=== PATIENT | male | born 1945 | race Caucasian/White ===

== ENCOUNTER 2018-07-13 08:36 | Emergency (ER) | payer MEDICARE, OTHER ==
[~2018-07-13] VITALS: Ht 180.3 cm; Wt 65.9 kg
[~2018-07-13 08:36] MED LIST: ASPI-1 PO; CO Q100C10 PO; CORE6.25 PO; VITA10006 PO; VITA500046 PO; VITATAB11 PO; ZOCO40TA PO
[2018-07-13] MEDS ORDERED: ACET-683 PO (08:49)
[2018-07-13 09:17] LABS: BASO # 0.1 10^3/uL (0.0-0.2); BASO % 0.8 % (0.0-1.0); EOS # 0.2 10^3/uL (0.0-0.50); EOS % 2.7 % (0.0-3.0); HEMATOCRIT 42.7 % (42.0-52.0); HEMOGLOBIN 14.6 g/dl (13.5-17.5); LYMPH # 1.4 10^3/uL (1.5-4.5); LYMPH % 22.3 % (24.0-44.0); MEAN CORPUSCULAR HEMOGLOBIN 34.9 pg (27.0-33.0); MEAN CORPUSCULAR HGB CONC 34.2 g/dl (32.0-36.5); MEAN CORPUSCULAR VOLUME 102.2 fl (80.0-96.0); MONO # 0.6 10^3/uL (0.0-0.8); MONO % 9.9 % (0.0-5.0); NEUTROPHILS % 63.8 % (36.0-66.0); PLATELET COUNT, AUTOMATED 207 10^3/uL (150-450); RED BLOOD COUNT 4.18 10^6/uL (4.30-6.10); WHITE BLOOD COUNT 6.3 10^3/uL (4.0-10.0)
[2018-07-13 09:35] LABS: BLOOD UREA NITROGEN 19 MG/DL (7-18); CALCIUM LEVEL 8.8 MG/DL (8.8-10.2); CARBON DIOXIDE LEVEL 28 MEQ/L (21-32); CHLORIDE LEVEL 106 MEQ/L (98-107); CPK CREATINE PHOSPHOKINASE 175 U/L (39-308); CREATININE FOR GFR 1.03 MG/DL (0.70-1.30); GLOMERULAR FILTRATION RATE > 60.0 (>42); GLUCOSE, FASTING 70 MG/DL (70-100); MB/CK RELATIVE INDEX 2.28 (< OR =4); POTASSIUM SERUM 3.8 MEQ/L (3.5-5.1); SODIUM LEVEL 140 MEQ/L (136-145); TROPONIN I < 0.02 NG/ML (< 0.10)
--- NOTE | 2018-07-13 10:16 | REP ---
REASON: Chest pain. COMPARISON: None. The technique utilized in obtaining the radiograph has magnified the cardiac silhouette and accentuated the interstitial markings. There is a subtle but diffuse increase in the interstitial markings throughout the lung velazquez. There is left CP angle blunting with a subtle left lower lobe opacity. The heart is not enlarged. The osseous structures are within normal limits. IMPRESSION: Mild interstitial edema suspected but needs to be correlated clinically since I have no priors for comparison. There is a small left pleural effusion and a possible developing left lower lobe pneumonia. Electronically Signed by Joesph Joshua DO 07/13/2018 01:50 P
--- NOTE | 2018-07-13 10:51 | REP ---
REASON: Neck pain and radicular symptoms. PRIORS: None. There is advanced disc space narrowing C3-4 through C6-7 with heavy anterior and posterior osteophytic ridging. Flexion and extension is limited. There is bilateral foraminal narrowing from C3-4 to C6-7 inclusive. Hypertrophic degenerative facet and uncovertebral joints are present at every level bilaterally. The dens cannot be effectively evaluated secondary to the superimposition of osseous structures and/or dentition on all views. Although this plain radiographic evaluation of the cervical spine shows no evidence of a fracture, it should be remembered that CT is much more sensitive than plain radiography of the C-spine in detecting fractures. If this examination was ordered to rule out a fracture, then CT of the cervical spine is recommended. IMPRESSION: Advanced chronic changes as described above. Electronically Signed by Joesph Joshua DO 07/13/2018 01:52 P
[2018-07-13] MEDS ORDERED: NAPR-837 PO (13:23)
[2018-07-13 13:30] VITALS: BP 144/76
--- NOTE | 2018-07-13 20:58 | ECGEPIP ---
Stationary ECG Study [facility] - ED Test Date: 2018-07-13 Pat Name: ALMA RICE Department: Room: - Gender: M [employer] Vertical: GINO : 1945 Requested By: Mt Guerra Order Number: [id number] Reading MD: Margareth Madrid Measurements Intervals Cable Rate: 72 P: 59 MI: 152 QRS: 11 QRSD: 102 T: -20 QT: 399 QTc: 437 Interpretive Statements SINUS RHYTHM WITH OCCASIONAL VENTRICULAR PREMATURE COMPLEXES INFERIOR MYOCARDIAL INFARCTION, OF INDETERMINATE AGE INCREASED RATE 8:37 07/11/12 Electronically Signed On 07-13-2018 20:58:42 EDT by Margareth Madrid
--- NOTE | 2018-07-14 07:23 | REP ---
REASON: Back pain and radicular symptoms. COMPARISON MRI: None. The craniovertebral junction is within normal limits. No abnormal signal is seen in the imaged portion of the spinal cord. There is significant disc space narrowing seen at every level, but particularly, universally C3-4 through C6-7 inclusive. There is patchy T2 hypersignal seen in the marrow of C5 and C6. The facet joints are well aligned bilaterally. At the C2-3 level, there is significant motion artifact obscuring the detail. There is no evidence of disc herniation, foraminal narrowing or yoli central canal stenosis. At C3-4, hypertrophic facet and uncovertebral joint changes are present bilaterally causing moderate to severe bilateral foraminal narrowing and moderate central canal stenosis. The anterior surface of the spinal cord is flattened and straightened by a posterior spondylotic bar. There is no evidence of an acute disc extrusion. A covered disc cannot be ruled out. At C4-5, hypertrophic degenerative facet and uncovertebral joint changes are seen bilaterally and causing moderate to severe bilateral foraminal narrowing. Motion artifact obscures the fine detail. There is a posterior spondylotic bar, which obliterates the ventral subarachnoid space and causes a flattening and straightening of the anterior surface of the spinal cord. There is moderate to severe central canal stenosis. There is no evidence of an acute disc extrusion, however, a covered disc cannot be ruled out. At C5-6, there is a posterior spondylotic bar, which obliterates the ventral subarachnoid space and causes a flattening and straightening of the anterior surface of the spinal cord. Hypertrophic degenerative facet and uncovertebral joint changes are present bilaterally causing severe bilateral foraminal narrowing. There is no evidence of an acute disc extrusion, however, a covered disc cannot be ruled out. At C6-7, there is a posterior spondylotic bar. Hypertrophic degenerative facet and uncovertebral joint changes are present bilaterally causing moderate to severe bilateral foraminal narrowing. The ventral subarachnoid space is restricted by the posterior spondylosis but there is no yoli cord compression. There is no evidence of an acute disc extrusion, however, a covered disc cannot be ruled out. At the C7-T1 level, there is no cord compression or disc extrusion. IMPRESSION: 1. Exam limitations as described above. 2. Multilevel discogenic changes causing foraminal narrowing and central canal stenosis as described above. Electronically Signed by Joesph Joshua DO 07/14/2018 01:59 P
--- NOTE | 2018-07-15 14:14 | ED PDOC ---
Post-Departure Follow-Up alaina mckeon faxed formal report of mri c spine for fu Patria Cunningham MD Jul 15, 2018 14:14
== END 2018-07-13 13:43 | disposition home or self-care (01) ==
LOC: M ED 08:36
DX: M54.12 Radiculopathy, cervical region (principal); M48.00 Spinal stenosis, site unspecified; I25.10 Atherosclerotic heart disease of native coronary artery without angina pectoris; I25.2 Old myocardial infarction; E78.5 Hyperlipidemia, unspecified; J44.9 Chronic obstructive pulmonary disease, unspecified; Z95.5 Presence of coronary angioplasty implant and graft; Z85.038 Personal history of other malignant neoplasm of large intestine; Z72.0 Tobacco use; Z79.899 Other long term (current) drug therapy

== ENCOUNTER 2018-08-26 07:22 | Day surgery (SDC) | payer MEDICARE, OTHER ==
[~2018-08-26] VITALS: Ht 177.8 cm; Wt 64.3 kg
[~2018-08-26 07:22] MED LIST changes: +ACET-683 PO; +NAPR-837 PO; +NS 1,000 ML IV ONE; +PROPOFOL 200 MG/20 ML VIAL As Ordered ONE; +VITA-176 PO; +VITA500T PO; +VITATAB73 PO
[2018-08-26 10:00] VITALS: BP 126/75
--- NOTE | 2018-08-26 10:21 | ROOR ---
Patient Name: Herson Kilgore Procedure Date: 08/26/2018 8:50 AM Date of : 1945 Age: 73 Room: [facility] Gender: Male Note Status: Finalized Procedure: Colonoscopy Indications: High risk colon cancer surveillance: Personal history of colon cancer, Last colonoscopy: February 2016, Patient had a right hemicolectomy in 2014 Providers: Herson Dale MD Referring MD: JOE Alford Requesting Provider: Medicines: Monitored Anesthesia Care Complications: No immediate complications. Procedure: Pre-Anesthesia Assessment: - Prior to the procedure, a History and Physical was performed, and patient medications and allergies were reviewed. The patient is competent. The risks and benefits of the procedure and the sedation options and risks were discussed with the patient. All questions were answered and informed consent was obtained. Patient identification and proposed procedure were verified by the physician, the nurse and the anesthesiologist in the procedure room. Mental Status Examination: alert and oriented. Airway Examination: normal oropharyngeal airway and neck mobility. CV Examination: regular rate and rhythm. Prophylactic Antibiotics: The patient does not require prophylactic antibiotics. Prior Anticoagulants: The patient has taken no previous anticoagulant or antiplatelet agents. ASA Grade Assessment: II - A patient with mild systemic disease. After reviewing the risks and benefits, the patient was deemed in satisfactory condition to undergo the procedure. The anesthesia plan was to use monitored anesthesia care (MAC). Immediately prior to administration of medications, the patient was re-assessed for adequacy to receive sedatives. The heart rate, respiratory rate, oxygen saturations, blood pressure, adequacy of pulmonary ventilation, and response to care were monitored throughout the procedure. The physical status of the patient was re-assessed after the procedure. The Colonoscope was introduced through the anus and advanced to the ileocolonic anastomosis. The colonoscopy was performed without difficulty. The patient tolerated the procedure well. The quality of the bowel preparation was good. Findings: The perianal and digital rectal examinations were normal. There was evidence of a prior functional end-to-end ileo-colonic anastomosis in the proximal transverse colon. This was patent and was characterized by healthy appearing mucosa. The anastomosis was not traversed. A 7 mm polyp was found in the mid transverse colon. The polyp was sessile. The polyp was removed with a hot snare. Resection and retrieval were complete. A 3 mm polyp was found in the sigmoid colon. The polyp was sessile. The polyp was removed with a jumbo cold forceps. Resection and retrieval were complete. Estimated blood loss was minimal. Multiple medium-mouthed diverticula were found in the sigmoid colon and descending colon. Impression: - Patent functional end-to-end ileo-colonic anastomosis, characterized by healthy appearing mucosa. - One 7 mm polyp in the mid transverse colon, removed with a hot snare. Resected and retrieved. - One 3 mm polyp in the sigmoid colon, removed with a jumbo cold forceps. Resected and retrieved. - Diverticulosis in the sigmoid colon and in the descending colon. Recommendation: - Discharge patient to home. - Resume previous diet. - Continue present medications. - Await pathology results. Herson Dale MD Herson Dale MD 08/26/2018 10:21:16 AM Electronically signed by Herson Dale MD Number of Addenda: 0 Note Initiated On: 08/26/2018 8:50 AM Estimated Blood Loss: Estimated blood loss was minimal.
== END 2018-08-26 10:31 | disposition home or self-care (01) ==
LOC: M OPP 07:22
PROVIDERS: ATTEND Surgery
DX: D12.3 Benign neoplasm of transverse colon (principal); D12.5 Benign neoplasm of sigmoid colon; K57.30 Diverticulosis of large intestine without perforation or abscess without bleeding; Z98.0 Intestinal bypass and anastomosis status; Z85.038 Personal history of other malignant neoplasm of large intestine

== ENCOUNTER → 2018-09-15 | Outpatient (REF) | payer MEDICARE ==
[~2018-09-15] MED LIST changes: -NS 1,000 ML IV ONE; -PROPOFOL 200 MG/20 ML VIAL As Ordered ONE
[2018-09-15 13:51] LABS: BASO % 0.4 % (0.0-1.0); EOS # 0.2 10^3/uL (0.0-0.50); EOS % 2.1 % (0.0-3.0); HEMATOCRIT 45.7 % (42.0-52.0); HEMOGLOBIN 15.3 g/dl (13.5-17.5); LYMPH # 1.3 10^3/uL (1.5-4.5); LYMPH % 16.3 % (24.0-44.0); MEAN CORPUSCULAR HEMOGLOBIN 34.5 pg (27.0-33.0); MEAN CORPUSCULAR HGB CONC 33.5 g/dl (32.0-36.5); MEAN CORPUSCULAR VOLUME 103.2 fl (80.0-96.0); MONO # 0.6 10^3/uL (0.0-0.8); MONO % 8.1 % (0.0-5.0); NEUTROPHILS # 5.7 10^3/uL (1.8-7.7); NEUTROPHILS % 72.8 % (36.0-66.0); PLATELET COUNT, AUTOMATED 247 10^3/uL (150-450); RED BLOOD COUNT 4.43 10^6/uL (4.30-6.10); WHITE BLOOD COUNT 7.8 10^3/uL (4.0-10.0)
[2018-09-15 14:08] LABS: ALBUMIN 3.6 GM/DL (3.2-5.2); ALT/SGPT 27 U/L (12-78); BILIRUBIN,TOTAL 0.3 MG/DL (0.2-1.0); BLOOD UREA NITROGEN 17 MG/DL (7-18); CALCIUM LEVEL 9.4 MG/DL (8.8-10.2); CARBON DIOXIDE LEVEL 26 MEQ/L (21-32); CHLORIDE LEVEL 107 MEQ/L (98-107); CHOLESTEROL LEVEL 140 MG/DL (<200); CHOLESTEROL RISK RATIO 2.413 (<5); CREATININE FOR GFR 0.94 MG/DL (0.70-1.30); GLOMERULAR FILTRATION RATE > 60.0 (>42); GLUCOSE, FASTING 85 MG/DL (70-100); HDL CHOLESTEROL 58 MG/DL (>40); LDL CHOLESTEROL 62 MG/DL (<100); NON-HDL-C 82 MG/DL; POTASSIUM SERUM 5.2 MEQ/L (3.5-5.1); SODIUM LEVEL 138 MEQ/L (136-145); TOTAL PROTEIN 7.1 GM/DL (6.4-8.2); TRIGLYCERIDES LEVEL 102 MG/DL (<150)
== END ==
LOC: M SFHCADAM 09:21
PROVIDERS: ATTEND Physician Assistant Medical
DX: I25.10 Atherosclerotic heart disease of native coronary artery without angina pectoris (principal); E78.49 Other hyperlipidemia
CPT/HCPCS: 80053; 80061; 84443; 85025; G0463

== ENCOUNTER → 2018-09-29 | Outpatient (CLI) | payer MEDICARE ==
[2018-09-29 13:06] LABS: BASO # 0.1 10^3/uL (0.0-0.2); BASO % 0.7 % (0.0-1.0); EOS # 0.6 10^3/uL (0.0-0.50); EOS % 7.6 % (0.0-3.0); HEMATOCRIT 44.7 % (42.0-52.0); LYMPH # 1.4 10^3/uL (1.5-4.5); MEAN CORPUSCULAR HEMOGLOBIN 34.6 pg (27.0-33.0); MEAN CORPUSCULAR HGB CONC 33.6 g/dl (32.0-36.5); MEAN CORPUSCULAR VOLUME 103.2 fl (80.0-96.0); MONO # 0.9 10^3/uL (0.0-0.8); MONO % 10.5 % (0.0-5.0); NEUTROPHILS # 5.2 10^3/uL (1.8-7.7); NEUTROPHILS % 63.8 % (36.0-66.0); PLATELET COUNT, AUTOMATED 224 10^3/uL (150-450); RED BLOOD COUNT 4.33 10^6/uL (4.30-6.10); WHITE BLOOD COUNT 8.2 10^3/uL (4.0-10.0)
[2018-09-29 13:46] LABS: ALBUMIN 3.5 GM/DL (3.2-5.2); ALT/SGPT 28 U/L (12-78); BILIRUBIN,TOTAL 0.3 MG/DL (0.2-1.0); BLOOD UREA NITROGEN 17 MG/DL (7-18); CARBON DIOXIDE LEVEL 29 MEQ/L (21-32); CHLORIDE LEVEL 107 MEQ/L (98-107); GLOMERULAR FILTRATION RATE > 60.0 (>42); GLUCOSE, FASTING 81 MG/DL (70-100); SODIUM LEVEL 140 MEQ/L (136-145); TOTAL PROTEIN 6.7 GM/DL (6.4-8.2)
--- NOTE | 2018-09-29 15:23 | REP ---
CHEST X-RAY: Two views. HISTORY: Cough. COMPARISON CHEST X-RAY: July 13, 2018. FINDINGS: There is a large mass adjacent to the left superior mediastinum above the level of the transverse aorta measuring up to 7 cm in greatest diameter. Primary lung malignancy must be suspected. Chest CT study is recommended with IV contrast if possible. The lungs are hyperinflated. They are otherwise clear. The pleural angles are sharp. Heart is not enlarged. No hilar mass or adenopathy is seen. The aorta is tortuous and calcific. There are degenerative changes in the thoracic spine. IMPRESSION: Large mass in the left upper lobe superior to the transverse aorta. Chest CT with IV contrast recommended. COPD. Old rib fractures on the right. Electronically Signed by Aly Ford MD 09/29/2018 05:18 P
== END ==
LOC: M WUC 08:46
PROVIDERS: ATTEND Physician Assistant
DX: R91.8 Other nonspecific abnormal finding of lung field (principal); J44.9 Chronic obstructive pulmonary disease, unspecified

== ENCOUNTER → 2018-09-30 | Outpatient (CLI) | payer MEDICARE ==
[~2018-09-30] MED LIST changes: +ISOVUE-370 76% 100ML VIAL (Q9967) As Ordered ONE
--- NOTE | 2018-09-30 14:00 | REP ---
CT CHEST WITH IV CONTRAST: HISTORY: Cough. Abnormal lung field findings on chest x-ray September 29, 2018. CT CONTRAST DOSE: 75 mL of intravenous Isovue [address] FINDINGS: CT study confirms the presence of a large infiltrative mass in the mediastinum at and superior to the aortic arch. The mediastinal component of the mass completely surrounds the left subclavian artery. The left common carotid artery appears to be nearly surrounded by the neoplasm as well. The disease abuts the origin of the brachiocephalic artery. There is no observable fat plane between the superior aspect of the aortic arch and the lesion. There is no fat plane visible between the lesion and the left lateral wall of the esophagus. The esophagus and trachea are displaced somewhat to the right. There is a nodular component in the left upper lobe superior to the left hilus which extends into or originates from the lung. This nodular component measures 3.5 x 2.7 cm in greatest dimension. The overall dimensions of the left superior mediastinal mass are 5.5 x 5.6 x 7.3 cm. There is advanced emphysematous change in the upper lobes bilaterally and to a lesser extent in the lower lobes. There is no evidence of pleural effusion. No pericardial effusion is seen. There are several AP window region and left rolo-carinal mediastinal lymph nodes which are small but suspicious. No supraclavicular lymphadenopathy is appreciated. No bony destructive lesion is appreciated. No adrenal lesion is seen. There is a large cyst in the lower pole left kidney which is incompletely included in the field of view. This measures up to 9.6 cm in greatest diameter. There is a smaller cyst in the upper pole of the right kidney. No adrenal lesion is appreciated on either side. Visualized upper abdominal structures are otherwise unremarkable. IMPRESSION: Findings compatible with advanced bronchogenic malignancy left upper lobe with infiltration and an adenopathy in the mediastinum. There is evidence of vascular involvement and the trachea and esophagus are displaced to the right. There is advanced COPD. Bilateral renal cysts. Electronically Signed by Aly Ford MD 09/30/2018 04:57 P
== END ==
LOC: M RAD 11:56
PROVIDERS: ATTEND Physician Assistant
DX: R91.8 Other nonspecific abnormal finding of lung field (principal); J44.9 Chronic obstructive pulmonary disease, unspecified; N28.1 Cyst of kidney, acquired
CPT/HCPCS: 71260; Q9967

== ENCOUNTER → 2018-11-03 | Outpatient (CLI) | payer OTHER ==
[~2018-11-03] MED LIST changes: +CRES40TA PO; -ISOVUE-370 76% 100ML VIAL (Q9967) As Ordered ONE; +LIDOCAINE 1% MDV 20ML VIAL As Ordered ONE; +MIDAZOLAM INJ 2 MG/2 ML VIAL (J2250) As Ordered ONE; +VITA-157 PO; +ceFAZolin 1GM INJ (J0690 PER 500MG) As Ordered ONE; +diphenhydrAMINE INJ 50MG/ML VIAL (J1200) As Ordered ONE; +fentaNYL 100 MCG/2 ML INJECTION (J3010) As Ordered ONE
--- NOTE | 2018-11-03 14:07 | IRHP ---
[facility] IR Pre-Procedure H & P General Date of Service: Nov 03, 2018 Procedure: Same Day Surgery Interval History and Physical I have seen the patient and reviewed last H & P performed within 30 days. There is no significant interval change. History of Present Illness Chief Complaint The patient is a 73-year-old male admitted with a reason for visit of Non Small Cell Lung Ca. PRE-PROCEDURE DIAGNOSIS: lung ca HEART: normal rate. LUNGS: normal breathing at rest. ASA Classification ASA Classification: II-Mild systemic disease Mallampati Score: I NPO: Yes Problems with prior sedation: No Obstructive Sleep Apnea: No Plan moderate sedation Allergies Coded Allergies: hydrocodone (Verified Allergy, Unknown, n/v, 08/19/18) oxycodone (Verified Allergy, Unknown, n/v, 08/19/18) Home Medications Scheduled Ascorbic Acid (Vitamin C), 1,000 MG PO DAILY, (Reported) Aspirin (Aspirin), 325 MG PO DAILY, (Reported) Carvedilol (Coreg), 6.25 MG PO BID, (Reported) Cholecalciferol (Vitamin D3) (Vitamin D3), 1,000 UNIT PO DAILY, (Reported) Rosuvastatin Calcium (Crestor), 40 MG PO DAILY, (Reported) Ubidecarenone/Vit E Acet (Co Q-10 100 mg Softgel), 100 MG PO DAILY, (Reported) Vitamin B Complex (Vitamin B Complex), 1 TAB PO DAILY, (Reported) Scheduled PRN Acetaminophen (Acetaminophen), 2 TAB PO Q6HP PRN for PAIN, (Reported) Miscellaneous Medications Vitamin E (Dl,Tocopheryl Acet) (Vitamin E), 400 UNIT PO, (Reported) Discontinued Medications Simvastatin (Zocor), 40 MG PO QHS, (Reported) Discontinued Reason: Pt states not taking VS, I&O, 24H, Fishbone Vital Signs/I&O Vital Signs Date Time Temp Pulse Resp B/P (MAP) Pulse Ox O2 Delivery O2 Flow Rate FiO2 11/03/18 13:41 98.3 79 18 97 [place] MD Nov 03, 2018 14:07
--- NOTE | 2018-11-03 15:43 | POST-OPPD ---
Postoperative Procedure Note Date Of Procedure: Nov 03, 2018 Time Of Procedure: 15:39 PREOPERATIVE DIAGNOSIS: Lung ca POSTOPERATIVE DIAGNOSIS: Lung ca FINDINGS: patent right IJ PROCEDURE: right IJ port placed SURGEON: kirsten ANESTHESIA: moderate sedation ESTIMATED BLOOD LOSS: < 5 ml COMPLICATIONS: none POSTOPERATIVE CONDITION: stable [place] MD Nov 03, 2018 15:43
--- NOTE | 2018-11-03 16:34 | REP ---
IR Ultrasound and fluoroscopy-guided port placement. IR Ultrasound of the neck. IR Moderate sedation. Clinical information: Lung cancer. Port for chemotherapy. Physician: Dr. Walker. Procedure: The patient was advised of the benefits, risks, and alternatives of the procedure and informed consent was obtained. A time-out was performed with verification of the patient's name, MRN, site of procedure and type of procedure to be performed. The patient was positioned in the supine position on the angiographic table. The site was prepped and draped in the usual sterile fashion. Moderate sedation was performed by the physician including the presence of an independent trained observer who assisted and monitored the patient's level of consciousness and physiologic status. Following the administration of Fentanyl and Versed, the physician spent 45 minutes of continuous face to face time with the patient. Ultrasound of the neck reveals a patent and compressible right internal jugular vein. A scouts radiograph reveals no pertinent abnormality. The neck and anterior chest wall were anesthetized with lidocaine. The right internal jugular vein was accessed using a microintroducer needle by a lateral approach. An 018 wire was advanced into the superior vena cava, the needle was removed and a microsheath was placed. An Amplatz wire was then passed into the inferior vena cava. An incision at the internal jugular vein access site and anterior chest wall were made using a scalpel. An incision was made at the anterior chest wall. A small pocket was created using a combination of blunt and sharp dissection. A tunneling device was then used to pass the catheter from the pocket to the neck puncture site. An 8-[employer] smart power port was then positioned in the pocket. The catheter was then measured and cut. The introducer sheath was exchanged for a peel-away sheath. The catheter was passed through the peel-away sheath into the internal jugular vein and the peel-away sheath was removed. The port tip was positioned at the cavo atrial junction. The port was then accessed with a James needle. The port flushes and aspirates well. The puncture site in the neck was closed. The chest wall incision was then closed with 2-0 Vicryl and 4-0 Monocryl. Glue and Steri-Strips were applied. A sterile dressing was then applied. The patient tolerated the procedure well and was returned to the PRU in stable condition. Estimated blood loss: <5 ml. Complications: None. Conclusion: 1. Successful placement of an 8-[employer] smart power port via the right internal jugular vein. The port is ready for immediate use. 2. Patient to follow up in IR clinic in 2 weeks. Thank you for this referral. Electronically Signed by Carley Walker MD 11/03/2018 04:32 P
[2018-11-03 17:30] VITALS: BP 141/76
== END ==
LOC: M IRPRO 12:41
PROVIDERS: ATTEND Radiology Diagnostic Radiology
DX: C34.90 Malignant neoplasm of unspecified part of unspecified bronchus or lung (principal)
CPT/HCPCS: 36563; 76937; 77001; 99152; 99153; C1769; C1788; C1894; J0690; J1200; J2250; J3010

== ENCOUNTER → 2018-11-13 | Outpatient (CLI) | payer MEDICARE, OTHER ==
[~2018-11-13] MED LIST changes: +BAYE325T16 PO; +CARB10VI IV; +CARV6.25 PO; +DECA4TAB PO; +FLUC10TA PO; +GABA-843 PO; +LIDO2.5C15 TOP; -LIDOCAINE 1% MDV 20ML VIAL As Ordered ONE; +MAGICMW SSP; -MIDAZOLAM INJ 2 MG/2 ML VIAL (J2250) As Ordered ONE; +ONDA8TAB10 PO; +OXYC10TA12 PO; +PACL1INJ2 IV; +ROSU40TA4 PO; +SILV40CR EXT; +[UNRECOGNIZED DRUG - CODE] IV; -ceFAZolin 1GM INJ (J0690 PER 500MG) As Ordered ONE; -diphenhydrAMINE INJ 50MG/ML VIAL (J1200) As Ordered ONE; -fentaNYL 100 MCG/2 ML INJECTION (J3010) As Ordered ONE
--- NOTE | 2018-11-18 16:12 | RADONC ---
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 ECOG PERFORMANCE STATUS: 1 CONSULTATION NOTE: Mr. Kilgore is a very pleasant, 73-year-old white male with the diagnosis of what appears to be a stage III B, T4, N3, M0 non-small cell lung carcinoma who is presenting to us today for discussion of possible external beam radiation therapy in attempt to increase the likelihood of achieving local control. HISTORY OF PRESENT ILLNESS: The patient was in his usual state of health until a few months back when he began developing hoarseness. This has been worsening over the past several weeks to months. He was seen by the MA, was noted to have an upper respiratory tract infection. He has a long history of severe emphysema. A chest x-ray was done and showed some fullness in the left upper lobe. This was followed by CT scan done here on 09/30/2018, which showed a large infiltrative mass in the mediastinum superior on the left side of the aortic arch. The mediastinal part of the mass surrounded the left subclavian artery. The left common artery was also nearly completely surrounded by the mass. The disease abutted the brachiocephalic artery. There was no fat plane between the superior aspect of the aortic arch in the lesion. There was no fat plane visible between the lesion in the left lateral wall of the esophagus. The esophagus and trachea are displaced somewhat to the right. There was a nodular component of the left upper lobe, which extends into the lung. The nodular component was 3 x 5 x 2.7 cm. The overall dimension of the left supramediastinal mass was 5.5 x 5.6 x 7.3 cm. There were noted to be advanced emphysematous changes present throughout the lungs. On 10/07/2018, the patient underwent biopsy and pathology was positive for a poorly differentiated carcinoma with extensive necrosis. The patient noted to have difficulty with speech and must breathe in between speaking after just two words or so. The patient's family reports that this has been going on for some time now. The patient however says he can walk upstairs. Pulmonary function tests were done at the [facility] in [place] on 10/21/2018 and the patient is reported to have an FEV-1 of 2.17. He is now presenting for discussion of external beam radiation therapy. PAST MEDICAL HISTORY: The patient's past medical history is positive for angina pectoris. He also had a history of colon cancer and is status post colectomy. The patient has had cardiac stents placed. He has eczema. He has a history of emphysema. He has had a hernia repair and coronary artery disease. He has hyperlipidemia and sinusitis. He has a history of hypertension as well. SOCIAL HISTORY: The patient has smoked 2-1/2 to 3 packs of cigarettes per day for 55 years. This is a 138-year pack-year smoking history. He is an active drinker. He reports that he just recently quit smoking; admits smoking but in reality has substituted cigarettes with cigars. ALLERGIES: The patient has NO KNOWN DRUG ALLERGIES. FAMILY HISTORY: The patient's family history is positive for a father with lymphoma, a mother with some type of cancer, a sister with non-Hodgkin's lymphoma as well as colon cancer and breast cancer through the family. REVIEW OF SYSTEMS: The patient's review of systems is positive for his decreased energy and a 20 pound weight loss over the past several months. His review of systems is otherwise noncontributory. Denies nausea, vomiting, fevers, chills, night sweats, diplopia, headaches, anxiety or depression, anorexia, weight loss, visual disturbances, chest pain, urinary or bowel difficulties, bone pain, or neurological problems. PHYSICAL EXAMINATION: The patient is a well-developed, well-nourished male in no acute distress. HEENT exam is normocephalic, atraumatic. Extraocular movements are intact. There is no palpable cervical, supraclavicular, infraclavicular, axillary, or inguinal lymphadenopathy present. The patient's lungs reveals distant breath sounds bilaterally. There is no evidence of wheezing, rales or rhonchi. Lungs are clear. Heart has a regular rate and rhythm. Abdomen is benign with no hepatosplenomegaly, masses, or tenderness. Skeletal examination reveals no tenderness to pressure or percussion of the bony skeleton. Extremities reveal no clubbing, cyanosis, or edema. Neurologic exam is grossly intact, as is the remainder of the physical examination. ASSESSMENT: I had a lengthy discussion with this patient and his family. I must say that I truly do not believe the results of his pulmonary function study. The patient is unable to speak without breathing after every two words or so. Just the sound of his voice appears to show difficulty breathing. I find it very difficult to believe considering his lack of ability to complete a sentence without grabbing breaths and his extensive emphysema clearly visible on CAT scan that the pulmonary function tests shows such excellent results. Because of this I cannot say whether or not I would offer this patient radiation until further evaluation is undertaken. The patient reports that he was told that his breathing issues may be due to tracheal compression. I have personally reviewed and reviewed with the patient and his family the CT scans. There is no evidence of tracheal compression present. Nor do I hear any evidence of wheezing or any sign of central airway obstruction on my physical examination. In light of this, I have ordered new pulmonary function tests to be undertaken. In addition, we are attempting to obtain the actual CD with the actual CT scans and PET scans done at the [facility] [address]. We have now put in three request and still do not have those studies. I need those studies to further evaluate this patient and undertake treatment planning. We will continue to attempt and obtain those actual images. I have placed this patient on our list for discussion at our multidisciplinary tumor conference on Saturday. I have ordered a differential lung scan to be undertaken as well in order to evaluate the patient's ventilation and perfusion. Furthermore, I have ordered a CT simulation to be done in order to generate a dose volume histogram. The dose volume histogram will be utilized to compare with his new pulmonary function tests and differential lung scan in order to evaluate whether or not this patient can tolerate local regional radiation for local control. I did discuss with the patient and his family in detail the potential benefits as well as possible acute and chronic sequelae of external beam radiation. We discussed logistics of treatment planning, simulation and subsequent fractionated daily radiation treatments. The patient's family is well aware that I have reservations with regards to his overall breathing issues and that we will be further evaluating this with more studies. Further recommendations will be made when we obtain the necessary information. Thank you for allowing us to participate in the care of this very pleasant gentleman. I will keep you informed as to any new developments as they occur. As always, warm regards. cc: MD Jenelle Franks MD
== END ==
LOC: M ONCR 08:53
PROVIDERS: ATTEND Radiology Radiation Oncology
DX: C34.90 Malignant neoplasm of unspecified part of unspecified bronchus or lung (principal)

== ENCOUNTER → 2018-11-14 | Outpatient (CLI) | payer OTHER ==
--- NOTE | 2018-11-14 11:15 | REP ---
NUCLEAR DIFFERENTIAL LUNG VENTILATION AND PERFUSION SCAN: Following the intravenous administration of 1.1 mCi of technetium-99m tagged MAA and the inhalation of 2 mCi of technetium-99m DTPA aerosol images of both lungs are obtained in the anterior and posterior projections. There are non-segmental perfusion defects in both upper lobes with larger ventilation defects. Differential counts are obtained in the upper, middle, and lower thirds of each lung. Mean perfusion of left lung is 46.5% and right lung 53.5%. Mean ventilation of the left lung is 44.1% and right lung 55.9%. Electronically Signed by Alpesh Cobb MD 11/16/2018 10:44 P
--- NOTE | 2018-11-14 11:33 | REP ---
PA and lateral chest: Comparison studies are the PA and lateral chest dated 09/29/[address] dated 09/30/2018. Large mass medially in the left upper lobe is again identified, not significantly changed. Remainder of the left lung is clear. The right lung is clear except for minor discoid atelectasis inferiorly. There has been interval placement of a right IJ [id number] with the tip in the right atrium in satisfactory location. There is no pneumothorax. Cardiac size is normal. The stephy are unremarkable. Skeletal structures are unremarkable. Impression: Large mass medially in the left upper lobe, not significantly changed. There has been interval placement of a right IJ central venous catheter. Discoid atelectasis inferiorly in the right lung. Electronically Signed by Alpesh Healy MD 11/14/2018 11:25 A
== END ==
LOC: M RAD 09:22
PROVIDERS: ATTEND Radiology Radiation Oncology
DX: C34.90 Malignant neoplasm of unspecified part of unspecified bronchus or lung (principal)
CPT/HCPCS: 71046; 78598; A9540; A9567

== ENCOUNTER 2018-11-18 09:52 | Outpatient (RCR) | payer OTHER ==
[~2018-11-18 09:52] MED LIST changes: -BAYE325T16 PO; -CARB10VI IV; -CARV6.25 PO; -DECA4TAB PO; -FLUC10TA PO; -GABA-843 PO; -LIDO2.5C15 TOP; -MAGICMW SSP; -ONDA8TAB10 PO; -OXYC10TA12 PO; -PACL1INJ2 IV; -ROSU40TA4 PO; -SILV40CR EXT; -[UNRECOGNIZED DRUG - CODE] IV
--- NOTE | 2018-11-20 07:28 | RADONC ---
RADIATION ONCOLOGY SIMULATION NOTE DATE: 11/18/2018 CHART #: [id number] Mr. Kilgore was taken to the CT scan for CT simulation of his lung field. CT was accomplished without difficulty or discomfort. Radiation treatment planning is underway. We await redo of his pulmonary function test. In addition, I am presenting him at our multidisciplinary tumor conference tomorrow. will complete our studies and evaluation prior to making any overall decisions. I was present throughout simulation. [facility]
[2018-12-22] MEDS ORDERED: DECA4TAB PO (10:25)
[2018-12-22] MEDS ORDERED: GABA-843 PO (10:27)
[2018-12-22] MEDS ORDERED: OXYC10TA12 PO (10:30)
[2018-12-22] MEDS ORDERED: ONDA8TAB10 PO (10:55)
[2019-01-07] MEDS ORDERED: LIDO2.5C15 TOP (08:51)
[2019-01-07] MEDS ORDERED: MAGICMW SSP (08:52)
[2019-01-12] MEDS ORDERED: FLUC10TA PO (10:42)
[2019-01-19] MEDS ORDERED: SILV40CR EXT (10:29)
[2019-03-03] MEDS ORDERED: ONDA8TAB10 PO (10:45)
== END 2018-11-22 ==
LOC: M ONCR 09:52
PROVIDERS: ATTEND Radiology Radiation Oncology
DX: C34.90 Malignant neoplasm of unspecified part of unspecified bronchus or lung (principal)

== ENCOUNTER → 2018-11-19 | Outpatient (CLI) | payer OTHER ==
--- NOTE | 2018-11-19 15:15 | PFTRPT ---
Height: 70.00 Inches Weight: 151.00 Lbs BSA: 1.85 Diagnosis: C34.90 DATE OF PROCEDURE: 11/19/2018 ORDERED BY: Dr. Alpesh Reza Spirometry: Pre and post bronchodilator study of excellent technical quality. Forced vital capacity reduced. FEV1 out of proportion. Obstructive index is, therefore, reduced. Flow Volume Loop: Expiratory limb of the flow volume loop is consistent with flow rate limitation. No significant bronchodilator response is identified. Lung Volumes: Total lung capacity normal. Residual volume does suggest air trapping. Diffusing Capacity: Diffusing capacity is significantly reduced and does not correct for alveolar volume. Hemoglobin: No hemoglobin available for correction. Airway Mechanics: Airway resistance and conductance are normal. IMPRESSION: At least a mild obstructive ventilatory impairment with underlying air trapping. Significant diffusing capacity impairment. Please correlate clinically. MTDD
== END ==
LOC: M CARPUL 14:31
PROVIDERS: ATTEND Radiology Radiation Oncology
DX: C34.90 Malignant neoplasm of unspecified part of unspecified bronchus or lung (principal)

== ENCOUNTER → 2018-12-22 | Outpatient (RCR) | payer OTHER ==
--- NOTE | 2018-12-17 06:20 | RADONC ---
RADIATION ONCOLOGY PROGRESS NOTE DATE: 12/15/2018 CHART #: [id number] Mr. Kilgore underwent his first fraction of radiation today for a dose of 180 cGy to his left lung. It was tolerated without difficulty or discomfort. PHYSICAL EXAMINATION: The patient's skin clearly showed no evidence of radiation change present. There was no moist or dry desquamation since this was his first fraction of treatment. We had waited as long as I felt we could before starting. The patient has not yet started his systemic therapy, but we have been working closely with our medical oncology division and hopefully chemotherapy will start for concomitant treatment very shortly without much further delay.
[~2018-12-22] MED LIST changes: +DECA4TAB PO; +GABA-843 PO; +ONDA8TAB7 PO; +OXYC10TA12 PO
--- NOTE | 2018-12-22 13:38 | RADONC ---
RADIATION ONCOLOGY PROGRESS NOTE DATE: 12/22/2018 CHART #: [id number] Mr. Kilgore is presently at a dose of 1080 cGy to his left lung and is tolerating treatments quite well at this point with no significant difficulties related to his radiation therapy. He continues to have some discomfort and pain, but has been given pain medication by his medical oncologist. As of today, the patient has still not initiated chemotherapy. I discussed with him once again the need to start chemotherapy and apparently the patient has now been scheduled to initiate his chemo this week. REVIEW OF SYSTEMS: The patient's review of systems is positive for continued cough and fatigue, but is generally otherwise noncontributory except for pain over his back and shoulders. He denies nausea, vomiting, fevers, chills, night sweats, diplopia, headaches, anxiety, depression, anorexia, weight loss, or visual disturbances. PHYSICAL EXAMINATION: The patient's skin is in good condition with no evidence of moist or dry desquamation. The remainder of his physical exam remains unchanged. Mr. Kilgore is tolerating treatments quite well and radiation will continue as scheduled.
== END ==
LOC: M ONCR 12-03 11:43
PROVIDERS: ATTEND Radiology Radiation Oncology
DX: C34.12 Malignant neoplasm of upper lobe, left bronchus or lung (principal)

== ENCOUNTER 2019-01-21 09:11 | Outpatient (RCR) | payer OTHER ==
--- NOTE | 2018-12-30 10:04 | RADONC ---
RADIATION ONCOLOGY PROGRESS NOTE DATE: 12/29/2018 CHART NUMBER: [id number] PROGRESS NOTE: Mr. Kilgore is presently at a dose of 1980 cGy to his left lung and is tolerating treatments quite well at this point with no complaints related to his radiation therapy. Indeed, he reports that he appears to be breathing somewhat better. He is having no difficulty swallowing. REVIEW OF SYSTEMS: The patient's review of systems continues to be positive for back pain. He reports that his medication given by Dr. Elias has largely helped that situation. In addition, the patient reports that he has some shortness of breath but that appears to be improving. He has not vomited but he reports that he has got some nauseousness and he is afraid to eat because the food may come back up. PHYSICAL EXAMINATION: The patient's skin is in good condition with no evidence of moist or dry desquamation. The remainder of his physical exam remains unchanged. Mr. Kilgore overall is tolerating treatments quite well. I have given him some dietary instructions. We will continue to follow him closely. His weight today is actually is down again 5 pounds from last week and is 142.4 pounds. We will continue to monitor him. Radiation will continue in the meantime. Edited: 12/30/2018 Coleen whitman
--- NOTE | 2019-01-05 15:41 | RADONC ---
RADIATION ONCOLOGY PROGRESS NOTE DATE: 01/05/2019 CHART NUMBER: [id number] PROGRESS NOTE: Mr. Kilgore is presently at a dose of 2880 cGy to his left lung and is tolerating treatments quite well at this point with no complaints related to his radiation therapy. He reports no increased difficulty breathing or other problems. REVIEW OF SYSTEMS: The patient's review of systems is noncontributory. Denies nausea, vomiting, fevers, chills, night sweats, diplopia, headaches, anxiety or depression, anorexia, weight loss, visual disturbances, chest pain, urinary or bowel difficulties, bone pain, or neurological problems. PHYSICAL EXAMINATION: The patient's skin is in good condition with no evidence of radiation change present. There is no moist or dry desquamation. The remainder of his physical exam remains unchanged. Mr. Kilgore is tolerating treatments quite well and radiation will continue as scheduled.
--- NOTE | 2019-01-08 09:33 | MEDONC ---
HEMATOLOGY/ONCOLOGY PROGRESS NOTE DATE OF SERVICE: 01/07/2019 This is a very pleasant 73-year-old gentleman who is here today on followup and evaluation of stage IIIB advanced bronchogenic nonsmall-cell carcinoma poorly differentiated. The patient is ROS1, EGFR negative, and PD-L1 1% to 49% positive by IHC testing. He is on weekly chemotherapy with carboplatin and Taxol. He is due for treatment cycle number three. The patient has remained with some general hoarseness, had some general fatigue, is able to eat. Some taste changes have been occurring. ( ALK testing was requested form [facility] and is pending) Treatment/Diagnostic History 1. 09/30/2018 Patient was seen at the [facility] due to persistent cough underwent imaging studies, the patient had a CT scan of the chest done on which showed a large infiltrative mass in the mediastinum at the superior part to the aortic arch. The mediastinal component of the mass completely surrounds the left subclavian artery. The left common carotid artery appears to be nearly surrounded by the neoplasm, as well. The disease abuts the origin of the brachiocephalic artery. There was no observable fat plane between the superior aspect of the aortic arch and the lesion. There is no fat plane visible between the lesion in the left lateral wall of the esophagus. The esophagus and trachea are displaced somewhat to the right. There is a nodular component in the left upper lobe superior to the left which extends into or originates from the lung. This nodular component measures 3 x 5 x 2.7 cm in its greatest dimension. The overall dimensions of the left superior mediastinal mass 5 x 5 x 5.6 x 7.3 cm. Of note, there is also advanced emphysematous changes in the upper lobes bilaterally and to a lesser extent in the lower lobes. There is no evidence of any pleural effusion. No pericardial effusion is noted. There is several AP window region and left pericarinal mediastinal lymph nodes which appear small but is suspicious. There is no evidence of any bony destructive lesion. No adrenal lesion is noted. There is a cyst in the kidney on the left that measures 9.6 cm. Stage IIIB NSCLCa. 2. Patient started on Combined modality chemotherapy and radiation on 12/24/2018 with weekly taxol . Plan is to give weekly x7 while on XRT and then after 21 days to fgive taxol at 200 mg /m2 and carbo at an AUC 6 x2 , then reimage with CT scans His allergies are to HYDROCODONE. His past medical history has remained unchanged since his date of service of 10/27/2018. On his current medications, he is on acetaminophen, ascorbic acid, aspirin, carvedilol, dexamethasone as a premedication for chemotherapy, cholecalciferol, gabapentin one capsule - he is on 300 mg p.o. t.i.d., ondansetron, oxycodone, Crestor 40 mg p.o. daily, and coenzyme Q 10 100 mg p.o. daily, vitamin B complex, and vitamin E. REVIEW OF SYSTEMS: On the patient's review of systems is: He is otherwise tired, fatigued. Some soreness on swallowing, but he is still able to eat. No indigestion. Takes a nap and is tired at the end of the day each and every day. No nausea or vomiting is reported. 1. Constitutional: No weight loss, fever, chills, or night sweats. 2. Eyes: No blurring of vision. No visual loss, partial or complete. No tearing, redness. 3. Ear, Nose, Throat, and Mouth: No hearing loss, sinusitis, sore throat, dental problems, tooth pain. Denies dysphagia, mouth sores, bleeding. 4. Respiratory: Denies asthma, wheezing, cough, sputum production. 5. GI: No nausea, vomiting, diarrhea, or constipation, change in color or caliber of stool. No hemorrhoids. No rectal bleeding. No hematemesis, heartburn. 6. : No hematuria, dysuria, frequency, stones. 7. CV: No chest pain, palpitations, murmur, fainting, lightheadedness, or chest pressure. 8. Endocrine: No cold or heat intolerance, diabetes, polyuria, polydipsia. 9. Musculoskeletal: No new joint stiffness, joint swelling, myalgias, gout. 10. Allergy/Immunology: No new allergies to food, medications. 11. Hematological: Denies bruising, bleeding, lymph node enlargement. 12. Psychiatric: Denies depression, agitation, memory loss, panic attacks. 13. Skin: Denies rashes, moles, dryness, pigment changes. 14. Neurologic: Denies dizziness, syncope, seizures, vertigo, weakness, tremor. On his physical examination, his ECOG is about 1/4, his weight is 63.4 kg, BMI is 20, temperature is 97, pulse is 85, respiratory rate is 18, BP is 99/64, and pulse oximetry is 95. His HEENT is normocephalic, atraumatic. PERRL. EOMI. Sclerae white, anicteric. Oropharynx is otherwise clear. Neck is supple with no adenopathy. Chest is clear to auscultation and percussion. Cardiovascular: S1 and S2 are appreciated with no murmurs. Abdomen is otherwise soft, flat. Extremities: No edema. Laboratories from 01/07/2019 show a WBC count of 2.1, hemoglobin 13 over hematocrit 41, MCV of 104, platelet counts are 234, and absolute neutrophil counts are 1700. ASSESSMENT: 1. Stage IIIB nonsmall-cell lung carcinoma. 2. Chemotherapy-induced neutropenia. 3. Neuropathy. 4. 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 PLAN: 1. Continue chemotherapy. 2. Add Neupogen 300 mcg subcu daily times two after each weekly treatment of his chemotherapy. Continue to maintain radiation. Magic mouthwash was also sent and ordered for the patient for a potential need with his future dosing. Electronically Signed by Jenelle Elias MD 01/08/2019 01:10 P DD: Jenelle Elias MD 01/07/2019 09:29 A DT: aml 01/08/2019 09:18 A CC: Alpesh Reza MD
--- NOTE | 2019-01-13 08:30 | RADONC ---
RADIATION ONCOLOGY PROGRESS NOTE DATE: 01/12/2019 CHART NUMBER: [id number] The patient has a diagnosis of a malignant neoplasm of the lung (left bronchus) stage IIIC - T4N3M0. He is currently receiving external beam radiotherapy and his dose to date is 3780 cGy of an anticipated 5040 cGy to be reevaluated for potential further boosting as tolerated thereafter. Thus far the patient has no real complaints referable to his treatments with the exception of some odynophagia which has resulted in a 14 pound weight loss since he began his radiotherapy. He denies any nausea, vomiting, coughing, sputum production or hemoptysis, although he is hoarse. His energy level is diminished but he has lost 14 pounds since the beginning of the treatment. The patient does not complain of any skin irritation. The remainder of the review of systems is unchanged. EXAMINATION FINDINGS: Skin within the irradiated volume shows no significant erythema and no focal desquamation. There is no palpable peripheral lymphadenopathy. The patient has evidence of oral candidiasis perhaps explaining the odynophagia and dysphagia with subsequent weight loss. There is no palpable lymphadenopathy noted. Lungs are distant consistent with COPD. Heart unchanged. The remainder of the physical examination is unchanged. IMPRESSION: The patient now has evidence of oral candidiasis. PLAN: A prescription was given for Diflucan 100 mg twice a day. Treatments will continue. MTDD
--- NOTE | 2019-01-19 11:54 | RADONC ---
RADIATION ONCOLOGY PROGRESS NOTE DATE: 01/19/2019 CHART NUMBER: [id number] PROGRESS NOTE: Mr. Kilgore is presently at a dose of 4680 cGy to his left lung and is tolerating treatments quite well at this point with no significant complaints related to his radiation therapy other than some tenderness of the skin over his back. REVIEW OF SYSTEMS: The patient's review of systems is positive for some tenderness of the skin of his back but is otherwise noncontributory. Denies nausea, vomiting, fevers, chills, night sweats, diplopia, headaches, anxiety or depression, anorexia, weight loss, visual disturbances, chest pain, urinary or bowel difficulties, bone pain, or neurological problems. PHYSICAL EXAMINATION: The skin over the patient's treated field over his back shows some erythema and tanning present as well as small areas of some moist desquamation. The remainder of his physical exam remains unchanged. Mr. Kilgore is tolerating his treatments fairly well and radiation will continue as scheduled. In addition, I have sent in a prescription for Silvadene to be applied topically to the skin of his back.
[~2019-01-21 09:11] MED LIST changes: +FLUC10TA PO; +LIDO2.5C15 TOP; +MAGICMW SSP; +SILV40CR EXT
--- NOTE | 2019-01-21 13:04 | RADONC ---
RADIATION ONCOLOGY TREATMENT SUMMARY DATE OF SERVICE: 01/21/2019 CHART NUMBER: [id number] DIAGNOSIS: Non-small cell lung carcinoma of the left upper mediastinal region. ECOG PERFORMANCE STATUS: 1. TREATMENT SUMMARY: Mr. Kilgore is very pleasant 73-year-old white male with the diagnosis what appears to be a stage III C, T4N3M0 non-small cell lung carcinoma who presented to us for a possibility of external beam radiation therapy in an attempt to increase the likelihood of achieving local control. We treated the patient to his mediastinum for a dose of 5040 cGy delivered in 28 fractions of 180 cGy each over 36 elapsed days from 12/15/2018 through 01/21/2019. The patient's mediastinum was treated on the linear accelerator utilizing a 15 MV photon beam via 3-D conformal technique. We initially hoped to deliver additional radiation but unfortunately in order to go further with our radiation treatments too much normal lung would be in our irradiation field for this patient tolerated. We therefore stopped at a of a palliative dose in the hopes of increasing the likelihood of local control. Mr. Kilgore tolerated his treatments quite well and was able complete therapy as prescribed without interruption. I have scheduled the patient to see me again in 1 month for further followup. He will also continue to be followed by his other physicians as well. cc: MD Jenelle Franks MD
== END 2019-01-22 ==
LOC: M ONCR 09:11
PROVIDERS: ATTEND Radiology Radiation Oncology
DX: C34.12 Malignant neoplasm of upper lobe, left bronchus or lung (principal)

== ENCOUNTER → 2019-02-18 | Outpatient (CLI) | payer OTHER, MEDICARE ==
--- NOTE | 2019-02-22 08:24 | RADONC ---
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 STAGE: IIIC, T4, N3, M0. ECOG PERFORMANCE STATUS: 1. FOLLOWUP NOTE: Mr. Kilgore is very pleasant 73-year-old white male with the diagnosis what appears to be a stage IIIC, T4, N3, M0, non-small cell lung carcinoma who is presenting to us today for routine followup visit 1 month post completion of external beam radiation therapy. The patient presents today reporting that generally he is doing quite well. He reports his energy is improved and he is able to swallow better. He still has some slight issues with dry foods but otherwise overall feels better. He continues have hoarseness. He is at this time continuing with his systemic therapy and is being seen every 1-2 weeks by medical oncology. The patient's review of systems is positive for hoarseness and some slight difficulties with swallowing but is otherwise noncontributory. He denies nausea, vomiting, fevers, chills, night sweats, diplopia, headaches, anxiety or depression, anorexia, weight loss, visual disturbances, chest pain, urinary or bowel difficulties, bone pain, or neurological problems. PHYSICAL EXAMINATION: The patient is a well-developed, well-nourished male in no acute distress. HEENT exam is normocephalic, atraumatic. Extraocular movements are intact. There is no palpable cervical, supraclavicular, infraclavicular, axillary, or inguinal lymphadenopathy present. Lungs are clear to auscultation and percussion. Heart has a regular rate and rhythm. Abdomen is benign with no hepatosplenomegaly, masses, or tenderness. Rectal examination reveals a normal anal sphincter tone. His prostate is smooth with no evidence of nodularity. Skeletal examination reveals no tenderness to pressure or percussion of the bony skeleton. Extremities reveal no clubbing, cyanosis, or edema. Neurologic exam is grossly intact as is the remainder of the physical examination. ASSESSMENT: The patient is clinically doing well at this point and is being followed and managed closely by his medical oncologists. He is continuing at this time with systemic therapy. In light of his close followup and management by medical oncology I have discharged the patient from our followup except on a as needed basis. The patient and his son have my cell phone number as well as my office number. We are available to them at anytime. Routine post treatment radiographic studies will be scheduled through medical oncology. cc: MD Sam Jane MD
== END ==
LOC: M ONCR 09:59
PROVIDERS: ATTEND Radiology Radiation Oncology
DX: C34.12 Malignant neoplasm of upper lobe, left bronchus or lung (principal); R49.0 Dysphonia

== ENCOUNTER 2019-03-03 09:43 | Inpatient (IN) | payer MEDICARE, OTHER ==
[~2019-03-03] VITALS: Ht 177.8 cm; Wt 64.6 kg
[2019-03-03] MEDS: HEPARIN SOD (PORCINE) 5000 UNITS/ML VIAL SC SCH ×2 (09:00→19:48)
[2019-03-03] MEDS ORDERED: SODIUM CHLORIDE 0.9% 1000ML IV SCH (10:00)
[2019-03-03] MEDS ORDERED: CARB10VI IV (10:45)
[2019-03-03] MEDS ORDERED: OXYC10TA12 PO (10:45)
[2019-03-03] MEDS ORDERED: ACET-683 PO (10:45)
[2019-03-03] MEDS ORDERED: ONDA8TAB7 PO (10:45)
[2019-03-03] MEDS ORDERED: BAYE325T16 PO (10:45)
[2019-03-03] MEDS ORDERED: LIDO2.5C15 TOP (10:45)
[2019-03-03] MEDS ORDERED: ROSU40TA4 PO (10:45)
[2019-03-03] MEDS ORDERED: CARV6.25 PO (10:45)
[2019-03-03] MEDS ORDERED: [UNRECOGNIZED DRUG - CODE] IV (10:45)
[2019-03-03] MEDS ORDERED: PACL1INJ2 IV (10:46)
[2019-03-03 10:51] LABS: INR 1.14; PROTHROMBIN TIME 14.3 SECONDS (11.8-14.0)
[2019-03-03 11:07] LABS: MAGNESIUM LEVEL 2.3 MG/DL (1.8-2.4)
--- NOTE | 2019-03-03 11:55 | REP ---
CT ABDOMEN PELVIS WITHOUT IV OR ORAL CONTRAST: HISTORY: Vomiting. Comparison is made with images from PET/CT study dated October 20, 2018. There is a history of lung carcinoma. The patient also gives a history of colorectal carcinoma. There is a history of kidney stones. CT FINDINGS: Digital preliminary credit risk analytics manager radiograph demonstrates an unremarkable bowel gas pattern. There are moderate emphysematous changes and bullae in the bases bilaterally. Linear fibrosis is noted left greater than right. There is atelectasis with air bronchograms in the right middle lobe. The lung bases are otherwise clear. Vascular calcification is noted. There is a sliding type hiatal hernia which small. The liver is normal in size homogeneous in texture. The gallbladder is small and contracted and contains one calcified small gallstones. The spleen is unremarkable. No adrenal lesion is observed on either side. There is a cortical cyst in the upper pole of the right kidney measuring 2 cm in diameter. In the lower pole of the left kidney, there is a large cyst again noted measuring 11.4 cm in greatest diameter. This is unchanged from comparison CT study October 20, 2018. There are bilateral intrarenal calculi which are small 2-3 mm in size. There are three such calculi in the right kidney and one in the other the left . There is some vascular calcification in the left superior renal hilus unchanged. There is no evidence of hydronephrosis on either side. There are sutures in the right colon consistent with partial right colectomy. There is no evidence of obstructive gastrointestinal lesion. There is diverticulosis in the sigmoid colon. There is diffuse thickening of the urinary bladder wall. The prostate is mildly prominent. No mass or pelvic adenopathy is seen. No abdominal wall defect noted. IMPRESSION: 1. Small sliding-type hiatal hernia. 2. Cholelithiasis. 3. Bilateral intrarenal nephrolithiasis without hydronephrosis. 4. Bilateral renal cysts, small on the right and large on the left, 11.4 cm unchanged. 5. Diffuse thickening of the urinary bladder wall question cystitis. 6. COPD changes in the lung bases. 7. Post partial right colectomy. Left colon diverticulosis. Electronically Signed by Aly Ford MD 03/03/2019 05:15 P
--- NOTE | 2019-03-03 11:59 | REP ---
CHEST X-RAY: Single view. HISTORY: Difficulty breathing. COMPARISON CHEST X-RAY: November 14, 2018. FINDINGS: A right-sided Dtdbeg-N-Ulwf catheter is again noted with its tip in the expected location of the right atrium. The previously noted large left mediastinum and left upper lobe lung mass is much improved in size. There is still some mass-like opacity adjacent to the transverse aorta, approximate 4.4 cm in greatest diameter. There is no longer deviation of the trachea at the thoracic inlet. No new infiltrate is seen. There is mild linear fibrosis in the right base. There are old healed rib fractures on the right. Heart is not felt to be enlarged unchanged. Pulmonary vasculature is not increased. IMPRESSION: No new infiltrate. Improved left upper lobe and left mediastinal mass and adenopathy. Hppzzf-T-Cwzo catheter and EKG monitoring electrodes. Electronically Signed by Aly Ford MD 03/03/2019 05:15 P
[2019-03-03 12:38] VITALS: BP 102/61
[2019-03-03] MEDS ORDERED: ONDANSETRON 4 MG TAB (S0181) PO PRN (12:45)
[2019-03-03] MEDS ORDERED: EMLA CREAM 5GM (LIDOCAINE/PRILOCAINE) TOP PRN (12:45)
[2019-03-03] MEDS ORDERED: oxyCODONE 5MG TAB PO PRN (12:45)
[2019-03-03] MEDS ORDERED: ACETAMINOPHEN 500 MG TAB PO PRN (12:45)
[2019-03-03 12:53] VITALS: BP 101/61
--- NOTE | 2019-03-03 12:57 | HPEPDOC ---
[facility] Medical History & Physical Date of Admission Mar 03, 2019 Date of Service: Mar 03, 2019 Attending Physician: PANCHO ZENDEJAS MD History and Physical CHIEF COMPLAINT: Sent from oncologist office for acute kidney injury HISTORY OF PRESENT ILLNESS: 73-year-old male with past medical history of non- small cell lung cancer stage IIIB, COPD, coronary artery disease, DE status post stent 1, hyperlipidemia, sent from his oncologist office for acute kidney injury. Patient is currently receiving carboplatin and Taxol chemotherapy, last round was 2 weeks ago, did not receive his dose one week ago due to dehydration, followed up today for chemotherapy, but blood work showed creatinine of 10 and patient was sent to the emergency department. Patient reports decreased oral intake for the past 4-5 days along with decreased urine output and nausea/vomiting as well. He denies any fever, has persistent cough, unchanged, d enies dysuria. He has no other complaints at this time, CT of abdomen and pelvis in the ED showed stable bilateral renal cysts, no hydronephrosis. 10 point review of system is negative except for above PAST MEDICAL HISTORY: 1. Non-small cell lung cancer stage IIIB. 2. Coronary artery disease. 3. DE. 4. Hyperlipidemia 5. COPD PAST SURGICAL HISTORY: 1. Coronary stent placement. 2. Port placement. SOCIAL HISTORY: Ex-smoker, 2-3 packs per day for over 20 years, quit 20 years ago, followed by smoking 4-5 cigars per day, quit 6 months ago. Social alcohol use. Denies drug use FAMILY HISTORY: Both parents with history of malignancy, mother with colon cancer, unsure of specific malignancy of his father. ALLERGIES: Please see below. HOME MEDICATIONS: Please see below. PHYSICAL EXAMINATION: VITAL SIGNS: Please see below. GENERAL: No distress, frail HEENT: Normocephalic, atraumatic, dry mucous membranes NECK: Supple CARDIOVASCULAR EXAMINATION: S1, S2, no murmurs RESPIRATORY EXAMINATION: Scattered rhonchi, no wheezing ABDOMINAL EXAMINATION: Soft, nontender, nondistended, positive bowel sounds EXTREMITIES: Range of motion intact SKIN: No rash NEUROLOGICAL EXAMINATION: Alert and oriented 3, no focal deficits PSYCHIATRIC EXAMINATION: Calm and cooperative LABORATORY DATA: See below. IMAGING: CT abdomen and pelvis with stable bilateral renal cysts, no hydronephrosis MICROBIOLOGY: Please see below. ASSESSMENT: 73-year-old male with past medical history of non-small cell lung cancer stage IIIB, COPD, coronary artery disease, DE, status post coronary stent is sent from oncologist office for acute kidney injury. PLAN: 1. Acute kidney injury. Likely a combination of prerenal versus drug toxicity, reports poor oral intake along with nausea and vomiting for the past 4-5 days, also being treated with Taxol, which is nephrotoxic. Continue IV hydration, CT abdomen negative for obstruction, will monitor response to IV fluids, if no change or worsening will consider nephrology consult. 2. Non-small cell lung cancer stage IIIB. Diagnosed 6 months ago, being treated with carboplatin and Taxol, last treatment 2 weeks ago, found to be anemic today, status post 1 unit packed red blood cells in the ED. 3. COPD Stable, continue home regimen. 4. Coronary artery disease. Status post DE in 1999 and stent placement, stable, continue optimal medical management (aspirin, statin, beta lakeisha). 5. Hyperlipidemia. Continue statin DVT prophylaxis: Heparin subcutaneous GI prophylaxis: Not needed Vital Signs Vital Signs Date Time Temp Pulse Resp B/P (MAP) Pulse Ox O2 Delivery O2 Flow Rate FiO2 03/03/19 12:38 98.0 71 18 102/61 92 Room Air Laboratory Data Labs 24H Laboratory Tests 2 03/03/19 10:23: Prothrombin Time 14.3H, Prothromb Time International Ratio 1.14, Magnesium Level 2.3, Total Creatine Kinase 48 Microbiology Microbiology 03/03/19 Blood Culture, Received Pending 03/03/19 Blood Culture, Received Pending Home Medications Scheduled Aspirin (Aspirin) 325 Mg Tablet, 325 MG PO DAILY Carboplatin (Carboplatin) 10 Mg/1 Ml Vial, 160 MG IV QWEEK CHEMO CYCLE EVERY 7 DAYS, LAST TREATMENT 2 WEEKS AGO, DUE ON 03/04/19 Carvedilol (Carvedilol) 6.25 Mg Tablet, 6.25 MG PO BID Lidocaine/Prilocaine (Lidocaine-Prilocaine Cream) 2.5%/2.5% Cream..g., 1 APLCT TOP ASDIRECTED APPLY OVER THE PORTACATH ONE HOUR PRIOR TO CHEMO Paclitaxel (Paclitaxel) 6 Mg/1 Ml Vial, 86 MG IV QWEEK CHEMO CYCLE EVERY 7 DAYS, LAST TREATMENT 2 WEEKS AGO, DUE ON 03/04/19 Rosuvastatin Calcium (Rosuvastatin Calcium) 40 Mg Tablet, 40 MG PO QHS Scheduled PRN Acetaminophen (Acetaminophen) 500 Mg Tablet, 1,000 MG PO Q6H PRN for PAIN Ondansetron HCl (Ondansetron HCl) 8 Mg Tablet, 8 MG PO TID PRN for NAUSEA OR VOMITING Oxycodone HCl (Oxycodone HCl) 10 Mg Tablet, 10 MG PO QID PRN for PAIN Allergies Coded Allergies: hydrocodone (Verified Adverse Reaction, Mild, n/v, 03/03/19) A-FIB/CHADSVASC A-FIB History Current/History of A-Fib/PAF?: No PANCHO ZENDEJAS MD Mar 03, 2019 12:57
[2019-03-03 13:38] VITALS: BP 96/53
[2019-03-03 14:25] VITALS: BP 90/55
[2019-03-03 14:45] VITALS: BP 108/56
[2019-03-03] MEDS: NS 1,000 ML IV SCH (15:01)
[2019-03-03] MEDS: CEFEPIME HCL 0.25 GM in D5W 50 ML IV SCH (15:54)
--- NOTE | 2019-03-03 18:33 | ECGEPIP ---
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
[2019-03-03] MEDS: ROSUVASTATIN 10 MG TAB (CRESTOR) PO SCH (19:47)
[2019-03-03] MEDS: CARVedilol 6.25 MG TAB PO SCH (20:30)
[2019-03-03 22:00] VITALS: BP 119/65
[2019-03-03 23:01] LABS: CREATININE,RANDOM URINE 31.5 MG/DL; POTASSIUM RANDOM URINE 20.3 MEQ/L
[2019-03-04] MEDS: NS 1,000 ML IV SCH ×3 (00:35→20:23)
[2019-03-04 06:00] VITALS: BP 108/60
[2019-03-04 06:01] LABS: HEMATOCRIT 26.7 % (42.0-52.0); HEMOGLOBIN 8.7 g/dl (13.5-17.5); MEAN CORPUSCULAR HEMOGLOBIN 32.8 pg (27.0-33.0); MEAN CORPUSCULAR HGB CONC 32.6 g/dl (32.0-36.5); MEAN CORPUSCULAR VOLUME 100.8 fl (80.0-96.0); PLATELET COUNT, AUTOMATED 181 10^3/uL (150-450); RED BLOOD COUNT 2.65 10^6/uL (4.30-6.10); WHITE BLOOD COUNT 9.2 10^3/uL (4.0-10.0)
[2019-03-04 06:29] LABS: ALBUMIN 1.8 GM/DL (3.2-5.2); BILIRUBIN,TOTAL 0.7 MG/DL (0.2-1.0); CREATININE FOR GFR 10.2 MG/DL (0.70-1.30); GLOMERULAR FILTRATION RATE 5.3 (>42); MAGNESIUM LEVEL 1.9 MG/DL (1.8-2.4); POTASSIUM SERUM 4.1 MEQ/L (3.5-5.1); TOTAL PROTEIN 5.6 GM/DL (6.4-8.2)
[2019-03-04] MEDS: CARVedilol 6.25 MG TAB PO SCH ×2 (09:00→21:00)
[2019-03-04] MEDS: ASPIRIN 325 MG TAB PO SCH (09:14)
[2019-03-04] MEDS: HEPARIN SOD (PORCINE) 5000 UNITS/ML VIAL SC SCH ×2 (09:17→20:23)
[2019-03-04 09:18] VITALS: BP 94/54
[2019-03-04 14:00] VITALS: BP 115/56
[2019-03-04] MEDS: CEFEPIME HCL 0.25 GM in D5W 50 ML IV SCH (15:23)
--- NOTE | 2019-03-04 17:29 | IPNPDOC ---
Subjective Date Seen The patient was seen on 03/04/19. Subjective Chief Complaint/HPI Mr. Kilgore complains of fatigue and poor appetite. He has had significant nausea earlier, but does not have any at this point. He states that he just overall feels very poorly. Constitutional: Denies: Chills, Fever Skin: Denies: Rash Pulmonary: Reports: Cough (frequent, usually nonproductive); Denies: Dyspnea Cardiovascular: Denies: Chest Pain Gastrointestinal: Reports: Nausea; Denies: Vomiting, Abdominal Pain, Diarrhea, Constipation Genitourinary: Reports: Dysuria (several days ago); Denies: Frequency, Incontinence Neurological: Denies: Weakness Psych: Reports: Mood Normal Objective Physical Examination General Exam: Positive: Alert, Cooperative, Other (appears ill) Eye Exam: Positive: Conjunctiva & lids normal ENT Exam: Positive: Atraumatic, Mucous membr. moist/pink Chest Exam: Positive: Clear to auscultation, Other (coughs frequently, especially with deep inspiration) Heart Exam: Positive: Rate Normal Abdomen Exam: Positive: Normal bowel sounds, Soft; Negative: Tenderness Extremity Exam: Negative: Edema Skin Exam: Positive: Nl turgor and temperature; Negative: Rash Neuro Exam: Positive: Normal Gait Psych Exam: Positive: Mental status NL Assessment /Plan Problems (1) Acute renal failure Status: Acute Problem Text: Rapidly declining renal function. Nephrology consulted; appreciate their assistance. (2) NSCLC of left lung Problem Text: Has been receiving chemo with Taxol and carboplatin, though the last week he was felt to be dehydrated and wasn't treated. I suspect that his kidney injury may be related to his chemo. (3) Coronary artery disease Status: Chronic Problem Text: s/p VA Plan/VTE VTE Prophylaxis Ordered?: Yes VS, I&O, 24H, Fishbone Vital Signs/I&O Vital Signs Date Time Temp Pulse Resp B/P (MAP) Pulse Ox O2 Delivery O2 Flow Rate FiO2 03/04/19 14:00 97.1 85 18 115/56 (75) 96 Room Air I&O- Last 24 Hours up to 6 AM 03/04/19 06:00 Intake Total 2851 ml Output Total 775 ml Balance 2076 ml Laboratory Data 24H LABS Laboratory Tests 2 03/03/19 22:17: Urine Random Osmolality 286L, Urine Random Creatinine 31.5, Urine Random Sodium 82, Urine Random Potassium 20.3 03/03/19 22:18: Urine Color YELLOW, Urine Appearance CLOUDYH, Urine pH 6.0, Urine Specific [place] 1.006, Urine Protein 2+H, Urine Glucose (UA) NEGATIVE, Urine Ketones NEGATIVE, Urine Blood 3+H, Urine Nitrite POSITIVEH, Urine Bilirubin NEGATIVE, Urine Urobilinogen 0.2, Urine Leukocyte Esterase 3+H, Urine WBC (Auto) TNTCH, Urine RBC (Auto) TNTCH, Urine Hyaline Casts (Auto) 0, Urine Bacteria (Auto) 1+H, Urine Squamous Epithelial Cells 0, Urine Sperm (Auto) 03/04/19 05:23: Nucleated Red Blood Cells % (auto) 0.0, Anion Gap 13, Glomerular Filtration Rate 5.3L, Calcium Level 8.0L, Magnesium Level 1.9, Total Bilirubin 0.7#, Aspartate Amino Transf (AST/SGOT) 11, Alanine Aminotransferase (ALT/SGPT) 23, Alkaline Phosphatase 48, Total Protein 5.6L, Albumin 1.8L, Albumin/Globulin Ratio 0.47L CBC/BMP Laboratory Tests 03/04/19 05:23 Microbiology Microbiology 03/03/19 Respiratory Virus Panel (PCR) (CRISS) - Final, Complete 03/03/19 Urine Culture, Received Pending 03/03/19 Blood Culture - Preliminary, Resulted No growth after 24 hours . All specim... 03/03/19 Blood Culture - Preliminary, Resulted No growth after 24 hours . All specim... DES ZAPIEN DO Mar 04, 2019 17:29
[2019-03-04] MEDS: ROSUVASTATIN 10 MG TAB (CRESTOR) PO SCH (20:23)
[2019-03-04 21:36] LABS: GLOMERULAR FILTRATION RATE 5.6 (>42)
[2019-03-04 21:37] LABS: ALBUMIN 1.7 GM/DL (3.2-5.2); CALCIUM LEVEL 7.8 MG/DL (8.8-10.2); CREATININE FOR GFR 9.76 MG/DL (0.70-1.30)
[2019-03-04 22:00] VITALS: BP 96/53
[2019-03-05] MEDS ORDERED: IPRATROPIUM 0.5MG/ALBUTEROL 2.5MG INH SOL UD 3ML (DUONEB)(J7620) NEB PRN (00:15)
[2019-03-05] MEDS: guaiFENesin ER 600 MG TAB PO SCH ×3 (00:59→20:14)
[2019-03-05 06:00] VITALS: BP 100/59
[2019-03-05 06:17] LABS: HEMATOCRIT 24.3 % (42.0-52.0); MEAN CORPUSCULAR HEMOGLOBIN 32.9 pg (27.0-33.0); MEAN CORPUSCULAR HGB CONC 32.9 g/dl (32.0-36.5); PLATELET COUNT, AUTOMATED 175 10^3/uL (150-450); RED BLOOD COUNT 2.43 10^6/uL (4.30-6.10); WHITE BLOOD COUNT 6.5 10^3/uL (4.0-10.0)
[2019-03-05] MEDS: NS 1,000 ML IV SCH (06:35)
--- NOTE | 2019-03-05 06:36 | CR ---
DATE OF CONSULTATION: 03/04/2019 CONSULTATION FOR: Varsha Prescott DO REASON FOR CONSULTATION: Acute renal failure. HISTORY OF PRESENT ILLNESS: Mr. Kilgore is a 73-year-old gentleman with known history of non-small cell lung cancer, stage III B. He has history of coronary artery disease with prior angioplasty and stent placement, hyperlipidemia and chronic obstructive pulmonary disease (COPD). He has been receiving chemotherapy for his lung cancer and had normal kidney function up until a couple of weeks ago. He was found to have a creatinine of 3.3 just a few days ago and was felt to be dehydrated. His oral intake has been poor and he was seen by oncology again yesterday and noticed to have further worsening of kidney function due to which he was sent to the emergency room for admission. His creatinine is 10 and a nephrology consultation was requested as the patient has minimal urine output. PAST MEDICAL AND SURGICAL HISTORY (Significant for): 1. Non-small cell lung cancer, stage III B. 2. Coronary artery disease with prior myocardial infarction ([place]), status post angioplasty with stent. 3. Hyperlipidemia. 4. COPD. 5. Kxrzsp-R-Dttf placement. PERSONAL AND SOCIAL HISTORY: The patient has history of heavy smoking two to three packs for over 20 years. He quit about 20 years ago. He quit smoking cigars only about 6 months ago. He drinks alcohol only socially and denies any drug use. FAMILY HISTORY: Mother had colon cancer and father also had some kind of cancer, but the patient is not sure. MEDICATIONS (His home medications included) - aspirin 325 mg daily - carboplatin chemotherapy - paclitaxel - Carvedilol 6.25 mg twice a day - Crestor 40 mg daily ALLERGIES: The patient has allergy to HYDROCODONE. REVIEW OF SYSTEMS: The patient has persistent cough and difficulty talking. He denies any fever or chills. Ears, nose and throat are unremarkable. Denies any nosebleed or headache. Cardiovascular system is significant for hypertension. He denies any leg edema. Respiratory system is significant for cough without any hemoptysis or pleuritic type of chest pain. GI system is significant for poor oral intake and loss of appetite. Denies any vomiting or diarrhea. system is significant for decreased urine output. The patient denies any dysuria or hematuria. Endocrine system is negative for diabetes or thyroid problems. Hematological system significant for anemia and recent chemo. Neurological system negative for seizures or stroke. Psychosocial system negative for depression or anxiety. Skin is negative for rash or ulcers. PHYSICAL EXAMINATION: Temperature 98.9 degrees Fahrenheit, heart rate 94 per minute and respiratory rate 18 per minute. Blood pressure 108/60 mmHg and oxygen saturation 90%. Head is atraumatic. Neck is supple and without jugular venous distention (JVD) or thyroid enlargement. There is no oral thrush or ulcers. Heart sounds are regular and lungs with a few basilar crepitations. Abdomen: Soft and nontender and bowel sounds are normal. Extremities have no cyanosis or clubbing. Neurologically, he is awake and without a focal neurological deficit. LABORATORY DATA: Today's labs show WBC count 9.2, hemoglobin 8.7 and hematocrit 26.7. Platelets 181. Sodium 135, potassium 4.1, CO2 18, BUN 101 and creatinine 10.2. Glucose 83, calcium 8.0, total protein 5.6 and albumin 1.8. Urinalysis showed cloudy appearance with 2+ protein, 3+ blood, 3+ leukocyte esterase, too numerous to count WBCs and too numerous to count RBCs. He had a CT scan of abdomen and pelvis done in the emergency room which showed cholelithiasis, bilateral intrarenal nephrolithiasis without any hydronephrosis, small cyst in the right kidney and the large cyst in his left kidney with diffuse thickening of urinary bladder wall. He has a prior right colectomy. PROBLEMS: 1. Acute renal failure most likely related to dehydration and urinary tract infection. The patient was receiving chemo and probably also developed cystitis which worsened his GI symptoms and he could not eat or drink. He is now somewhat dehydrated and I would suggest to continue with aggressive IV fluid hydration. No hydronephrosis was noticed on the CT scan. His kidneys are chronically small in size and probably he does have some underlying chronic kidney disease, but not any significant. We anticipate improvement in his kidney function with IV fluid hydration and there is no emergent need for dialysis at this point. 2. Metabolic acidosis. He does have mild metabolic acidosis related to advanced renal failure and we will watch it for the next 24 hours. If his acidosis does not improve, then will consider giving her sodium bicarbonate infusion. 3. Anemia. His anemia is significant, related to acute renal failure and chemo. His anemia is likely to worsen as he is being hydrated. His CBC will be checked again tomorrow morning and a decision for transfusion will be considered at that time. 4. Urinary tract infection. The patient seems to have cystitis and is now on cefepime which is appropriate. Will have to confirm the dose for his kidney function. Thank you for involving me in the care of Mr. Kilgore. I will follow him along with you.
--- NOTE | 2019-03-05 06:50 | REPVR ---
PROCEDURE INFORMATION: Exam: US Retroperitoneal Limited, Kidneys Exam date and time: 03/05/19 (6:19am) Age: 73 years old Clinical history: Acute renal failure TECHNIQUE: Imaging protocol: Real-time ultrasound of the retroperitoneum with image documentation. Examination was focused on the kidneys. COMPARISON: CT ABDOMEN PELVIS of 03/03/19 FINDINGS: RIGHT KIDNEY --- The right kidney measures 12.7 cm in length. No hydronephrosis is noted. No upper tract stones are identified. Upper pole cyst (1.6 cm size). LEFT KIDNEY --- The left kidney measures 13.2 cm in length. No hydronephrosis is noted. No upper tract stones are identified. Large cyst at the mid - lower pole (11 x 10.6 x 6.5 cm size). URINARY BLADDER --- No significant pathology. No stones nor mass. IMPRESSION: No acute pathology. The kidneys are each normal in size. No hydronephrosis. Bilateral renal cysts. Electronically signed by: Smita Resendiz On 03/05/2019 06:49:42 AM
[2019-03-05 06:51] LABS: ALBUMIN 1.6 GM/DL (3.2-5.2); CALCIUM LEVEL 7.7 MG/DL (8.8-10.2); CREATININE FOR GFR 9.63 MG/DL (0.70-1.30); GLOMERULAR FILTRATION RATE 5.7 (>42); PHOSPHORUS LEVEL 7.3 MG/DL (2.5-4.9); POTASSIUM SERUM 4.1 MEQ/L (3.5-5.1)
[2019-03-05] MEDS: SODIUM BICARBONATE 75 MEQ in NS 0.45% 1,000 ML IV SCH ×3 (09:24→20:27)
[2019-03-05 09:44] VITALS: BP 98/70
[2019-03-05] MEDS: ASPIRIN 325 MG TAB PO SCH (11:17)
[2019-03-05] MEDS: HEPARIN SOD (PORCINE) 5000 UNITS/ML VIAL SC SCH ×2 (11:18→20:15)
[2019-03-05] MEDS: CARVedilol 6.25 MG TAB PO SCH ×2 (11:22→20:15)
--- NOTE | 2019-03-05 11:34 | IPNPDOC ---
Subjective Date Seen The patient was seen on 03/05/19. Subjective Chief Complaint/HPI Reports diarrhe - several loose BMs daily since admission (not occuring priro to admission) No n/v, abd pain, melena or hematochezia Constitutional: Denies: Chills, Fever Pulmonary: Denies: Dyspnea, Cough Cardiovascular: Denies: Chest Pain, Palpitations Gastrointestinal: Reports: Diarrhea; Denies: Nausea, Vomiting, Abdominal Pain, Constipation Objective Physical Examination General Exam: Positive: Alert, Cooperative, Other (appears ill) Eye Exam: Positive: Conjunctiva & lids normal ENT Exam: Positive: Atraumatic, Mucous membr. moist/pink Chest Exam: Positive: Clear to auscultation, Rhonchi, Other (coughs frequently, especially with deep inspiration) Heart Exam: Positive: Rate Normal; Negative: Regular Rhythm Abdomen Exam: Positive: Normal bowel sounds, Soft; Negative: Tenderness Extremity Exam: Negative: Edema Skin Exam: Positive: Nl turgor and temperature; Negative: Rash Neuro Exam: Positive: Normal Gait Psych Exam: Positive: Mental status NL Assessment /Plan Problems (1) Acute renal failure Status: Acute Problem Text: 03/05 - Renal function not improved yet with IVF hydration for presumed QUE secondary to dehydration Now having diarrhea, so may need to increase IVF and monitor electrolytes - so far good urine output Renal US:No acute pathology. The kidneys are each normal in size. No hydronephrosis. Bilateral renal cysts. (2) Diarrhea Status: Acute Problem Text: Developed diarrhea here in hospital since starting Cefepime - Likley side effect of abx, but check C. Diff - high risk due to immunocompromised state (3) UTI (urinary tract infection) Status: Acute Problem Text: Cont Cefepime - U/C pending (4) Anemia Problem Text: Acute on chronic - likley secondary to chemo s/p 1 unit PRBC 03/03 - monitor trend (5) NSCLC of left lung Problem Text: Has been receiving chemo with Taxol and carboplatin, though the last week he was felt to be dehydrated and wasn't treated. I suspect that his kidney injury may be related to his chemo. (6) Coronary artery disease Status: Chronic Response to Treatment: Stable Problem Text: s/p [place] Plan/VTE VTE Prophylaxis Ordered?: Yes Plan Therapy: PT, OT VS, I&O, 24H, Fishbone Vital Signs/I&O Vital Signs Date Time Temp Pulse Resp B/P (MAP) Pulse Ox O2 Delivery O2 Flow Rate FiO2 03/05/19 09:44 98.1 76 16 98/70 (79) 86 Room Air I&O- Last 24 Hours up to 6 AM 03/05/19 06:00 Intake Total 1510 ml Output Total 225 ml Balance 1285 ml Laboratory Data 24H LABS Laboratory Tests 2 03/04/19 20:59: Anion Gap 13, Glomerular Filtration Rate 5.6L, Calcium Level 7.8L, Phosphorus Level 7.0H, Albumin 1.7L 03/05/19 05:26: Anion Gap 13, Glomerular Filtration Rate 5.7L, Calcium Level 7.7L, Phosphorus Level 7.3H, Albumin 1.6L, Nucleated Red Blood Cells % (auto) 0.0 CBC/BMP Laboratory Tests 03/04/19 20:59 03/05/19 05:26 Microbiology Microbiology 03/03/19 Respiratory Virus Panel (PCR) ([facility]) - Final, Complete 03/03/19 Urine Culture, Received Pending 03/03/19 Blood Culture - Preliminary, Resulted No Growth after 48 hours. All Specime... 03/03/19 Blood Culture - Preliminary, Resulted No Growth after 48 hours. All Specime... CHON JACOB PA-C Mar 05, 2019 11:34
--- NOTE | 2019-03-05 14:06 | IPN ---
DATE OF VISIT: 03/05/2019 Mr. Kilgore is seen this morning on his bedside. He is feeling better today, however reports multiple loose stools through the night. He also has persistent cough but no fever or chills. He has been receiving intravenous (IV) fluids and feels that his oral intake is now better than yesterday. On physical exam, temperature 98.1 degrees Fahrenheit, heart rate 76 per minute and respiratory rate 16 per minute. Blood pressure 98/72 mmHg and oxygen saturation between 86-91% on room air. Head is atraumatic. Neck is supple and without jugular venous distention (JVD) or thyroid enlargement. Heart sounds are regular and lungs with bilateral rhonchi. Abdomen soft and nontender, and bowel sounds are normal. Extremities without any cyanosis or clubbing. He does not have any peripheral edema. Neurologically, he is awake, alert and oriented times three. Today's labs show WBC count 6.5, hemoglobin 8.0 and hematocrit 24.3. Platelets are 175. Sodium 137, potassium 4.1, CO2 16, BUN 99 and creatinine 9.63. Calcium 7.7 and phosphorus 7.3. His albumin is only 1.6. PROBLEMS: 1. Acute renal failure most likely related to dehydration, cystitis and chemotherapy. He is receiving IV fluid and will continue with the same and continue hydration. 2. Metabolic acidosis related to diarrhea and acute renal failure. I am going to change his IV fluid to D5-1/2 normal saline with 75 mEq of sodium bicarbonate in each liter and continue at 100 mL/h. 3. Cystitis. Patient has been on cefepime and we are going to increase the dose to 500 mg every 24 hours as 250 mg is too a low dose. Once his kidney function improves further, then we can consider increasing the dose to 1 gram every 24 hours. Urine culture is still pending along with blood cultures. 4. Anemia. This is related to chemotherapy and he is likely to require transfusion. We will continue to watch and I will defer to his primary team to decide about a transfusion. At this point, there is no emergent need for it. 5. Protein calorie malnutrition. Patient has poor oral intake due to chemotherapy and loss of appetite. Once his kidney function improves, hopefully his appetite will also improve. We will then push for high-protein diet. 56. Diarrhea most likely result of chemo and could have superimposed uremic colitis. At present, we will continue hydration and treat him symptomatically. His stools should be checked for Clostridium (C) difficile.
[2019-03-05 14:10] VITALS: BP 98/56
[2019-03-05] MEDS: CEFEPIME HCL 0.5 GM in D5W 50 ML IV SCH (16:27)
[2019-03-05] MEDS: ROSUVASTATIN 10 MG TAB (CRESTOR) PO SCH (20:14)
[2019-03-05 22:00] VITALS: BP 117/71
[2019-03-06 06:00] VITALS: BP 102/58
[2019-03-06] MEDS: SODIUM BICARBONATE 75 MEQ in NS 0.45% 1,000 ML IV SCH ×2 (06:38→17:47)
[2019-03-06 06:53] LABS: HEMATOCRIT 24.2 % (42.0-52.0); HEMOGLOBIN 8.1 g/dl (13.5-17.5); MEAN CORPUSCULAR HEMOGLOBIN 33.1 pg (27.0-33.0); MEAN CORPUSCULAR HGB CONC 33.5 g/dl (32.0-36.5); MEAN CORPUSCULAR VOLUME 98.8 fl (80.0-96.0); PLATELET COUNT, AUTOMATED 193 10^3/uL (150-450); RED BLOOD COUNT 2.45 10^6/uL (4.30-6.10); WHITE BLOOD COUNT 5.8 10^3/uL (4.0-10.0)
[2019-03-06 08:10] LABS: ALBUMIN 1.7 GM/DL (3.2-5.2); CREATININE FOR GFR 9.21 MG/DL (0.70-1.30); POTASSIUM SERUM 3.6 MEQ/L (3.5-5.1)
[2019-03-06] MEDS: ASPIRIN 325 MG TAB PO SCH (09:48)
[2019-03-06] MEDS: HEPARIN SOD (PORCINE) 5000 UNITS/ML VIAL SC SCH ×2 (09:48→20:05)
[2019-03-06] MEDS: guaiFENesin ER 600 MG TAB PO SCH ×2 (09:48→20:04)
[2019-03-06] MEDS: CARVedilol 3.125 MG TAB PO SCH ×2 (09:49→20:04)
[2019-03-06] MEDS: POTASSIUM CHLORIDE 10 MEQ SR TABLET PO SCH ×3 (11:47→20:04)
--- NOTE | 2019-03-06 11:57 | IPNPDOC ---
Subjective Date Seen The patient was seen on 03/06/19. Subjective Chief Complaint/HPI No complaints Constitutional: Denies: Chills, Fever Pulmonary: Reports: Cough; Denies: Dyspnea Cardiovascular: Denies: Chest Pain, Palpitations Gastrointestinal: Denies: Nausea, Vomiting, Abdominal Pain, Diarrhea, Constipation Objective Physical Examination General Exam: Positive: Alert, Cooperative, No Acute Distress, Other (appears ill) Eye Exam: Positive: Conjunctiva & lids normal ENT Exam: Positive: Atraumatic, Mucous membr. moist/pink Chest Exam: Positive: Rales, Rhonchi, Other (coughs frequently, especially with deep inspiration) Heart Exam: Positive: Rate Normal; Negative: Regular Rhythm Abdomen Exam: Positive: Normal bowel sounds, Soft; Negative: Tenderness Extremity Exam: Negative: Edema Skin Exam: Positive: Nl turgor and temperature; Negative: Rash Neuro Exam: Positive: Normal Gait Psych Exam: Positive: Mental status NL Assessment /Plan Problems (1) Hypoxemia Status: Acute Problem Text: Developed hypoxemia overnight - improved with NC Concern for CHF/Fluid Overload Get CXR If CHF, will defer to Nephrology how to manage diuretics (2) Acute renal failure Status: Acute Problem Text: 03/06 - Renal function has not changed yet with IVF per Nephrology 03/05 - Renal function not improved yet with IVF hydration for presumed QUE secondary to dehydration Now having diarrhea, so may need to increase IVF and monitor electrolytes - so far good urine output Renal US:No acute pathology. The kidneys are each normal in size. No hydronephrosis. Bilateral renal cysts. (3) UTI (urinary tract infection) Status: Acute Problem Text: 03/06 - U/C grew pansensitive E. Coli. d/C Cefepime - switch to Cefazolin pending results of CXR (4) Diarrhea Status: Acute Problem Text: Developed diarrhea here in hospital since starting Cefepime - Joseley side effect of abx, but check C. Diff - high risk due to immunocompromised state (5) Anemia Problem Text: 03/06 0- stable Acute on chronic - likley secondary to chemo s/p 1 unit PRBC 03/03 - monitor trend (6) NSCLC of left lung Problem Text: Has been receiving chemo with Taxol and carboplatin, though the last week he was felt to be dehydrated and wasn't treated. I suspect that his kidney injury may be related to his chemo. (7) Coronary artery disease Status: Chronic Response to Treatment: Stable Problem Text: s/p [place] Plan/VTE VTE Prophylaxis Ordered?: Yes Plan Therapy: PT, OT VS, I&O, 24H, Fishbone Vital Signs/I&O Vital Signs Date Time Temp Pulse Resp B/P (MAP) Pulse Ox O2 Delivery O2 Flow Rate FiO2 03/06/19 09:49 71 119/63 03/06/19 06:00 98.4 18 95 Nasal Cannula 1.0 I&O- Last 24 Hours up to 6 AM 03/06/19 06:00 Intake Total 1150 ml Output Total 1125 ml Balance 25 ml Laboratory Data 24H LABS Laboratory Tests 2 03/06/19 06:32: Nucleated Red Blood Cells % (auto) 0.0, Anion Gap 13, Glomerular Filtration Rate 6.0L, Calcium Level 8.0L, Phosphorus Level 7.0H, Albumin 1.7L CBC/BMP Laboratory Tests 03/06/19 06:32 Microbiology Microbiology 03/03/19 Respiratory Virus Panel (PCR) ([facility]) - Final, Complete 03/03/19 Urine Culture - Final, Complete Escherichia Coli 03/03/19 Blood Culture - Preliminary, Resulted No Growth after 72 hours. All specime... 03/03/19 Blood Culture - Preliminary, Resulted No Growth after 72 hours. All specime... CHON JACOB PA-C Mar 06, 2019 11:57
--- NOTE | 2019-03-06 13:13 | IPN ---
DATE OF VISIT: 03/06/2019 Mr. Kilgore is seen this morning on his bedside. He is sitting in the chair at the time of my visit and reports feeling much better today. His diarrhea has improved and he denies any nausea or vomiting. He has no dyspnea, chest pain, fever or chills. On physical examination, temperature 98.4 degrees Fahrenheit, heart rate 70 per minute and respiratory rate 18 per minute. Blood pressure 119/63 mmHg and oxygen saturation 95% on 1 liter oxygen. His head is atraumatic. He is pale looking, but not in any acute distress. Heart sounds are regular and lungs clear to auscultation. Abdomen: Soft and nontender. Bowel sounds are normal. Extremities have no cyanosis or clubbing. Neurologically, he is awake, alert and oriented times three. Today's labs show WBC count 5.8, hemoglobin 8.1 and hematocrit 24.2. Platelets are 193. Sodium 137, potassium 3.6, CO2 19, BUN 93 and creatinine 9.21. Calcium 8.0 and phosphorus 7.0. PROBLEMS: 1. Acute renal failure. Slight improvement in kidney function over last 24 hours. We will continue with IV fluid at this point. The patient had diarrhea and dehydration. We anticipate further improvement in his kidney function over the next 24 hours. 2. Metabolic acidosis. Slight improvement noted along with acute renal failure. He is currently on sodium bicarbonate infusion which will be continued. 3. Hypokalemia. Potassium level is now borderline low related to IV fluids and poor oral intake. The patient will be given oral potassium supplement 10 mEq three times a day for three doses. Electrolytes will be checked again tomorrow morning. 4. Anemia. Anemia is slightly worse and likely to get worse further with ongoing IV fluid hydration. No emergent need for a transfusion. However, the patient is likely to require transfusion if his anemia gets worse. We will reevaluate him tomorrow with a CBC. 5. Diarrhea. Most likely related to chemotherapy and has already improved. No intervention is needed at present. 6. Non-small cell lung cancer. The patient has been on chemo which is currently on hold due to his acute renal failure and dehydration. The patient will follow up with oncology after discharge.
--- NOTE | 2019-03-06 13:53 | REP ---
Two-view chest: 03/23/2019. Indication: Hypoxia. Comparison: 3 days earlier. Findings: Compared to 3 days earlier, no significant changes are present. Right-sided Port-A-Cath is unchanged in position. Cardiomediastinal silhouette remain stable. Focal opacity within the left upper lobe adjacent to the aortic arch is unchanged. There is no pleural effusion or pneumothorax. Bibasilar atelectasis is present. Impression: Essentially stable examination compared to 3 days earlier. No acute changes. Electronically Signed by Michael Taylor DO 03/06/2019 01:44 P
[2019-03-06 14:00] VITALS: BP 118/71
[2019-03-06] MEDS: CEFEPIME HCL 0.5 GM in D5W 50 ML IV SCH (16:04)
[2019-03-06] MEDS: ROSUVASTATIN 10 MG TAB (CRESTOR) PO SCH (20:04)
[2019-03-06 22:00] VITALS: BP 115/67
[2019-03-07] MEDS: SODIUM BICARBONATE 75 MEQ in NS 0.45% 1,000 ML IV SCH ×2 (04:22→14:29)
[2019-03-07 06:00] VITALS: BP 118/62
[2019-03-07 06:32] LABS: HEMATOCRIT 25.5 % (42.0-52.0); HEMOGLOBIN 8.3 g/dl (13.5-17.5); MEAN CORPUSCULAR HEMOGLOBIN 32.5 pg (27.0-33.0); MEAN CORPUSCULAR HGB CONC 32.5 g/dl (32.0-36.5); PLATELET COUNT, AUTOMATED 200 10^3/uL (150-450); RED BLOOD COUNT 2.55 10^6/uL (4.30-6.10); WHITE BLOOD COUNT 6.3 10^3/uL (4.0-10.0)
[2019-03-07 07:13] LABS: ALBUMIN 1.8 GM/DL (3.2-5.2); BILIRUBIN,TOTAL 1.5 MG/DL (0.2-1.0); CALCIUM LEVEL 7.9 MG/DL (8.8-10.2); CREATININE FOR GFR 8.52 MG/DL (0.70-1.30); GLOMERULAR FILTRATION RATE 6.6 (>42); MAGNESIUM LEVEL 1.9 MG/DL (1.8-2.4); POTASSIUM SERUM 3.5 MEQ/L (3.5-5.1); TOTAL PROTEIN 5.9 GM/DL (6.4-8.2)
[2019-03-07 08:45] VITALS: BP 118/59
[2019-03-07] MEDS: CARVedilol 3.125 MG TAB PO SCH ×2 (09:00→20:36)
[2019-03-07] MEDS: ASPIRIN 325 MG TAB PO SCH (09:33)
[2019-03-07] MEDS: POTASSIUM CHLORIDE 10 MEQ SR TABLET PO SCH ×3 (09:34→20:36)
[2019-03-07] MEDS: guaiFENesin ER 600 MG TAB PO SCH ×2 (09:34→20:36)
[2019-03-07] MEDS: HEPARIN SOD (PORCINE) 5000 UNITS/ML VIAL SC SCH ×2 (09:35→20:35)
--- NOTE | 2019-03-07 13:52 | IPN ---
DATE OF VISIT: 03/07/2019 Mr. Kilgore is seen this morning on his bedside. He is lying in bed and feels better. He reports that his appetite is improving and denies any nausea, vomiting or diarrhea. He has no dyspnea or chest pain and has been tolerating intravenous fluid very well. On physical exam, temperature 97.5 degrees Fahrenheit, heart rate 62 per minute and respiratory rate 12 per minute. Blood pressure 118/59 mmHg and oxygen saturation 91% on 1 liter oxygen. His head is atraumatic. Neck is supple and without jugular venous distention (JVD) or thyroid enlargement. Heart sounds are regular and lungs sound clear to auscultation. Abdomen soft and nontender and bowel sounds are normal. Extremities without any cyanosis or clubbing. Neurologically, he is awake, alert and oriented times three. Intake and output records from yesterday showed total intake 2800 and output 2000. Today's labs show WBC count 6.3, hemoglobin 8.3 and hematocrit 25.5. Sodium 138, potassium 3.5, CO2 24, BUN 85 and creatinine 8.52. PROBLEMS: 1. Acute renal failure. Kidney function is gradually improving and patient has no uremic symptoms. We will continue with current intravenous (IV) fluid for next 24 hours and then consider switching him to a non bicarbonate fluid. 2. Hypokalemia. Potassium level is 3.5, and we will continue with potassium chloride supplement 10 mEq three times a day. 3. Anemia. His anemia is stable and we will continue to monitor closely. 4. Metabolic acidosis. His acidosis has improved and he is receiving IV sodium bicarbonate infusion. I will continue with the same for 24 hours and consider switching him to half normal saline tomorrow.
[2019-03-07 14:00] VITALS: BP 94/60
[2019-03-07] MEDS: CEFEPIME HCL 0.5 GM in D5W 50 ML IV SCH (16:33)
--- NOTE | 2019-03-07 19:35 | IPNPDOC ---
Subjective Date Seen The patient was seen on 03/07/19. Subjective Chief Complaint/HPI Mr. Kilgore reports that "[he's] here". He is unable or unwilling to give me more specifics about his current state of being. Nursing denies any specific concerns or complaints for him today. General: Reports: ROS Unobtainable (patient is not rude, but does not engage with my interview) Objective Physical Examination General Exam: Positive: Alert, Cooperative (resting in bed when I entered the room), No Acute Distress, Other (cachectic appearing) Eye Exam: Positive: Conjunctiva & lids normal; Negative: Sclera icteric ENT Exam: Positive: Atraumatic, Mucous membr. moist/pink Neck Exam: Positive: Supple; Negative: Lymphadenopathy Chest Exam: Positive: Rales, Rhonchi, Diminished, Other (coughs frequently, especially with deep inspiration) Heart Exam: Positive: Rate Normal; Negative: Regular Rhythm Abdomen Exam: Positive: Normal bowel sounds, Soft; Negative: Tenderness Extremity Exam: Negative: Edema Psych Exam: Negative: Mental status NL (appears withdrawn today, maybe be related to poor arousal from sleep) Assessment /Plan Problems (1) Acute renal failure Status: Acute Problem Text: 03/07 - renal function is slowly improving. No signs of overt uremia. Appreciate nephrology's assistance in managing fluid status and monitoring his kidney function. 03/06 - Renal function has not changed yet with IVF per Nephrology 03/05 - Renal function not improved yet with IVF hydration for presumed QUE secondary to dehydration Now having diarrhea, so may need to increase IVF and monitor electrolytes - so far good urine output Renal US:No acute pathology. The kidneys are each normal in size. No hydronephrosis. Bilateral renal cysts. (2) UTI (urinary tract infection) Status: Acute Problem Text: Continue cefazolin. 03/06 - U/C grew pansensitive E. Coli. d/C Cefepime - switch to Cefazolin pending results of CXR (3) Anemia Problem Text: Hemoglobin is stable, slightly improved today. Acute on chronic - likely secondary to chemo. s/p 1 unit PRBC 03/03. Will continue to monitor trend. (4) NSCLC of left lung Problem Text: Has been receiving chemo with Taxol and carboplatin, though the last week he was felt to be dehydrated and wasn't treated. I suspect that his kidney injury may be related to his chemo. (5) Coronary artery disease Status: Chronic Response to Treatment: Stable Problem Text: s/p [place] (6) Hypoxemia Status: Resolved Problem Text: 03/07 - chest x-ray is unremarkable for any change. He is been maintaining his saturations well for the last 24 hours. 03/06 - Developed hypoxemia overnight - improved with ME Concern for CHF/Fluid Overload Get CXR If CHF, will defer to Nephrology how to manage diuretics (7) Diarrhea Status: Resolved Problem Text: He reports his diarrhea has resolved today. Of note he has been taken off the cefepime in the same timeframe. Plan/VTE VTE Prophylaxis Ordered?: Yes (subcutaneous heparin, teds and sequentials) Plan Therapy: PT, OT VS, I&O, 24H, Fishbone Vital Signs/I&O Vital Signs Date Time Temp Pulse Resp B/P (MAP) Pulse Ox O2 Delivery O2 Flow Rate FiO2 03/07/19 14:00 98.6 67 16 94/60 (71) 93 Room Air 03/07/19 09:45 1.0 I&O- Last 24 Hours up to 6 AM 03/07/19 06:00 Intake Total 3650 ml Output Total 1800 ml Balance 1850 ml Laboratory Data 24H LABS Laboratory Tests 2 03/07/19 06:01: Nucleated Red Blood Cells % (auto) 0.0, Anion Gap 13, Glomerular Filtration Rate 6.6L, Calcium Level 7.9L, Magnesium Level 1.9, Total Bilirubin 1.5H, Aspartate Amino Transf (AST/SGOT) 20, Alanine Aminotransferase (ALT/SGPT) 24, Alkaline Phosphatase 45, Total Protein 5.9L, Albumin 1.8L, Albumin/Globulin Ratio 0.44L CBC/BMP Laboratory Tests 03/07/19 06:01 Microbiology Microbiology 03/03/19 Respiratory Virus Panel (PCR) ([facility]) - Final, Complete 03/03/19 Urine Culture - Final, Complete Escherichia Coli 03/03/19 Blood Culture - Preliminary, Resulted No Growth after 72 hours. All specime... 03/03/19 Blood Culture - Preliminary, Resulted No Growth after 72 hours. All specime... Kelvin Workman MD Mar 07, 2019 7:35 pm
[2019-03-07] MEDS: ROSUVASTATIN 10 MG TAB (CRESTOR) PO SCH (20:36)
[2019-03-07 20:48] VITALS: BP 108/68
[2019-03-07 22:00] VITALS: BP 110/70
[2019-03-08] VITALS (12 sets, daily range): BP systolic 96–146; BP diastolic 57–76
[2019-03-08] MEDS: SODIUM BICARBONATE 75 MEQ in NS 0.45% 1,000 ML IV SCH (01:19)
[2019-03-08 06:41] LABS: HEMATOCRIT 23.2 % (42.0-52.0); HEMOGLOBIN 7.5 g/dl (13.5-17.5); MEAN CORPUSCULAR HEMOGLOBIN 32.8 pg (27.0-33.0); MEAN CORPUSCULAR HGB CONC 32.3 g/dl (32.0-36.5); MEAN CORPUSCULAR VOLUME 101.3 fl (80.0-96.0); PLATELET COUNT, AUTOMATED 162 10^3/uL (150-450); RED BLOOD COUNT 2.29 10^6/uL (4.30-6.10); WHITE BLOOD COUNT 5.1 10^3/uL (4.0-10.0)
[2019-03-08 06:58] LABS: ALBUMIN 1.7 GM/DL (3.2-5.2); CALCIUM LEVEL 7.6 MG/DL (8.8-10.2); CREATININE FOR GFR 7.59 MG/DL (0.70-1.30); GLOMERULAR FILTRATION RATE 7.5 (>42); PHOSPHORUS LEVEL 6.2 MG/DL (2.5-4.9); POTASSIUM SERUM 3.6 MEQ/L (3.5-5.1)
[2019-03-08] MEDS: POTASSIUM CHLORIDE 10 MEQ SR TABLET PO SCH ×3 (08:24→19:59)
[2019-03-08] MEDS: CARVedilol 3.125 MG TAB PO SCH ×2 (08:24→19:59)
[2019-03-08] MEDS: ASPIRIN 325 MG TAB PO SCH (08:24)
[2019-03-08] MEDS: guaiFENesin ER 600 MG TAB PO SCH ×2 (08:24→20:00)
[2019-03-08] MEDS: HEPARIN SOD (PORCINE) 5000 UNITS/ML VIAL SC SCH ×2 (08:24→19:59)
[2019-03-08] MEDS: NS 0.45% 1,000 ML IV SCH ×2 (11:37→20:04)
--- NOTE | 2019-03-08 13:43 | IPNPDOC ---
Subjective Date Seen The patient was seen on 03/08/19. Subjective Chief Complaint/HPI Mr. Kilgore engages me more today. I spoke with Dr. Beaver today and he feels that we are on the right track. It is just going to take a bit of time to allow his kidney to heal. Nursing doesn't have any specific concerns for him today. Pulmonary: Reports: Cough; Denies: Dyspnea Objective Physical Examination General Exam: Positive: Alert, Cooperative (resting in bed when I entered the room), No Acute Distress, Other (cachectic appearing) Eye Exam: Positive: Conjunctiva & lids normal; Negative: Sclera icteric ENT Exam: Positive: Atraumatic, Mucous membr. moist/pink Neck Exam: Positive: Supple; Negative: Lymphadenopathy Chest Exam: Positive: Rales, Rhonchi, Diminished, Other (coughs frequently, especially with deep inspiration) Heart Exam: Positive: Rate Normal; Negative: Regular Rhythm Abdomen Exam: Positive: Normal bowel sounds, Soft; Negative: Tenderness Extremity Exam: Negative: Edema Psych Exam: Positive: Mental status NL Assessment /Plan Problems (1) Acute renal failure Status: Acute Problem Text: 03/08 - Slow improvements. This is is to be expected per nephrology. Will continue current regimen, monitor. 03/07 - renal function is slowly improving. No signs of overt uremia. Appreciate nephrology's assistance in managing fluid status and monitoring his kidney function. 03/06 - Renal function has not changed yet with IVF per Nephrology 03/05 - Renal function not improved yet with IVF hydration for presumed QUE secondary to dehydration Now having diarrhea, so may need to increase IVF and monitor electrolytes - so far good urine output Renal US:No acute pathology. The kidneys are each normal in size. No hydronephrosis. Bilateral renal cysts. (2) UTI (urinary tract infection) Status: Resolved Problem Text: Continue cefazolin. 03/06 - U/C grew pansensitive E. Coli. d/C Cefepime - switch to Cefazolin pending results of CXR (3) Anemia Problem Text: Hemoglobin is stable, slightly improved today. Acute on chronic - likely secondary to chemo. s/p 1 unit PRBC 03/03. Will continue to monitor trend. (4) NSCLC of left lung Problem Text: Has been receiving chemo with Taxol and carboplatin, though the last week he was felt to be dehydrated and wasn't treated. I suspect that his kidney injury may be related to his chemo. (5) Coronary artery disease Status: Chronic Response to Treatment: Stable Problem Text: s/p DC (6) Hypoxemia Status: Acute Problem Text: 03/07 - chest x-ray is unremarkable for any change. He is been maintaining his saturations well for the last 24 hours. 03/06 - Developed hypoxemia overnight - improved with MA Concern for CHF/Fluid Overload Get CXR If CHF, will defer to Nephrology how to manage diuretics (7) Diarrhea Status: Resolved Problem Text: He reports his diarrhea has resolved today. Of note he has been taken off the cefepime in the same timeframe. Plan/VTE VTE Prophylaxis Ordered?: Yes (subcutaneous heparin, teds and sequentials) Plan Therapy: PT, OT VS, I&O, 24H, Fishbone Vital Signs/I&O Vital Signs Date Time Temp Pulse Resp B/P (MAP) Pulse Ox O2 Delivery O2 Flow Rate FiO2 03/08/19 09:00 1.0 03/08/19 08:24 78 109/60 03/08/19 06:00 96.5 18 94 Nasal Cannula I&O- Last 24 Hours up to 6 AM 03/08/19 06:00 Intake Total 2190 ml Output Total 2850 ml Balance -660 ml Laboratory Data 24H LABS Laboratory Tests 2 03/08/19 05:25: Nucleated Red Blood Cells % (auto) 0.0, Anion Gap 12, Glomerular Filtration Rate 7.5L, Calcium Level 7.6L, Phosphorus Level 6.2H, Albumin 1.7L CBC/BMP Laboratory Tests 03/08/19 05:25 Microbiology Microbiology 03/03/19 Respiratory Virus Panel (PCR) ([facility]) - Final, Complete 03/03/19 Urine Culture - Final, Complete Escherichia Coli 03/03/19 Blood Culture - Final, Complete NO GROWTH AFTER 5 DAYS 03/03/19 Blood Culture - Final, Complete NO GROWTH AFTER 5 DAYS Kelvin Workman MD Mar 08, 2019 13:43
[2019-03-08] MEDS: CEFEPIME HCL 0.5 GM in D5W 50 ML IV SCH (16:00)
[2019-03-08] MEDS: ROSUVASTATIN 10 MG TAB (CRESTOR) PO SCH (20:00)
[2019-03-08 20:02] LABS: HEMATOCRIT 29.3 % (42.0-52.0); HEMOGLOBIN 9.5 g/dl (13.5-17.5)
[2019-03-09 06:00] VITALS: BP 119/72
[2019-03-09 06:24] LABS: HEMATOCRIT 29.4 % (42.0-52.0); HEMOGLOBIN 9.8 g/dl (13.5-17.5); MEAN CORPUSCULAR HEMOGLOBIN 31.9 pg (27.0-33.0); MEAN CORPUSCULAR HGB CONC 33.3 g/dl (32.0-36.5); MEAN CORPUSCULAR VOLUME 95.8 fl (80.0-96.0); PLATELET COUNT, AUTOMATED 158 10^3/uL (150-450); RED BLOOD COUNT 3.07 10^6/uL (4.30-6.10); WHITE BLOOD COUNT 6.5 10^3/uL (4.0-10.0)
[2019-03-09 06:50] LABS: ALBUMIN 1.8 GM/DL (3.2-5.2); CREATININE FOR GFR 6.66 MG/DL (0.70-1.30); GLOMERULAR FILTRATION RATE 8.7 (>42); MAGNESIUM LEVEL 1.7 MG/DL (1.8-2.4); POTASSIUM SERUM 3.3 MEQ/L (3.5-5.1)
[2019-03-09] MEDS: HEPARIN SOD (PORCINE) 5000 UNITS/ML VIAL SC SCH ×2 (09:06→20:52)
[2019-03-09] MEDS: CARVedilol 3.125 MG TAB PO SCH ×2 (09:06→20:50)
[2019-03-09] MEDS: guaiFENesin ER 600 MG TAB PO SCH ×2 (09:06→20:51)
[2019-03-09] MEDS: POTASSIUM CHLORIDE 10 MEQ SR TABLET PO SCH ×3 (09:06→20:51)
[2019-03-09] MEDS: ASPIRIN 325 MG TAB PO SCH (09:06)
--- NOTE | 2019-03-09 11:21 | IPNPDOC ---
Subjective Date Seen The patient was seen on 03/09/19. Subjective Chief Complaint/HPI ARF Events since last encounter Continues to slowly improve. Continues to require oxygen. Nephro following and managing fluids. Constitutional: Denies: Chills, Fever, Night Sweats Pulmonary: Reports: Dyspnea, Cough Cardiovascular: Denies: Chest Pain, Palpitations, Orthopnea, Paroxysmal Noc. Dyspnea, Lt Headedness Gastrointestinal: Denies: Nausea, Vomiting, Abdominal Pain, Diarrhea, Constipation Psych: Reports: Mood Normal; Denies: Depression, Memory Issues Objective Physical Examination General Exam: Positive: Alert, Cooperative (resting in bed when I entered the room), No Acute Distress, Other (cachectic appearing) Eye Exam: Positive: Conjunctiva & lids normal; Negative: Sclera icteric ENT Exam: Positive: Atraumatic, Mucous membr. moist/pink Neck Exam: Positive: Supple; Negative: Lymphadenopathy Chest Exam: Positive: Diminished Heart Exam: Positive: Rate Normal; Negative: Regular Rhythm Abdomen Exam: Positive: Normal bowel sounds, Soft; Negative: Tenderness Extremity Exam: Negative: Edema Psych Exam: Positive: Mental status NL Assessment /Plan Problems (1) Acute renal failure Status: Acute Problem Text: 03/09: continues to show slow improvement. Nephrology input and management appreciated. 03/07 - renal function is slowly improving. No signs of overt uremia. Appreciate nephrology's assistance in managing fluid status and monitoring his kidney function. 03/06 - Renal function has not changed yet with IVF per Nephrology 03/05 - Renal function not improved yet with IVF hydration for presumed QUE secondary to dehydration Now having diarrhea, so may need to increase IVF and monitor electrolytes - so far good urine output Renal US:No acute pathology. The kidneys are each normal in size. No hydronephrosis. Bilateral renal cysts. (2) UTI (urinary tract infection) Status: Acute Problem Text: Continue cefazolin. 03/06 - U/C grew pansensitive E. Coli. d/C Cefepime - switch to Cefazolin pending results of CXR (3) Hypoxemia Status: Acute Problem Text: 03/09/19: will require oxygen at home. This is new for patient. 03/07 - chest x-ray is unremarkable for any change. He is been maintaining his saturations well for the last 24 hours. 03/06 - Developed hypoxemia overnight - improved with [place] Concern for CHF/Fluid Overload Get CXR If CHF, will defer to Nephrology how to manage diuretics (4) Anemia Problem Text: Hemoglobin is stable, slightly improved today. Acute on chronic - likely secondary to chemo. s/p 1 unit PRBC 03/03. Will continue to monitor trend. (5) NSCLC of left lung Problem Text: Has been receiving chemo with Taxol and carboplatin, though the last week he was felt to be dehydrated and wasn't treated. I suspect that his kidney injury may be related to his chemo. (6) Coronary artery disease Status: Chronic Response to Treatment: Stable Problem Text: s/p [place] (7) Diarrhea Status: Resolved Problem Text: He reports his diarrhea has resolved today. Of note he has been taken off the cefepime in the same timeframe. Plan/VTE VTE Prophylaxis Ordered?: Yes (subcutaneous heparin, teds and sequentials) Plan Therapy: PT, OT VS, I&O, 24H, Fishbone Vital Signs/I&O Vital Signs Date Time Temp Pulse Resp B/P (MAP) Pulse Ox O2 Delivery O2 Flow Rate FiO2 03/09/19 10:50 1.0 03/09/19 06:00 97.4 72 20 119/72 (88) 91 Nasal Cannula I&O- Last 24 Hours up to 6 AM 03/09/19 06:00 Intake Total 3455 ml Output Total 2675 ml Balance 780 ml Laboratory Data 24H LABS Laboratory Tests 2 03/09/19 05:36: Nucleated Red Blood Cells % (auto) 0.0, Anion Gap 11, Glomerular Filtration Rate 8.7L, Calcium Level 8.0L, Phosphorus Level 6.0H, Magnesium Level 1.7L, Albumin 1.8L CBC/BMP Laboratory Tests 03/08/19 19:55 03/09/19 05:36 Microbiology Microbiology 03/03/19 Respiratory Virus Panel (PCR) ([facility]) - Final, Complete 03/03/19 Urine Culture - Final, Complete Escherichia Coli 03/03/19 Blood Culture - Final, Complete NO GROWTH AFTER 5 DAYS 03/03/19 Blood Culture - Final, Complete NO GROWTH AFTER 5 DAYS Virginia Myrick [facility] Mar 09, 2019 11:21
[2019-03-09] MEDS ORDERED: MAG SULF 1GM/100ML (MAG RUN) 1 GM in IV 1 EA IV ONE (12:00)
[2019-03-09 14:00] VITALS: BP 119/92
[2019-03-09] MEDS: NS 0.45% 1,000 ML IV SCH (14:50)
[2019-03-09] MEDS: CEFEPIME HCL 0.5 GM in D5W 50 ML IV SCH (16:29)
--- NOTE | 2019-03-09 18:49 | IPN ---
DATE: 03/08/2019 Mr. Kilgore is seen this morning on his bedside. He is feeling about the same and denies any vomiting or diarrhea. He remains weak and frail. He is receiving IV fluid, which he has tolerated very well. There is no dyspnea, chest pain or leg edema. PHYSICAL EXAMINATION: Temperature 97.7 degrees Fahrenheit, heart rate 72 per minute and respiratory rate 18 per minute, blood pressure 130/76 mmHg and oxygen saturation 90% on 1 liter of oxygen. Head is atraumatic. He is pale looking but not in any acute distress. Neck is supple and without jugular venous distention (JVD) or thyroid enlargement. Heart sounds are regular and lungs clear to auscultation. Abdomen: Soft and nontender and bowel sounds are normal. Extremities: Without any cyanosis or clubbing. Neurologically, he is awake, alert and oriented times three. Today's labs show WBC count 5.1, hemoglobin 7.5 and hematocrit 23.2. Platelets 162. Sodium 141, potassium 3.6, CO2 of 27, BUN 81 and creatinine 7.59. Calcium is 7.6 and phosphorus 6.2. PROBLEMS: 1. Acute renal failure. Kidney function is gradually improving. I do not feel that acute renal failure is entirely related to dehydration. Most likely this is nephrotoxicity or interstitial nephritis caused by his chemotherapy. His kidney function is improving very slowly, which is more consistent with acute interstitial nephritis related to chemo. At this point, we will continue with IV fluid hydration and monitor renal function on a daily basis. 2. Metabolic acidosis. His acidosis has improved and sodium bicarbonate infusion is being stopped. We will switch IV fluid to half-normal saline at 75 mL per hour. 3. Hypokalemia. Potassium level is essentially unchanged for the last 3 days. He is on oral potassium supplement 10 mEq three times a day, which will be continued. 4. Anemia. His anemia has worsened, and the patient will be transfused at 2 units of packed red blood cells (RBCs). He consented for transfusion.
[2019-03-09] MEDS: ROSUVASTATIN 10 MG TAB (CRESTOR) PO SCH (20:51)
[2019-03-09 22:00] VITALS: BP 135/77
[2019-03-10 06:00] VITALS: BP 133/75
[2019-03-10 06:41] LABS: ALBUMIN 1.9 GM/DL (3.2-5.2); BILIRUBIN,TOTAL 0.9 MG/DL (0.2-1.0); CREATININE FOR GFR 5.6 MG/DL (0.70-1.30); GLOMERULAR FILTRATION RATE 10.7 (>42); POTASSIUM SERUM 3.3 MEQ/L (3.5-5.1); TOTAL PROTEIN 6.1 GM/DL (6.4-8.2)
--- NOTE | 2019-03-10 09:21 | IPN ---
DATE OF VISIT: 03/09/2019 Mr. Kilgore seen this morning on his bedside. He was given 2 units of packed red blood cells (RBCs) yesterday due to low hemoglobin of 7.5. He is feeling better today but still has some cough. He denies any nausea or vomiting. On physical exam, temperature 97.4 degrees Fahrenheit, heart rate 72 per minute and respiratory rate 20 per minute. Blood pressure 119/72 mmHg and oxygen saturation 91%. Head is atraumatic. Neck is supple and jugular venous distention (JVD) not abnormally elevated. Heart sounds are regular and without pericardial friction rub. Lungs sound clear to auscultation. Abdomen soft and nontender, and bowel sounds are normal. Extremities without any cyanosis or clubbing. Neurologically, he is awake, alert and at his baseline mentation. Today's labs show WBC count 6.5, hemoglobin 9.8 and hematocrit 29.4. Platelets 158. Sodium 140, potassium 3.3, CO2 27, BUN 68 and creatinine 6.66. Calcium is 8.0 and phosphorus 6.0. Albumin level 1.8 and magnesium 1.7. PROBLEMS: 1. Acute kidney injury. Kidney function is slowly and gradually improving. Patient has no uremic symptoms. Most likely this is interstitial nephritis and nephrotoxicity from his chemotherapy. Kidney function is gradually improving and this does not seem to be all due to dehydration. We will continue with current IV fluid at present. 2. Hypokalemia. Patient has been receiving oral potassium chloride supplement and will continue with the same. He is also being encouraged to eat high protein diet. 3. Anemia. He was transfused 2 units of packed RBCs and anemia has improved. 4. Hypertension. Blood pressure seems very well controlled and no changes are being made today. 5. Urinary tract infection (UTI). Patient has been on low-dose cefepime 500 mg daily, which should be continued for now. We will consider increasing the dose once his kidney function improves further.
[2019-03-10] MEDS: KCL 20MEQ IN 0.45NS 1000ML 1,000 ML IV SCH ×2 (09:54→23:33)
[2019-03-10] MEDS: ASPIRIN 325 MG TAB PO SCH (09:54)
[2019-03-10] MEDS: CARVedilol 3.125 MG TAB PO SCH ×2 (09:54→20:03)
[2019-03-10] MEDS: POTASSIUM CHLORIDE 10 MEQ SR TABLET PO SCH ×3 (09:54→20:04)
[2019-03-10] MEDS: guaiFENesin ER 600 MG TAB PO SCH ×2 (09:54→20:03)
[2019-03-10] MEDS: HEPARIN SOD (PORCINE) 5000 UNITS/ML VIAL SC SCH ×2 (09:55→20:04)
--- NOTE | 2019-03-10 11:03 | IPNPDOC ---
Subjective Date Seen The patient was seen on 03/10/19. Subjective Chief Complaint/HPI ARF, anemia Events since last encounter C/o constipation. Bowel meds ordered. C/o burning on urination this am with some blood tinged urine. Currently being treated for E. Coli UTI with Cefepime IV. Constitutional: Denies: Chills, Fever, Night Sweats Pulmonary: Denies: Dyspnea, Cough Cardiovascular: Denies: Chest Pain, Palpitations, Orthopnea, Paroxysmal Noc. Dyspnea, Lt Headedness Gastrointestinal: Reports: Constipation; Denies: Nausea, Vomiting, Abdominal Pain, Diarrhea Genitourinary: Reports: Dysuria, Hematuria Psych: Reports: Mood Normal; Denies: Depression, Memory Issues Objective Physical Examination General Exam: Positive: Alert, Cooperative, No Acute Distress, Other (cachectic appearing) Eye Exam: Positive: Conjunctiva & lids normal; Negative: Sclera icteric ENT Exam: Positive: Atraumatic, Mucous membr. moist/pink Neck Exam: Positive: Supple; Negative: Lymphadenopathy Chest Exam: Positive: Diminished Heart Exam: Positive: Rate Normal; Negative: Regular Rhythm Abdomen Exam: Positive: Normal bowel sounds, Soft; Negative: Tenderness Extremity Exam: Negative: Edema Psych Exam: Positive: Mental status NL, Oriented x 3 Assessment /Plan Problems (1) Acute renal failure Status: Acute Problem Text: 03/10/19: slowly improving. Nephrology input and management appreciate 03/09: continues to show slow improvement. Nephrology input and management appre ciated. 03/07 - renal function is slowly improving. No signs of overt uremia. Appreciate nephrology's assistance in managing fluid status and monitoring his kidney function. 03/06 - Renal function has not changed yet with IVF per Nephrology 03/05 - Renal function not improved yet with IVF hydration for presumed QUE secondary to dehydration Now having diarrhea, so may need to increase IVF and monitor electrolytes - so far good urine output Renal US:No acute pathology. The kidneys are each normal in size. No hydronephrosis. Bilateral renal cysts. (2) UTI (urinary tract infection) Status: Acute Problem Text: Continue cefazolin. 03/10/19: repeat UA today due to hematuria and pain. may be related to constipation and straining for BM. 03/06 - U/C grew pansensitive E. Coli. d/C Cefepime - switch to Cefazolin pending results of CXR (3) Hypoxemia Status: Acute Problem Text: 03/09/19: will require oxygen at home. This is new for patient. 03/07 - chest x-ray is unremarkable for any change. He is been maintaining his saturations well for the last 24 hours. 03/06 - Developed hypoxemia overnight - improved with OR Concern for CHF/Fluid Overload Get CXR If CHF, will defer to Nephrology how to manage diuretics (4) Anemia Problem Text: Hemoglobin is stable, slightly improved today. Acute on chronic - likely secondary to chemo. s/p 1 unit PRBC 03/03. Will continue to monitor trend. (5) NSCLC of left lung Problem Text: Has been receiving chemo with Taxol and carboplatin, though the last week he was felt to be dehydrated and wasn't treated. I suspect that his kidney injury may be related to his chemo. (6) Coronary artery disease Status: Chronic Response to Treatment: Stable Problem Text: s/p [place] (7) Diarrhea Status: Resolved Problem Text: He reports his diarrhea has resolved today. Of note he has been taken off the cefepime in the same timeframe. Plan/VTE VTE Prophylaxis Ordered?: Yes (subcutaneous heparin, teds and sequentials) Plan Therapy: PT, OT VS, I&O, 24H, Fishbone Vital Signs/I&O Vital Signs Date Time Temp Pulse Resp B/P (MAP) Pulse Ox O2 Delivery O2 Flow Rate FiO2 03/10/19 09:54 69 133/75 03/10/19 09:00 1.0 03/10/19 06:00 97.6 18 92 Nasal Cannula I&O- Last 24 Hours up to 6 AM 03/10/19 06:00 Intake Total 3190 ml Output Total 2725 ml Balance 465 ml Laboratory Data 24H LABS Laboratory Tests 2 03/10/19 05:30: Anion Gap 11, Glomerular Filtration Rate 10.7L, Calcium Level 8.0L, Magnesium Level 2.0, Total Bilirubin 0.9, Aspartate Amino Transf (AST/SGOT) 25, Alanine Aminotransferase (ALT/SGPT) 30, Alkaline Phosphatase 48, Total Protein 6.1L, Albumin 1.9L, Albumin/Globulin Ratio 0.45L CBC/BMP Laboratory Tests 03/10/19 05:30 Microbiology Microbiology 03/03/19 Respiratory Virus Panel (PCR) ([facility]) - Final, Complete 03/03/19 Urine Culture - Final, Complete Escherichia Coli 03/03/19 Blood Culture - Final, Complete NO GROWTH AFTER 5 DAYS 03/03/19 Blood Culture - Final, Complete NO GROWTH AFTER 5 DAYS Virginia Myrick [facility] Mar 10, 2019 11:03
[2019-03-10 11:58] LABS: APPEARANCE, URINE HAZY (CLEAR); BACTERIA, URINE AUTO NEGATIVE (NEGATIVE); BILIRUBIN, URINE AUTO NEGATIVE (NEGATIVE); BLOOD, URINE BLOOD 3+ (NEGATIVE); CALCIUM OXALATE CRYSTALS SMALL; COLOR, URINE YELLOW (YELLOW); GLUCOSE, URINE (UA) AUTO 1+ mg/dL (NEGATIVE); KETONE, URINE AUTO NEGATIVE (NEGATIVE); LEUKOCYTE ESTERASE, URINE AUTO NEGATIVE (NEGATIVE); NITRITE, URINE AUTO NEGATIVE (NEGATIVE); PROTEIN, URINE AUTO 1+ mg/dL (NEGATIVE); RBC, URINE AUTO TNTC /HPF (0-3); SPECIFIC GRAVITY URINE AUTO 1.008 (1.002-1.035); SQUAMOUS EPITHELIAL CELL UR AU 0 /HPF (0-6); UROBILINOGEN, URINE AUTO 0.2 mg/dL (0.0-2.0); WBC, URINE AUTO 24 /HPF (0-3)
[2019-03-10] MEDS: DOCUSATE SODIUM 100 MG CAP PO SCH ×2 (12:12→20:04)
[2019-03-10] MEDS: MIRALAX *UNIT DOSE* 17GM PACKET PO SCH (12:12)
[2019-03-10 14:00] VITALS: BP 134/74
[2019-03-10] MEDS ORDERED: CEFEPIME HCL 1 GM in D5W MINI-BAG PLUS 50 ML IV SCH (16:00)
--- NOTE | 2019-03-10 18:39 | IPN ---
DATE: 03/10/2019 Mr. Kilgore is seen this morning on his bedside. He is sitting in the chair eating breakfast. He is feeling better every day and denies any nausea, vomiting, dyspnea or chest pain. He has been getting IV fluids which he is tolerating well. PHYSICAL EXAMINATION: Temperature 97.6 degrees Fahrenheit, heart rate 70 per minute and respiratory rate 18 per minute. Blood pressure 133/75 mmHg and oxygen saturation 92%. Head is atraumatic. Neck is supple and without jugular venous distention (JVD) or thyroid enlargement. Heart sounds are regular. Lungs sound clear to auscultation. Abdomen is soft and nontender. Bowel sounds are normal. Extremities without any cyanosis or clubbing. Neurologically, he is awake, alert and oriented times three. LABORATORY DATA: Today's laboratories show WBC count 6.5, hemoglobin 9.8 and hematocrit 29.4. Sodium 139, potassium 3.3, CO2 27, BUN 59 and creatinine 5.6. Total protein is 6.1 and albumin 1.9. PROBLEMS: 1. Acute renal failure. Kidney function is gradually improving and we will continue with IV fluid for now. His oral intake has improved significantly. 2. Urinary tract infection (UTI). He still has 24 white blood cells (WBCs) and too numerous to count red blood cells (RBCs) in his urine. He has been on low-dose cefepime and I am going to increase the dose to 1 gram every 24 hours as his kidney function has now improved. 3. Metabolic acidosis. His acidosis has completely corrected and no more sodium bicarbonate infusion. He has been on half normal saline since yesterday. 4. Hypokalemia. Low potassium level persists and we are going to add potassium chloride 20 mEq in each liter of IV fluid. He is also receiving oral potassium chloride 10 mEq three times a day which will be continued. 5. Anemia. Anemia improved following transfusion and has been stable.
[2019-03-10] MEDS: SENNA 8.6 MG TAB (SENOKOT) PO SCH (20:02)
[2019-03-10] MEDS: ROSUVASTATIN 10 MG TAB (CRESTOR) PO SCH (20:03)
[2019-03-10 22:00] VITALS: BP 116/69
[2019-03-11 06:00] VITALS: BP 107/59
[2019-03-11 07:24] LABS: ALBUMIN 1.9 GM/DL (3.2-5.2); BILIRUBIN,TOTAL 0.6 MG/DL (0.2-1.0); CREATININE FOR GFR 4.67 MG/DL (0.70-1.30); GLOMERULAR FILTRATION RATE 13.2 (>42); POTASSIUM SERUM 3.5 MEQ/L (3.5-5.1); TOTAL PROTEIN 6.2 GM/DL (6.4-8.2)
[2019-03-11] MEDS: ASPIRIN 325 MG TAB PO SCH (08:58)
[2019-03-11] MEDS: POTASSIUM CHLORIDE 10 MEQ SR TABLET PO SCH ×3 (08:58→20:02)
[2019-03-11] MEDS: MIRALAX *UNIT DOSE* 17GM PACKET PO SCH (08:58)
[2019-03-11] MEDS: CARVedilol 3.125 MG TAB PO SCH ×2 (08:59→20:03)
[2019-03-11] MEDS: HEPARIN SOD (PORCINE) 5000 UNITS/ML VIAL SC SCH ×2 (08:59→20:03)
[2019-03-11] MEDS: DOCUSATE SODIUM 100 MG CAP PO SCH ×2 (08:59→20:02)
[2019-03-11] MEDS: guaiFENesin ER 600 MG TAB PO SCH ×2 (08:59→20:02)
--- NOTE | 2019-03-11 11:15 | IPNPDOC ---
Subjective Date Seen The patient was seen on 03/11/19. Subjective Chief Complaint/HPI ARF, NSCLC Events since last encounter Weaning off of oxygen, cleared by PT. Remains on IVF per Nephro. constipation relieved with tap water enema and bowel meds. Constitutional: Denies: Chills, Fever, Night Sweats Pulmonary: Reports: Dyspnea, Cough Cardiovascular: Denies: Chest Pain, Palpitations, Orthopnea, Paroxysmal Noc. Dyspnea, Lt Headedness Gastrointestinal: Denies: Nausea, Vomiting, Abdominal Pain, Diarrhea, Constipation Objective Physical Examination General Exam: Positive: Alert, Cooperative, No Acute Distress, Other (cachectic appearing) Eye Exam: Positive: Conjunctiva & lids normal; Negative: Sclera icteric ENT Exam: Positive: Atraumatic, Mucous membr. moist/pink Neck Exam: Positive: Supple; Negative: Lymphadenopathy Chest Exam: Positive: Diminished Heart Exam: Positive: Rate Normal; Negative: Regular Rhythm Abdomen Exam: Positive: Normal bowel sounds, Soft; Negative: Tenderness Extremity Exam: Negative: Edema Psych Exam: Positive: Mental status NL, Oriented x 3 Assessment /Plan Problems (1) Acute renal failure Status: Acute Problem Text: slowly improving. Nephrology input and management appreciate 03/09: continues to show slow improvement. Nephrology input and management appreciated. 03/07 - renal function is slowly improving. No signs of overt uremia. Appreciate nephrology's assistance in managing fluid status and monitoring his kidney function. 03/06 - Renal function has not changed yet with IVF per Nephrology 03/05 - Renal function not improved yet with IVF hydration for presumed QUE secondary to dehydration Now having diarrhea, so may need to increase IVF and monitor electrolytes - so far good urine output Renal US:No acute pathology. The kidneys are each normal in size. No hydronephrosis. Bilateral renal cysts. (2) UTI (urinary tract infection) Status: Acute Problem Text: 03/11/19: cefepime dosing increased by Nephrology due to improved renal function. 03/10/19: repeat UA today due to hematuria and pain. may be related to constipation and straining for BM. 03/06 - U/C grew pansensitive E. Coli. d/C Cefepime - switch to Cefazolin pending results of CXR (3) Hypoxemia Status: Acute Problem Text: 03/11/19: ON RA at rest. monitor exertion. may tolerate weaning off of oxygen prior to DC home. 03/09/19: will require oxygen at home. This is new for patient. 03/07 - chest x-ray is unremarkable for any change. He is been maintaining his saturations well for the last 24 hours. 03/06 - Developed hypoxemia overnight - improved with [place] Concern for CHF/Fluid Overload Get CXR If CHF, will defer to Nephrology how to manage diuretics (4) Anemia Problem Text: Hemoglobin is stable, slightly improved today. Acute on chronic - likely secondary to chemo. s/p 1 unit PRBC 03/03. Will continue to monitor trend. (5) NSCLC of left lung Problem Text: Has been receiving chemo with Taxol and carboplatin, though the last week he was felt to be dehydrated and wasn't treated. I suspect that his kidney injury may be related to his chemo. (6) Coronary artery disease Status: Chronic Response to Treatment: Stable Problem Text: s/p [place] Plan/VTE VTE Prophylaxis Ordered?: Yes (subcutaneous heparin, teds and sequentials) Plan Therapy: PT, OT VS, I&O, 24H, Fishbone Vital Signs/I&O Vital Signs Date Time Temp Pulse Resp B/P (MAP) Pulse Ox O2 Delivery O2 Flow Rate FiO2 03/11/19 10:30 91 Room Air 03/11/19 08:59 69 107/59 03/11/19 08:00 1.0 03/11/19 06:00 97.5 18 I&O- Last 24 Hours up to 6 AM 03/11/19 06:00 Intake Total 3410 ml Output Total 1907 ml Balance 1503 ml Laboratory Data 24H LABS Laboratory Tests 2 03/10/19 11:42: Urine Color YELLOW, Urine Appearance HAZY, Urine pH 8.0, Urine Specific [place] 1.008, Urine Protein 1+H, Urine Glucose (Auto)(UA) 1+H, Urine Ketones (Auto) NEGATIVE, Urine Blood 3+H, Urine Nitrite NEGATIVE, Urine Bilirubin NEGATIVE, Urine Urobilinogen 0.2, Urine Leukocyte Esterase (Auto) NEGATIVE, Urine WBC (Auto) 24H, Urine RBC (Auto) TNTCH, Urine Hyaline Casts (Auto) 0, Urine Bacteria (Auto) NEGATIVE, Urine Squamous Epithelial Cells 0, Urine Calcium Oxalate Cryst (Auto) SMALL, Urine Sperm (Auto) 03/11/19 05:43: Anion Gap 8, Glomerular Filtration Rate 13.2L, Calcium Level 8.0L, Total Bilirubin 0.6, Aspartate Amino Transf (AST/SGOT) 22, Alanine Aminotransferase (ALT/SGPT) 28, Alkaline Phosphatase 47, Total Protein 6.2L, Albumin 1.9L, Albumin/Globulin Ratio 0.44L CBC/BMP Laboratory Tests 03/11/19 05:43 Microbiology Microbiology 03/10/19 Stool Occult Blood ([facility]) - Final, Complete 03/03/19 Respiratory Virus Panel (PCR) ([facility]) - Final, Complete 03/03/19 Urine Culture - Final, Complete Escherichia Coli 03/03/19 Blood Culture - Final, Complete NO GROWTH AFTER 5 DAYS 03/03/19 Blood Culture - Final, Complete NO GROWTH AFTER 5 DAYS Virginia MyrickP Mar 11, 2019 11:15
[2019-03-11] MEDS: KCL 20MEQ IN 0.45NS 1000ML 1,000 ML IV SCH (11:57)
[2019-03-11 14:00] VITALS: BP 107/68
[2019-03-11] MEDS: cefTRIAXone SOD 1 GM in D5W MINI-BAG PLUS 50 ML IV SCH (15:47)
--- NOTE | 2019-03-11 19:07 | IPN ---
DATE: 03/12/2019 SUBJECTIVE: The patient was seen and examined at the bedside today morning. He is afebrile, hemodynamically stable. He has a good urine output, more than one liter per 24 hours. His renal function is improving. Creatinine is down to 4.6. He denies any active complaints. He continues to be on IV fluid hydration. OBJECTIVE: VITAL SIGNS: Temperature is 97.5 degrees Fahrenheit, blood pressure 107/59, pulse is 69, respiratory rate of 18, saturating 95% on room air. INTAKE AND OUTPUT: Urine output recorded is 1.7 liters yesterday, one liter so far today since overnight. Weight in bed scale is not available. PHYSICAL EXAMINATION: GENERAL: The patient is awake, alert, oriented times three, sitting up in the sofa, in no apparent distress. HEAD AND NECK: Extraocular muscles intact. Pupils equally round and reactive to light. Mucous membranes are moist. Neck is supple. There is no jugular venous distention (JVD). CARDIOVASCULAR: S1, S2, regular rate. No edema of the bilateral lower extremities. RESPIRATORY: Chest is clear to auscultation bilaterally. Bilateral equal air entry. No rales or rhonchi. ABDOMEN: Soft, positive bowel sounds, nontender. No organomegaly. MUSCULOSKELETAL: No clubbing or cyanosis. Pulses are 2+. CENTRAL NERVOUS SYSTEM (SKILL TRAINING PROGRAM COORDINATOR): No focal deficit. Power is 5/5 in all extremities. The patient has a hoarse voice because of vocal cord paralysis. LABORATORY REVIEW: CBC showed a WBC of 6.5 and hemoglobin 9.8 on 03/09/2019. BMP done today morning showed sodium 139, potassium 3.55, chloride 104, bicarbonate 27, BUN 53, creatinine is 4.6, it was 5.6 yesterday, calcium is 8, albumin is 1.9. CURRENT INPATIENT MEDICATIONS: The patient's medications were all reviewed by me. He continues to be on IV fluid hydration, KCl 20 mEq and half-normal saline at 75 mL/hour. No other change in the medications today as compared with yesterday. ASSESSMENT AND PLAN: 1. Acute renal failure. The patient's renal function continues to improve. Continue the current IV fluid hydration. 2. Hypokalemia. Potassium level is controlled with current potassium and IV fluids and oral potassium as well. 3. Metabolic acidosis. Acidosis has resolved. No urgent need of oral or IV bicarbonate now. 4. Nonsmall-cell lung cancer of the left lung. He was on Taxol and carboplatin as outpatient. Chemotherapy is hold because of acute renal failure.
[2019-03-11] MEDS: ROSUVASTATIN 10 MG TAB (CRESTOR) PO SCH (20:02)
[2019-03-11] MEDS: SENNA 8.6 MG TAB (SENOKOT) PO SCH (20:02)
[2019-03-11 22:00] VITALS: BP 115/69
[2019-03-12] MEDS: KCL 20MEQ IN 0.45NS 1000ML 1,000 ML IV SCH (00:37)
[2019-03-12 06:00] VITALS: BP 139/80
[2019-03-12 06:34] LABS: ALBUMIN 2.1 GM/DL (3.2-5.2); BILIRUBIN,TOTAL 0.5 MG/DL (0.2-1.0); CALCIUM LEVEL 8.7 MG/DL (8.8-10.2); CREATININE FOR GFR 3.92 MG/DL (0.70-1.30); GLOMERULAR FILTRATION RATE 16.1 (>42); POTASSIUM SERUM 3.7 MEQ/L (3.5-5.1); TOTAL PROTEIN 6.3 GM/DL (6.4-8.2)
[2019-03-12] MEDS: HEPARIN SOD (PORCINE) 5000 UNITS/ML VIAL SC SCH ×2 (08:21→20:41)
[2019-03-12] MEDS: CARVedilol 3.125 MG TAB PO SCH ×2 (08:21→20:41)
[2019-03-12] MEDS: DOCUSATE SODIUM 100 MG CAP PO SCH ×2 (08:21→20:41)
[2019-03-12] MEDS: POTASSIUM CHLORIDE 10 MEQ SR TABLET PO SCH ×3 (08:22→20:40)
[2019-03-12] MEDS: MIRALAX *UNIT DOSE* 17GM PACKET PO SCH (08:22)
[2019-03-12] MEDS: guaiFENesin ER 600 MG TAB PO SCH ×2 (08:22→20:41)
[2019-03-12] MEDS: ASPIRIN 325 MG TAB PO SCH (08:22)
--- NOTE | 2019-03-12 10:21 | IPNPDOC ---
Subjective Date Seen The patient was seen on 03/12/19. Subjective Chief Complaint/HPI ARF Events since last encounter Continues to clinically improve. Constitutional: Denies: Chills, Fever, Night Sweats Pulmonary: Denies: Dyspnea, Cough Cardiovascular: Denies: Chest Pain, Palpitations, Orthopnea, Paroxysmal Noc. Dyspnea, Lt Headedness Gastrointestinal: Denies: Nausea, Vomiting, Abdominal Pain, Diarrhea, Constipation Objective Physical Examination General Exam: Positive: Alert, Cooperative, No Acute Distress, Other (cachectic appearing) Eye Exam: Positive: Conjunctiva & lids normal; Negative: Sclera icteric ENT Exam: Positive: Atraumatic, Mucous membr. moist/pink Neck Exam: Positive: Supple; Negative: Lymphadenopathy Chest Exam: Positive: Diminished Heart Exam: Positive: Rate Normal; Negative: Regular Rhythm Abdomen Exam: Positive: Normal bowel sounds, Soft; Negative: Tenderness Extremity Exam: Negative: Edema Psych Exam: Positive: Mental status NL, Oriented x 3 Assessment /Plan Problems (1) Acute renal failure Status: Acute Problem Text: slowly improving. Nephrology input and management appreciate 03/09: continues to show slow improvement. Nephrology input and management appreciated. 03/07 - renal function is slowly improving. No signs of overt uremia. Appreciate nephrology's assistance in managing fluid status and monitoring his kidney function. 03/06 - Renal function has not changed yet with IVF per Nephrology 03/05 - Renal function not improved yet with IVF hydration for presumed QUE secondary to dehydration Now having diarrhea, so may need to increase IVF and monitor electrolytes - so far good urine output Renal US:No acute pathology. The kidneys are each normal in size. No hydronephrosis. Bilateral renal cysts. (2) UTI (urinary tract infection) Status: Acute Problem Text: 03/11/19: cefepime dosing increased by Nephrology due to improved renal function. 03/10/19: repeat UA today due to hematuria and pain. may be related to constipation and straining for BM. 03/06 - U/C grew pansensitive E. Coli. d/C Cefepime - switch to Cefazolin pending results of CXR (3) Hypoxemia Status: Acute Problem Text: 03/11/19: ON RA at rest. monitor exertion. may tolerate weaning off of oxygen prior to DC home. 03/09/19: will require oxygen at home. This is new for patient. 03/07 - chest x-ray is unremarkable for any change. He is been maintaining his saturations well for the last 24 hours. 03/06 - Developed hypoxemia overnight - improved with ME Concern for CHF/Fluid Overload Get CXR If CHF, will defer to Nephrology how to manage diuretics (4) Anemia Problem Text: Hemoglobin is stable, slightly improved today. Acute on chronic - likely secondary to chemo. s/p 1 unit PRBC 03/03. Will continue to monitor trend. (5) NSCLC of left lung Problem Text: Has been receiving chemo with Taxol and carboplatin, though the last week he was felt to be dehydrated and wasn't treated. I suspect that his kidney injury may be related to his chemo. (6) Coronary artery disease Status: Chronic Response to Treatment: Stable Problem Text: s/p PR Plan/VTE VTE Prophylaxis Ordered?: Yes (subcutaneous heparin, teds and sequentials) Plan Therapy: PT, OT VS, I&O, 24H, Fishbone Vital Signs/I&O Vital Signs Date Time Temp Pulse Resp B/P (MAP) Pulse Ox O2 Delivery O2 Flow Rate FiO2 03/12/19 08:21 69 112/68 03/12/19 06:00 98.4 16 91 Room Air 03/11/19 22:00 1.0 I&O- Last 24 Hours up to 6 AM 03/12/19 06:00 Intake Total 2630 ml Output Total 2375 ml Balance 255 ml Laboratory Data 24H LABS Laboratory Tests 2 03/12/19 05:29: Anion Gap 9, Glomerular Filtration Rate 16.1L, Calcium Level 8.7L, Total Bilirubin 0.5, Aspartate Amino Transf (AST/SGOT) 18, Alanine Aminotransferase (ALT/SGPT) 25, Alkaline Phosphatase 47, Total Protein 6.3L, Albumin 2.1L, Albumin/Globulin Ratio 0.50L CBC/BMP Laboratory Tests 03/12/19 05:29 Microbiology Microbiology 03/10/19 Stool Occult Blood ([facility]) - Final, Complete 03/03/19 Respiratory Virus Panel (PCR) ([facility]) - Final, Complete 03/03/19 Urine Culture - Final, Complete Escherichia Coli 03/03/19 Blood Culture - Final, Complete NO GROWTH AFTER 5 DAYS 03/03/19 Blood Culture - Final, Complete NO GROWTH AFTER 5 DAYS Virginia Myrick BUS OPERATOR Mar 12, 2019 10:21
[2019-03-12 14:00] VITALS: BP 119/71
[2019-03-12] MEDS: cefTRIAXone SOD 1 GM in D5W MINI-BAG PLUS 50 ML IV SCH (16:40)
[2019-03-12] MEDS: ROSUVASTATIN 10 MG TAB (CRESTOR) PO SCH (20:40)
[2019-03-12] MEDS: SENNA 8.6 MG TAB (SENOKOT) PO SCH (20:40)
[2019-03-12 22:00] VITALS: BP 113/61
[2019-03-13 06:00] VITALS: BP 132/73
[2019-03-13 06:20] LABS: ALBUMIN 2.2 GM/DL (3.2-5.2); BILIRUBIN,TOTAL 0.5 MG/DL (0.2-1.0); CALCIUM LEVEL 8.7 MG/DL (8.8-10.2); CREATININE FOR GFR 3.43 MG/DL (0.70-1.30); GLOMERULAR FILTRATION RATE 18.8 (>42); POTASSIUM SERUM 3.7 MEQ/L (3.5-5.1); TOTAL PROTEIN 6.6 GM/DL (6.4-8.2)
[2019-03-13] MEDS: guaiFENesin ER 600 MG TAB PO SCH ×2 (08:18→20:52)
[2019-03-13] MEDS: DOCUSATE SODIUM 100 MG CAP PO SCH ×2 (08:18→20:52)
[2019-03-13] MEDS: POTASSIUM CHLORIDE 10 MEQ SR TABLET PO SCH ×3 (08:18→20:52)
[2019-03-13] MEDS: HEPARIN SOD (PORCINE) 5000 UNITS/ML VIAL SC SCH ×2 (08:18→20:52)
[2019-03-13] MEDS: ASPIRIN 325 MG TAB PO SCH (08:18)
[2019-03-13] MEDS: MIRALAX *UNIT DOSE* 17GM PACKET PO SCH (08:18)
[2019-03-13] MEDS: CARVedilol 3.125 MG TAB PO SCH ×2 (08:19→20:52)
--- NOTE | 2019-03-13 09:00 | IPNPDOC ---
Subjective Date Seen The patient was seen on 03/13/19. Subjective Chief Complaint/HPI Herson this morning reports concern with going home, he is concerned he will need O2, help with homecare and selfcare and meal preparatiosn. He feels weak and not strong enough to be independent at home at this time. He does feel as though he is slowing starting to feel better. He wonders what options he has for his cancer treatment given that the regimen he was on was so toxic for his kidneys. General: Reports: Fatigue Constitutional: Denies: Chills, Fever ENT: Denies: Head Aches Skin: Denies: Rash Pulmonary: Reports: Dyspnea, Cough Cardiovascular: Denies: Chest Pain, Palpitations Gastrointestinal: Denies: Nausea, Vomiting, Diarrhea Neurological: Reports: Weakness Psych: Reports: Depression Objective Physical Examination General Exam: Positive: Alert, Cooperative, No Acute Distress, Other (cachectic appearing) Neck Exam: Positive: Supple; Negative: Lymphadenopathy Chest Exam: Positive: Diminished Heart Exam: Positive: Rate Normal; Negative: Regular Rhythm Abdomen Exam: Positive: Normal bowel sounds, Soft; Negative: Tenderness Extremity Exam: Negative: Edema Psych Exam: Positive: Mental status NL, Oriented x 3 Assessment /Plan Problems (1) Acute renal failure Status: Acute Problem Text: 03/13 Scr 3.43 this morning down from 3.9, nephro continues to follow, IVF have been dc, enc PO hydration. 03/12 slowly improving. Nephrology input and management appreciate 03/09: continues to show slow improvement. Nephrology input and management appreciated. 03/07 - renal function is slowly improving. No signs of overt uremia. Appreciate nephrology's assistance in managing fluid status and monitoring his kidney function. 03/06 - Renal function has not changed yet with IVF per Nephrology 03/05 - Renal function not improved yet with IVF hydration for presumed QUE secondary to dehydration Now having diarrhea, so may need to increase IVF and monitor electrolytes - so far good urine output Renal US:No acute pathology. The kidneys are each normal in size. No hydronephrosis. Bilateral renal cysts. (2) UTI (urinary tract infection) Status: Resolved Problem Text: 03/13 has been on cefepime since 03/03, adequate treatment for UTI. 03/11/19: cefepime dosing increased by Nephrology due to improved renal function. 03/10/19: repeat UA today due to hematuria and pain. may be related to constipation and straining for BM. 03/06 - U/C grew pansensitive E. Coli. d/C Cefepime - switch to Cefazolin pending results of CXR (3) Hypoxemia Status: Acute Problem Text: 03/13 Desat overnight results in O2 being reordered, will cont to work to wean, pt has reservations about going home with O2. 03/11/19: ON RA at rest. monitor exertion. may tolerate weaning off of oxygen prior to DC home. 03/09/19: will require oxygen at home. This is new for patient. 03/07 - chest x-ray is unremarkable for any change. He is been maintaining his saturations well for the last 24 hours. 03/06 - Developed hypoxemia overnight - improved with NC Concern for CHF/Fluid Overload Get CXR If CHF, will defer to Nephrology how to manage diuretics (4) Anemia Problem Text: 03/13 Repeat Hgb in AM. 03/12 Hemoglobin is stable, slightly improved today. Acute on chronic - likely secondary to chemo. s/p 1 unit PRBC 03/03. Will continue to monitor trend. (5) NSCLC of left lung Problem Text: 03/13 Pt currently off chemo, recognizes need for potential change of treatment plan due to renal failure. 03/12 Has been receiving chemo with Taxol and carboplatin, though the last week he was felt to be dehydrated and wasn't treated. I suspect that his kidney injury may be related to his chemo. (6) Coronary artery disease Status: Chronic Response to Treatment: Stable Problem Text: s/p IA Plan/VTE VTE Prophylaxis Ordered?: Yes (subcutaneous heparin, teds and sequentials) Plan Therapy: PT, OT VS, I&O, 24H, Fishbone Vital Signs/I&O Vital Signs Date Time Temp Pulse Resp B/P (MAP) Pulse Ox O2 Delivery O2 Flow Rate FiO2 03/13/19 08:19 68 132/73 03/13/19 06:00 98.2 16 92 Nasal Cannula 1.0 I&O- Last 24 Hours up to 6 AM 03/13/19 06:00 Intake Total 1000 ml Output Total 3020 ml Balance -2020 ml Laboratory Data 24H LABS Laboratory Tests 2 03/13/19 05:29: Anion Gap 8, Glomerular Filtration Rate 18.8L, Calcium Level 8.7L, Total Bilirubin 0.5, Aspartate Amino Transf (AST/SGOT) 15, Alanine Aminotransferase (ALT/SGPT) 22, Alkaline Phosphatase 53, Total Protein 6.6, Albumin 2.2L, Albumin /Globulin Ratio 0.50L CBC/BMP Laboratory Tests 03/13/19 05:29 Microbiology Microbiology 03/10/19 Stool Occult Blood ([facility]) - Final, Complete 03/03/19 Respiratory Virus Panel (PCR) ([facility]) - Final, Complete 03/03/19 Urine Culture - Final, Complete Escherichia Coli 03/03/19 Blood Culture - Final, Complete NO GROWTH AFTER 5 DAYS 03/03/19 Blood Culture - Final, Complete NO GROWTH AFTER 5 DAYS DEVIKA MARSHALL PA-C Mar 13, 2019 08:59
[2019-03-13 14:00] VITALS: BP 121/72
[2019-03-13] MEDS: cefTRIAXone SOD 1 GM in D5W MINI-BAG PLUS 50 ML IV SCH (16:49)
--- NOTE | 2019-03-13 17:30 | IPN ---
DATE: 03/12/2019 SUBJECTIVE: The patient was seen and examined at the bedside today morning. She is afebrile, hemodynamically stable. Renal function continues to improve gradually. Creatinine is down to 3.9. He continues to been on intravenous (IV) fluid hydration. Electrolytes are within the acceptable range. OBJECTIVE: Vital signs: Temperature is 98.4 degrees Fahrenheit, blood pressure 139/80, pulse is 75, respiratory of 16, saturating 91% on room air. Intake and output: Urine output recorded is 2.7 liters yesterday, 1.2 liters so far today since overnight. Weight in the bed scale is not available. PHYSICAL EXAMINATION: GENERAL: The patient is awake, alert, oriented times three, lying in bed in no apparent distress. HEAD AND NECK: Extraocular muscles intact. Pupils equally round and reactive to light. Mucous membranes are moist. Neck is supple. There is no jugular venous distention (JVD). CARDIOVASCULAR: S1, S2, regular rate. No edema of the bilateral lower extremities. RESPIRATORY: Chest is clear to auscultation bilaterally. Bilateral equal air entry. No rales or rhonchi. ABDOMEN: Soft. Positive bowel sounds. Nontender. No organomegaly. MUSCULOSKELETAL: No clubbing or cyanosis. Pulses are 2+. CENTRAL NERVOUS SYSTEM: No focal deficit. Power is 5/5 in all extremities. LABORATORY REVIEW: CBC showed WBC of 6.5, hemoglobin 9.8, platelets of 158. BMP showed sodium 138, potassium 3.7, chloride 104, bicarbonate 25, BUN 46, creatinine is 3.9; it was 4.6 yesterday. Calcium is 8.7. Albumin is 2.1. CURRENT INPATIENT MEDICATIONS: The patient's medications were all reviewed by myself. IV cefepime was stopped, and he was started on IV ceftriaxone 1 gram IV daily. IV fluids are being stopped at noontime today. No other change in the medications today as compared with yesterday. ASSESSMENT AND PLAN: 1. Acute kidney injury. Patient's renal failure continues to improve. Creatinine is down to 3.9. No urgent need of hemodialysis. Continue to monitor for renal improvement. IV fluids are being stopped. Continue to encourage oral hydration. 2. Hypokalemia. IV potassium is being stopped. Continue the oral potassium 10 mEq three times a day 3. [id number] lung cancer of the left lung. He is status post Taxol and carboplatin statin as outpatient. Chemotherapy on hold because of renal failure.
[2019-03-13] MEDS: SENNA 8.6 MG TAB (SENOKOT) PO SCH (20:52)
[2019-03-13] MEDS: ROSUVASTATIN 10 MG TAB (CRESTOR) PO SCH (20:52)
--- NOTE | 2019-03-13 21:56 | IPN ---
DATE: 03/13/2019 SUBJECTIVE: The patient was seen and examined at the bedside today morning. He is afebrile, hemodynamically stable. His renal function continues to improve, creatinine is down to 3.4. He has a very good urine output. IV fluids was stopped yesterday. OBJECTIVE: Vital signs: Temperature is 98.2 degrees Fahrenheit, blood pressure 132/73, pulse is 68, respiratory rate of 16, saturating 92% on nasal cannula at 1 liter. Intake and output: Urine output recorded is 2.6 liters yesterday, 1 liter so far today since overnight. Weight in the bed scale is not available. PHYSICAL EXAMINATION: General: The patient is awake, alert, oriented times three, sitting up in the bed, in no apparent distress. Head and neck exam: Extraocular muscles intact. Pupils equally round and reactive to light. Mucous membranes are moist. Neck is supple. There is no jugular venous distention (JVD). Cardiovascular: S1, S2, regular rate. No edema of the bilateral lower extremities. Respiratory: Chest is clear to auscultation bilaterally. Bilateral equal air entry. No rales or rhonchi. Abdomen: Soft, positive bowel sounds. Nontender. No organomegaly. Musculoskeletal: No clubbing or cyanosis. Pulses are 2+. Central nervous system ([employer]): No focal deficit. Power is 5/5 in all extremities. He has a hoarse voice. LAB REVIEW: There is no latest CBC available. BMP showed sodium 138, potassium 3.7, chloride 105, bicarbonate 25, BUN 46, creatinine is 3.4, it was 3.9 yesterday, calcium 8.7, albumin 2.2. CURRENT INPATIENT MEDICATIONS: The patient's medications were all reviewed by me. His IV fluids were stopped yesterday. He continues to be on IV ceftriaxone, last dose is tomorrow. No other change in the medications today as compared with yesterday. ASSESSMENT/PLAN: 1. Acute renal failure. Patient's renal function continues to improve. Creatinine is down to 3.4. Continue to encourage oral hydration. IV fluids were stopped yesterday. 2. Hypokalemia. Potassium level is controlled with oral potassium only, 10 mEq three times a day. 3. [id number] lung cancer of the left lung. He is status post Taxol and carboplatin as outpatient. Chemo on hold because of acute renal failure. He cannot resume the chemotherapy at this point since renal function has not improved back to baseline. 4. Urinary tract infection. The patient is currently on IV ceftriaxone; last dose is tomorrow. DISPOSITION: Patient's renal function continues to improve. Electrolytes are within the acceptable range. He is optimized from nephrology standpoint to be discharged home, and he needs to follow up with nephrology within 2 weeks after discharge from the hospital. Nephrology service is going to sign off the case at this moment. Please call nephrology service for any help in the management of this patient during this hospitalization.
[2019-03-13 22:00] VITALS: BP 129/75
[2019-03-14 05:58] LABS: HEMATOCRIT 34.7 % (42.0-52.0); HEMOGLOBIN 10.8 g/dl (13.5-17.5); MEAN CORPUSCULAR HEMOGLOBIN 31.6 pg (27.0-33.0); MEAN CORPUSCULAR HGB CONC 31.1 g/dl (32.0-36.5); MEAN CORPUSCULAR VOLUME 101.5 fl (80.0-96.0); PLATELET COUNT, AUTOMATED 143 10^3/uL (150-450); RED BLOOD COUNT 3.42 10^6/uL (4.30-6.10); WHITE BLOOD COUNT 5.8 10^3/uL (4.0-10.0)
[2019-03-14 06:00] VITALS: BP 122/66
[2019-03-14 06:20] LABS: ALBUMIN 2.2 GM/DL (3.2-5.2); BILIRUBIN,TOTAL 0.4 MG/DL (0.2-1.0); CALCIUM LEVEL 9.1 MG/DL (8.8-10.2); CREATININE FOR GFR 3.04 MG/DL (0.70-1.30); GLOMERULAR FILTRATION RATE 21.6 (>42); POTASSIUM SERUM 3.7 MEQ/L (3.5-5.1); TOTAL PROTEIN 6.9 GM/DL (6.4-8.2)
[2019-03-14] MEDS: POTASSIUM CHLORIDE 10 MEQ SR TABLET PO SCH (07:55)
[2019-03-14] MEDS: ASPIRIN 325 MG TAB PO SCH (07:55)
[2019-03-14] MEDS: guaiFENesin ER 600 MG TAB PO SCH (07:55)
[2019-03-14 07:56] VITALS: BP 122/66
[2019-03-14] MEDS: MIRALAX *UNIT DOSE* 17GM PACKET PO SCH (07:56)
[2019-03-14] MEDS: DOCUSATE SODIUM 100 MG CAP PO SCH (07:56)
[2019-03-14] MEDS: HEPARIN SOD (PORCINE) 5000 UNITS/ML VIAL SC SCH (07:56)
[2019-03-14] MEDS: CARVedilol 3.125 MG TAB PO SCH (07:56)
--- NOTE | 2019-03-14 09:00 | DSES ---
DATE OF ADMISSION: 03/03/2019 DATE OF DISCHARGE: PRINCIPAL DIAGNOSES: 1. Acute renal failure superimposed on stage IV chronic kidney disease. 2. Urinary tract infection (UTI). 3. Non small cell lung cancer, on active chemotherapy. 4. Hypokalemia. 5. Hypoxemia from malignancy and chemotherapy. HISTORY: Herson Kilgore is being treated for non small cell lung cancer with active chemotherapy and presented from the oncology office with acute kidney injury. Details of his history and physical as per admission. HOSPITAL COURSE: The patient was admitted to a medical bed. He was seen in consultation by nephrology. He was treated with intravenous fluids. Electrolyte disturbances were addressed. He was found to have a Escherichia (E) coli UTI and was treated with antibiotics, eventually ceftriaxone. He was hypoxemic but that improved with treatment of underlying conditions and he received a total of 3 units of packed red blood cells, which helped oxygenation and his oxygen saturation is 92% on room air today. On the day of discharge, he has been cleared to go home by physical therapy (PT). He has been cleared to go home by nephrology. It was identified yesterday that he was going to be on his last day of antibiotics today. He seemed to have placed some barriers to discharge. I do not have a patient and family services (PFS) note since 03/10/2019 so I am not sure how those were addressed. Medically, he is ready to go home today. PHYSICAL EXAMINATION: On the day of discharge, blood pressure 102/66, pulse 70, respiratory rate 18, 92% oxygen saturation on room air. GENERAL APPEARANCE: Frail, elderly, resting in bed. HEENT: Unremarkable. LUNGS: Clear. HEART: Regular rhythm. ABDOMEN: Soft, nontender. EXTREMITIES: No peripheral edema. LABORATORIES: Today, his white count is 5.8, hemoglobin 10.8, platelets 143. Sodium 140, potassium 4.7, BUN 43, creatinine 3.0, glucose 86. Stool negative for occult blood. Urine grew out E coli, which was pansensitive. Blood cultures were all negative. Renal ultrasound showed no hydronephrosis. DISPOSITION: The patient is medically stable for discharge. I will try and see if there are any patient and family services (PFS) available today to deal with some of his hesitancy about discharge. I have made arrangements for home health nursing. He has been cleared by physical therapy (PT) and nephrology and his last dose of Rocephin is today. He does not need home oxygen, his oxygen saturation is 92% on room air. DISCHARGE MEDICATIONS: - Tylenol as needed - aspirin 325 mg daily - carvedilol 6.25 mg twice a day - Zofran 8 mg three times a day as needed - oxycodone 10 mg four times a day as needed - rosuvastatin 40 mg daily I asked nursing staff to inquire about having patient and family services seeing him today, I think that there is some Saturday coverage now.
[2019-03-14 14:00] VITALS: BP 128/64
[2019-03-14] MEDS ORDERED: SODIUM CHLORIDE 0.9% INJ 10 ML SYR IV PRN (14:30)
== END 2019-03-14 15:04 | disposition home health service (06) | DRG 683 ==
LOC: M ED 09:43 → M ED INP 12:43 → M MSPAV 14:37
PROVIDERS: ADMIT Internal Medicine; ATTEND Family Medicine
PROC: 30233N1 Transfusion of Nonautologous Red Blood Cells into Peripheral Vein, Percutaneous Approach (ICD-10-PCS; principal; 2019-03-03)
DX: N17.9 Acute kidney failure, unspecified (principal); N39.0 Urinary tract infection, site not specified; C34.92 Malignant neoplasm of unspecified part of left bronchus or lung; E46 Unspecified protein-calorie malnutrition; E87.2 Acidosis; J44.9 Chronic obstructive pulmonary disease, unspecified; T45.1X5A Adverse effect of antineoplastic and immunosuppressive drugs, initial encounter; D64.81 Anemia due to antineoplastic chemotherapy; N18.4 Chronic kidney disease, stage 4 (severe); E87.6 Hypokalemia; B96.29 Other Escherichia coli [E. coli] as the cause of diseases classified elsewhere; Z79.82 Long term (current) use of aspirin; Z79.899 Other long term (current) drug therapy; I25.10 Atherosclerotic heart disease of native coronary artery without angina pectoris; I25.2 Old myocardial infarction; Z95.2 Presence of prosthetic heart valve; E78.5 Hyperlipidemia, unspecified; Z87.891 Personal history of nicotine dependence; Z88.5 Allergy status to narcotic agent; R19.7 Diarrhea, unspecified

== ENCOUNTER → 2019-04-01 | Outpatient (REF) | payer OTHER ==
[~2019-04-01] MED LIST changes: +BAYE325T16 PO; +CARB10VI IV; +CARV6.25 PO; +PACL1INJ2 IV; +ROSU40TA4 PO; +[UNRECOGNIZED DRUG - CODE] IV
== END ==
LOC: M LAB REF 12:22
PROVIDERS: ATTEND Physician Assistant
DX: N39.0 Urinary tract infection, site not specified (principal); R82.90 Unspecified abnormal findings in urine

== ENCOUNTER → 2019-04-01 | Outpatient (CLI) | payer OTHER ==
[~2019-04-01] MED LIST changes: +ONDA8TAB10 PO; -ONDA8TAB7 PO
--- NOTE | 2019-04-01 18:49 | REP ---
PET/CT: History: Restaging left upper lobe lung carcinoma. Comparisons: Comparison PET-CT study images from October 20, 2018. Comparison CT study of the chest September 30, 2018. The patient is status post radiation therapy. TECHNIQUE: 50 minutes following the intravenous injection of a 9.03 mCi dose of F-18 FDG, three-dimensional PET scintigraphy is acquired from the skull base to the proximal thighs. Triplanar noncontrast CT scanning is acquired through the same anatomic range for attenuation correction, and image registration with scan parameters optimized to minimize radiation exposure to the patient. PET scintigraphy and CT datasets were fused and displayed on a workstation with multiplanar and projection display capability. PET/CT Findings: Incidental note is made of a large left renal cyst. The previously noted large left upper lobe and adjacent mediastinal mass is markedly improved. It is only mildly hypermetabolic, maximum standard uptake value 2.57. There is mild linear pattern of hypermetabolic uptake in the esophagus in the upper thoracic segment just above the level of the transverse aorta which may be post radiation change. Maximum standard uptake value here is 4.94. Esophageal mucosa can be normally hypermetabolic. Posterior and lateral to the esophagus at the level of the top of the aortic arch, there is a hypermetabolic focus adjacent to the aorta, maximum standard uptake value 6.95. This may be residual disease. There are nonhypermetabolic AP window region mediastinal lymph nodes. No other abnormal mediastinal hypermetabolic uptake is seen. There is minimal nonhypermetabolic uptake in the left lower lobe of the lung where there is some atelectasis at the base. No other lung parenchymal hypermetabolic uptake is seen. In the abdomen and pelvis, there is no abnormal uptake. No adrenal uptake is seen. Impression: Dramatic improvement in the left upper lobe left mediastinal mass lesion. Some residual mediastinal uptake at the mediastinum at the top of the aortic arch, posteriorly adjacent to the esophagus. No other suspicious hypermetabolic uptake. Electronically Signed by Aly Ford MD 04/01/2019 09:29 P
== END ==
LOC: M PLARAD 12:04
PROVIDERS: ATTEND Internal Medicine Hematology & Oncology
DX: C34.12 Malignant neoplasm of upper lobe, left bronchus or lung (principal)
CPT/HCPCS: 78815; 87088; 87186; A9552

== ENCOUNTER → 2019-04-16 | Outpatient (REF) | payer MEDICARE | LOC: M LAB REF 12:42 | PROVIDERS: ATTEND Physician Assistant | DX: R30.0 Dysuria (principal) ==

== ENCOUNTER 2019-05-08 14:30 | Outpatient (CLI) | payer OTHER, MEDICARE ==
[~2019-05-08] VITALS: Ht 177.8 cm; Wt 61.3 kg
[~2019-05-08 14:30] MED LIST changes: +NS 1,500 ML IV SCH; +ONDANSETRON 4MG/2ML VIAL (J2405) IV ONE; -PROHANCE 279.3MG/ML 5ML VIAL (A9576) As Ordered ONE
[2019-05-08 14:35] VITALS: BP 130/61
[2019-05-08] MEDS ORDERED: SODIUM CHLORIDE 0.9% INJ 10 ML SYR IV PRN (16:45)
[2019-05-09] MEDS ORDERED: SODIUM CHLORIDE 0.9% INJ 10 ML SYR IV SCH (09:00)
--- NOTE | 2019-05-11 11:50 | MEDONC ---
DATE OF SERVICE: 05/08/2019 REASON FOR FOLLOWUP: Non-small cell lung cancer. DIAGNOSIS AND TREATMENT HISTORY: Per prior notes T4N3M0 - Stage III C Non-small cell carcinoma per pathology- subtype not classified. - 12/15/2018 commenced radiation through 01/04/2019, - 12/24/18- per chart review started weekly carboplatin/Taxol x total of 6 weeks completed 02/17/19. He required a break for issues with dehydration and required admission for acute renal failure was seen by nephrology, received IV fluids and kidney functions improved with time. - 04/01/19 PET - dramatic improvement GAGAN, left mediastinal mass lesion. Some residual mediastinal uptake in the mediastinum at the top of the aortic arch posteriorly adjacent to the esophagus. No other suspicious hypermetabolic uptake. - 04/14/19- commenced durvalumab. INTERVAL HISTORY: The patient is seen today as an acute walk-in. He states that yesterday he had four episodes of vomiting and since yesterday has been feeling increasingly fatigued. He is able to ambulate by himself in the office and drove himself to the clinic. He denies any dizziness, blurred vision, tingling or numbness in any site. He states that his last full meal was Saturday night and had a decreased oral intake as of yesterday. He had about a half of an egg and toast this morning. Previously reported intermittent yellow-brown sputum over the preceding 8 to 9 months, has improved following his Levaquin, which he has completed. He reports no other specific complaints today. REVIEW OF SYSTEMS: Constitutional: No fevers, no chills, no night sweats, no malaise. Cardiopulmonary: No chest pain, no SOB, no palpitations, no dizziness. Gastrointestinal: No pain, no constipation, no diarrhea. No hematemesis, no melena, no hematochezia. Genitourinary: No dysuria, no hematuria, no incontinence, no frequency, no urgency. Musculoskeletal: No bony, no muscle, no joint aches. CHANGE COORDINATOR: No tingling, no weakness, no numbness, no headaches, no dizziness, no seizures, no speech, no visual disturbances, All other systems, are negative unless otherwise specified in HPI. PAST MEDICAL HISTORY: Ex-smoker stopped September 2018, hyperlipidemia, eczema, angina, cervicalgia, CAD, colon cancer status post colectomy. MEDICATIONS: Reviewed and reconciled in EMR. ALLERGIES: NKDA. VITAL SIGNS: Reviewed in EMR - stable. PHYSICAL EXAM: HEENT: Oral mucosa - pink and moist, no conjunctival pallor, sclera anicteric bilaterally. LYMPHATICS: Prior exam- No cervical, supraclavicular, axillary or inguinal LAD LUNGS: Clear to auscultation bilaterally, resonant to percussion bilaterally. HEART: Regular rhythm, no murmurs, no S3/S4, no rubs. ABDOMEN: Soft, nontender, bowel sounds normoactive, no hepatosplenomegaly. EXTREMITIES: No edema bilaterally. Calves, nontender bilaterally. SKIN/NAILS: Prior exam- No nail changes. No petechiae/ecchymosis or other skin changes. MUSCULOSKELETAL: Spine nontender to palpation. INVESTIGATIONS: Reviewed in the EMR. ASSESSMENT/PLAN: 1. T4N3M0 - Stage III C Non-small cell carcinoma per pathology- subtype not classified. Diagnosis and treatment history as above. Currently on durvalumab 10 mg/kg q. 2 weeks until progression of disease or intolerable toxicity for a maximum of 1 year -- above per prior notes, not revisited today except that the patient has an MRI of the brain due at 4:30 today. 2. Mild pancytopenia with macrocytosis. Anemia is multifactorial secondary to recent chemotherapy and radiation, renal dysfunction. 01/28/2019 - ferritin 1219, rest of iron indices c/w of anemia of chronic disease. 04/08/2019 B12 753, folate 14 - no deficiencies, TSH WNL, total bilirubin WNL - hemolysis less likely. Leukopenia and thrombocytopenia have resolved today with normal WBC 6.4, normal platelets 164. Hemoglobin stable at 9.9, improved overall from 7.4 in 02/2019. Persists with macrocytosis which could be a factor to cytotoxic chemotherapy - Above per prior notes. CBC today -- stable counts. 3. Colon cancer - Right partial colectomy 2017. No chemotherapy per patient. Advised the patient that since usually the terminal ileum is sacrificed he will have malabsorption of B12. 04/08/2019 B12 753 - no deficiency. Will monitor, when her B12 falls to less than 500, plan to initiate B12 supplementation to avoid future deficiency. Follow up with GI per their instructions for next call back colonoscopy - Above per prior notes, not revisited today. 4. Acute renal failure - secondary to dehydration and UTI. His creatinine has improved from 10 range to 1.49. Continue to followup with nephrology/PCP per their instructions - Above per prior notes, not revisited today. 5. Three UTIs in the past 2 months. Of note, CT A/P from 03/03/2019 revealed bilateral intrarenal nephrolithiasis though without hydronephrosis. I wonder if this could be a nidus for his recurrent UTI. States saw urology yesterday and was given a "pill" -- the name of which he cannot recall. States cystoscopy is planned. 6. URI - completed course of Levaquin. 7. Insomnia - melatonin ineffective per patient. We discussed Ambien but he declined. States he will try Tylenol P.M. and if that does not work he may avail of Ambien. Advised maximum acetaminophen of 4 grams/day - Above per prior notes, not revisited today. 8. Grade 2 nausea and vomiting with decreased oral intake, no obvious signs of dehydration, BP is at baseline. We discussed and the patient was agreeable to IV Zofran and normal saline IV fluids. Advised to continue with MRI of the brain to evaluate for brain mets, especially as one of his episodes of vomiting he reported was projectile yesterday. Denies any other CHANGE COORDINATOR symptomatology. Check BMP and magnesium. Following the above intervention, the patient stated to RN who relayed to me that he felt significantly better with no further nausea, his fatigue has improved, and he was able to ambulate on his own without any issues or other complaints. He was then released to keep his MRI appointment. FOLLOWUP: 2 weeks, sooner prn. All of the above was relayed to the patient who was given an opportunity to ask questions that were answered to satisfaction. he patient voiced an understanding and agreed to proceed. I spent 15 minutes during this visit seeing the patient [id number] and reviewing records. More than 50% of the time was spent in direct [id number] discussion and counseling of the patient. Electronically Signed by Patrice Sandy MD 05/11/2019 04:59 P DD: Patrice Sandy MD 05/08/2019 06:27 P DT: keyanna 05/11/2019 11:19 A CC:
== END 2019-05-08 16:50 | disposition home or self-care (01) ==
LOC: M INFU 14:30
PROVIDERS: ATTEND Internal Medicine Hematology & Oncology
DX: C34.92 Malignant neoplasm of unspecified part of left bronchus or lung (principal); Z88.5 Allergy status to narcotic agent
CPT/HCPCS: J1642; J2405

== ENCOUNTER → 2019-05-08 | Outpatient (CLI) | payer OTHER, MEDICARE ==
[~2019-05-08] MED LIST changes: +LEVA1TAB2 PO; +PROHANCE 279.3MG/ML 5ML VIAL (A9576) As Ordered ONE
--- NOTE | 2019-05-08 19:28 | REPVR ---
PROCEDURE INFORMATION: Exam: MR Head Without and With Contrast Exam date and time: 05/08/2019 6:13 PM Age: 73 years old Clinical indication: Condition or disease; History of cancer (specify primary cancer site): ; Primary cancer: Lung; Additional info: Lung CA, eval mets TECHNIQUE: Imaging protocol: MR of the head without and with intravenous contrast. Contrast material: PROHANCE; Contrast volume: 6 ml; Contrast route: IV; COMPARISON: MRI BRAIN W/ & W/O CONTRAST - OUTSIDE PRIOR 10/07/2018 2:45 PM FINDINGS: Patient motion. Moderate to severe volume loss. Major vascular flow voids at the skull base are preserved. No extra-axial fluid collection. No midline shift or intracranial mass effect. Nonspecific white matter gliosis, probable chronic microvascular ischemia. There are regions of T2 shine through without true diffusion restriction. No pathologic intracranial enhancement. Visualized paranasal sinuses and mastoid air cells are clear. IMPRESSION: No evidence of intracranial metastatic disease. Electronically signed by: Odin Akins On 05/08/2019 19:28:12 PM
== END ==
LOC: M RAD 16:56
PROVIDERS: ATTEND Internal Medicine Hematology & Oncology
DX: C34.92 Malignant neoplasm of unspecified part of left bronchus or lung (principal); Z88.5 Allergy status to narcotic agent
CPT/HCPCS: 36591; 70553; 80048; 83735; 85027; A9576; J1642; J2405

== ENCOUNTER → 2019-05-14 | Outpatient (REF) | payer MEDICARE ==
[~2019-05-14] MED LIST changes: -NS 1,500 ML IV SCH; -ONDANSETRON 4MG/2ML VIAL (J2405) IV ONE
[2019-05-14 14:24] LABS: APPEARANCE, URINE CLEAR (CLEAR); BACTERIA, URINE AUTO NEGATIVE (NEGATIVE); BILIRUBIN, URINE AUTO NEGATIVE (NEGATIVE); BLOOD, URINE BLOOD 2+ (NEGATIVE); COLOR, URINE STRAW (YELLOW); GLUCOSE, URINE (UA) AUTO NEGATIVE (NEGATIVE); KETONE, URINE AUTO NEGATIVE (NEGATIVE); LEUKOCYTE ESTERASE, URINE AUTO NEGATIVE (NEGATIVE); MUCUS, URINE SMALL (NEGATIVE); NITRITE, URINE AUTO NEGATIVE (NEGATIVE); PROTEIN, URINE AUTO NEGATIVE (NEGATIVE); RBC, URINE AUTO 18 /HPF (0-3); SPECIFIC GRAVITY URINE AUTO 1.008 (1.002-1.035); SQUAMOUS EPITHELIAL CELL UR AU 0 /HPF (0-6); UROBILINOGEN, URINE AUTO 0.2 mg/dL (0.0-2.0); WBC, URINE AUTO 4 /HPF (0-3)
== END ==
LOC: M SMT 13:07
PROVIDERS: ATTEND Nurse Practitioner Family
DX: N39.0 Urinary tract infection, site not specified (principal)

== ENCOUNTER → 2019-07-07 | Outpatient (CLI) | payer OTHER ==
[~2019-07-07] MED LIST changes: +VITA-243 PO; -VITA500T PO
--- NOTE | 2019-07-09 14:08 | REP ---
PET/CT: HISTORY: Restaging non-small cell lung carcinoma left upper lobe. Status post radiation therapy and chemotherapy. There is also history of colon carcinoma. COMPARISONS: Comparison PET-CT studies are reviewed from April 13, 2019 and October 20, 2018. TECHNIQUE: 47 minutes following the intravenous injection of a 7.68 mCi dose of F-18 FDG, three-dimensional PET scintigraphy is acquired from the skull base to the proximal thighs. Triplanar noncontrast CT scanning is acquired through the same anatomic range for attenuation correction, and image registration with scan parameters optimized to minimize radiation exposure to the patient. PET scintigraphy and CT datasets were fused and displayed on a workstation with multiplanar and projection display capability. PET/CT FINDINGS: Head and neck soft tissues are unremarkable. In the mediastinum, at the level of the posterior aortic arch, there is a small persistent focus of mildly hypermetabolic uptake similar to the most recent prior PET/CT study. Maximum standard uptake value here is 5.23. Previously 4.94. No other hypermetabolic uptake is seen. The previously noted left upper lobe mass effect is improved from the original PET/CT study. Essentially unchanged from most recent prior PET/CT study of April 01, 2019. No abnormal pulmonary parenchymal hypermetabolic uptake is appreciated. In the abdomen and pelvis, there is normal hepatic, splenic, gastrointestinal and genitourinary FDG distribution. A large left renal cyst is seen. No abnormal adrenal uptake is observed. No abnormal skeletal uptake is seen. IMPRESSION: A stable focus of mildly hypermetabolic uptake persists between the upper esophagus at the top of the aortic arch unchanged from most recent prior PET/CT study April 01, 2019. No new focus of hypermetabolic uptake is seen. Electronically Signed by Aly Ford MD 07/09/2019 02:37 P
== END ==
LOC: M PLARAD 15:17
PROVIDERS: ATTEND Internal Medicine Hematology & Oncology
DX: C34.12 Malignant neoplasm of upper lobe, left bronchus or lung (principal)
CPT/HCPCS: 78815; A9552

== ENCOUNTER → 2019-07-28 | Outpatient (CLI) | payer MEDICARE, OTHER ==
[~2019-07-28] MED LIST changes: +E-Z-GAS II EFFERVESCENT PACKET (SODIUM BICARB./CITRIC ACID/SIMETHICONE) As Ordered ONE; +E-Z-HD 98% w/w 340GM SUSP BTL As Ordered ONE; +E-Z-PAQUE 96% w/w SUSP 176GM BTL As Ordered ONE; +OMEP-221 PO
--- NOTE | 2019-07-28 16:38 | REP ---
Esophagram The procedure was performed under the direct supervision of Dr. Cobb. The images were reviewed with Dr. Cobb. A single view PA chest x-ray is submitted as a music supervisor film. There is no change compared to a previous chest x-ray performed on 03/06/2019. Liquid barium and gas producing granules were given in the erect position as well as liquid barium in the prone oblique positions in order to perform a double contrast esophagram examination. The oral and pharyngeal stages of deglutition are unremarkable. On the right side of the esophagus at the the T2 level there is smooth mild focal ectasia. There are esophageal transport there are tertiary waves demonstrated. There is no esophagitis stricture or mucosal ring. There is a sliding type hiatal hernia. There is gastroesophageal reflux demonstrated to the level of the yari. Impression: 1. In the right side of the esophagus at the level of T2 there is smooth mild focal ectasia. 2. Tertiary waves. 3. There is a sliding type hiatal hernia. There is gastroesophageal reflux demonstrated to the level of the yari. 1.2 minutes of fluoro time was utilized for this procedure. Electronically Signed by REESE Mullins 07/28/2019 04:27 P Electronically Signed by Alpesh Cobb MD 07/28/2019 04:29 P
== END ==
LOC: M RAD 09:04
PROVIDERS: ATTEND Internal Medicine Gastroenterology
DX: K22.8 Other specified diseases of esophagus (principal); K44.9 Diaphragmatic hernia without obstruction or gangrene; K21.9 Gastro-esophageal reflux disease without esophagitis

== ENCOUNTER → 2019-09-07 | Outpatient (CLI) | payer OTHER ==
[~2019-09-07] MED LIST changes: -E-Z-GAS II EFFERVESCENT PACKET (SODIUM BICARB./CITRIC ACID/SIMETHICONE) As Ordered ONE; -E-Z-HD 98% w/w 340GM SUSP BTL As Ordered ONE; -E-Z-PAQUE 96% w/w SUSP 176GM BTL As Ordered ONE; +K-TA10TA2 PO; +SYNT50TA PO; +TAMS1CAP17 PO
== END ==
LOC: M LABSMTC 10:29
PROVIDERS: ATTEND Anesthesiology
DX: Z03.818 Encounter for observation for suspected exposure to other biological agents ruled out (principal); Z11.59 Encounter for screening for other viral diseases
CPT/HCPCS: 87486; 87581; 87633; 87798; C9803

== ENCOUNTER 2019-09-08 12:39 | Day surgery (SDC) | payer OTHER ==
[~2019-09-08] VITALS: Ht 182.9 cm; Wt 61.2 kg
[~2019-09-08 12:39] MED LIST changes: +NS 1,000 ML IV SCH
[2019-09-08] MEDS ORDERED: propofoL 200 MG/20 ML VIAL As Ordered ONE (13:12)
[2019-09-08] MEDS ORDERED: LIDOCAINE 2% 100MG/5ML SDV (FOR ANES.) As Ordered ONE (13:13)
[2019-09-08] MEDS ORDERED: fentaNYL 100 MCG/2 ML INJECTION (J3010) As Ordered ONE (15:45)
--- NOTE | 2019-09-08 16:17 | ROOR ---
Patient Name: Herson Kilgore Procedure Date: 09/08/2019 3:45 PM Date of : 1945 Age: 74 Room: [facility] Gender: Male Note Status: Finalized Procedure: Upper GI endoscopy Indications: Oral phase dysphagia, Oropharyngeal phase dysphagia Providers: Chago WALTON MD Referring MD: JOE Alford, [facility], Admin. Requesting Provider: Medicines: Monitored Anesthesia Care Complications: No immediate complications. Procedure: Pre-Anesthesia Assessment: - The heart rate, respiratory rate, oxygen saturations, blood pressure, adequacy of pulmonary ventilation, and response to care were monitored throughout the procedure. The Endoscope was introduced through the mouth, and advanced to the second part of duodenum. The upper GI endoscopy was accomplished without difficulty. The patient tolerated the procedure well. Findings: Mild scattered mucosal sclerosis was found in the entire esophagus. This was biopsied with a cold forceps for histology. [place]-colored mucosa patch (inlet patch) was present in the proximal esophagus. A small hiatal hernia was present. The entire examined stomach was normal. The examined duodenum was normal. Impression: - Entire esophagus is noted for mucosal edema, some mild scattered mucosal sclerosis. (radiation vs acid reflux related). Biopsied. - Prominent inlet patch in proximal esophagus. Biopsied. - The entire esophagus is judged generally small in caliber but is free of restriction or stenosis. - Normal stomach with a small hiatal hernia. - Normal examined duodenum. Recommendation: - Use Prilosec (omeprazole) 40 mg twice a day indefinitely. - Chew food well, eat a soft diet. - Telephone endoscopist for pathology results in 2 weeks. Chago Walton MD Chago WALTON MD 09/08/2019 4:17:07 PM Electronically signed by Chago WALTON MD Number of Addenda: 0 Note Initiated On: 09/08/2019 3:45 PM Estimated Blood Loss: Estimated blood loss: none.
[2019-09-08 16:32] VITALS: BP 128/59
[2019-09-16] MEDS ORDERED: FLUD0.1T PO (11:57)
== END 2019-09-08 16:33 | disposition home or self-care (01) ==
LOC: M OPP 12:39
PROVIDERS: ATTEND Internal Medicine Gastroenterology
DX: K22.8 Other specified diseases of esophagus (principal); K44.9 Diaphragmatic hernia without obstruction or gangrene; R13.11 Dysphagia, oral phase; R13.12 Dysphagia, oropharyngeal phase; Z79.82 Long term (current) use of aspirin; Z79.891 Long term (current) use of opiate analgesic; Z79.899 Other long term (current) drug therapy; Z88.5 Allergy status to narcotic agent; Z87.891 Personal history of nicotine dependence; Z85.038 Personal history of other malignant neoplasm of large intestine
CPT/HCPCS: 43239; 88305; J3010

== ENCOUNTER → 2019-10-14 | Outpatient (CLI) | payer OTHER ==
[~2019-10-14] MED LIST changes: +FLUD0.1T PO; +ISOVUE-370 76% 100ML VIAL As Ordered ONE; +LEVO75TA4 PO; -NS 1,000 ML IV SCH
--- NOTE | 2019-10-14 14:04 | REP ---
Clinical: History of lung cancer. Restaging. Technique: Axial contrast enhanced images from the thoracic inlet to the upper abdomen with coronal and sagittal re-formations using 75 ml Isovue 370 intravenous contrast material. Comparison: 09/30/2018. Findings: There appears to be soft tissue thickening surrounding the esophagus beginning at the level of the thoracic inlet with extension of soft tissue along the superior left side of the mediastinum extending over and lateral to the aortic arch with a subtle nodular appearance measuring up to approximately 16 mm maximal diameter (images 13 - 34). There also appears to be irregular polypoid soft tissue involving the distal esophagus at the gastroesophageal junction similar to prior examination. These findings are similar in distribution but significantly decreased when compared to prior examination. Associated mediastinal and prevascular lymph nodes are identified measuring up to 18 mm. These findings are concerning for continued active malignancy and warrant further investigation. Lung velazquez demonstrate advanced COPD/emphysematous disease without acute consolidation, nodule or mass lesion. No effusion. No pneumothorax. Atherosclerotic changes to the thoracic aorta and coronary arteries again noted without aortic aneurysm, dissection, or cardiomegaly. No pericardial effusion. Impression: 1. Irregular areas of soft tissue involving the esophagus and adjacent mediastinum as well as along the lateral aspect of the thoracic aortic arch and distal esophagus/gastroesophageal junction. Associated prevascular lymph nodes measuring up to 18 mm are also noted. Findings are decreased when compared to prior examination, but similar in distribution. Active/recurrent malignancy cannot be excluded. 2. The lung velazquez demonstrate stable chronic advanced COPD/emphysematous disease without acute pleuroparenchymal process. Electronically Signed by Patrick Sorto MD 10/14/2019 01:55 P
== END ==
LOC: M RAD 13:17
PROVIDERS: ATTEND Internal Medicine Hematology & Oncology
DX: C34.90 Malignant neoplasm of unspecified part of unspecified bronchus or lung (principal); J44.9 Chronic obstructive pulmonary disease, unspecified
CPT/HCPCS: 71260; Q9967

== ENCOUNTER → 2019-12-29 | Outpatient (CLI) | payer OTHER ==
[~2019-12-29] MED LIST changes: +GASTROGRAFIN SOLUTION 30ML (Q9963) As Ordered ONE; -ISOVUE-370 76% 100ML VIAL As Ordered ONE
--- NOTE | 2020-01-04 08:56 | REP ---
CT ABDOMEN AND PELVIS WITHOUT INTRAVENOUS (IV) BUT WITH ORAL CONTRAST HISTORY: Lung carcinoma. COMPARISON: Abdomen and pelvis CT study 03/03/2019. CT FINDINGS: Digital preliminary maintenance representative radiograph is unremarkable. There is a small sliding- type hiatal hernia again noted. The liver and the spleen are normal in size and homogeneous in texture. There is a 2 cm cyst in the upper pole of the right kidney. There is no evidence of right-sided hydronephrosis. There are two tiny calcifications again seen in the right kidney consistent with nephrolithiasis. The previously noted stone in the left kidney is not apparent. A large cyst is seen in the lower pole of the left kidney unchanged. Its greatest oblique dimension on coronal multiplanar reformation images 12.8 cm. No left-sided hydronephrosis is seen. Some vascular calcification is seen. No abnormality is noted in the pancreas. There is modeled attenuation in the dependent portion of the gallbladder consistent with cholelithiasis. Normal adrenal glands are seen. The aorta is mildly ectatic. No yoli aneurysm. There is anastomotic suture line at the level of the hepatic flexure status post prior right hemicolectomy. Mild diverticular changes are seen in the sigmoid colon. Urinary bladder, prostate, and seminal vesicles are unremarkable. There is a right inguinal hernia containing an unobstructed loop of ileum again seen. No other abdominal wall defect is seen. No bony destructive lesion is appreciated. IMPRESSION: No evidence of mass or adenopathy. Large left renal cyst. Vascular calcification. Intrarenal nephrolithiasis on the right and cholelithiasis again noted. Normal adrenals. MTDD
--- NOTE | 2020-01-04 08:57 | REP ---
CT CHEST WITHOUT CONTRAST HISTORY: Lung carcinoma. COMPARISON: Chest CT study 09/30/2018 and 10/14/2019. CT FINDINGS: The 09/30/2018 study showed bulky infiltrative mediastinal neoplasm surrounding the great vessels and the top of the aortic arch and involving the adjacent left upper lobe. This process has continued to improve. There is some noticeable improvement even from the 10/14/2019 study. There is still some infiltrative density surrounding the great vessels, but the mass effect has resolved. There is a spiculated density persisting in the adjacent left upper lobe confluent with this measuring 14 mm. Another adjacent nodule measures 10 mm. On 10/14/2019, these densities were 14 and 11 mm. They are essentially unchanged. Todays CT study demonstrates a few persistent pretracheal lymph nodes, which are normal in size. There is an enlarged lymph node in the AP window region of the mediastinum, which today measures 12 mm short axis x 18 mm. On 10/14/2019, this lymph node measured 10 x 17 mm. It may be slightly larger. There is an adjacent normal size AP window region lymph node, which has decreased in size since the 10/14/2019 study. No new adenopathy is seen. There is a right-sided Infusaport catheter in the superior vena cava. A hiatal hernia is noted. Extensive vascular calcification is seen along the course of the coronaries. Normal adrenal glands are seen. There is a cyst in the upper pole of the right kidney and the top of the known large left renal cyst is visible at the bottom edge of the field of view. There are a few calcifications in the pancreas. No liver mass lesion is seen. There are severe emphysematous changes again noted in the lung velazquez. No new pulmonary mass or nodule is seen. Fibrotic changes are noted at the bases. Thoracic vertebral body heights are preserved. No bony destructive lesion is seen. IMPRESSION: There is one AP window region lymph node in the left mediastinum, which may be very slightly larger today. Otherwise, findings are stable or improved. MTDD
== END ==
LOC: M RAD 15:05
PROVIDERS: ATTEND Internal Medicine Medical Oncology
DX: C34.90 Malignant neoplasm of unspecified part of unspecified bronchus or lung (principal); R59.0 Localized enlarged lymph nodes; N28.1 Cyst of kidney, acquired; K80.20 Calculus of gallbladder without cholecystitis without obstruction
CPT/HCPCS: 71250; 74176; Q9963

== ENCOUNTER → 2020-01-12 | Outpatient (CLI) | payer OTHER ==
[~2020-01-12] MED LIST changes: +E-Z-GAS II EFFERVESCENT PACKET (SODIUM BICARB./CITRIC ACID/SIMETHICONE) As Ordered ONE; +E-Z-HD 98% w/w 340GM SUSP BTL As Ordered ONE; +E-Z-PAQUE 96% w/w SUSP 176GM BTL As Ordered ONE; -GASTROGRAFIN SOLUTION 30ML (Q9963) As Ordered ONE
--- NOTE | 2020-01-12 17:24 | REP ---
INDICATION: GERD COMPARISON: Esophagram dated 07/28/2019. TECHNIQUE: This procedure was performed by Zo Curiel [facility], under the direct supervision of Dr. Cobb. Images were reviewed with Dr. Cobb prior to dictation. Liquid barium and gas producing crystals were given in the erect position, as well as liquid barium in the prone oblique position in order to perform a double contrast upper GI examination. FINDINGS: The pleat patternmaker film shows no organomegaly or pathological masses. The intestinal gas pattern is unremarkable. The oral and pharyngeal stages of deglutition were unremarkable. There is no change to the mild ectasia on the right aspect of the esophagus at approximately the T2 level. Just inferior to that on the left is a new finding of mild narrowing, just above the aortic arch. This could be due to an adjacent neoplasm or more likely fibrosis. There declan hiatal hernia. Gastroesophageal reflux is visualized to the level just inferior to the thoracic inlet.. IMPRESSION: 1. Mild ectasia on the right aspect of the esophagus is again visualized. 2. There is a mild narrowing on the left aspect of the esophagus just above the aortic arch, either due to neoplasm, or more likely fibrosis. 3. Hiatal hernia. 4. Gastroesophageal reflux to the level just inferior to the thoracic inlet. 0.5 minutes of fluoroscopy time was utilized for this procedure. Some fluoroscopic images are performed with last image hold technology. These images require no additional radiation. <Electronically signed by Alpesh Cobb > 01/12/20 [id number]
== END ==
LOC: M RAD 08:46
PROVIDERS: ATTEND Otolaryngology
DX: K21.9 Gastro-esophageal reflux disease without esophagitis (principal); K44.9 Diaphragmatic hernia without obstruction or gangrene; D64.9 Anemia, unspecified

== ENCOUNTER → 2020-01-12 | Outpatient (REF) | payer OTHER ==
[~2020-01-12] MED LIST changes: -E-Z-GAS II EFFERVESCENT PACKET (SODIUM BICARB./CITRIC ACID/SIMETHICONE) As Ordered ONE; -E-Z-HD 98% w/w 340GM SUSP BTL As Ordered ONE; -E-Z-PAQUE 96% w/w SUSP 176GM BTL As Ordered ONE
[2020-01-12 18:50] LABS: PERCENT SATURATION 24.6 % (19.7-50.0)
== END ==
LOC: M LAB REF 16:55
PROVIDERS: ATTEND Internal Medicine Nephrology
DX: D64.9 Anemia, unspecified (principal)

== ENCOUNTER → 2020-02-23 | Outpatient (CLI) | payer OTHER ==
[~2020-02-23] MED LIST changes: +CORE3.12 PO
--- NOTE | 2020-02-23 19:03 | REP ---
INDICATION: R13.2 DYSPHAGIA K21.9 GERD. COMPARISON: None. TECHNIQUE: The procedure was performed under the direct supervision of Dr. Ford. The procedure was performed with Stephanie Marino from speech pathology present. 5 cc aliquots of pudding, thin, mixed fruit, soft and solid consistencies of barium was administered as well as a barium pill. FINDINGS: With thin consistency barium there is laryngeal penetration. With mixed fruit consistency there is aspiration. IMPRESSION: With thin consistency barium there is laryngeal penetration. With mixed fruit consistency there is aspiration. A detailed report of this examination will be provided by speech pathology. 2.2 minutes of fluoroscopy time was utilized for this procedure. <Electronically signed by Shaun Mckeon > 02/23/20 [id number] <Electronically signed by Andrea Ford > 02/23/20 [id number]
== END ==
LOC: M ST 10:35
PROVIDERS: ATTEND Otolaryngology
DX: K21.9 Gastro-esophageal reflux disease without esophagitis (principal)

== ENCOUNTER → 2020-03-29 | Outpatient (CLI) | payer OTHER ==
[~2020-03-29] MED LIST changes: +GASTROGRAFIN SOLUTION 30ML (Q9963) As Ordered ONE
--- NOTE | 2020-03-29 11:36 | REP ---
INDICATION: VENOUS INSUFFICIENCY (CHRONIC) (PERIPHERAL) COMPARISON: None TECHNIQUE: Axial noncontrast images from the thoracic inlet to the upper abdomen with coronal and sagittal reformations. This CT examination was performed using the following dose reduction techniques: Automated exposure control, adjustment of mA and/or kv according to the patient's size, and use of iterative reconstruction technique. FINDINGS: The somewhat bilobed spiculated lesion along the medial aspect of the left upper lung zone inseparable from the adjacent aortic arch (images 26-34) is again noted and relatively stable. Very subtle new areas of ill-defined opacity in the periphery of the left upper lobe (images 48-56) as well as small areas of linear consolidation/atelectasis in the bilateral lower lobes are now identified. While these may represent transient areas of airspace disease, short-term follow-up given the patient's history is warranted. Advanced chronic COPD/emphysematous changes along with scarring in the right middle lobe and stable mediastinal lymph nodes are again noted and unchanged. No effusion. No pneumothorax. Atherosclerotic changes to the thoracic aorta and coronary arteries without aortic aneurysm or cardiomegaly remains stable. No pericardial effusion. Hiatal hernia at the gastroesophageal junction again identified. Surrounding musculoskeletal structures demonstrate osteopenia and degenerative changes without acute osseous abnormality. [id number] extends into the SVC/right atrium. IMPRESSION: 1. Chronic COPD/emphysematous changes with scattered scarring as well as the somewhat bilobed lesion along the medial aspect of the left lung and mediastinal lymph nodes remain relatively stable. 2. New areas of irregular airspace disease noted in the periphery of the left upper lobe and at the bilateral lung bases for which short-term follow-up examination at 3 months may be warranted. <Electronically signed by Patrick Sorto > 03/29/20 [id number]
--- NOTE | 2020-03-29 11:41 | REP ---
INDICATION: VENOUS INSUFFICIENCY (CHRONIC) (PERIPHERAL) COMPARISON: 12/29/2019 TECHNIQUE: Axial noncontrast images from the lung bases to the pubic symphysis with coronal and sagittal reformations. This CT examination was performed using the following dose reduction techniques: Automated exposure control, adjustment of mA and/or kv according to the patient's size, and use of iterative reconstruction technique. FINDINGS: Liver, spleen, pancreas, gallbladder, and bilateral adrenal glands are relatively normal and stable. Right kidney includes stable 2 cm upper pole low-density lesion likely representing cyst while the left kidney again includes large exophytic lower pole cyst measuring 9.7 cm maximal diameter. Few nonobstructing right renal calculi up to 2 mm are also identified. Moderate hiatal hernia at the gastroesophageal junction again noted. No evidence for bowel obstruction or acute inflammatory process. Moderate fecal stasis and scattered sigmoid diverticula again noted. Pelvis demonstrates moderately distended gallbladder which may be secondary to outlet obstruction by heterogeneous enlarged prostate gland measuring 4.5 cm maximal diameter. No ascites. No free air. No obvious adenopathy. Atherosclerotic changes to the aorta and vasculature again noted without aneurysm. Musculoskeletal structures demonstrate age-related degenerative changes without acute osseous abnormality. IMPRESSION: 1. No obvious acute abdominopelvic pathology appreciated. 2. Chronic nonacute findings as described above. 3. No ascites, focal inflammatory stranding, adenopathy or free air. <Electronically signed by Patrick Sorto > 03/29/20 [id number]
== END ==
LOC: M RAD 08:56
PROVIDERS: ATTEND Internal Medicine Medical Oncology
DX: J44.9 Chronic obstructive pulmonary disease, unspecified (principal); R91.8 Other nonspecific abnormal finding of lung field; C34.90 Malignant neoplasm of unspecified part of unspecified bronchus or lung
CPT/HCPCS: 71250; 74176; Q9963

== ENCOUNTER → 2020-04-06 | Outpatient (REF) | payer MEDICARE, OTHER ==
[~2020-04-06] MED LIST changes: +GABA-282 PO; -GABA-843 PO; -GASTROGRAFIN SOLUTION 30ML (Q9963) As Ordered ONE
== END ==
LOC: M LAB REF 16:23
PROVIDERS: ATTEND Physician Assistant
DX: M54.89 Other dorsalgia (principal)

== ENCOUNTER → 2020-04-24 | Outpatient (CLI) | payer OTHER ==
[~2020-04-24] MED LIST changes: +PRED20TA PO
== END ==
LOC: M LABSMTC 10:51
PROVIDERS: ATTEND Anesthesiology
DX: Z01.812 Encounter for preprocedural laboratory examination (principal); Z20.822 Contact with and (suspected) exposure to COVID-19

== ENCOUNTER 2020-04-29 13:18 | Day surgery (SDC) | payer OTHER ==
[~2020-04-29] VITALS: Ht 177.8 cm; Wt 59.9 kg
[~2020-04-29 13:18] MED LIST changes: +LIDOCAINE 2% 100MG/5ML SDV (FOR ANES.) As Ordered ONE; +LR 1,000 ML IV ONE; +propofoL 200 MG/20 ML VIAL As Ordered ONE
--- OUTSIDE RECORDS SUMMARY | 2020-04-29 13:23 | CCD | Continuity of Care Document ---
Author Author Herson QUIROS PMattA. Organization Unknown Address [address] [place] [address] [place] [address] Phone [phone] Care Team Providers Care Construction Recruiter Name Role Phone [facility] AUTM [phone] Problems Description No Information Available Social History Type Date Description Comments Sex Unknown ETOH Use Occasionally consumes alcohol Tobacco Use Start: Unknown End: Unknown Patient is a former smoker Smoking Status Reviewed: 04/06/20 Patient is a former smoker Allergies, Adverse Reactions, Alerts Description No Known Drug Allergies Medications Active Medications SIG Qnty Indications Ordering Provide r Date Cephalexin 250mg Tablets 1 tablet by mouth twice daily x 7 days 14tabs M54.5 Selam Echols JR. 04/06/2020 Azelastine HCL (Nasal) 137mcg/[place] Solution use 2 sprays in both nostrils once daily 30ml J04.0 Logan Marroquin JR., M.D. 09/29/2018 Mvi Unknown Atorvastatin Calcium Unknown Lidocaine-Prilocaine 2.5-2.5% Cream Unknown Oxycodone HCL 10mg Tablets take one tablet by mouth every 6 hours as needed for severe pain Unknown Zocor 40mg Tablets Unknown Carvedilol 6.25mg Tablets Unknown Aspirin 325mg Tablets DR Unknown Ondansetron 8mg Tablets Dispers 1 tab by mouth every 8 hours as needed for nausea and vomiting Unknown Immunizations Description No Information Available Vital Signs Date Vital Result Comment 04/06/2020 3:17pm BP Systolic 136 mmHg BP Diastolic 80 mmHg Heart Rate 96 /min Respiratory Rate 16 /min O2 % BldC Oximetry 97 % Body Temperature 97.1 F Weight 140.00 lb Height 70 inches 5'10" BMI (Body Mass Index) 20.1 kg/m2 Pain Level 8 04/16/2019 10:14am BP Systolic 94 mmHg BP Diastolic 60 mmHg Heart Rate 85 /min Respiratory Rate 18 /min O2 % BldC Oximetry 98 % Body Temperature 98.1 F Weight 145.00 lb Height 70 inches 5'10" BMI (Body Mass Index) 20.8 kg/m2 Pain Level 0 Results Test Acquired Date Facility Test Result H/L Range Note Laboratory test finding 04/06/2020 [facility] [address] [place] [address] [phone] Urine Culture <pending> Procedures Description No Information Available Medical Devices Description No Information Available Encounters Type Date Location Provider Dx Diagnosis Office Visit 04/06/2020 3:00p [facility] Tuan Quiros P MattAMatt M54.5 Low back pain Assessments Date Code Description Provider 04/06/2020 M54.5 Low back pain Tuan garcia PMattAMatt Plan of Treatment No Information Available Functional Status Description No Information Available Mental Status Description No Information Available Referrals Description No Information Available
--- OUTSIDE RECORDS SUMMARY | 2020-04-29 13:23 | CCD | Continuity of Care Document ---
Author Author Herson WALTON MD Organization Unknown Address [address] [place] [address] Phone [phone] Care Team Providers Care Airport Sales Agent Name Role Phone Janet Villa R.P.A. AUTM [phone] Asiya Siu AUTM [phone] Sam Baltazar M.D. AUTM [phone] Augusta Roque AUTM [phone] AUTM Unavailable Alexandria Arias M.D. AUTM [phone] Problems Active Problems Provider Date Essential hypertension Herson Dale M.D. Onset: 3 Inguinal hernia without obstruction AND without gangrene Siva Dale M.D. Onset: 04/28/2012 Femoral hernia without obstruction AND without gangrene Sal Dale M.D. Onset: 07/30/2012 Carcinoma in situ of colon Herson Dale M.D. Onset: 08/25 Social History Type Date Description Comments Sex Unknown ETOH Use 1 A Week Recreational Drug Use Denies Drug Use Tobacco Use Start: Unknown End: Unknown Patient is a former smoker Quit at least 1years ago 2019 Allergies, Adverse Reactions, Alerts Description No Known Drug Allergies Medications Active Medications SIG Qnty Indications Ordering Provide r Date Omeprazole 40mg Capsules DR 1 by mouth twice a day (difficult swallowing/GERD) 60caps R13.10 Chago zepeda MD 07/16/2019 Zocor 40mg Tablets 1 PO Daily Unknown Coq-10 100mg Capsules PO Aicha y Unknown Vitamin C 1000mg Tablets PO D aily Unknown Coreg 3.125mg Tablets 1 PO bi d Unknown Aspirin Ec 325mg Tablets DR 1 po qd 30tabs Unknown Vitamin D3 1000Unit Tablets 1 qd Unknown Vitamin B Complex Capsules P O Daily Unknown Potassium Chloride Faby ER 10Meq Tablets ER 2 every day Unknown Immunizations Description No Information Available Vital Signs Date Vital Result Comment 03/02/2020 10:00am BP Systolic 90 mmHg BP Diastolic 60 mmHg Height 70 inches 5'10" Weight 143.00 lb BMI (Body Mass Index) 20.5 kg/m2 [place] Body Weight 166 lb Weight 64.865 kg BSA (Body Surface Area) 1.81 m2 02/03/2020 12:06pm Height 70 inches 5'10" Weight 147.00 lb BMI (Body Mass Index) 21.1 kg/m2 [place] Body Weight 166 lb Weight 66.679 kg BSA (Body Surface Area) 1.83 m2 Results Test Acquired Date Facility Test Result H/L Range Note Laboratory test finding 09/08/2019 [facility] [address] [place] [address] [phone] Pathology Request For Service (SEE NOTE) 1 1 FINAL DIAGNOSIS A - Esophagus, biopsy: Squamous mucosa with reactive and reparative changes. B - Distal esophagus, biopsy: Columnar mucosa with chronic inflammation and reactive changes. No intestinal metaplasia is seen. No squamous mucosa seen. 09/10/2019 - 1506 CLINICAL DIAGNOSIS Difficulty swallowing 09/09/2019 - 1345 GROSS DIAGNOSIS A - Received in formalin labeled "biopsy esophagus" consists of fragments of tissue 0.2 x 0.1 x 0.1 cm in aggregate. All in one. B - Received in formalin labeled "biopsy distal esophagus" consists of fragments of tissue, 0.2 x 0.2 x 0.1 cm in aggregate. All in one. -OA 09/09/2019 - 1345 Signed WINIFRED TURPIN MD 09/10/2019 1507 Procedures Date Code Description Status 01/06/2020 80014 Laryngoscopy Flexible Fiberoptic Diagnostic Completed 09/08/2019 78311 Endoscopy Upper GI Biopsy Comple demond Medical Devices Description No Information Available Encounters Type Date Location Provider Dx Diagnosis Office Visit 03/02/2020 10:00a [facility] Chago Walton MD K22.4 Dyskinesia of esophagus R13.12 Dysphagia, oropharyngeal pha se K21.9 Gastro-esophageal reflux dis ease without esophagitis Office Visit 02/03/2020 1:00p [facility] Arvin Bellamy MD R13.10 Dysphagia, unspecified Office Visit 01/06/2020 9:00a [facility] Arvin Bellamy MD R13.12 Dysphagia, oropharyngeal phase K21.9 Gastro-esophageal reflux dis ease without esophagitis Assessments Date Code Description Provider 03/02/2020 K22.4 Dyskinesia of esophagus Chago zepeda MD 03/02/2020 R13.12 Dysphagia, oropharyngeal phase D katie Walton MD 03/02/2020 K21.9 Gastro-esophageal reflux disease without esophagitis Chago Walton MD 02/03/2020 R13.10 Dysphagia, unspecified Arvin joshi MD 01/06/2020 R13.12 Dysphagia, oropharyngeal phase N nancy Bellamy MD 01/06/2020 K21.9 Gastro-esophageal reflux disease without esophagitis Arvin Bellamy MD 09/08/2019 K20.9 Esophagitis, unspecified Chago lopez MD 09/08/2019 R13.11 Dysphagia, oral phase Chago camarillo MD 09/08/2019 R13.12 Dysphagia, oropharyngeal phase D katie Walton MD Plan of Treatment 03/02/2020 - Chago Walton MD* K22.4 Dyskinesia of esophagus * R13.12 Dysphagia, oropharyngeal phase * K21.9 Gastro-esophageal reflux disease without esophagitis * * Comments:* suspect his dysphagia is related to latent radiation effects, likely contributing is GERD. His EGD from 09/11 is negative for intralumenal lesion (abnormal PET)--. Repeat BA swallow suggestive of some ectasia and narrowing at the level of the aortic arch. Pt referred back by Dr Bellamy for re evaluation/Consideration to interval EGD to recheck for new lesions. Pt is agreeable * Recommendations:* Will repeat EGD Functional Status Functional Condition Comment Date Status Hearing Aid in Both ears Active Mental Status Description No Information Available Referrals Refer to Reason for Referral Status Appt Date Arvin Bellamy M.D. DYSPHAGIA AT THE LARYNGEAL AREA Scheduled 01/06/[address] [place] [address] [phone]
--- OUTSIDE RECORDS SUMMARY | 2020-04-29 13:23 | CCD | Continuity of Care Document ---
Author Author Herson QUIROS PMattA. Organization Unknown Address [address] [place] [address] [place] [address] Phone [phone] Care Team Providers Care Key Account Manager Name Role Phone [facility] AUTM [phone] Problems Description No Information Available Social History [...] Selam Echols JR. 04/06/2020 Azelastine HCL (Nasal) 137mcg/[place] Solution use 2 sprays in both nostrils [...] H/L Range Note Laboratory test finding 04/06/2020 [facility] [address] [place] [address] [phone] Urine Culture <pending> Procedures Description No Information Available Medical Devices Description No Information Available Encounters Type Date Location Provider Dx Diagnosis Office Visit 04/06/2020 3:00p [facility] Tuan Quiros P MattAMatt M54.5 Low back pain Assessments Date Code Description Provider 04/06/2020 M54.5 Low back pain Tuan garcia PMattAMatt Plan of Treatment No Information Available Functional Status Description No Information Available Mental Status Description No Information Available Referrals Description No Information Available
--- OUTSIDE RECORDS SUMMARY | 2020-04-29 13:23 | CCD ---
Author Author [facility] Organization [facility] Address Unknown Phone Unavailable Care Team Providers Care Instrument Repairer Helper Name Role Phone Janet Villa Unavailable PROBLEMS Type Condition ICD9-CM Code BHU00-DM Code Onset Dates Condition S tatus SNOMED Code Notes Problem Cyst of kidney, acquired N28.1 Active 2842672 06 Problem Atherosclerotic heart diseas e of [place] coronary artery without angina pectoris I25.10 Active 017650288607034 Problem Essential (primary) hypertension I10 Active 80984560 Problem BPH (benign prostatic hypertrophy) with urinary obstructio n N40.1 Active 023335142 Problem 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 Active 343737490576930 Problem Nicotine dependence, cigarettes, uncomplicated F17 .210 Active 331799854 Problem Malignant neoplasm of colon, unspecified C18.9 Active 471997868 Problem Non-small cell lung cancer (NSCLC) C34.90 Activ e 063339720 Problem CKD (chronic kidney disease) stage 4, GFR 15-29 ml/min N18.4 Active 206832453 ALLERGIES No Known Allergies ENCOUNTERS from 1945 to 2020-03-08 Encounter Location Date Provider Diagnosis [address] [address] Feb, Janet Villa IMMUNIZATIONS Vaccine Route Administration Date Status Influenza (High Dose 65 & up) IM Intramuscular Mar 12, 2016 A dministered Influenza (High Dose 65 & up) IM Intramuscular Jan 31, 2015 A dministered Influenza (High Dose 65 & up) IM Intramuscular Feb 16, 2014 A dministered Pneumococcal Adult 0.5mL (Pneumovax 23) IM Intramuscular Apr 07, 2012 Administered TDAP IM Intramuscular August 13, 2012 Administered Pneumococcal 0.5mL (Prevnar 13) IM Intramuscular Feb 06, 2012 Administered Influenza (6mo & up) Fluzone IM Intramuscular Dec 24, 2012 Ad ministered Influenza (6mo & up) Fluzone IM Intramuscular Feb 06, 2012 Ad ministered SOCIAL HISTORY Tobacco Use: Social History Observation Description Date Details (start date - stop date) Former Smoker Sex Assigned At : Social History Observation Description Sex Assigned At Unknown Audit Question Answer Notes Total Score: 1 Interpretation: Alcohol Education Drug and Alcohol Question Answer Notes Total Score: 0 Interpretation: No problems reported Tobacco Use: Question Answer Notes Are you a: former smoker How long has it been since you last smoked? 1-5 years REASON FOR REFERRAL No Information VITAL SIGNS No information MEDICATIONS Medication SIG (Take, Route, Frequency, Duration) Notes Start Da te End Date Status Lidocaine-Prilocaine 2.5-2.5 % as directed Externally apply over the portacath one hour prior to chemo Feb, Active Carvedilol 6.25mg 1 tab(s) orally twice a day for 90 days Jan, Active Flomax 0.4 MG 1 capsule Orally Once a day for 90 day(s) Apr, Active Levothyroxine Sodium 50 MCG 1 tablet in the morning on an empty stomach Orally Once a day for 30 day(s) Active Aspirin EC 325 MG 1 tablet Orally Once a day for 90 days Active Omeprazole 40 MG 1 cap Orally bid Ac tive Ondansetron HCl 8 mg 1 tablet as needed Orally th ree times daily for nasuea or vomiting Feb, Active Acetaminophen 500 MG 2tablets as needed Orally every 6 hours Feb, Active Zocor 40 mg 1 tablet in the evening Orally Once a day for 90 days Active Potassium Chloride Faby ER 10 MEQ 1 tablet with food Orally bid Active PROCEDURES No Information RESULTS No Results REASON FOR VISIT ER Visit [facility] 03/06; Foreign Body in Throat MEDICAL (GENERAL) HISTORY Type Description Date Medical History CAD, AR 1999, s/p PCI x 1 Medical History B kidneys with simple cysts per renal US 03/06 Medical History Hyperlipidemia Medical History Palpitations s/p catheterzation/exercise stress test wnl 2010 Medical History 03/07 consented to colonscopy referral Medical History 07/07 CT A & P, B renal cysts , unchanged, 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, also unchanged Medical History 07/06 colonoscopy with Reindl with infiltrative/ulcerated mass of the cecum, 2 cm 4 sessile polyps-ascending colon (not retrieved), four sessile polyps descending/transverse colon, removed with cold snare Medical History 08/06 - moderately differenti ateed adenocarcinomaof the colon staged at [facility], (T3, NO, MX), 12 Neg lymph nodes Medical History 07/11 MRI C spine - DDD Medical History CKD4 Medical History Non small cell lung CA 2018 Surgical History cardiac stent, right 1999 Surgical History carpal tunnel release - R 2001 Surgical History R inguinal hernia with ultrapro mesh - [facility] 07/05 Surgical History R femoral hernia repair with ultrapro me ch - [place] 03/06 Surgical History R hemicolectomy d/t adenocarcinoma 2014 Surgical History Colonoscopy with Dr Dale 2018 Surgical History cystoscopy 06/01/2019 Hospitalization History Sepsis, Secondary to Kidney Stones 0 05/2010 Hospitalization History Sepsis, Secondary to Kidney Stones 0 07/2010 Hospitalization History [place] 07/1999 Hospitalization History Renal Failure at [facility] 02/2019 Goals Section No Information Health Concerns No Information MEDICAL EQUIPMENT No Information MENTAL STATUS No Information FUNCTIONAL STATUS No Information ASSESSMENTS No Information PLAN OF TREATMENT Next Appt Details Provider Name:Mo Ferrari, 2020-07-04 10:15:00 AM, [address], [place], [address], Insurance Providers Payer Name Payer Address Payer Phone Insured Name Patient Relati onship to Insured Coverage Start Date Coverage End Date MEDICARE Part A and B [facility] [address] [facility] [id number] ALMA RICE
--- OUTSIDE RECORDS SUMMARY | 2020-04-29 13:23 | CCD | Continuity of Care Document ---
Author Author Herson QUIROS PMattAMatt Organization Unknown Address [address] [place] [address] [place] [address] Phone [phone] Care Team Providers Care Bartender Name Role Phone [facility] AUTM [phone] Problems Description No Information Available Social History [...] Selam Echols JR. 04/06/2020 Azelastine HCL (Nasal) 137mcg/[place] Solution use 2 sprays in both nostrils [...] H/L Range Note Laboratory test finding 04/06/2020 [facility] [address] [place] [id number] [phone] Urine Culture FULL REPORT IN L <SEE NOTE> Normal 1 1 FULL REPORT IN LAB NOTES (eC W and Medent). NO GROWTH Procedures Description No Information Available Medical Devices Description No Information Available Encounters Type Date Location Provider Dx Diagnosis Office Visit 04/06/2020 3:00p [facility] Tuan Quiros, P .AMatt M54.5 Low back pain Assessments Date Code Description Provider 04/06/2020 M54.5 Low back pain Tuan garcia PMattAMatt Plan of Treatment No Information Available Functional Status Description No Information Available Mental Status Description No Information Available Referrals Description No Information Available
--- OUTSIDE RECORDS SUMMARY | 2020-04-29 13:24 | CCD | Continuity of Care Document ---
Author Author Herson BELLAMY MD Organization Unknown Address [address] [facility] [address] [place] [address] Phone [phone] Care Team Providers Care Medical Office Manager Name Role Phone Janet Villa R.P.A. AUTM [phone] Asiya Siu AUTM [phone] Sam Baltazar M.D. AUTM [phone] Augusta Jude AUTM [phone] AUTM Unavailable Problems Active Problems Provider Date Essential hypertension [...] 1000mg Tablets PO D aily Unknown Coreg 6.25mg Tablets 1 PO bid Unknown Aspirin Ec 325mg Tablets DR 1 po qd 30tabs Unknown Vitamin D3 1000Unit Tablets 1 qd Unknown Vitamin B Complex Capsules P O Daily Unknown Potassium Chloride Faby ER 10Meq Tablets ER 2 every day Unknown Immunizations Description No Information Available Vital Signs Date Vital Result Comment 02/03/2020 12:06pm Height 70 inches 5'10" Weight 147.00 lb BMI (Body Mass Index) 21.1 kg/m2 [place] Body Weight 166 lb Weight 66.679 kg 01/06/2020 8:54am Height 70 inches 5'10" Weight 147.00 lb BMI (Body Mass Index) 21.1 kg/m2 [place] Body Weight 166 lb Weight 66.679 kg Results Test Acquired Date Facility Test Result H/L Range Note Laboratory test finding 09/08/2019 [facility] [address] [place] [address] [phone] Pathology Request For Service (SEE NOTE) 1 [...] 1507 Procedures Date Code Description Status 01/06/2020 50477 Laryngoscopy Flexible Fiberoptic Diagnostic Completed 09/08/2019 06152 Endoscopy Upper GI Biopsy Comple demond Medical Devices Description No Information Available Encounters Type Date Location Provider Dx Diagnosis Office Visit 01/06/2020 9:00a [facility] Arvin Bellamy MD R13.12 Dysphagia, oropharyngeal phase K21.9 Gastro-esophageal reflux dis ease without esophagitis Assessments Date Code Description Provider 01/06/2020 R13.12 Dysphagia, oropharyngeal phase N nancy Bellamy MD 01/06/2020 K21.9 Gastro-esophageal reflux disease without esophagitis Arvin Bellamy MD 09/08/2019 K20.9 Esophagitis, unspecified Chago lopez MD 09/08/2019 R13.11 Dysphagia, oral phase Chago camarillo MD 09/08/2019 R13.12 Dysphagia, oropharyngeal phase D katie Novak MD Plan of Treatment No Information Available Functional Status Functional Condition Comment Date Status Hearing Aid in Both ears Active Mental Status Description No Information Available Referrals Refer to Reason for Referral Status Appt Arvin Bellamy M.D. DYSPHAGIA AT THE LARYNGEAL AREA Scheduled 01/06/2020 [address] [place] [address] [phone]
--- OUTSIDE RECORDS SUMMARY | 2020-04-29 13:24 | CCD ---
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 Name Role Phone Lizbet Jose MD Unavailable Unavailable Lizbet Jose MD Unavailable Unavailable Lizbet Jose MD Unavailable Unavailable Lizbet Jose MD Unavailable Unavailable Lizbet Jose MD Unavailable Unavailable Lizbet Jose MD Unavailable Unavailable Lizbet Jose MD Unavailable Unavailable Lizbet Jose MD Unavailable Unavailable Lizbet Jose MD Unavailable Unavailable Lizbet Jose MD Unavailable Unavailable Lizbet Jose MD Unavailable Unavailable Lizbet Jose MD Unavailable Unavailable Lizbet Jose MD Unavailable Unavailable Lizbet Jose MD Unavailable Unavailable Lizbet Jose MD Unavailable Unavailable Lizbet Jose MD Unavailable Unavailable Lizbet Jose MD Unavailable Unavailable Lizbet Jose MD Unavailable Unavailable Lizbet Jose MD Unavailable Unavailable Lizbet Jose MD Unavailable Unavailable Lizbet Jose MD Unavailable Unavailable Lizbet Jose MD Unavailable Unavailable Lizbet Jose MD Unavailable Unavailable Lizbet Jose MD Unavailable Unavailable Lizbet Jose MD Unavailable Unavailable Lizbet Jose MD Unavailable Unavailable Slezka, Vojtech MD Unavailable Unavailable Slezka Vojtech MD Unavailable Unavailable Slezka Vojtech MD Unavailable Unavailable Slezka Vojtech MD Unavailable Unavailable Slezka Vojtech MD Unavailable Unavailable Slezka Vojtech MD Unavailable Unavailable Slezka Vojtech MD Unavailable Unavailable Slezka Vojtech MD Unavailable Unavailable Slezka Vojtech MD Unavailable Unavailable Slezka, Vojtech MD Unavailable Unavailable Slezka Vojtech MD Unavailable Unavailable Slezka Vojtech MD Unavailable Unavailable Slezka Vojtech MD Unavailable Unavailable Slezka, Vojtech MD Unavailable Unavailable Slezka Vojtech MD Unavailable Unavailable Slezka Vojtech MD Unavailable Unavailable Slezka Vojtech MD Unavailable Unavailable Slezka Vojtech MD Unavailable Unavailable Slezka Vojtech MD Unavailable Unavailable Slezka Vojtech MD Unavailable Unavailable Slezka Vojtech MD Unavailable Unavailable Slezka Vojtech MD Unavailable Unavailable Slezka Vojtech MD Unavailable Unavailable Slezka Vojtech MD Unavailable Unavailable Slezka Vojtech MD Unavailable Unavailable Slezka, Vojtech MD Unavailable Unavailable Slezka Vojtech MD Unavailable Unavailable Slezka Vojtech MD Unavailable Unavailable Slezka Vojtech MD Unavailable Unavailable Slezka Vojtech MD Unavailable Unavailable Slezka Vojtech MD Unavailable Unavailable Slezka Vojtech MD Unavailable Unavailable RING, K ZINA PA Unavailable Unavailable RING, K ZINA PA Unavailable Unavailable RING, K ZINA PA Unavailable Unavailable RING, K ZINA PA Unavailable Unavailable RING, K ZINA PA Unavailable Unavailable RING, K ZINA PA Unavailable Unavailable RING, K ZINA PA Unavailable Unavailable RING, K ZINA PA Unavailable Unavailable RING, K ZINA PA Unavailable Unavailable RING, K ZINA PA Unavailable Unavailable RING, K ZINA PA Unavailable Unavailable RING, K ZINA PA Unavailable Unavailable RING, K ZINA PA Unavailable Unavailable RING, K ZINA PA Unavailable Unavailable RING, K ZINA PA Unavailable Unavailable RING, K ZINA PA Unavailable Unavailable RING, K ZINA PA Unavailable Unavailable RING, K ZINA PA Unavailable Unavailable RING, K ZINA PA Unavailable Unavailable RING, K ZINA PA Unavailable Unavailable RING, K ZINA PA Unavailable Unavailable CUHLA, ALEXANDRA PA Unavailable Unavailable CHULA, ALEXANDRA PA Unavailable Unavailable CHULA, ALEXANDRA PA Unavailable Unavailable CHULA, ALEXANDRA PA Unavailable Unavailable CHULA, ALEXANDRA PA Unavailable Unavailable CHULA, ALEXANDRA PA Unavailable Unavailable CHULA, ALEXANDRA PA Unavailable Unavailable CHULA, ALEXANDRA PA Unavailable Unavailable CHULA, ALEXANDRA PA Unavailable Unavailable CHULA, ALEXANDRA PA Unavailable Unavailable CHULA, ALEXANDRA PA Unavailable Unavailable CHULA, ALEXANDRA PA Unavailable Unavailable CHULA, ALEXANDRA PA Unavailable Unavailable CHULA, ALEXANDRA PA Unavailable Unavailable CHULA, ALEXANDRA PA Unavailable Unavailable CHULA, ALEXANDRA PA Unavailable Unavailable CHULA, ALEXANDRA PA Unavailable Unavailable CHULA, ALEXANDRA PA Unavailable Unavailable CHULA, ALEXANDRA PA Unavailable Unavailable CHULA, ALEXANDRA PA Unavailable Unavailable CHULA, ALEXANDRA PA Unavailable Unavailable CHULA, ALEXANDRA PA Unavailable Unavailable CHULA, ALEXANDRA PA Unavailable Unavailable CHULA, ALEXANDRA PA Unavailable Unavailable CHULA, ALEXANDRA PA Unavailable Unavailable CHULA, ALEXANDRA PA Unavailable Unavailable CHULA, ALEXANDRA PA Unavailable Unavailable CHULA, ALEXANDRA PA Unavailable Unavailable CHULA, ALEXANDRA PA Unavailable Unavailable CHULA, ALEXANDRA PA Unavailable Unavailable CHULA, ALEXANDRA PA Unavailable Unavailable CHULA, ALEXANDRA PA Unavailable Unavailable CHULA, ALEXANDRA PA Unavailable Unavailable CHULA, ALEXANDRA PA Unavailable Unavailable CHULA, ALEXANDRA PA Unavailable Unavailable CHULA, ALEXANDRA PA Unavailable Unavailable CHULA, ALEXANDRA PA Unavailable Unavailable CHULA, ALEXANDRA PA Unavailable Unavailable Arvin Bellamy MD Unavailable Unavailable Arvin Bellamy MD Unavailable Unavailable Arvin Bellamy MD Unavailable Unavailable Arvin Bellamy MD Unavailable Unavailable Arvin Bellamy MD Unavailable Unavailable Arvin Bellamy MD Unavailable Unavailable Arvin Bellamy MD Unavailable Unavailable Arvin Bellamy MD Unavailable Unavailable Arvin Bellamy MD Unavailable Unavailable Arvin Bellamy MD Unavailable Unavailable Arvin Bellamy MD Unavailable Unavailable Arvin Bellamy MD Unavailable Unavailable Arvin Bellamy MD Unavailable Unavailable Arvin Bellamy MD Unavailable Unavailable Arvin Bellamy MD Unavailable Unavailable Arvin Bellamy MD Unavailable Unavailable Arvin Bellamy MD Unavailable Unavailable Arvin Bellamy MD Unavailable Unavailable Arvin Bellamy MD Unavailable Unavailable [place], Arvin VALDEZ Unavailable Unavailable [place], Arvin VALDEZ Unavailable Unavailable [place], Arvin VALDEZ Unavailable Unavailable [place], Arvin VALDEZ Unavailable Unavailable [place], Arvin VALDEZ Unavailable Unavailable [place], Arvin VALDEZ Unavailable Unavailable [place], Arvin VALDEZ Unavailable Unavailable [place], Arvin VALDEZ Unavailable Unavailable [place], Arvin VALDEZ Unavailable Unavailable REINDL, ROXY VALDEZ Unavailable Unavailable REINDL, ROXY VALDEZ Unavailable Unavailable REINDL, ROXY VALDEZ Unavailable Unavailable REINDL, ROXY VALDEZ Unavailable Unavailable REINDL, ROXY VALDEZ Unavailable Unavailable REINDL, ROXY VALDEZ Unavailable Unavailable REINDL, ROXY VALDEZ Unavailable Unavailable REINDL, ROXY VALDEZ Unavailable Unavailable REINDL, ROXY VALDEZ Unavailable Unavailable REINDL, ROXY VALDEZ Unavailable Unavailable REINDL, ROXY VALDEZ Unavailable Unavailable REINDL, ROXY VALDEZ Unavailable Unavailable REINDL, ROXY VALDEZ Unavailable Unavailable REINDL, ROXY VALDEZ Unavailable Unavailable REINDL, ROXY VALDEZ Unavailable Unavailable REINDL, ROXY VALDEZ Unavailable Unavailable REINDL, ROXY VALDEZ Unavailable Unavailable REINDL, ROXY VALDEZ Unavailable Unavailable REINDL, ROXY VALDEZ Unavailable Unavailable REINDL, ROXY VALDEZ Unavailable Unavailable REINDL, ROXY VALDEZ Unavailable Unavailable REINDL, ROXY VALDEZ Unavailable Unavailable REINDL, ROXY VALDEZ Unavailable Unavailable REINDL, ROXY VALDEZ Unavailable Unavailable REINDL, ROXY VALDEZ Unavailable Unavailable REINDL, ROXY VALDEZ Unavailable Unavailable REINDL, ROXY VALDEZ Unavailable Unavailable REINDL, ROXY VALDEZ Unavailable Unavailable REINDL, ROXY VALDEZ Unavailable Unavailable REINDL, ROXY VALDEZ Unavailable Unavailable REINDL, ROXY VALDEZ Unavailable Unavailable REINDL, ROXY VALDEZ Unavailable Unavailable REINDL, ROXY VALDEZ Unavailable Unavailable REINDL, ROXY VALDEZ Unavailable Unavailable REINDL, ROXY VALDEZ Unavailable Unavailable REINDL, ROXY VALDEZ Unavailable Unavailable REINDL, ROXY VALDEZ Unavailable Unavailable REINDL, ROXY VALDEZ Unavailable Unavailable REINDL, ROXY VALDEZ Unavailable Unavailable REINDL, ROXY VALDEZ Unavailable Unavailable REINDL, ROXY VALDEZ Unavailable Unavailable REINDL, ROXY VALDEZ Unavailable Unavailable REINDL, ROXY VALDEZ Unavailable Unavailable REINDL, ROXY VALDEZ Unavailable Unavailable Doniphan, V EMMY PA-C Unavailable Unavailable Nakita, V EMMY PA-C Unavailable Unavailable Doniphan, V EMMY PA-C Unavailable Unavailable Nakita, V EMMY PA-C Unavailable Unavailable Doniphan, V EMMY PA-C Unavailable Unavailable Doniphan, V EMMY PA-C Unavailable Unavailable Nakita, V EMMY PA-C Unavailable Unavailable Re-disclosure Warning The records that you are about to access may contain information from federally-assisted alcohol or drug abuse programs. If such information is present, then the following federally mandated warning applies: This information has been disclosed to you from records protected by federal confidentiality rules (42 CFR part 2). The federal rules prohibit you from making any further disclosure of this information unless further disclosure is expressly permitted by the written consent of the person to whom it pertains or as otherwise permitted by 42 CFR part 2. A general authorization for the release of medical or other information is NOT sufficient for this purpose. The Federal rules restrict any use of the information to criminally investigate or prosecute any alcohol or drug abuse patient.The records that you are about to access may contain highly sensitive health information, the redisclosure of which is protected by Article 27-F of the [facility] Public Health law. If you continue you may have access to information: Regarding HIV / AIDS; Provided by facilities licensed or operated by the [facility] Office of Mental Health; or Provided by the [facility] Office for People With Developmental Disabilities. If such information is present, then the following [facility] mandated warning applies: This information has been disclosed to you from confidential records which are protected by state law. State law prohibits you from making any further disclosure of this information without the specific written consent of the person to whom it pertains, or as otherwise permitted by law. Any unauthorized further disclosure in violation of state law may result in a fine or longterm sentence or both. A general authorization for the release of medical or other information is NOT sufficient authorization for further disc losure. Family History Family Member Name Family Member Gender Family Member Status Date o f Status Description Data Source(s) Unknown Unknown Problem [facility] ([facility]) Unknown Female Problem MED[facility] ([facility] ) Unknown Female Problem MEDENT ([facility] ) Unknown Female Problem MEDENT ([facility], ) Encounters Encounter Providers Location Date Indications Data Source(s ) Outpatient Attender: ALEXANDRA saunders 04/06/2020 02:00:00 PM EST [facility] ([facility]) [place] [address] [facility] [address] 03/07/2020 12:00:00 AM EST eCW1 ([facility]) Outpatient Attender: ROXY Lang/Mia/Jerman/Mariana camar[place] 03/02/2020 09:00:00 AM EST [facility] ([facility]) Outpatient Attender: EMMY MUÑIZNETTIE-SJP.NETTIE 12:00:00 AM EST - 02/08/2020 11:24:08 AM EST [facility] Outpatient Attender: Arvin Lang/[place]/Jerman/Reind l 02/03/2020 12:00:00 PM EST [facility] ([facility]) Outpatient Attender: Arvin Lang/[place]/Jerman/Reind l 01/06/2020 09:00:00 AM EDT [facility] ([facility]) [facility] [address] [place] [phone] 10/01/2019 12:00:00 AM EDT eCW1 ([facility]) Outpatient [address] [place], [place] [phone] 08/25/2019 12:00:00 AM EDT eCW1 ([facility]) Outpatient BUZZSJP.NETTIE 08/10/2019 08:47:34 AM EDT [facility] Outpatient Attender: Lizbet DEWITT-SJP.NETTIE 07/23 12:00:00 AM EDT [facility] Outpatient Attender: ROXY Lang/Mia/Jerman/Rein dl 07/16/2019 01:15:00 PM EDT [facility] ([facility]) Outpatient 06/14/2019 01:13:00 PM EDT [facility] Outpatient 05/27/2019 06:24:00 PM EST [facility] [address] [place] [phone] 05/27/2019 12:00:00 AM EST eCW1 ([facility]) [facility] [address] [place] [phone] 05/27/2019 12:00:00 AM EST eCW1 ([facility]) [address] [address] 05/26/2019 12:00:00 AM EST eCW1 ([facility]) [facility] [address] [place] [phone] 04/30/2019 12:00:00 AM EST eCW1 ([facility]) Outpatient 04/19/2019 05:25:00 PM EST [facility] Outpatient Attender: ZINA Murdock Primary 04/16/2019 07:30:00 AM EST [facility] ([facility]) Outpatient Attender: ZINA Murdock Primary 04/01/2019 10:00:00 AM EST [facility] ([facility]) [address] [phone] 03/30/2019 12:00:00 AM EST eCW1 ([facility]) [address] [address] 03/27/2019 12:00:00 AM EST eCW1 ([facility]) [address] [place] [address] 03/16/2019 12:00:00 AM EST eCW1 ([facility]) [address] [place] [address] 03/16/2019 12:00:00 AM EST eCW1 ([facility]) Outpatient 03/12/2019 08:33:00 AM EST [facility] Outpatient 03/12/2019 08:32:00 AM EST [facility] Medications Medication Brand Name Start Date Product Form Dose Route Admi nistrative Instructions Pharmacy Instructions Status Indications Reaction Description Data Source(s) Cephalexin 250 MG Oral Tablet Cephalexin 04/06/2020 12:00:00 AM EST ORAL active MEDENT ([facility]) Omeprazole 40 MG Delayed Release Oral Capsule Omeprazole 07/16/2019 12:00:00 AM EDT ORAL active MED[facility] ([facility], ) Tamsulosin hydrochloride 0.4 MG Oral Capsule [Flomax] Flomax 0.4 MG Flomax 0.4 MG 04/30/2019 12:00:00 AM EST 1.0 {capsule} active Flomax 0.4 MG eCW1 ([facility]) Cephalexin 500 MG Oral Capsule [Keflex] Keflex 500 MG Keflex 500 MG 04/30/2019 12:00:00 AM EST active 1 capsul e 1 hour prior to your cystoscopy eCW1 ([facility]) Cephalexin 500 MG Oral Capsule [Keflex] Keflex 500 MG Keflex 500 MG 04/30/2019 12:00:00 AM EST suspended 1 capsule 1 hour prior to your cystoscopy eCW1 ([facility]) Tamsulosin hydrochloride 0.4 MG Oral Capsule [Flomax] Flomax 0.4 MG Flomax 0.4 MG 04/30/2019 12:00:00 AM EST active 1 capsule eCW1 ([facility]) Tamsulosin hydrochloride 0.4 MG Oral Capsule [Flomax] Flomax 0.4 MG Flomax 0.4 MG 04/30/2019 12:00:00 AM EST active 1 capsule eCW1 ([facility]) Cephalexin 500 MG Oral Capsule [Keflex] Keflex 500 MG Keflex 500 MG 04/30/2019 12:00:00 AM EST suspended 1 capsule 1 hour prior to your cystoscopy eCW1 ([facility]) Tamsulosin hydrochloride 0.4 MG Oral Capsule [Flomax] Flomax 0.4 MG Flomax 0.4 MG 04/30/2019 12:00:00 AM EST 1.0 {capsule} active Flomax 0.4 MG eCW1 ([facility]) Tamsulosin hydrochloride 0.4 MG Oral Capsule [Flomax] Flomax 0.4 MG Flomax 0.4 MG 04/30/2019 12:00:00 AM EST active 1 capsule eCW1 ([facility]) Cephalexin 250 MG Oral Tablet Cephalexin 04/16/2019 12:00:00 AM EST ORAL active [facility] ([facility]) Cephalexin 250 MG Oral Tablet Cephalexin 04/01/2019 12:00:00 AM EST ORAL completed [facility] ([facility]) Paclitaxel 6 MG/ML Injectable Solution Paclitaxel 30 M G/5ML Paclitaxel 30 MG/5ML 03/14/2019 12:00:00 AM EST suspended as directed eCW1 ([facility]) Ondansetron 8 MG Oral Tablet Ondansetron HCl 8 mg Ondansetro n HCl 8 mg 03/14/2019 12:00:00 AM EST 1.0 {tablet_as_needed} active Ondansetron HCl 8 mg eCW1 ([facility]) Oxycodone Hydrochloride 10 MG Oral Tablet Oxycodone HC l 10 MG Oxycodone HCl 10 MG 03/14/2019 12:00:00 AM EST active 1 tablet as needed eCW1 ([facility]) Ondansetron 8 MG Oral Tablet Ondansetron HCl 8 mg Ondansetro n HCl 8 mg 03/14/2019 12:00:00 AM EST active 1 tablet as needed eCW1 ([facility]) Ondansetron 8 MG Oral Tablet Ondansetron HCl 8 mg Ondansetro n HCl 8 mg 03/14/2019 12:00:00 AM EST active 1 tablet as needed eCW1 ([facility]) Lidocaine 25 MG/ML / Prilocaine 25 MG/ML Topical Cream Lidocaine-Prilocaine 2.5- 2.5 % Lidocaine-Prilocaine 2.5-2.5 % 03/14/2019 12:00:00 AM EST active as directed eCW1 ([facility]) Lidocaine 25 MG/ML / Prilocaine 25 MG/ML Topical Cream Lidocaine-Prilocaine 2.5- 2.5 % Lidocaine-Prilocaine 2.5-2.5 % 03/14/2019 12:00:00 AM EST active as directed eCW1 ([facility]) Ondansetron 8 MG Oral Tablet Ondansetron HCl 8 mg Ondansetro n HCl 8 mg 03/14/2019 12:00:00 AM EST active 1 tablet as needed eCW1 ([facility]) Oxycodone Hydrochloride 10 MG Oral Tablet Oxycodone HC l 10 MG Oxycodone HCl 10 MG 03/14/2019 12:00:00 AM EST active 1 tablet as needed eCW1 ([facility]) Paclitaxel 6 MG/ML Injectable Solution Paclitaxel 30 M G/5ML Paclitaxel 30 MG/5ML 03/14/2019 12:00:00 AM EST suspended as directed eCW1 ([facility]) Lidocaine 25 MG/ML / Prilocaine 25 MG/ML Topical Cream Lidocaine-Prilocaine 2.5- 2.5 % Lidocaine-Prilocaine 2.5-2.5 % 03/14/2019 12:00:00 AM EST active as directed eCW1 ([facility]) Acetaminophen 500 MG Oral Tablet Acetaminophen 500 MG 2018 12:00:00 AM EST active 2tablets as neede d eCW1 ([facility]) Paclitaxel 6 MG/ML Injectable Solution Paclitaxel 30 M G/5ML Paclitaxel 30 MG/5ML 03/14/2019 12:00:00 AM EST suspended as directed eCW1 ([facility]) Oxycodone Hydrochloride 10 MG Oral Tablet Oxycodone HC l 10 MG Oxycodone HCl 10 MG 03/14/2019 12:00:00 AM EST active 1 tablet as needed eCW1 ([facility]) Lidocaine 25 MG/ML / Prilocaine 25 MG/ML Topical Cream Lidocaine-Prilocaine 2.5- 2.5 % Lidocaine-Prilocaine 2.5-2.5 % 03/14/2019 12:00:00 AM EST active Lidocaine-Prilocaine 2.5-2.5 % e CW1 ([facility]) Acetaminophen 500 MG Oral Tablet Acetaminophen 500 MG 2018 12:00:00 AM EST active 2tablets as neede d eCW1 ([facility]) Ondansetron 8 MG Oral Tablet Ondansetron HCl 8 mg Ondansetro n HCl 8 mg 03/14/2019 12:00:00 AM EST active 1 tablet as needed eCW1 ([facility]) Ondansetron 8 MG Oral Tablet Ondansetron HCl 8 mg Ondansetro n HCl 8 mg 03/14/2019 12:00:00 AM EST active 1 tablet as needed eCW1 ([facility]) Oxycodone Hydrochloride 10 MG Oral Tablet Oxycodone HC l 10 MG Oxycodone HCl 10 MG 03/14/2019 12:00:00 AM EST active 1 tablet as needed eCW1 ([facility]) Lidocaine 25 MG/ML / Prilocaine 25 MG/ML Topical Cream Lidocaine-Prilocaine 2.5- 2.5 % Lidocaine-Prilocaine 2.5-2.5 % 03/14/2019 12:00:00 AM EST active as directed eCW1 ([facility]) Acetaminophen 500 MG Oral Tablet Acetaminophen 500 MG 2018 12:00:00 AM EST active 2tablets as neede d eCW1 ([facility]) Acetaminophen 500 MG Oral Tablet Acetaminophen 500 MG 2018 12:00:00 AM EST active 2tablets as neede d eCW1 ([facility]) Lidocaine 25 MG/ML / Prilocaine 25 MG/ML Topical Cream Lidocaine-Prilocaine 2.5- 2.5 % Lidocaine-Prilocaine 2.5-2.5 % 03/14/2019 12:00:00 AM EST active Lidocaine-Prilocaine 2.5-2.5 % e CW1 ([facility]) Oxycodone Hydrochloride 10 MG Oral Tablet Oxycodone HC l 10 MG Oxycodone HCl 10 MG 03/14/2019 12:00:00 AM EST active 1 tablet as needed eCW1 ([facility]) Lidocaine 25 MG/ML / Prilocaine 25 MG/ML Topical Cream Lidocaine-Prilocaine 2.5- 2.5 % Lidocaine-Prilocaine 2.5-2.5 % 03/14/2019 12:00:00 AM EST active as directed eCW1 ([facility]) Ondansetron 8 MG Oral Tablet Ondansetron HCl 8 mg Ondansetro n HCl 8 mg 03/14/2019 12:00:00 AM EST 1.0 {tablet_as_needed} active Ondansetron HCl 8 mg eCW1 ([facility]) Acetaminophen 500 MG Oral Tablet Acetaminophen 500 MG 2018 12:00:00 AM EST active Acetaminophen 500 MG eCW1 ([facility]) Acetaminophen 500 MG Oral Tablet Acetaminophen 500 MG 2018 12:00:00 AM EST active 2tablets as neede d eCW1 ([facility]) Paclitaxel 6 MG/ML Injectable Solution Paclitaxel 30 M G/5ML Paclitaxel 30 MG/5ML 03/14/2019 12:00:00 AM EST suspended as directed eCW1 ([facility]) Acetaminophen 500 MG Oral Tablet Acetaminophen 500 MG 2018 12:00:00 AM EST active Acetaminophen 500 MG eCW1 ([facility]) Paclitaxel 6 MG/ML Injectable Solution Paclitaxel 30 M G/5ML Paclitaxel 30 MG/5ML 03/14/2019 12:00:00 AM EST active as directed eCW1 ([facility]) Insurance Providers Payer name Policy type / Coverage type Policy ID Covered constitution party ID Covered constitution party's relationship to palacios Policy [place] Plan Information 'S ADMINISTRATION [id number] SP [id number] [place] [id number] SP [id number] WPS [facility] [id number] SP [id number] MEDICARE [id number] SP [id number] FOR LIFE [id number] SP [id number] MEDICARE [id number] Marika [id number] OPTUM [place] O [id number] S [id number] WPS [facility] [id number] SP [id number] [facility] PART B C [id number] S [id number] MEDICARE C [id number] S [id number] VA/136E O [id number] S [id number] 'S ADMINISTRATION [id number] SP [id number] MEDICARE [id number] SP [id number] MEDICARE [id number] SP [id number] A WEST O [id number] S [id number] MEDICARE [id number] SP [id number] NORIDIAN JE PART B C [id number] S [id number] Medicare [place] Gov't Servi Medicare Primary [id number] Self [id number] MEDICARE [id number] SP [id number] Medicare [place]l Gov't Servi Medicare Primary [id number] Self [id number] ANSI-Commercial [id number] ANSI-Medicare Part B [id number] Medicare [facility] Gov't Servi Medicare Primary [id number] Self [id number] ANSI-Medicare Part B [id number] ANSI-Commercial [id number] [facility] CHOICE [id number] ANSI-Medicare Part B [id number] ANSI-Commercial [id number] ANSI-Commercial [id number] ANSI-Medicare Part B [id number] ANSI-Commercial [id number] ANSI-Medicare Part B [id number] MEDICARE [id number] SP [id number] A [facility] Administration Commercial [id number] Self [id number] Medicare 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 Problem 08/25/2019 12:00:00 AM EDT eCW1 ([facility]) N39.0 Urinary tract infectious disease Urinary tract infection, site not specified Problem 06/01/2019 12:00:00 AM EDT eCW1 ([facility]) N40.1 Benign prostatic hypertrophy with outflo w obstruction BPH (benign prostatic hypertrophy) with urinary obstruction Problem 2019 12:00:00 AM EST eCW1 ([facility]) N40.1 Benign prostatic hypertrophy with outflo w obstruction BPH (benign prostatic hypertrophy) with urinary obstruction Problem 2019 12:00:00 AM EST eCW1 ([facility]) N18.4 [id number] CKD (chronic kidney disease) stage 4, GFR 15-29 ml/min Problem 03/27/2019 12:00:00 AM EST eCW1 ([facility]) C34.90 [id number] Non-small cell lung cancer (NSCLC) Proble m 03/27/2019 12:00:00 AM EST eCW1 ([facility]) N18.4 [id number] CKD (chronic kidney disease) stage 4, GFR 15-29 ml/min Problem 03/27/2019 12:00:00 AM EST eCW1 ([facility]) C34.90 [id number] Non-small cell lung cancer (NSCLC) Proble m 03/27/2019 12:00:00 AM EST eCW1 ([facility]) E78.00 Pure hypercholesterolemia, unspecified P ure hypercholesterolemia, unspecified Diagnosis 08/10/2019 08:49:13 AM EDT [facility] Z98.61 Coronary angioplasty status Coronary angioplasty statu s Diagnosis 08/10/2019 08:49:13 AM EDT [facility] Surgeries/Procedures Procedure Description Date Indications Data Source(s) LARYNGOSCOPY FLEXIBLE FIBEROPTIC DIAGNOSTIC 01/06/2020 12:00:00 AM EDT MEDENT ([facility], ) Endoscopy Upper GI Biopsy 09/08/2019 12:00:00 AM EDT MEDENT ([facility], ) CYSTOSCOPY 06/01/2019 12:00:00 AM EDT e CW1 ([facility]) Office Visit, New Pt., Level 2 FC 04/30/2019 12:00:00 AM EST eCW1 ([facility]) Office Visit, New Pt., Level 3 PC 04/30/2019 12:00:00 AM EST eCW1 ([facility]) US URINE CAPACITY MEASURE 04/30/2019 12:00:00 AM EST eCW1 ([facility]) Office Visit, Est Pt., Level 2 FC 03/27/2019 12:00:00 AM EST eCW1 ([facility]) TRANS CARE MGMT 14 DAY DISCH 03/27/2019 12:00:00 AM ES T eCW1 ([facility]) Results ID Date Data Source [id number] 04/24/2020 10:45:00 AM EST [facility] Name Value Range Interpretation Code Description Data Hope rce(s) Supporting Document(s) SARS coronavirus 2 RNA Not Detected [facility] [place] This lab was ordered by [facility] and reported by [facility]. ID Date Data Source [id number] 04/06/2020 03:23:00 PM EST MEDENT ([facility]) Name Value Range Interpretation Code Description Data Hope rce(s) Supporting Document(s) Bacteria identified in Urine by Culture Laboratory test result MEDENT ([facility]) FULL REPORT IN LAB NOTES (eCW and Medent ). NO GROWTH ID Date Data Source [id number] 09/08/2019 03:52:00 PM EDT MEDENT ([facility], ) Name Value Range Interpretation Code Description Data Hope rce(s) Supporting Document(s) Surgical pathology study Laboratory test result [facility] ([facility], ) FINAL DIAGNOSIS A - Esophagus, biopsy: Squamous mucosa with reactive and reparative changes. B - Distal esophagus, biopsy: Columnar mucosa with chronic inflammation and reactive changes. No intestinal metaplasia is seen. No squamous mucosa seen. 09/10/2019 - 150 CLINICAL DIAGNOSIS Difficulty swallowing 09/09/2019 - 1344 GROSS DIAGNOSIS A - Received in formalin labeled "biopsy esophagus" consists of fragments of tissue 0.2 x 0.1 x 0.1 cm in aggregate. All in one. B - Received in formalin labeled "biopsy distal esophagus" consists of fragments of tissue, 0.2 x 0.2 x 0.1 cm in aggregate. All in one. -OA 09/09/20191344 Signed WINIFRED TURPIN MD 09/10/2019 1507 ID Date Data Source [id number] 08/10/2019 09:58:51 AM EDT [facility] Name Value Range Interpretation Code Description Data Hope rce(s) Supporting Document(s) &PDF [facility] WNMUMy5rVuSFEjQp84/VYZfaPGPqf5BvIAxcEMb6FOaiSFUqG4YrcGmxECKJIXKMYi9PHboCO9QUAqXs G [file] AgICAgICAgICAgICAgICAgICAgICAgICAgICAgICAgICAgICAgICAgICAgICAgICAgICAgICAgICAgIC LnMQRuCELyWKWpYAPbKYEqQGXxPZKrZXDiLIWhKA1U ICAgICAgICAgICAgICAgICAgICAgICAgICAgICAgICAgICAgICAgICAgICAgICAgICAgICAgICAgICAg LSGwAULeWDAkLNGaOQVxJEGcXDAcFXFjQKBzCIKxSNDbZTFtVKVhHC9TFUOuECLiYISjYCPbGWLtNEDi ICAgICAgICAgICAgICAgICAgICAgICAgICAgICAgIC QxEUUsDVMhTKEeWIJzZQAySPNfUVKeNJCxVFTsTSZdEZDvBFOgTREjECYeQILsGKFaUP3SKWBgYUBtLF AgICAgICAgICAgICAgICAgICAgICAgICAgICAgICAgICAgICAgICAgICAgICAgICAgICAgICAgICAgIC AgICAgICAgICAgICAgICAgICAgICAgICAgICAgICAg NN9UOVPjRMHuFOAaZDCmIWZjQREyWJRlZKXwNEUwUOBnAXMoSFPiBXUzLVCuVNVgHFQeNEZxEPHcTLZs BSZbIBSvNSXaZYRsZURzOMLeCHQiLYNtXZLwNZRjQYKrYMUlIKFvDWApRS4GXINmIUXyIRPnMXJfGAFx ICAgICAgICAgICAgICAgICAgICAgICAgICAgICAgIC TvIVLfFNWzZDNxKAYmHJPbGOPeBYXfBLVwWIZjYHEeWNWmPZZpXBIaKESzLWOsDVKpQADnDR0IEEQwGD AgICAgICAgICAgICAgICAgICAgICAgICAgICAgICAgICAgICAgICAgICAgICAgICAgICAgICAgICAgIC AgICAgICAgICAgICAgICAgICAgICAgICAgICAgICAg PWYdSX3ZSIHaYEGuXDJwEYRoMMQfAXXtINOpOGUxFUTvMPTdRAYxTOQbFXDsSDWvZJWsZZUkKLIkLBPd XNJpAYQsKBZuDBKxWFCdPRWeZJInHULiLIEyWHFvAHHoYRKnOTMuAMKpOWIcID2XREJhXGNaFZNcNAXx ICAgICAgICAgICAgICAgICAgICAgICAgICAgICAgIC RaXUUiYKMvKHTnYDLtJEWcJZJgAKCxIFTuVIUvJRQlQWLwGWJnXDSmOKSiXSBvWAXrPNCtUZRnXV9DCM AgICAgICAgICAgICAgICAgICAgICAgICAgICAgICAgICAgICAgICAgICAgICAgICAgICAgICAgICAgIC AgICAgICAgICAgICAgICAgICAgICAgICAgICAgICAg UBQfWEViOM4BHK13eBRza8R2RMHgUW0yrfi/Mx8CROoztxSvpRWuNL5XDmAlRD6wxb2NPiJsMN7qbc5V PLqRJtJbO0N8hSJeQMNuXEVPWtWtF50hYHtwFo54JSggKUUfFpJhFQm9Dm4VQbQoJ5mjLBUbSnV0YDPf UvR4KGWaDqZbHRcsRT7Ky1MwnENrOYn+Py1UPO1hm4 UvYZdsLOQlRI5apd7IXVjEIiCzA3S2aLOdX6B3ITwcWz5EXLOnGDMjKMieXDQYEYkxFR6ROT7abpF0ZA 2SgRKjTARiMOWvwGZgDDn1J58vbHZqFAsnWS1UVTX+Argelia+Ui4FJLEcETVwSNPpNnNsVYSWIwCgN96ugA FhGSXeWODiEIVeJn5XVISvX5QybxKpuBwybhBwVWDa TAYPBQ0AYVepxkKwzDHmzRdjKJ25vPcqQG4WPn4LOyAmTM5yqw8ReKAnTo4AXBZoLs5FPNDzVMShYUBr TNU9COHyGqPvLHwtWKPrBCEdTOV8RRWnKMVjIK1XRfLoGFMvDIo0PDseLNBkDHXvtv9OHXTbTKZqJDf7 HfEhZBHoFTGaLUffMRFqXMXjGGv7URZlVXAcWA0MIp ImBLUiQDA2AqebSTGdKOBhzy0ENCUdHXWmJoG0XdQuRTTzVFEpECokLIVaUHQ4HZPsQCJbNDSpGP5WDo QiOVGcTSNjQzHxHFTdMLAkuq2XFMEmUKZkWvK9UIYhUUXqMPIoIRvqUUBgDMU5RiveRNKrGWMlCO6RJs WlGWKhXFQ5TyMcXIOmMRBlho4SXOZoMSMtErXdXOAy ZAAaZUZlGZoyBMEqETC5XyLiSOFkJJSdKC4WTbCmJTOfBUx6TtTcOWIhQZYvnr3GPMTdKEYjQTa0UNLk JEQqBTBwYDlfHFPcOGP4CCndIGTxMSFlCN3DYlGnOEDxVKwcYnHiTKHuRZKgti7NEVHzFVNwXZf1XrHh EYRiOTPxTUwsRBNsSEM5CNk0PGRgYDAqAX5UBcRmHS JsLJh8ZLLgCRJeMJGuhj4XSYPtVSKfFQk9NGQoZMWyNIXpLYt4vrDyqDEzDPy3AE2VH1NfbpFtSwBDIa 8Fz349SECnRBKmMa1UQ4ksZa8jGWMyTAXGZr6SNSh9CUM3CwocKAN5TRF5WRJeMbIrLhGvGmKlQ0CqQg EzYzc+BJriFdbhGMCsZxrrDpz5VWLoV3MmWhJ1CPXg G2VnDSDzTq7pKRLNKo1+UDbkeGTjaRdkOILSWySaYHZ4UKnzOBSOTr1J ID Date Data Source [id number] 04/16/2019 09:12:00 AM EST MEDENT ([facility]) Name Value Range Interpretation Code Description Data Hope rce(s) Supporting Document(s) Bacteria identified in Urine by Culture <pending> MEDENT ([facility]) ID Date Data Source [id number] 04/01/2019 11:20:00 AM EST MEDENT ([facility]) Name Value Range Interpretation Code Description Data Hope rce(s) Supporting Document(s) Bacteria identified in Urine by Culture FULL REPORT IN L <SEE NOTE> MEDENT ([facility]) <content>FULL REPORT IN LAB NOTES (eCW a nd Medent).</content>
<content></content>
<content>ORGANISM 1: ESCHERICHIA COLI</content>
<content></content>
<content>COLONY COUNT > 100,000</content>
<content></content>
<content></content>
<content>O RGANISM 1: ESCHERICHIA COLI</content>
<content></content>
<content> ESCHERICHIA COLI: REACTION</content>
<content>EXTD BRD SPCTRM BETA LACTAMASE IV NEGATIVE FOR ESBL</content>
<content>TRIMETHOPRIM/SULFAMETHOXAZOLE IV 160mg TMP & 800mg SMXq6h <=20 S</content>
<content>TRIMETHOPRIM/SULFAMETHOXAZOLE PO Bactrim DS Bid <=20 S</content>
<content>AMPICILLIN IV 500mg q6h 8 S</content>
<content>AMPICILLIN PO 500mg q6h fasting 8 S</content>
<content>GENTAMICIN IV 80mg q8h <=1 S</content>
<content>NITROFURANTOIN PO 100mg BID <=16 S</content>
<content>CEFAZOLIN IV 1gm q8h <=4 S</content>
<content>LEVOFLOXACIN IV 500mg qd <=0.12 S</content>
<content>LEVOFLOXACIN PO 250mg qd <=0.12 S</content>
<content>LEVOFLOXACIN PO 500mg qd <=0.12 S</content>
<content>TOBRAMYCIN IV 80mg q8h <=1 S</content>
<content>CEFTRIAXONE IV 1gm q24h <=1 S</content>
<content>CEFTAZIDIME IV 1gm q8h <=1 S</content>
<content>AMPICILLIN/SULBACTAM IV 1.5g q6h <=2 S</content>
<content>PIPERACILLIN/TAZOBACTAM IV 2.25 gm q6h <=4 S</content>
<content>AZTREONAM IV 1gm q8h <=1 S</content>
<content>ERTAPENEM IV 1gm qd <=0.5 S</content>
<content>MEROPENEM IV 1 gm q8h <=0.25 S</content>
<content> MEROPENEM IV 500 mg q8h <=0.25 S</content>
<content>TIGECYCLINE IV 50mg q12h <=0.5 S</content>
<content>CEFEPIME IV 1 gm q12h <=1 S</content>
<content>CEFEPIME IV 2 gm q12h <=1 S</content>
<content></content> Procedure Social History Code Duration Value Status Description Data Source(s ) Smoking 04/06/2020 12:00:00 AM EST Patient is a former smoker completed Patient is a former smoker [facility] ([facility]) Smoking 01/01/2020 12:00:00 AM EDT Former Smoker completed Former Smoker eCW1 ([facility]) Smoking 08/25/2019 12:00:00 AM EDT Former Smoker completed Former Smoker eCW1 ([facility]) Vital Signs ID Date Data Source UNK Name Value Range Interpretation Code Description Data Source(s) Body mass index (BMI) [Ratio] 20.1 kg/m2 20.1 k g/m2 [facility] ([facility]) Body height 70 [in_i] 70 [in_i] [facility] ([facility]) 5'10" Body weight 140.00 [lb_av] 140.00 [lb_av] MEDEN T ([facility]) Body temperature 97.1 [degF] 97.1 [degF] [facility] ([facility]) Oxygen saturation in Arterial blood by Pulse oximetry 97 % 97 % [facility] ([facility]) Respiratory rate 16 /min 16 /min [facility] ( [facility]) Heart rate 96 /min 96 /min [facility] ([facility]) Diastolic blood pressure 80 mm[Hg] 80 mm[Hg] [facility] ([facility]) Systolic blood pressure 136 mm[Hg] 136 mm[Hg] [facility] Body surface area Derived from formula 1.81 m2 1.81 m2 [facility] ([facility]) Body weight 64.865 kg 64.865 kg [facility] ([facility]) [place] body weight 166 [lb_av] 166 [lb_av] MEDEN T ([facility]) Body mass index (BMI) [Ratio] 20.5 kg/m2 20.5 k g/m2 [facility] ([facility]) Body weight 143.00 [lb_av] 143.00 [lb_av] MEDEN T ([facility]) Body height 70 [in_i] 70 [in_i] MEDENT ([facility]) 5'10" Diastolic blood pressure 60 mm[Hg] 60 mm[Hg] MEDENT ([facility]) Systolic blood pressure 90 mm[Hg] 90 mm[Hg] M EDENT ([facility]) Body surface area Derived from formula 1.83 m2 1.83 m2 [facility] ([facility]) Body weight 66.679 kg 66.679 kg [facility] ([facility]) [place] body weight 166 [lb_av] 166 [lb_av] MEDEN T ([facility]) Body mass index (BMI) [Ratio] 21.1 kg/m2 21.1 k g/m2 [facility] ([facility]) Body weight 147.00 [lb_av] 147.00 [lb_av] MEDEN T ([facility]) Body height 70 [in_i] 70 [in_i] MEDENT ([facility]) 5'10" Body weight 66.679 kg 66.679 kg [facility] ([facility]) [place] body weight 166 [lb_av] 166 [lb_av] MEDEN T ([facility]) Body mass index (BMI) [Ratio] 21.1 kg/m2 21.1 k g/m2 [facility] ([facility]) Body weight 147.00 [lb_av] 147.00 [lb_av] MEDEN T ([facility]) Body height 70 [in_i] 70 [in_i] [facility] ([facility]) 5'10" Diastolic blood pressure 70 mm[Hg] 70 mm[Hg] eCW1 ([facility]) Systolic blood pressure 132 mm[Hg] 132 mm[Hg] e CW1 ([facility]) Body temperature 96.6 [degF] 96.6 [degF] eCW1 ( [facility]) Respiratory rate 18 /min 18 /min eCW1 ([facility]) Heart rate 80 /min 80 /min eCW1 ([facility]) Body mass index (BMI) [Ratio] 20.22 kg/m2 20.22 kg/m2 eCW1 ([facility]) Body height 71 [in_i] 71 [in_i] eCW1 ([facility]) Body weight 145 [lb_av] 145 [lb_av] eCW1 [facility] Body weight 64.865 kg 64.865 kg MEDENT ([facility], ) [place] body weight 172 [lb_av] 172 [lb_av] MEDEN T ([facility]) Body mass index (BMI) [Ratio] 19.9 kg/m2 19.9 k g/m2 MEDENT ([facility]) Body weight 143.00 [lb_av] 143.00 [lb_av] MEDEN T ([facility]) Body height 71 [in_i] 71 [in_i] MEDENT ([facility]) 5'11" Diastolic blood pressure 60 mm[Hg] 60 mm[Hg] [facility] ([facility]) Systolic blood pressure 94 mm[Hg] 94 mm[Hg] M EDENT ([facility]) Diastolic blood pressure 64 mm[Hg] 64 mm[Hg] eCW1 ([facility]) Systolic blood pressure 132 mm[Hg] 132 mm[Hg] e CW1 ([facility]) Body temperature 97.3 [degF] 97.3 [degF] eCW1 ( [facility]) Respiratory rate 18 /min 18 /min eCW1 ([facility]) Heart rate 85 /min 85 /min eCW1 ([facility]) Body mass index (BMI) [Ratio] 19.11 kg/m2 19.11 kg/m2 eCW1 ([facility]) Body height 71 [in_us] 71 [in_us] eCW1 ([facility]) Body weight Measured 137 [lb_av] 137 [lb_av] eC W1 ([facility]) Body temperature 97.3 [degF] 97.3 [degF] eCW1 ( [facility]) Respiratory rate 18 /min 18 /min eCW1 ([facility]) Heart rate 101 /min 101 /min eCW1 ([facility]) Body mass index (BMI) [Ratio] 19.24 kg/m2 19.24 kg/m2 eCW1 ([facility]) Body height 71 [in_us] 71 [in_us] eCW1 ([facility]) Body weight Measured 138 [lb_av] 138 [lb_av] eC W1 ([facility]) Diastolic blood pressure 80 mm[Hg] 80 mm[Hg] eCW1 ([facility]) Systolic blood pressure 124 mm[Hg] 124 mm[Hg] e CW1 ([facility]) Diastolic blood pressure 64 mm[Hg] 64 mm[Hg] eCW1 ([facility]) Systolic blood pressure 118 mm[Hg] 118 mm[Hg] e CW1 ([facility]) Body temperature 97.8 [degF] 97.8 [degF] eCW1 ( [facility]) Respiratory rate 18 /min 18 /min eCW1 ([facility]) Heart rate 87 /min 87 /min eCW1 ([facility]) Body mass index (BMI) [Ratio] 18.94 kg/m2 18.94 kg/m2 eCW1 ([facility]) Body height 71 [in_us] 71 [in_us] eCW1 ([facility]) Body weight Measured 135.8 [lb_av] 135.8 [lb_av ] eCW1 ([facility]) Heart rate 85 /min 85 /min MEDENT ([facility]) Diastolic blood pressure 60 mm[Hg] 60 mm[Hg] MEDENT ([facility]) Systolic blood pressure 94 mm[Hg] 94 mm[Hg] M EDENT ([facility], [facility]) Body mass index (BMI) [Ratio] 20.8 kg/m2 20.8 k g/m2 MEDENT ([facility], [facility]) Body height 70 [in_i] 70 [in_i] MEDENT ([facility]) 5'10" Body weight 145.00 [lb_av] 145.00 [lb_av] MEDEN T ([facility], [facility]) Body temperature 98.1 [degF] 98.1 [degF] MEDENT ([facility], [facility]) Oxygen saturation in Arterial blood by Pulse oximetry 98 % 98 % MEDENT ([facility], [facility]) Respiratory rate 18 /min 18 /min MEDENT ( [facility], [facility]) Body mass index (BMI) [Ratio] 20.8 kg/m2 20.8 k g/m2 MEDENT ([facility], [facility]) Body height 70 [in_i] 70 [in_i] MEDENT ([facility]) 5'10" Body weight 145.00 [lb_av] 145.00 [lb_av] MEDEN T ([facility], [facility]) Body temperature 98.6 [degF] 98.6 [degF] MEDENT ([facility], [facility]) Oxygen saturation in Arterial blood by Pulse oximetry 95 % 95 % MEDENT ([facility]) Respiratory rate 16 /min 16 /min MEDENT ( [facility]) Heart rate 72 /min 72 /min MEDENT ([facility], [facility]) Diastolic blood pressure 74 mm[Hg] 74 mm[Hg] MEDENT ([facility], [facility]) Systolic blood pressure 111 mm[Hg] 111 mm[Hg] M EDENT ([facility], [facility]) Diastolic blood pressure 72 mm[Hg] 72 mm[Hg] eCW1 ([facility]) Systolic blood pressure 120 mm[Hg] 120 mm[Hg] e CW1 ([facility]) Body temperature 97.6 [degF] 97.6 [degF] eCW1 ( [facility]) Respiratory rate 18 /min 18 /min eCW1 ([facility]) Heart rate 94 /min 94 /min eCW1 ([facility]) Body mass index (BMI) [Ratio] 18.46 kg/m2 18.46 kg/m2 eCW1 ([facility]) Body height 71 [in_us] 71 [in_us] eCW1 ([facility]) Body weight Measured 132.4 [lb_av] 132.4 [lb_av ] eCW1 ([facility]) Patient Treatment Plan of Care Planned Activity Planned Date Details Description Data Source (s) Cephalexin 500 MG Oral Capsule [Keflex] 04/30/2019 12:00:00 AM EST eCW1 ([facility]) Tamsulosin hydrochloride 0.4 MG Oral Capsule [Flomax] 04/30/2019 12:00:00 AM EST eCW1 ([facility])
[2020-04-29] MEDS ORDERED: NS 1,000 ML IV SCH (14:00)
--- NOTE | 2020-04-29 16:09 | ROOR ---
Patient Name: Herson Kilgore Procedure Date: 04/29/2020 3:33 PM Date of : 1945 Age: 74 Room: [facility] Gender: Male Note Status: Finalized Procedure: Upper GI endoscopy Indications: Dysphagia Providers: Chago WALTON MD Referring MD: JOE Alford Requesting Provider: Medicines: Monitored Anesthesia Care Complications: No immediate complications. Procedure: Pre-Anesthesia Assessment: - The heart rate, respiratory rate, oxygen saturations, blood pressure, adequacy of pulmonary ventilation, and response to care were monitored throughout the procedure. The Endoscope was introduced through the mouth, and advanced to the second part of duodenum. The upper GI endoscopy was somewhat difficult due to narrowing. Successful completion of the procedure was aided by withdrawing the scope and replacing with the pediatric endoscope. The patient tolerated the procedure well. Findings: One benign-appearing, intrinsic severe (stenosis; an endoscope cannot pass) stenosis was found in the upper third of the esophagus. This stenosis measured 5 mm (inner diameter) x 4 cm (in length). The stenosis was traversed after downsizing scope and dilating. A TTS dilator was passed through the scope. Dilation with a 6-7-8 mm balloon and an 8-9-10 mm balloon dilator was performed to 10 mm. The dilation site was examined and showed moderate mucosal disruption. Biopsies were taken with a cold forceps for histology. A medium-sized hiatal hernia was present. The entire examined stomach was normal. The examined duodenum was normal. 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 Dilated to 10 mm. Biopsied. - Erythematous mucosa in entire esophagus. Biopsied to r/o long sevment barretts esophagus - Medium-sized hiatal hernia. - Normal stomach. - Normal examined duodenum. Recommendation: - Await pathology results. - Repeat upper endoscopy in 3 weeks for retreatment. - Full liquid diet. - crush/open capsule into applesauce or water a to swallow medications - My office will call you to reschedule the procedure. Procedure Code(s): --- Professional --- 26739, Esophagogastroduodenoscopy, flexible, transoral; with transendoscopic balloon dilation of esophagus (less than 30 mm diameter) 11423, 59, Esophagogastroduodenoscopy, flexible, transoral; with biopsy, single or multiple Diagnosis Code(s): --- Professional --- R13.10, Dysphagia, unspecified K44.9, Diaphragmatic hernia without obstruction or gangrene K22.2, Esophageal obstruction CPT copyright 2019 [employer]. All rights reserved. The codes documented in this report are preliminary and upon histology technologist review may be revised to meet current compliance requirements. Chago Walton MD Chago WALTON MD 04/29/2020 4:09:18 PM Electronically signed by Chago WALTON MD Number of Addenda: 0 Note Initiated On: 04/29/2020 3:33 PM Estimated Blood Loss: Estimated blood loss: none.
[2020-04-29 16:20] VITALS: BP 112/62
== END 2020-04-29 16:33 | disposition home or self-care (01) ==
LOC: M OPP 13:18
PROVIDERS: ATTEND Internal Medicine Gastroenterology
DX: R13.10 Dysphagia, unspecified (principal); K22.2 Esophageal obstruction; D13.0 Benign neoplasm of esophagus; K44.9 Diaphragmatic hernia without obstruction or gangrene; I25.10 Atherosclerotic heart disease of native coronary artery without angina pectoris; I25.2 Old myocardial infarction; I10 Essential (primary) hypertension; E78.5 Hyperlipidemia, unspecified; E03.9 Hypothyroidism, unspecified; J44.9 Chronic obstructive pulmonary disease, unspecified; Z85.118 Personal history of other malignant neoplasm of bronchus and lung; Z92.21 Personal history of antineoplastic chemotherapy; Z92.3 Personal history of irradiation; Z87.891 Personal history of nicotine dependence; Z95.5 Presence of coronary angioplasty implant and graft; Z88.5 Allergy status to narcotic agent; Z79.82 Long term (current) use of aspirin; Z79.899 Other long term (current) drug therapy; Z80.0 Family history of malignant neoplasm of digestive organs; Z85.038 Personal history of other malignant neoplasm of large intestine; Z82.49 Family history of ischemic heart disease and other diseases of the circulatory system; Z80.8 Family history of malignant neoplasm of other organs or systems

== ENCOUNTER → 2020-05-22 | Outpatient (CLI) | payer OTHER ==
[~2020-05-22] MED LIST changes: +CARV3.12 PO; +ENSULIQ8 PO; -LIDOCAINE 2% 100MG/5ML SDV (FOR ANES.) As Ordered ONE; -LR 1,000 ML IV ONE; +POTA20EL PO; -VITA-157 PO; +VITAE40CA PO; -propofoL 200 MG/20 ML VIAL As Ordered ONE
== END ==
LOC: M LABSMTC 08:06
PROVIDERS: ATTEND Anesthesiology
DX: Z01.812 Encounter for preprocedural laboratory examination (principal); Z20.822 Contact with and (suspected) exposure to COVID-19

== ENCOUNTER 2020-05-25 20:27 | Inpatient (IN) | payer OTHER ==
[~2020-05-25] VITALS: Ht 177.8 cm; Wt 57.5 kg
[~2020-05-25 20:27] MED LIST changes: -CARV3.12 PO; -ENSULIQ8 PO; -POTA20EL PO
[2020-05-25] MEDS ORDERED: GLUCAGON INJ 1MG VIAL IV STA (21:23)
[2020-05-25 21:50] LABS: HEMATOCRIT 41.5 % (42.0-52.0); HEMOGLOBIN 12.7 g/dl (13.5-17.5); MEAN CORPUSCULAR HEMOGLOBIN 31.5 pg (27.0-33.0); MEAN CORPUSCULAR HGB CONC 30.6 g/dl (32.0-36.5); PLATELET COUNT, AUTOMATED 152 10^3/uL (150-450); RED BLOOD COUNT 4.03 10^6/uL (4.30-6.10); WHITE BLOOD COUNT 6.5 10^3/uL (4.0-10.0)
[2020-05-25 22:13] LABS: CALCIUM LEVEL 8.3 MG/DL (8.8-10.2); CREATININE FOR GFR 2.09 MG/DL (0.70-1.30); GLOMERULAR FILTRATION RATE 33.1 (>42); POTASSIUM SERUM 3.2 MEQ/L (3.5-5.1)
[2020-05-25] MEDS ORDERED: FLUCONAZOLE 400 MG in IV 1 EA IV ONE (23:40)
--- NOTE | 2020-05-25 23:52 | HPEPDOC ---
[facility] Medical History & Physical Date of Admission May 25, 2020 Date of Service: May 25, 2020 Attending Physician: MARY JO MARTINEZ MD History and Physical CHIEF COMPLAINT: Progressive Dysphagia HISTORY OF PRESENT ILLNESS: Patient is a 75-year-old male with past medical history of non-small cell lung cancer stage IIIB, colon adenocarcinoma, COPD, coronary artery disease, NC s/p stent 1, hyperlipidemia, who presented to the emergency department the evening of 05/25/20 reporting difficulty swallowing. Reports that he had recently had a esophageal dilation but has been only able to drink liquids and eat Jerman hair pasta. Denies other related symptoms including throat/neck pain, throat swelling or itchiness. Of historical note, patient has been experiencing progressive dysphagia since 04/14. He was referred to GI by his PCP for further evaluation. He underwent EGD examination on 04/29/20; at which time a significant stricture was identified. Dilation was performed and 2 biopsies were taken which, per pathology, are consistent with fungal esophagitis. Patient reports that since his procedure, he has been consuming only liquids and "well-buttered Jerman hair pasta". He states that this is not caused him any difficulty until this afternoon when patient attempted to eat dinner and ultimately was unable to swallow. Patient reports that he was not made aware of his fungal diagnosis, or what diet he should continue on. On presentation to the emergency department, patient was found be afebrile, pulse of 64, respiratory rate of 16. Blood pressure was normotensive, maintaining appropriate oxygen saturation on room air. CBC still show evidence of leukocytosis, H/H of 12.7/41.5. Acrocyanosis with an MCV of 103.0 with elevated RDW. Platelet of 152. In regards to patient's lactulose, sodium within normal range, [place] anemia potassium 3.2. BUNs/CR of 36/2.09, GFR of 33.1. Hospitalist team was contacted to admit the patient for further workup and evaluation. 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 Social alcohol use. Denies drug use. FAMILY HISTORY: Father: , 50 years old, lymphoma, psoriasis Mother: , 90 years old, breast cancer, colon cancer Siblings: One brother, alive, healthy, 1 sister with hypertension, other sister with esophageal cancer Children: 2 sons without any known medical issues Hereditary Diseases: No known family history of bladder, renal, prostate cancer. ALLERGIES: Please see below. REVIEW OF SYSTEMS: CONSTITUTIONAL: Patient denies any recent fevers, chills, generalized fatigue, changes in weight or appetite. HEENT: Reports difficulty swallowing as stated in the HPI. Denies any headaches, changes in his vision, changes in his hearing, denies any mouth sores or lesions. No JVD, no cervical lymphadenopathy. CARDIOVASCULAR: Denies any chest pain or pressure, no appreciable palpitations, syncope RESPIRATORY: Denies any shortness of breath, increased cough or wheeze GASTROINTESTINAL: Reports a single bout of emesis this evening after attempting to eat dinner, otherwise denies any nausea or vomiting, abdominal pain, obsti pation or diarrhea. Denies yoli red blood or dark tarry stools GENITOURINARY: Reports a baseline urinary frequency, denies any dysuria or hematuria SKIN: Denies any new skin lesions or rashes MUSCULOSKELETAL: Denies any muscle/joint aches or pains NEUROLOGICAL: Denies any numbness or tingling, denies any appreciable decline in memory or neurologic function, no dizziness or vertigo PSYCHIATRIC: Denies anxiety or depression HOME MEDICATIONS: Please see below. PHYSICAL EXAMINATION: VITAL SIGNS: Please see below GENERAL APPEARANCE: Patient was interviewed and examined in the emergency department. Patient was found to be seated on his bedside. Patient appears in no acute distress, older than stated age, frail and cachectic, he was a fair me dical historian, cooperative with examination HEENT: Bearded, NC/AT, EOMI, sclera non-icteric, patient does wear dentures, small areas of somewhat thick, white patches noted the posterior pharynx CARDIOVASCULAR: Regular rate and rhythm, no appreciable murmur LUNGS: Clear to auscultation bilaterally, fair air movement throughout, no conversational dyspnea ABDOMEN: Scaphoid, otherwise soft, nontender and nondistended without any appreciable masses or organomegaly MUSCULOSKELETAL: Thoracic kyphosis appreciated, no rib pain or tenderness anteriorly or posteriorly EXTREMITIES: No lower extremity swelling or edema, radial and posterior tibial pulses 2+ bilaterally NEUROLOGICAL: Alert and oriented 3 PSYCHIATRIC: Affect appropriate given patient's current clinical condition. LABORATORY DATA: See below. IMAGING: Upper GI Endoscopy (04/29/20): 1 benign appearing intrinsic severe stenosis was found in the upper third of the esophagus. Stenosis was measured at 5 mm inner diameter by 4 cm in length. The stenosis was traversed after downsizing scope and dilating. A TTS dilator was passed through the scope. Dilation with a 678 millimeter balloon and an 8910 millimeter balloon dilator was performed to 10 mm. The dilation site was examined and showed moderate mucosal disruption. Biopsies were taken with a cold forceps for histology. A medium-sized hiatal hernia was present. The entire examined stomach was normal. The examined duodenum was normal. PATHOLOGY: Esophagus Stricture, Bx (04/29/20): Squamous mucosa with acute and chronic inflammation with fungal forms in the background, consistent with fungal es ophagitis Esophagus, Bx (04/29/20): Squamous mucosa with acute and chronic inflammation with fungal forms in the background, consistent with fungal esophagitis ASSESSMENT: Patient is a 75-year-old male, past medical history significant for dysphagia secondary to esophageal stricture and fungal esophagitis, CKD, NSCLC, HTN, HLD, CAD s/p stent, COPD, hypothyroid, GERD and BPH presented to the emergency department the evening of 05/25/20 complaining of progressive dysphagia. Patient has been seen and evaluated for dysphagia under the care of Dr. Novak earlier this month. Patient underwent EGD and biopsy. Per pathology report, biopsies consistent with fungal esophagitis. Patient reports that he had not been made aware of this, has not started any treatment and has not been informed of any dietary restrictions. Patient states that since his procedure, he has been on a liquid diet except for buttered Jerman hair pasta which he had been able to tolerate without difficulty until this afternoon, when he had a bout of emesis while attempting to eat dinner. In the ED, patient is able to handle his secretions but we does have difficulty swallowing even liquids. Given his biopsy results, patient will be started on antifungals admitted to the hospital, nothing by mouth, will hold by mouth medications. Case was discussed with on- call surgeon, Dr. Dale. We will attempt to contact Dr. Kenny in a.m. given that he is currently following this patient in his clinic for this problem, and is currently scheduled to perform a repeat EGD on 05/27/20. 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 Novak. Pt reports that he was unaware of his diagnosis, treatment and diet restrictions. -s/p Fluconazole in ED, will continue this on the floor. Pt to be kept NPO. -Will ask the day team to reach out to Dr. Novak given that this is a patient who he is following for this problem. Otherwise, the case has been discussed with Dr. Dale; he is aware that we will be attempting to contact Dr. Novak first. Please contact Dr. Dale in the morning and inform if he needs to follow the patient. #Dysphagia 2/2 esophageal stricture -s/p dilation on 05/02, liquids and jerman hair pasta at home until this afternoon -Unable to swallow liquids in ED, no difficulty managing secretions. -Pt to be kept NPO, IVF #CKDIV -Follows closely with nephrology -Currently on PO prednisone for worsening renal function, which shows improvement from 04/14. -Continue to avoid nephrotoxic medications # Non-small cell lung cancer stage IIIB. EGFR neg, PDL 1 TPS 1020%. Ross 1 neg. ALK neg. -S/P treatment with carboplatin, taxol x6 weeks, complete in 02/17/19. Held 2/ to QUE, dehydration -Durvalumab discontinued 11/2019 for significant renal insufficiency. -Currently following with Dr. Arias. -CT chest 03/29/2020 showed New areas of irregular airspace disease noted in the periphery of the left upper lobe and at the bilateral lung bases for which short-term follow-up examination at 3 months was suggested. No indication to start treatment at this time since CT scan showed no definite evidence of disease recurrence, nor disease progression and patient not symptomatic from airspace disease. # HTN -Coreg -Holding home medications # Hypokalemia -IV supplementation -Holding home medications # COPD -Stable, pt reports that he does not use inhalers. # CAD, s/p stent -Status post [place] in 1999 and stent placement, stable -ASA, statin, carvedilol -Holding home medications # Hyperlipidemia. -Statin -Holding home medications # Hypothyroidism -Levothyroxine 75 mcg -Holding home medications # GERD -PPI -Holding home medications # BPH -Tamsulosin -Holding home medications # Cancer-related cachexia # Protein Calorie malnutrition DVT PROPHYLAXIS: SQ Heparin CODE STATUS: Full code DISPOSITION: Anticipate > 2 night stay Vital Signs Vital Signs Date Time Temp Pulse Resp B/P (MAP) Pulse Ox O2 Delivery O2 Flow Rate FiO2 05/25/20 22:57 96.9 60 18 130/71 (90) 95 05/25/20 20:28 Room Air Laboratory Data Labs 24H Laboratory Tests 2 05/25/20 21:32: Nucleated Red Blood Cells % (auto) 0.0, Anion Gap 7L, Glomerular Filtration Rate 33.1L, Calcium Level 8.3L CBC/BMP Laboratory Tests 05/25/20 21:32 Home Medications Scheduled Aspirin (Aspirin) 325 Mg Tablet, 325 MG PO DAILY Carvedilol (Carvedilol) 3.125 Mg Tablet, 1.5625 MG PO DAILY Lactose-Reduced Food (Ensure Liquid) 237 Ml Liquid, 237 ML PO DAILY AROUND NOONTIME Levothyroxine Sodium (Levothyroxine Sodium) 75 Mcg Tablet, 1 TAB PO DAILY Omeprazole (Omeprazole) 40 Mg Capsule.dr, 40 MG PO BID Potassium Chloride (Potassium Chloride) 20 Meq/15 Ml Liquid, 10 MEQ PO BID Prednisone (Prednisone) 20 Mg Tablet, 20 MG PO QHS Rosuvastatin Calcium (Rosuvastatin Calcium) 40 Mg Tablet, 40 MG PO QHS Tamsulosin Hcl (Tamsulosin HCl) 0.4 Mg Capsule, 0.4 MG PO DAILY Allergies Coded Allergies: No Known Allergies (Verified Allergy, Unknown, 05/20/20) A-FIB/CHADSVASC A-FIB History Current/History of A-Fib/PAF?: No Current PO Anticoag Therapy: No GME ATTESTATION GME ATTESTATION My faculty preceptor for this patient encounter was physically present during the encounter and was fully available. All aspects of the patient interview, examination, medical decision making process, and medical care plan development were reviewed and approved by the faculty preceptor. The faculty preceptor is aware and concurs with the plan as stated in the body of this note and will attest to such by his/her cosignature. ATTENDING NOTE I have independently interviewed and examined this patient at the bedside, and agree with the physical findings, assessment and management plan as documented by my resident physician. The patient's concerns and questions have been addressed. JARED LEVINE DO May 25, 2020 23:52 MARY JO MARTINEZ MD May 26, 2020 02:31
[2020-05-26] MEDS ORDERED: CARV3.12 PO (00:15)
[2020-05-26 00:20] VITALS: BP 142/77
[2020-05-26] MEDS ORDERED: ENSULIQ8 PO (00:20)
[2020-05-26] MEDS ORDERED: PRED20TA PO (00:20)
[2020-05-26] MEDS ORDERED: POTA20EL PO (00:20)
[2020-05-26] MEDS ORDERED: OMEP-221 PO (00:20)
[2020-05-26] MEDS: D5W/0.45% SODIUM CHLORIDE 1,000 ML IV SCH ×4 (00:30→21:54)
[2020-05-26] MEDS: HEPARIN SOD (PORCINE) 5000UNITS/ML 1ML VIAL/SYRINGE SC SCH ×3 (00:59→21:00)
[2020-05-26] MEDS: KCL 10MEQ/100ML SWI (KRUN) 10 MEQ in IV 1 EA IV SCH ×2 (03:14→04:39)
[2020-05-26 05:55] LABS: HEMATOCRIT 35.7 % (42.0-52.0); HEMOGLOBIN 11.4 g/dl (13.5-17.5); MEAN CORPUSCULAR HEMOGLOBIN 32.4 pg (27.0-33.0); MEAN CORPUSCULAR HGB CONC 31.9 g/dl (32.0-36.5); MEAN CORPUSCULAR VOLUME 101.4 fl (80.0-96.0); PLATELET COUNT, AUTOMATED 113 10^3/uL (150-450); RED BLOOD COUNT 3.52 10^6/uL (4.30-6.10); WHITE BLOOD COUNT 5.2 10^3/uL (4.0-10.0)
[2020-05-26 06:00] VITALS: BP 103/59
[2020-05-26 06:33] LABS: ALBUMIN 2.6 GM/DL (3.2-5.2); BILIRUBIN,TOTAL 0.3 MG/DL (0.2-1.0); CALCIUM LEVEL 7.7 MG/DL (8.8-10.2); CREATININE FOR GFR 1.9 MG/DL (0.70-1.30); MAGNESIUM LEVEL 2.1 MG/DL (1.8-2.4); POTASSIUM SERUM 3.7 MEQ/L (3.5-5.1); TOTAL PROTEIN 5.3 GM/DL (6.4-8.2)
--- NOTE | 2020-05-26 12:56 | IPNPDOC ---
Text Note Date of Service The patient was seen on 05/26/20. NOTE Subjective: -No complaints -Admitted overnight Objective: VITAL SIGNS: Please see below GENERAL APPEARANCE: No acute distress, thin, pleasant HEENT: NC/AT, EOMI, sclera non-icteric, white patches in posterior pharynx CARDIOVASCULAR: Regular rate and rhythm, no appreciable murmur LUNGS: Clear to auscultation bilaterally, fair air movement throughout, no conversational dyspnea ABDOMEN: Scaphoid, otherwise soft, nontender and nondistended without any appreciable masses or organomegaly MUSCULOSKELETAL: Thoracic kyphosis appreciated, no rib pain or tenderness anteriorly or posteriorly EXTREMITIES: No lower extremity swelling or edema, radial and posterior tibial pulses 2+ bilaterally NEUROLOGICAL: Alert and oriented 3 PSYCHIATRIC: Affect appropriate given patient's current clinical condition. LABORATORY DATA: Reviewed IMAGING: Upper GI Endoscopy (04/29/20): 1 benign appearing intrinsic severe stenosis was found in the upper third of the esophagus. Stenosis was measured at 5 mm inner diameter by 4 cm in length. The stenosis was traversed after downsizing scope an d dilating. A TTS dilator was passed through the scope. Dilation with a 678 millimeter balloon and an 8910 millimeter balloon dilator was performed to 10 mm. The dilation site was examined and showed moderate mucosal disruption. Biopsies were taken with a cold forceps for histology. A medium-sized hiatal hernia was present. The entire examined stomach was normal. The examined duodenum was normal. PATHOLOGY: Esophagus Stricture, Bx (04/29/20): Squamous mucosa with acute and chronic inflammation with fungal forms in the background, consistent with fungal esophagitis Esophagus, Bx (04/29/20): Squamous mucosa with acute and chronic inflammation with fungal forms in the background, consistent with fungal esophagitis ASSESSMENT: 75-year-old M with a history significant for dysphagia secondary to esophageal stricture and untreated fungal esophagitis, CKD, NSCLC, HTN, HLD, CAD s/p stent, COPD, hypothyroid, GERD and BPH who presented to the emergency department on the evening of 05/25/20 complaining of progressive dysphagia. Patient has been seen and evaluated for dysphagia under the care of Dr. Novak earlier this month. Patient underwent EGD and biopsy. Per pathology report, biopsies consistent with fungal esophagitis. Patient reports that he had not been made aware of this, has not started any treatment and has not been informed of any dietary restrictions. Patient states that since his procedure, he has been on a liquid diet except for buttered Jerman hair pasta which he had been able to tolerate without difficulty until this afternoon, when he had a bout of emesis while attempting to eat dinner. In the ED, patient is able to handle his secretions but we does have difficulty swallowing even liquids. Given his biopsy results, patient will be started on antifungals admitted to the hospital, nothing by mouth, will hold by mouth medications. Case was discussed with on-call surgeon, Dr. Dale. We will attempt to contact Dr. Kenny in a.m. given that he is currently following this patient in his clinic for this problem, and is currently scheduled to perform a repeat EGD on 05/27/20. 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 Novak. On reaching out to Dr. Novak, he deferred to outpatient when he is discharged and treat the fungal infection for now. -Fluconazole, day 2 #Dysphagia 2/2 esophageal stricture -s/p dilation on 05/02, liquids and jerman hair pasta at home until this afternoon -Unable to swallow liquids in ED, no difficulty managing secretions --> On reaching out to Dr. Novak, he deferred to outpatient when he is discharged and treat the fungal infection for now. Reached out to speech for formal eval that will direct urgency of the need for scoping and dilation. -Pt to be kept NPO, IVF until speech eval #CKDIV -Follows closely with nephrology -Currently on PO prednisone for worsening renal function, which shows improvement from 04/14. -Continue to avoid nephrotoxic medications # Non-small cell lung cancer stage IIIB. EGFR neg, PDL 1 TPS 1020%. Ross 1 neg. ALK neg. -S/P treatment with carboplatin, taxol x6 weeks, complete in 02/17/19. Held 2/2 to QUE, dehydration -Durvalumab discontinued 11/2019 for significant renal insufficiency. -Currently following with Dr. Arias. -CT chest 03/29/2020 showed New areas of irregular airspace disease noted in the periphery of the left upper lobe and at the bilateral lung bases for which short-term follow-up examination at 3 months was suggested. No indication to start treatment at this time since CT scan showed no definite evidence of disease recurrence, nor disease progression and patient not symptomatic from airspace disease. # HTN -Coreg -Holding home medications # Hypokalemia -IV supplementation -Holding home medications -daily BMP # COPD -Stable, pt reports that he does not use inhalers. # CAD, s/p stent -Status post [place] in 1999 and stent placement, stable -ASA, statin, carvedilol -Holding home medications # Hyperlipidemia. -Statin -Holding home medications # Hypothyroidism -Levothyroxine 75 mcg -Holding home medications # GERD -PPI -Holding home medications # BPH -Tamsulosin -Holding home medications # Cancer-related cachexia # Protein Calorie malnutrition -c/b dysphagia, pending speech eval DVT PROPHYLAXIS: SQ Heparin CODE STATUS: Full code DISPOSITION: Anticipate > 2 night stay VS,Jose, I+O VS, Jose, I+O Laboratory Tests 05/25/20 21:32 05/26/20 05:40 Vital Signs Date Time Temp Pulse Resp B/P (MAP) Pulse Ox O2 Delivery O2 Flow Rate FiO2 05/26/20 06:00 98.2 78 18 103/59 (74) 93 Room Air I&O- Last 24 Hours up to 6 AM 05/26/20 06:00 Intake Total 456.25 ml Output Total 550 ml Balance -93.75 ml MISAEL ALVARENGA MD May 26, 2020 12:56
[2020-05-26 14:00] VITALS: BP 113/63
[2020-05-26] MEDS ORDERED: E-Z-PAQUE 96% w/w SUSP 176GM BTL As Ordered ONE (14:57)
--- NOTE | 2020-05-26 17:05 | REP ---
INDICATION: known stenosis, with dysphagia pending dilation. COMPARISON: None TECHNIQUE: This procedure was performed by Zo Curiel [facility], under the direct supervision of Dr. Cobb. Images were reviewed with Dr. Cobb prior to dictation. Liquid barium was given in the erect position, as well as liquid barium in the prone oblique position in order to perform a single contrast esophagram examination. FINDINGS: A single view PA chest x-ray is submitted as a detail assembler film. The superior mediastinal structures are midline. The heart size is within normal limits. The lungs are clear. There is a right-sided Port-A-Cath. The oral and pharyngeal stages of deglutition were unremarkable. There is a severe focal stricture in the proximal esophagus measuring approximately 1 cm in length leaving the lumen approximately 2 mm wide.. There is evidence of a hiatal hernia. Gastroesophageal reflux was not evaluated for in the study. IMPRESSION: 1. Severe focal stricture in the proximal esophagus as described above. 2. Small hiatal hernia. 0.2 minutes of fluoroscopy time was utilized for this procedure. Some fluoroscopic images are performed with last image hold technology. These images require no additional radiation. <Electronically signed by Zo Curiel > 05/26/20 1656 <Electronically signed by Alpesh Cobb > 05/26/20 1701
[2020-05-26] MEDS: FLUCONAZOLE 200 MG in IV 1 EA IV SCH (21:53)
[2020-05-26 22:00] VITALS: BP 101/57
[2020-05-27 05:34] LABS: HEMATOCRIT 36.2 % (42.0-52.0); HEMOGLOBIN 11.4 g/dl (13.5-17.5); MEAN CORPUSCULAR HEMOGLOBIN 31.9 pg (27.0-33.0); MEAN CORPUSCULAR HGB CONC 31.5 g/dl (32.0-36.5); MEAN CORPUSCULAR VOLUME 101.4 fl (80.0-96.0); PLATELET COUNT, AUTOMATED 124 10^3/uL (150-450); RED BLOOD COUNT 3.57 10^6/uL (4.30-6.10); WHITE BLOOD COUNT 3.7 10^3/uL (4.0-10.0)
[2020-05-27 06:00] VITALS: BP 119/60
[2020-05-27 06:07] LABS: ALBUMIN 2.5 GM/DL (3.2-5.2); BILIRUBIN,TOTAL 0.4 MG/DL (0.2-1.0); CALCIUM LEVEL 7.6 MG/DL (8.8-10.2); CREATININE FOR GFR 1.86 MG/DL (0.70-1.30); GLOMERULAR FILTRATION RATE 37.9 (>42); TOTAL PROTEIN 5.2 GM/DL (6.4-8.2)
[2020-05-27] MEDS: HEPARIN SOD (PORCINE) 5000UNITS/ML 1ML VIAL/SYRINGE SC SCH ×2 (09:00→20:02)
--- NOTE | 2020-05-27 11:51 | IPNPDOC ---
Text Note Date of Service The patient was seen on 05/27/20. NOTE Subjective: -No complaints -Had esophagram that showed a severe proximal stricture -Spoke with Dr. Novak yesterday whose inclination was to treat the fungal infection and defer intervention to outpatient setting or if severe may require gensurg involvement. Speech saw him and we did an esophagram that showed severe stricture and at best recommended a full liquid diet. This morning I spoke with Dr. Bledsoe who recommended reaching back out to Dr. Novak to discuss the resu lts and get his final recommendation Objective: VITAL SIGNS: Please see below GENERAL APPEARANCE: No acute distress, thin, pleasant HEENT: NC/AT, EOMI, sclera non-icteric, white patches in posterior pharynx CARDIOVASCULAR: Regular rate and rhythm, no appreciable murmur LUNGS: Clear to auscultation bilaterally, fair air movement throughout, no conversational dyspnea ABDOMEN: Scaphoid, otherwise soft, nontender and nondistended without any appreciable masses or organomegaly MUSCULOSKELETAL: Thoracic kyphosis appreciated, no rib pain or tenderness anteriorly or posteriorly EXTREMITIES: No lower extremity swelling or edema, radial and posterior tibial pulses 2+ bilaterally NEUROLOGICAL: Alert and oriented 3 PSYCHIATRIC: Affect appropriate given patient's current clinical condition. LABORATORY DATA: Reviewed IMAGING: Upper GI Endoscopy (04/29/20): 1 benign appearing intrinsic severe stenosis was found in the upper third of the esophagus. Stenosis was measured at 5 mm inner diameter by 4 cm in length. The stenosis was traversed after downsizing scope and dilating. A TTS dilator was passed through the scope. Dilation with a 678 millimeter balloon and an 8910 millimeter balloon dilator was performed to 10 mm. The dilation site was examined and showed moderate mucosal disruption. Biopsies were taken with a cold forceps for histology. A medium-sized hiatal hernia was present. The entire examined stomach was normal. The examined duodenum was normal. PATHOLOGY: Esophagus Stricture, Bx (04/29/20): Squamous mucosa with acute and chronic inflammation with fungal forms in the background, consistent with fungal esophagitis Esophagus, Bx (04/29/20): Squamous mucosa with acute and chronic inflammation with fungal forms in the background, consistent with fungal esophagitis ASSESSMENT: 75-year-old M with a history significant for dysphagia secondary to esophageal stricture and untreated fungal esophagitis, CKD, NSCLC, HTN, HLD, CAD s/p stent, COPD, hypothyroid, GERD and BPH who presented to the emergency department on the evening of 05/25/20 complaining of progressive dysphagia. Patient has been seen and evaluated for dysphagia under the care of Dr. Novak earlier this month. Patient underwent EGD and biopsy. Per pathology report, biopsies consistent with fungal esophagitis. Patient reports that he had not been made aware of this, has not started any treatment and has not been informed of any dietary restrictions. Patient states that since his procedure, he has been on a liquid diet except for buttered Jerman hair pasta which he had been able to tolerate without difficulty until this afternoon, when he had a bout of emesis while attempting to eat dinner. In the ED, patient is able to handle his secretions but we does have difficulty swallowing even liquids. Given his biopsy results, patient will be started on antifungals admitted to the hospital, nothing by mouth, will hold by mouth medications. Case was discussed with on-call surgeon, Dr. Dale. We will attempt to contact Dr. Kenny in a.m. given that he is currently following this patient in his clinic for this problem, and is currently scheduled to perform a repeat EGD on 05/27/20. 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 Lida zepeda. -Fluconazole, day 3 -Kishore taking to OR for dilation today per our last discussion #Dysphagia 2/2 esophageal stricture -s/p dilation on 05/02, liquids and jerman hair pasta at home until this afternoon -Unable to swallow liquids in ED, no difficulty managing secretions --> On reaching out to Dr. Novak, he deferred to outpatient when he is discharged and treat the fungal infection for now. Reached out to speech for formal eval that will direct urgency of the need for scoping and dilation --> esophagram showed severe proximal stricture -Kishore taking him EGD and dilation today per our last discussion #CKDIV -Follows closely with nephrology -Currently on PO prednisone for worsening renal function, which shows improvement from 04/14. -Continue to avoid nephrotoxic medications # Non-small cell lung cancer stage IIIB. EGFR neg, PDL 1 TPS 1020%. Ross 1 neg. ALK neg. -S/P treatment with carboplatin, taxol x6 weeks, complete in 02/17/19. Held 04/26 to QUE, dehydration -Durvalumab discontinued 11/2019 for significant renal insufficiency. -Currently following with Dr. Arias. -CT chest 03/29/2020 showed New areas of irregular airspace disease noted in the periphery of the left upper lobe and at the bilateral lung bases for which short-term follow-up examination at 3 months was suggested. No indication to start treatment at this time since CT scan showed no definite evidence of di sease recurrence, nor disease progression and patient not symptomatic from airspace disease. # HTN -Coreg -Holding home medications # Hypokalemia -IV supplementation -Holding home medications -daily BMP # COPD -Stable, pt reports that he does not use inhalers. # CAD, s/p stent -Status post MA in 1999 and stent placement, stable -ASA, statin, carvedilol -Holding home medications # Hyperlipidemia. -Statin -Holding home medications # Hypothyroidism -Levothyroxine 75 mcg -Holding home medications # GERD -PPI -Holding home medications # BPH -Tamsulosin -Holding home medications # Cancer-related cachexia # Protein Calorie malnutrition -c/b dysphagia, pending speech eval DVT PROPHYLAXIS: SQ Heparin CODE STATUS: Full code DISPOSITION: Anticipate > 2 night stay VS,Fishbone, I+O VS, Fishbone, I+O Laboratory Tests 05/27/20 05:23 Vital Signs Date Time Temp Pulse Resp B/P (MAP) Pulse Ox O2 Delivery O2 Flow Rate FiO2 05/27/20 06:00 98.9 71 20 119/60 (79) 93 05/26/20 14:00 Room Air I&O- Last 24 Hours up to 6 AM 05/27/20 06:00 Intake Total 2700 ml Output Total 1725 ml Balance 975 ml MISAEL ALVARENGA MD May 27, 2020 09:17
--- NOTE | 2020-05-27 16:30 | ROOR ---
Patient Name: Herson Kilgore Procedure Date: 05/27/2020 3:52 PM Date of : 1945 Age: 75 Room: [facility] Gender: Male Note Status: Finalized Procedure: Upper GI endoscopy Indications: Dysphagia, Stenosis of the esophagus, For therapy of esophageal stenosis (On 05/02/20 dilated to 10 mm, He had reasonable results initially, however symptoms worsenning. Pt admitted to hospital 2 days ago for unable to swallow) Providers: Chago WALTON MD Referring MD: 2. Inpatient 2. Inpatient, JOE Alford Requesting Provider: Medicines: Monitored Anesthesia Care Complications: No immediate complications. Procedure: Pre-Anesthesia Assessment: - The heart rate, respiratory rate, oxygen saturations, blood pressure, adequacy of pulmonary ventilation, and response to care were monitored throughout the procedure. The Endoscope was introduced through the mouth, and advanced to the second part of duodenum. The upper GI endoscopy was performed with difficulty due to narrowing. Successful completion of the procedure was aided by withdrawing the scope and replacing with the 'babyscope'. The patient tolerated the procedure well. Findings: One benign-appearing, intrinsic severe stenosis (a 10 mm endoscope cannot pass, and required downsizing to Ultraslim scope to pass), was found 19 to 23 cm from the incisors. This stenosis measured 4 cm (in length). The stenosis was traversed after downsizing scope to the Ultraslim scope and dilating. A TTS dilator was passed through the scope. Dilation with an 8-9-10 mm balloon dilator was performed to 10 mm. The dilation site was examined following endoscope reinsertion and showed moderate mucosal disruption. The entire examined stomach was normal. The examined duodenum was normal. Impression: - Benign-appearing severe esophageal stenosis at 19 cm to 23 cm from incisors. (On 05/02/20, this was dilated to 10 mm. Unfortunately the stricture has re-stenosed and was again dilated to 10 mm.) - Normal stomach. - Normal examined duodenum. - No specimens collected. Recommendation: - Observe patient's clinical course. - Clear liquid diet. - Full liquid diet. Procedure Code(s): --- Professional --- 07703, Esophagogastroduodenoscopy, flexible, transoral; with transendoscopic balloon dilation of esophagus (less than 30 mm diameter) Diagnosis Code(s): --- Professional --- R13.10, Dysphagia, unspecified K22.2, Esophageal obstruction CPT copyright 2019 [employer]. All rights reserved. The codes documented in this report are preliminary and upon ui programmer review may be revised to meet current compliance requirements. Chago Walton MD Chago WALTON MD 05/27/2020 4:29:45 PM Electronically signed by Chago WALTON MD Number of Addenda: 0 Note Initiated On: 05/27/2020 3:52 PM Estimated Blood Loss: Estimated blood loss: none.
[2020-05-27 22:00] VITALS: BP 114/67
[2020-05-27] MEDS: FLUCONAZOLE 200 MG in IV 1 EA IV SCH (22:45)
[2020-05-28] MEDS: KCL 10MEQ/100ML SWI (KRUN) 10 MEQ in IV 1 EA IV SCH ×2 (00:10→01:10)
[2020-05-28] MEDS ORDERED: POTASSIUM CHLORIDE 10% LIQ 20 MEQ/15 ML UDC PO ONE (00:55)
[2020-05-28] MEDS: D5W/0.45% SODIUM CHLORIDE 1,000 ML IV SCH (01:10)
[2020-05-28 06:00] VITALS: BP 113/67
[2020-05-28 06:26] LABS: HEMATOCRIT 38.8 % (42.0-52.0); HEMOGLOBIN 12.3 g/dl (13.5-17.5); MEAN CORPUSCULAR HEMOGLOBIN 32.2 pg (27.0-33.0); MEAN CORPUSCULAR HGB CONC 31.7 g/dl (32.0-36.5); MEAN CORPUSCULAR VOLUME 101.6 fl (80.0-96.0); PLATELET COUNT, AUTOMATED 108 10^3/uL (150-450); RED BLOOD COUNT 3.82 10^6/uL (4.30-6.10); WHITE BLOOD COUNT 4.1 10^3/uL (4.0-10.0)
[2020-05-28 06:46] LABS: ALBUMIN 2.6 GM/DL (3.2-5.2); BILIRUBIN,TOTAL 0.4 MG/DL (0.2-1.0); CALCIUM LEVEL 7.9 MG/DL (8.8-10.2); CREATININE FOR GFR 1.83 MG/DL (0.70-1.30); GLOMERULAR FILTRATION RATE 38.6 (>42); POTASSIUM SERUM 3.9 MEQ/L (3.5-5.1); TOTAL PROTEIN 5.6 GM/DL (6.4-8.2)
[2020-05-28] MEDS ORDERED: FLUC200T2 PO (07:37)
--- NOTE | 2020-05-28 07:59 | DS.PDOC ---
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 HISTORY OF PRESENT ILLNESS: 75-year-old M with a medical history of non-small cell lung cancer stage IIIB, colon adenocarcinoma, COPD, coronary artery disease, [place] s/p stent 1, hy perlipidemia, who presented to the emergency department the evening of 05/25/20 reporting difficulty swallowing. He reported that he had recently had a esophageal dilation and since had been only able to drink liquids and eat Jerman hair pasta without any other related symptoms including throat/neck pain, throat swelling or itchiness. Of historical note at presentation, patient had progressive dysphagia since 04/14 and was referred to GI by his PCP for further evaluation. He underwent EGD examination on 04/29/20; at which time a significant stricture was identified. Dilation was performed and 2 biopsies were taken which, per pathology, are consistent with fungal esophagitis. Patient reported that since his procedure, he has been consuming only liquids and "well-buttered Jerman hair pasta". He stated that this did not cause him any difficulty until the afternoon of this admission when patient attempted to eat dinner and ultimately was unable to swallow. On presentation to the ED, he reported that he was not made aware of his fungal diagnosis, or what diet he should continue on. On presentation to the emergency department, patient was found be afebrile, pulse of 64, respiratory rate of 16. Blood pressure was normotensive, maintaining appropriate oxygen saturation on room air. CBC still show evidence of leukocytosis, H/H of 12.7/41.5. Acrocyanosis with an MCV of 103.0 with elevat ed RDW. Platelet of 152. In regards to patient's lactulose, sodium within normal range, [place] anemia potassium 3.2. BUNs/CR of 36/2.09, GFR of 33.1. He was given 400mg IV fluconazole and admitted to medicine where he has been on IV fluconazole and will complete a 21 day course after discharge. On 05/27 he had a repeat EGD with Dr. Novak with re-dilation of the re-stenosed proximal esophageal stricture and is now being discharged home on a full liquid diet, with close PCP and GI follow up. DISCHARGE MEDICATIONS: Please see below. ALLERGIES: Please see below. PHYSICAL EXAMINATION ON DISCHARGE: VITAL SIGNS: Please see below. GENERAL APPEARANCE: No acute distress, thin, pleasant HEENT: NC/AT, EOMI, sclera non-icteric, white patches in posterior pharynx CARDIOVASCULAR: Regular rate and rhythm, no appreciable murmur LUNGS: Clear to auscultation bilaterally, fair air movement throughout, no conversational dyspnea ABDOMEN: Scaphoid, otherwise soft, nontender and nondistended without any ap preciable masses or organomegaly MUSCULOSKELETAL: Thoracic kyphosis appreciated, no rib pain or tenderness anteriorly or posteriorly EXTREMITIES: No lower extremity swelling or edema, radial and posterior tibial pulses 2+ bilaterally NEUROLOGICAL: Alert and oriented 3 PSYCHIATRIC: Affect appropriate given patient's current clinical condition. LABORATORY DATA: Please see below. IMAGING: EGD with dilation on 05/28/2020: Procedure: Upper GI endoscopy Indications: Dysphagia, Stenosis of the esophagus, For therapy of esophageal stenosis (On 05/02/20 dilated to 10 mm, He had reasonable results initially, however symptoms worsenning. Pt admitted to hospital 2 days ago for unable to swallow) Providers: Roxy NOVAK MD Referring MD: 2. Inpatient 2. Inpatient, JOE Alford Requesting Provider: Medicines: Monitored Anesthesia Care Complications: No immediate complications. Procedure: Pre-Anesthesia Assessment: - The heart rate, respiratory rate, oxygen saturations, blood pressure, adequacy of pulmonary ventilation, and response to care were monitored throughout the procedure. The Endoscope was introduced through the mouth, and advanced to the second part of duodenum. The upper GI endoscopy was performed with difficulty due to narrowing. Successful completion of the procedure was aided by withdrawing the scope and replacing with the 'babyscope'. The patient tolerated the procedure well. Findings: One benign-appearing, intrinsic severe stenosis (a 10 mm endoscope cannot pass, and required downsizing to Ultraslim scope to pass), was found 19 to 23 cm from the incisors. This stenosis measured 4 cm (in length). The stenosis was traversed after downsizing scope to the Ultraslim scope and dilating. A TTS dilator was passed through the scope. Dilation with an 8-9-10 mm balloon dilator was performed to 10 mm. The dilation site was examined following endoscope reinsertion and showed moderate mucosal disruption. The entire examined stomach was normal. The examined duodenum was normal. Impression: - Benign-appearing severe esophageal stenosis at 19 cm to 23 cm from incisors. (On 05/02/20, this was dilated to 10 mm. Unfortunately the stricture has re-stenosed and was again dilated to 10 mm.) - Normal stomach. - Normal examined duodenum. - No specimens collected. Recommendation: - Observe patient's clinical course. - Clear liquid diet. - Full liquid diet. PROGNOSIS: Good ACTIVITY: As tolerated DIET: Full liquid diet DISCHARGE PLAN: Home with fluconazole for 20 more days and full liquid diet DISPOSITION: Home DISCHARGE INSTRUCTIONS: Home with fluconazole for 20 more days and full liquid diet ITEMS TO FOLLOWUP ON ON OUTPATIENT: Fungal esophagitis - Home with fluconazole for 20 more days and full liquid diet - to follow up with GI, PCP colon CA - f/u with onc DISCHARGE CONDITION: Stable TIME SPENT ON DISCHARGE: 43 minutes. Vital Signs/I&Os Vital Signs Date Time Temp Pulse Resp B/P (MAP) Pulse Ox O2 Delivery O2 Flow Rate FiO2 05/28/20 06:00 98.2 82 18 113/67 (82) 93 Room Air I&O- Last 24 Hours up to 6 AM 05/28/20 05:59 Intake Total 1470 ml Output Total 1650 ml Balance -180 ml Laboratory Data Labs 24H Laboratory Tests 2 05/28/20 05:47: Nucleated Red Blood Cells % (auto) 0.0, Anion Gap 7L, Glomerular Filtration Rate 38.6L, Calcium Level 7.9L, Total Bilirubin 0.4, Aspartate Amino Transf (AST/SGOT) 9, Alanine Aminotransferase (ALT/SGPT) 18, Alkaline Phosphatase 61, Total Protein 5.6L, Albumin 2.6L, Albumin/Globulin Ratio 0.9 CBC/BMP Laboratory Tests 05/28/20 05:47 Discharge Medications Scheduled Aspirin (Aspirin) 325 Mg Tablet, 325 MG PO DAILY, (Reported) Carvedilol (Carvedilol) 3.125 Mg Tablet, 1.5625 MG PO DAILY, (Reported) Fluconazole (Fluconazole) 200 Mg Tablet, 1 TAB PO DAILY for yeast infection Lactose-Reduced Food (Ensure Liquid) 237 Ml Liquid, 237 ML PO DAILY, (Reported) AROUND NOONTIME Levothyroxine Sodium (Levothyroxine Sodium) 75 Mcg Tablet, 1 TAB PO DAILY Omeprazole (Omeprazole) 40 Mg Capsule.dr, 40 MG PO BID, (Reported) Potassium Chloride (Potassium Chloride) 20 Meq/15 Ml Liquid, 10 MEQ PO BID, (Reported) Prednisone (Prednisone) 20 Mg Tablet, 20 MG PO QHS, (Reported) Rosuvastatin Calcium (Rosuvastatin Calcium) 40 Mg Tablet, 40 MG PO QHS, (Reported) Tamsulosin Hcl (Tamsulosin HCl) 0.4 Mg Capsule, 0.4 MG PO DAILY, (Reported) Allergies Coded Allergies: No Known Allergies (Verified Allergy, Unknown, 05/20/20) MISAEL ALVARENGA MD May 28, 2020 07:59
[2020-05-28] MEDS: HEPARIN SOD (PORCINE) 5000UNITS/ML 1ML VIAL/SYRINGE SC SCH (08:07)
== END 2020-05-28 08:16 | disposition home or self-care (01) | DRG 392 ==
LOC: M ED 20:27 → M ED INP 23:30 → M MSPAV 05-26 00:20
PROVIDERS: ADMIT General Practice; ATTEND Internal Medicine
PROC: 0D758DZ Dilation of Esophagus with Intraluminal Device, Via Natural or Artificial Opening Endoscopic (ICD-10-PCS; principal; 2020-05-27 15:25)
DX: K20.80 Other esophagitis without bleeding (principal); N18.4 Chronic kidney disease, stage 4 (severe); R64 Cachexia; E46 Unspecified protein-calorie malnutrition; R13.10 Dysphagia, unspecified; K22.2 Esophageal obstruction; I12.9 Hypertensive chronic kidney disease with stage 1 through stage 4 chronic kidney disease, or unspecified chronic kidney disease; E87.6 Hypokalemia; J44.9 Chronic obstructive pulmonary disease, unspecified; I25.10 Atherosclerotic heart disease of native coronary artery without angina pectoris; E78.5 Hyperlipidemia, unspecified; E03.9 Hypothyroidism, unspecified; K21.9 Gastro-esophageal reflux disease without esophagitis; N40.0 Benign prostatic hyperplasia without lower urinary tract symptoms; Z95.5 Presence of coronary angioplasty implant and graft; Z20.822 Contact with and (suspected) exposure to COVID-19; Z85.038 Personal history of other malignant neoplasm of large intestine; Z87.891 Personal history of nicotine dependence; Z85.118 Personal history of other malignant neoplasm of bronchus and lung; Z79.82 Long term (current) use of aspirin; Z79.52 Long term (current) use of systemic steroids; Z79.899 Other long term (current) drug therapy

== ENCOUNTER → 2020-06-16 | Outpatient (CLI) | payer OTHER ==
[~2020-06-16] MED LIST changes: +CARV3.12 PO; +ENSULIQ8 PO; +FLUC200T2 PO; +POTA20EL PO
== END ==
LOC: M LABSMTC 09:45
DX: Z11.52 Encounter for screening for COVID-19 (principal)

== ENCOUNTER → 2020-06-23 | Outpatient (CLI) | payer OTHER ==
--- NOTE | 2020-06-23 12:59 | REP ---
INDICATION: LUNG CA. COMPARISON: Chest CT with IV contrast dated 09/30/[address] without IV contrast dated 12/29/2019. TECHNIQUE: Chest CT without IV contrast. 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 There are a few tiny nodular densities immediately adjacent to the aortic arch laterally that have decreased in size from 12/29/2019. There was an enlarged aorticopulmonic window node on 12/29/2019 measuring up to 12 mm short axis that has significantly decreased in size today measuring 4 mm short axis and is normal size. There is no other mediastinal adenopathy or mass. There is extensive bullous replacement lung parenchyma, especially in the upper lobes. This is unchanged. There is a focal infiltrate in the deep posteroinferior sulcus of the right lower lobe, not present previously. No pleural effusion. No lung nodules or masses are identified. The unenhanced thoracic aorta is unremarkable except for calcified atheroma. Cardiac size is normal. There is no pericardial effusion. There is a central venous [id number] with the tip in the right atrium in satisfactory position. IMPRESSION: Of the known mediastinal mass continues to decrease in size. The enlarged aorticopulmonic window node has decreased and is now normal size. No other mediastinal adenopathy or mass are identified. There are no lung nodules or masses. There is a new infiltrate in the deep posterior sulcus of the right lower lobe. There is bullous emphysema as described. <Electronically signed by Alpesh Healy > 06/23/20 [id number]
== END ==
LOC: M RAD 11:35
PROVIDERS: ATTEND Internal Medicine Medical Oncology
DX: C34.90 Malignant neoplasm of unspecified part of unspecified bronchus or lung (principal)

== ENCOUNTER → 2020-06-30 | Outpatient (CLI) | payer OTHER | LOC: M LABSMTC 10:19 | PROVIDERS: ATTEND Internal Medicine | DX: Z11.52 Encounter for screening for COVID-19 (principal) ==

== ENCOUNTER 2020-08-25 09:52 | Emergency (ER) | payer OTHER ==
[~2020-08-25] VITALS: Ht 170.2 cm; Wt 61.8 kg
[~2020-08-25 09:52] MED LIST changes: +COVI100V IM; +FINA5TAB2 PO; +LIDO1CRE42 TOP; -LIDO2.5C15 TOP; +[UNRECOGNIZED DRUG - CODE] TF
[2020-08-25] MEDS ORDERED: AUGM875T28 PO (11:33)
[2020-08-25] MEDS ORDERED: GASTROGRAFIN SOLUTION 30ML (Q9963) As Ordered ONE (13:06)
--- NOTE | 2020-08-25 13:28 | REP ---
INDICATION: G tube study please with contrast to confirm placement. COMPARISON: None. TECHNIQUE: Single view abdomen and pelvis performed following injection of contrast through the G-tube. FINDINGS: Contrast is seen in the stomach and duodenum. No dilated bowel loops are seen. There are mild degenerative changes of the spine and hips. IMPRESSION: Gastrostomy tube is in good position, contrast injected through the G-tube is within the stomach and duodenum. No obstruction. <Electronically signed by Alpesh Cobb > 08/25/20 [id number]
[2020-08-25 14:58] VITALS: BP 128/72
== END 2020-08-25 15:00 | disposition short-term general hospital (02) ==
LOC: M ED 09:52
DX: K94.20 Gastrostomy complication, unspecified (principal); K22.2 Esophageal obstruction; I12.9 Hypertensive chronic kidney disease with stage 1 through stage 4 chronic kidney disease, or unspecified chronic kidney disease; I25.2 Old myocardial infarction; E78.5 Hyperlipidemia, unspecified; J44.9 Chronic obstructive pulmonary disease, unspecified; K21.9 Gastro-esophageal reflux disease without esophagitis; E03.9 Hypothyroidism, unspecified; N18.9 Chronic kidney disease, unspecified; K44.9 Diaphragmatic hernia without obstruction or gangrene; Z85.118 Personal history of other malignant neoplasm of bronchus and lung; N40.0 Benign prostatic hyperplasia without lower urinary tract symptoms; Z92.21 Personal history of antineoplastic chemotherapy; Z92.3 Personal history of irradiation; Z85.048 Personal history of other malignant neoplasm of rectum, rectosigmoid junction, and anus; Z95.5 Presence of coronary angioplasty implant and graft; Z87.891 Personal history of nicotine dependence; Z79.899 Other long term (current) drug therapy; Z79.82 Long term (current) use of aspirin; Z79.2 Long term (current) use of antibiotics

== ENCOUNTER → 2020-09-09 | Outpatient (REF) | payer MEDICARE ==
[~2020-09-09] MED LIST changes: +AUGM875T28 PO
== END ==
LOC: M SFHCADAM 14:22
PROVIDERS: ATTEND Physician Assistant Medical
DX: R05 Cough (principal)

== ENCOUNTER 2020-09-22 10:24 | Inpatient (IN) | payer OTHER ==
[~2020-09-22] VITALS: Ht 167.6 cm; Wt 55.3 kg
[2020-09-22] VITALS (7 sets, daily range): BP systolic 72–100; BP diastolic 42–58
[~2020-09-22 10:24] MED LIST changes: +BAYE325T16 PEG; -BAYE325T16 PO; +FINA5TAB2 PEG; -FINA5TAB2 PO; +FINASTERIDE 5 MG TAB PEG SCH; +OMEP-221 PEG; +ROSU40TA4 PEG; -ROSU40TA4 PO
[2020-09-22] MEDS ORDERED: SODIUM CHLORIDE 0.9% INJ 10 ML SYR IV PRN ×2 (11:40→21:45)
[2020-09-22] MEDS ORDERED: NS 1,000 ML IV ONE (11:50)
[2020-09-22 12:23] LABS: HEMATOCRIT 39.8 % (42.0-52.0); HEMOGLOBIN 12.8 g/dl (13.5-17.5); MEAN CORPUSCULAR HEMOGLOBIN 33.1 pg (27.0-33.0); MEAN CORPUSCULAR HGB CONC 32.2 g/dl (32.0-36.5); MEAN CORPUSCULAR VOLUME 102.8 fl (80.0-96.0); PLATELET COUNT, AUTOMATED 289 10^3/uL (150-450); RED BLOOD COUNT 3.87 10^6/uL (4.30-6.10); WHITE BLOOD COUNT 12.8 10^3/uL (4.0-10.0)
[2020-09-22 12:52] LABS: CALCIUM LEVEL 9.1 MG/DL (8.8-10.2); CREATININE FOR GFR 1.77 MG/DL (0.70-1.30); GLOMERULAR FILTRATION RATE 40.1 (>42); POTASSIUM SERUM 3.5 MEQ/L (3.5-5.1)
[2020-09-22 12:53] LABS: ALBUMIN 1.9 GM/DL (3.2-5.2); BILIRUBIN,DIRECT 0.4 MG/DL (0.0-0.2); BILIRUBIN,TOTAL 0.7 MG/DL (0.2-1.0); TOTAL PROTEIN 6.5 GM/DL (6.4-8.2)
[2020-09-22 12:54] LABS: BASOPHILS 1 % (0-1); LYMPHOCYTES 6 % (16-44); MONOCYTES 5 % (0-5); NEUTROPHILS 88 % (28-66); PLATELET ESTIMATE NORMAL (NORMAL)
[2020-09-22] MEDS ORDERED: CENT1TAB PEG (13:41)
[2020-09-22] MEDS ORDERED: LEVO75TA4 PEG (13:41)
[2020-09-22] MEDS ORDERED: PRED10TA2 PEG (13:41)
[2020-09-22] MEDS ORDERED: MIRT-62 PEG (13:41)
--- NOTE | 2020-09-22 13:45 | REP ---
INDICATION: lung CA. COMPARISON: Multiple latest 03/06/2019 TECHNIQUE: Portable FINDINGS: The technique utilized in obtaining the radiograph has magnified the cardiac silhouette and accentuated the interstitial markings. New extensive patchy opacities are seen in the left upper lobe region. There is a mild diffuse increase in the interstitial markings in the right lung base representing a change the prior exam. The tip of the central venous catheter is seen in the right atrium status quo. The osseous structures are stable. IMPRESSION: New rather extensive abnormal opacities in the left upper lobe. Pneumonia versus increase in the patient's known cancer. Additionally, there does appear to be mild generalized right lung interstitial edema on this limited portable exam. Other findings as described above. <Electronically signed by Joesph Joshua > 09/22/20 [id number]
[2020-09-22] MEDS ORDERED: MOM 30ML SUSPENSION UDC PEG PRN (14:00)
[2020-09-22 14:50] LABS: RSV AMPLIFICATION NEGATIVE (NEGATIVE)
--- NOTE | 2020-09-22 14:55 | REP ---
INDICATION: Evaluate for DVT COMPARISON: None. TECHNIQUE: Cobb scale and color Doppler evaluation using linear high frequency transducer. FINDINGS: Ultrasound examination of the right and left lower extremity deep venous structures from the common femoral vein through the popliteal veins with limited evaluation of the calf veins demonstrates normal compressibility flow and wave patterns in response to respiration and augmentation. There is no evidence for deep venous thrombosis. IMPRESSION: No evidence for deep venous thrombosis. <Electronically signed by Patrick Sorto > 09/22/20 [id number]
[2020-09-22] MEDS ORDERED: LevoFLOXacin IV 750 MG in IV 1 EA IV ONE (15:00)
[2020-09-22] MEDS ORDERED: IPRATROPIUM 0.5MG/ALBUTEROL 2.5MG INH SOL UD 3ML (DUONEB) NEB PRN (15:15)
--- NOTE | 2020-09-22 15:15 | REP ---
INDICATION: SOB / Cough COMPARISON: 06/23/2020 TECHNIQUE: Axial noncontrast images from the thoracic inlet to the upper abdomen with coronal and sagittal reformations. This CT examination was performed using the following dose reduction techniques: Automated exposure control, adjustment of mA and/or kv according to the patient's size, and use of iterative reconstruction technique. FINDINGS: Chronic advanced COPD/emphysematous changes with bronchiectasis again noted. Significant superimposed areas of consolidation involving the left upper lobe consistent with acute pneumonia including possible aspiration pneumonia. No effusion. No pneumothorax. Small amount of presumed sputum identified in the proximal right mainstem bronchus at the level just beyond the yari. Evaluation of the mediastinum demonstrates stable atherosclerotic changes to the thoracic aorta and coronary arteries. Nonspecific mediastinal lymph nodes measuring up to 12 mm likely reactive. Surrounding musculoskeletal structures intact. IMPRESSION: Advanced COPD/emphysematous changes with irregular bronchiectasis. Significant superimposed left upper lobe consolidation consistent with acute pneumonia. <Electronically signed by Patrick Sorto > 09/22/20 [id number]
--- NOTE | 2020-09-22 15:18 | HPEPDOC ---
[facility] Medical History & Physical Date of Admission Sep 22, 2020 Date of Service: Sep 22, 2020 History and Physical Chief complaint: Presented to emergency room because of weakness / fatigue History of present illness: Patient is a 75-year-old male who presented to the emergency room with compressive weakness ongoing for the last 2-3 weeks. Patient reports that he has been experiencing shortness of breath status progressively worsened. He has reported a productive cough with yellow sputum. Denies any recent fevers or chills, has not spent any chest pain or palpita tions. Denies any lower extremity swelling. Patient denies any nausea, vomiting, abdominal pain, diarrhea, but does report constipation. Reports his last bowel movement was approximately 2 days ago. Denies any dark colored stools. Denies any urinary discomfort. Upon arrival to ER, patient was placed on supplemental oxygen via nasal cannula at 2 L. 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 Arias Esophageal stricture 2/2 radiation; failed dilation with balloon multiple times; s/p PEG tube BPH Past Surgical History: Cardiac stent 1999 Right carpal tunnel release 2001 Right inguinal hernia repair 2012 Right femoral hernia repair 2012 Right hemicolectomy 2014 Colonoscopy 2018 Cystoscopy 2019 EGD 05/2020 PEG tube placement 07/2020 Allergies: See below Medications: See below Family History: - Father with a history of lymphoma and mother with a history of breast cancer and colon cancer Social History: - Denies the use of alcohol or illicit drugs; patient reports that he quit smoking 20 years ago but was a smoker of 20 years at 2-3 packs per day - Denies recent travel or sick contacts - Lives alone - Occupation; patient reports that he used to work at [employer] Review of Systems: 10 point review of systems complete, all negative otherwise stated in HPI Physical exam: - Vitals: BP [117/77], HR [99], RR [18], Sat [93%NC2L], Temp [97.3F] - General: Lying in bed, Speaking in full sentences, AAOx3 - HEENT: NC, AT, PERRLA - CVS: Mildly tachycardic, +S1S2 - Lungs: Diminished lung entry bilaterally, no wheezing or crackles appreciated - Abdomen: Soft, Non-distended, Non-tender, + PEG tube (no erythema around insertion site) - Extremities: No lower extremity edema, No calf tenderness - Neuro: No focal motor or sensory deficit - Skin: No visible rashes Labs: See below Imaging: CXR 09/22: New rather extensive abnormal opacities in the left upper lobe. Pneumonia versus increase in the patient's known cancer. Additionally, there does appear to be mild generalized right lung interstitial edema on this limited portable exam. Other findings as described above. EKG: See below Assessment and Plan: Acute hypoxic respiratory failure - Patient presented to the ER with progressive shortness of breath and a productive cough - Patient is currently on supplemental oxygen via nasal cannula at 2 L - CXR noted above - Will get blood cultures, sputum cultures, pro-calcitonin - Will get CT chest and check duplex ultrasound of lower extremities - Will start patient on Levofloxacin and gentle IV fluid hydration Weakness / Fatigue - Will start PT and OT CAD s/p stent (1999) - Hx of CT - c/w ASA 325 DLP - c/w Rosuvastatin Chronic COPD - No evidence of wheezing - Will start inhaled therapy Hypothyroid - c/w Levothyroxine 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 Arias Esophageal stricture 2/2 radiation; - Failed dilation with balloon multiple times - s/p PEG tube - Patient receives tube feeding nutrition 4 times a day, however, is requested to transition to continuous infusion while inpatient BPH - c/w Finasteride GERD - Will Omeprazole DVT prophylaxis - Will start Heparin Vital Signs Vital Signs Date Time Temp Pulse Resp B/P (MAP) Pulse Ox O2 Delivery O2 Flow Rate FiO2 09/22/20 13:30 96 93 09/22/20 13:15 117/77 (90) 09/22/20 10:39 97.3 22 Nasal Cannula 2.0 Laboratory Data Labs 24H Laboratory Tests 2 09/22/20 12:12: 09/22/20 12:13: Neutrophils (%) (Auto) , Nucleated Red Blood Cells % (auto) 0.0, Neutrophils 88H, Lymphocytes (Manual) 6L, Monocytes (Manual) 5, Basophils (Manual) 1, Macrocytosis 2+, Platelet Estimate NORMAL, Anion Gap 9, Glomerular Filtration Rate 40.1L, Calcium Level 9.1, Magnesium Level 3.0H, Total Bilirubin 0.7, Direct Bilirubin 0.4H, Aspartate Amino Transf (AST/SGOT) 50H, Alanine Aminotransferase (ALT/SGPT) 47, Alkaline Phosphatase 86, Total Protein 6.5, Albumin 1.9L, Albumin/Globulin Ratio 0.4 09/22/20 13:38: Coronavirus (COVID-19)(PCR) NEGATIVE, Influenza Type A (RT-PCR) NEGATIVE, Influenza Type B (RT-PCR) NEGATIVE, Respiratory Syncytial Virus (PCR) NEGATIVE CBC/BMP Laboratory Tests 09/22/20 12:13 Home Medications Scheduled Aspirin (Aspirin) 325 Mg Tablet, 325 MG PEG DAILY Finasteride (Finasteride) 5 Mg Tablet, 5 MG PEG DAILY Levothyroxine Sodium (Levothyroxine Sodium) 75 Mcg Tablet, 75 MCG PEG DAILY Mirtazapine (Remeron) 15 Mg Tablet, 15 MG PEG QHS Multivit-Min/FA/Lycopen/Lutein (Centrum Silver Tablet) 1 Each Tablet, 1 TAB PEG DAILY Omeprazole (Omeprazole) 40 Mg Capsule.dr, 40 MG PEG BID Prednisone (Prednisone) 10 Mg Tablet, 10 MG PEG DAILY Rosuvastatin Calcium (Rosuvastatin Calcium) 40 Mg Tablet, 40 MG PEG QHS Allergies Coded Allergies: No Known Allergies (Verified Allergy, Unknown, 05/20/20) TIFFANIE GONCALVES MD Sep 22, 2020 15:17
[2020-09-22] MEDS: NS 1,000 ML IV SCH (15:43)
--- NOTE | 2020-09-22 18:04 | ECGEPIP ---
[facility] - ED Test Date: 2020-09-22 Pat Name: ALMA RICE Department: Room: [place] [address] Gender: Male Plate Maker: hc : 1945 Requested By: Mt Guerra Order Number: [id number] Reading MD: Margareth Madrid Measurements Intervals [place] Rate: 99 P: 66 [place]: 130 QRS: -25 QRSD: 88 T: 11 QT: 334 QTc: 428 Interpretive Statements Normal sinus rhythm Low voltage QRS Inferior infarct , age undetermined Cannot rule out Anterior infarct , age undetermined increased rate 03/03/19 Electronically Signed on 09-22-2020 18:04:31 EDT by Margareth Madrid
[2020-09-22] MEDS: predniSONE 5 MG TAB PEG SCH (18:27)
[2020-09-22] MEDS: ASPIRIN 325 MG TAB PEG SCH (18:27)
[2020-09-22] MEDS: ACETAMINOPHEN TAB 650MG DOSE (2X325MG) PEG PRN (18:31)
[2020-09-22] MEDS: IPRATROPIUM 0.5MG/ALBUTEROL 2.5MG INH SOL UD 3ML (DUONEB) NEB SCH ×2 (19:27→19:28)
[2020-09-22] MEDS ORDERED: NS 250 ML IV ONE (20:35)
[2020-09-22] MEDS ORDERED: ALTEPLASE 2MG/2ML VIAL XX PRN (20:55)
[2020-09-22] MEDS ORDERED: OMEPRAZOLE 20 MG CAP PO SCH (21:00)
[2020-09-22] MEDS ORDERED: SODIUM CHLORIDE 0.9% 1000ML IV ONE (21:25)
[2020-09-22] MEDS: ROSUVASTATIN 10 MG TAB (CRESTOR) PEG SCH (22:03)
[2020-09-22] MEDS: MIRTAZAPINE 15 MG TAB PEG SCH (22:04)
[2020-09-22] MEDS: DOCUSATE SOD LIQ 100MG/10ML UDC PEG SCH (22:04)
[2020-09-22] MEDS: ACETAMINOPHEN 500 MG TAB PO SCH (22:04)
[2020-09-22] MEDS: HEPARIN SOD (PORCINE) 5000UNITS/ML 1ML VIAL/SYRINGE SC SCH (22:05)
[2020-09-23] MEDS ORDERED: UNRESOLVED CLARIFICATION ENTRY XX SCH (00:01)
[2020-09-23] MEDS: IPRATROPIUM 0.5MG/ALBUTEROL 2.5MG INH SOL UD 3ML (DUONEB) NEB SCH ×6 (01:24→23:59)
[2020-09-23 02:25] VITALS: BP 94/50
[2020-09-23] MEDS: NS 1,000 ML IV SCH ×2 (02:35→04:46)
[2020-09-23] MEDS: HEPARIN SOD (PORCINE) 5000UNITS/ML 1ML VIAL/SYRINGE SC SCH ×3 (04:55→21:19)
[2020-09-23] MEDS: LEVOTHYROXINE 75MCG TABLET (0.075MG) PEG SCH (05:46)
[2020-09-23 06:00] VITALS: BP 98/60
[2020-09-23 06:32] LABS: BASO % 0.1 % (0.0-1.0); EOS % 0.1 % (0.0-3.0); HEMATOCRIT 35.1 % (42.0-52.0); HEMOGLOBIN 11.1 g/dl (13.5-17.5); LYMPH # 0.3 10^3/uL (1.5-5.0); LYMPH % 4.3 % (24.0-44.0); MEAN CORPUSCULAR HEMOGLOBIN 33.2 pg (27.0-33.0); MEAN CORPUSCULAR HGB CONC 31.6 g/dl (32.0-36.5); MEAN CORPUSCULAR VOLUME 105.1 fl (80.0-96.0); MONO # 0.4 10^3/uL (0.0-0.8); MONO % 4.6 % (2.0-8.0); NEUTROPHILS # 6.8 10^3/uL (1.5-8.5); NEUTROPHILS % 89.1 % (36.0-66.0); PLATELET COUNT, AUTOMATED 259 10^3/uL (150-450); RED BLOOD COUNT 3.34 10^6/uL (4.30-6.10); WHITE BLOOD COUNT 7.6 10^3/uL (4.0-10.0)
[2020-09-23 06:56] LABS: CALCIUM LEVEL 8.4 MG/DL (8.8-10.2); CREATININE FOR GFR 1.5 MG/DL (0.70-1.30); GLOMERULAR FILTRATION RATE 48.6 (>42); MAGNESIUM LEVEL 2.6 MG/DL (1.8-2.4); POTASSIUM SERUM 2.6 MEQ/L (3.5-5.1)
[2020-09-23] MEDS ORDERED: POTASSIUM CHLORIDE 10% LIQ 20 MEQ/15 ML UDC PO ONE ×2 (07:05→10:00)
[2020-09-23] MEDS ORDERED: PREVNAR 13 VACCINE SYRINGE IM ONE (09:00)
[2020-09-23] MEDS ORDERED: POTASSIUM CHLORIDE 10% LIQ 20 MEQ/15 ML UDC GT ONE ×2 (09:00→11:00)
[2020-09-23] MEDS ORDERED: OMEPRAZOLE 20 MG CAP PO SCH (09:00)
[2020-09-23] MEDS: SODIUM CHLORIDE 0.9% INJ 10 ML SYR IV SCH (09:07)
[2020-09-23] MEDS: DOCUSATE SOD LIQ 100MG/10ML UDC PEG SCH ×2 (09:08→21:20)
[2020-09-23] MEDS: MULTIVITAMINS/MINERALS THERAP 1 TAB PEG SCH (09:09)
[2020-09-23] MEDS: ASPIRIN 325 MG TAB PEG SCH (09:09)
[2020-09-23] MEDS: ACETAMINOPHEN 500 MG TAB PO SCH ×2 (09:11→21:19)
[2020-09-23] MEDS: predniSONE 5 MG TAB PEG SCH (09:12)
[2020-09-23] MEDS: PIPERACILLIN/TAZOBACTAM SOD 3.375 GM in D5W MINI-BAG PLUS 50 ML IV SCH ×3 (09:13→21:19)
--- NOTE | 2020-09-23 09:21 | REP ---
INDICATION: Worsening hypoxia. COMPARISON: Comparison chest x-ray September 22, 2020. TECHNIQUE: Portable upright AP chest radiograph. FINDINGS: There is a large dense infiltrate occupying the left upper lobe consistent with necrotizing pneumonia. There is some overall increase in consolidation compared with yesterday's radiograph. Interstitial markings are prominent in the bases as before. There is some oligemia in the right upper lobe distribution consistent with emphysema. EKG electrodes are seen. A right-sided [id number] catheter terminates in the expected location of the SVC right atrial junction. Cardiomegaly is again observed. IMPRESSION: There is some evidence of radiographic progression in the left upper lobe infiltrate. Most consistent with necrotizing pneumonia. Evidence of COPD and cardiomegaly.. <Electronically signed by Andrea Ford > 09/23/20 1355
[2020-09-23] MEDS ORDERED: VANCOMYCIN HCL 1 MG in IV FLUID PLACE HOLDER 1 EA IV SCH (11:05)
--- NOTE | 2020-09-23 12:26 | IPNPDOC ---
Date Seen The patient was seen on 09/23/20. Progress Note SUBJECTIVE: Mr. Kilgore was lying comfortably in bed receiving his morning tube feeding via his PEG tube. He states that his shortness of breath is about the same as it was yesterday. He continues to feel weak and fatigued but is tolerating nutritional feedings well. Patient was increased from 2 L to 6 L of oxygen overnight and has an oxygen saturation of 92%. Denies any chest pain, abdominal pain, nausea vomiting or palpitations at this time. OBJECTIVE: PHYSICAL EXAMINATION: VITAL SIGNS: Please see below. GENERAL: Thin male sitting in bed in no acute distress HEENT: normocephalic/atraumatic, mucous membranes moist and pink, poor dental hygiene, sclera non icteric, EOMI, no thyromegaly appreciated. CARDIOVASCULAR: normal S1 and S2, regular rate and rhythm, diminished heart so unds, no murmurs, rubs, or gallops appreciated. RESPIRATORY: Diminished inspiration bilaterally, diminished breath sounds in left lung, rhonchi appreciated, no wheezes appreciated ABDOMINAL: PEG tube appreciated, normal bowel sounds, abdomen is nontender to deep palpation in all 4 quadrants EXTREMITIES: No appreciable edema, muscle strength intact, full sensation. PSYCHOLOGICAL: Normal affect LABORATORY DATA, IMAGING STUDIES, MICROBIOLOGY: Please see below. CXR (09/22) impression: New rather extensive abnormal opacities in the left upper lobe. Pneumonia versus increasing the patient's known cancer. Mild generalized right lung interstitial edema. Chest CT (09/22) impression: Advanced COPD/emphysematous changes with regular bronchiectasis. Significant superimposed left upper lobe consolidation consistent with acute pneumonia. CXR (09/23) impression: Some evidence of radiographic progression in the left upper lobe infiltrate. Most consistent with necrotizing pneumonia. Evidence of COPD and cardiomegaly. Echocardiogram: Normal sinus rhythm, low voltage QRS, inferior infarct age undetermined, cannot rule out anterior infarct, age undetermined. 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 PROBLEMS: # Acute hypoxic respiratory failure with suspected necrotizing pneumonia vs com munity acquired pneumonia vs obstructive pneumonia secondary to lung cancer -Sputum Gram stain and culture and blood cultures pending -Left-sided chest PT ordered 3 times daily -started patient on vancomycin for MRSA coverage -Started patient on Mucinex to help clear secretions -Continue Zosyn (day 1) -Continue antimicrobials per pulmonology, we appreciate their help with this patient. -WBC improving 12.8 (09/22/20) to 7.6 (09/23/20) -Procalcitonin 5.86 -Lactic acid 1.7 increased from 1.3 (09/22/20) -Chest x-ray shows progression of left upper lobe infiltrate consistent with necrotizing pneumonia (09/23/20) -Oxygen increased from 2L to 6L overnight. #Hypokalemia -Potassium 2.6 09/23/20 -Supplemented patient with potassium chloride 40 mEq -We will continue to monitor #Weakness/fatigue -Continue continuous nutritional feedings -Patient is being seen by PT and OT. 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 Arias -Megha, per patient #Esophageal stricture secondary to radiation -Status post PEG tube, failed dilation with balloon multiple times -Continue 40 cc/h continuous infusion for nutrition duration of while inpatient, patient previously received tube feedings for nutrition 4 times a day #Hypothyroid -continue levothyroxine #DLP -continue rosuvastatin #BPH -continue finasteride #GERD -continue omeprazole #DVT prophylaxis -continue heparin DISPOSITION: Patient disposition is pending clinical improvement. Consulted pulmonology for his suspected necrotizing pneumonia, will continue him on the antimicrobials prescribed, goal at this time is to make sure that his secretions are cleared and to improve his failure to thrive through nutrition and PT/OT. GME ATTESTATION GME ATTESTATION My faculty preceptor for this patient encounter was physically present during the encounter and was fully available. All aspects of the patient interview, examination, medical decision making process, and medical care plan development were reviewed and approved by the faculty preceptor. The faculty preceptor is aware and concurs with the plan as stated in the body of this note and will attest to such by his/her cosignature. VS, I&O, 24H, Fishbone Vital Signs/I&O Vital Signs Date Time Temp Pulse Resp B/P (MAP) Pulse Ox O2 Delivery O2 Flow Rate FiO2 09/23/20 06:00 98.1 98 26 98/60 (73) 92 Nasal Cannula 6.0 I&O- Last 24 Hours up to 6 AM 09/23/20 05:59 Intake Total 1830 ml Output Total 0 ml Balance 1830 ml Laboratory Data 24H LABS Laboratory Tests 2 09/22/20 12:12: Procalcitonin 7.06 09/22/20 12:13: Neutrophils (%) (Auto) , Nucleated Red Blood Cells % (auto) 0.0, Neutrophils 88H, Lymphocytes (Manual) 6L, Monocytes (Manual) 5, Basophils (Manual) 1, Macrocytosis 2+, Platelet Estimate NORMAL, Anion Gap 9, Glomerular Filtration Rate 40.1L, Calcium Level 9.1, Magnesium Level 3.0H, Total Bilirubin 0.7, Direct Bilirubin 0.4H, Aspartate Amino Transf (AST/SGOT) 50H, Alanine Aminotransferase (ALT/SGPT) 47, Alkaline Phosphatase 86, Total Protein 6.5, Albumin 1.9L, Albumin/Globulin Ratio 0.4 09/22/20 13:38: Coronavirus (COVID-19)(PCR) NEGATIVE, Influenza Type A (RT-PCR) NEGATIVE, Inf luenza Type B (RT-PCR) NEGATIVE, Respiratory Syncytial Virus (PCR) NEGATIVE 09/22/20 20:40: Procalcitonin 5.86, Lactic Acid Level 1.3, Troponin I < 0.02 09/22/20 21:20: Methicillin-Resist S.aureus DNA PCR NOT DETECTED 09/23/20 06:16: Immature Granulocyte % (Auto) 1.8, Neutrophils (%) (Auto) 89.1H, Lymphocytes (%) (Auto) 4.3L, Monocytes (%) (Auto) 4.6, Eosinophils (%) (Auto) 0.1, Basophils (%) (Auto) 0.1, Neutrophils # (Auto) 6.8, Lymphocytes # (Auto) 0.3L, Monocytes # (Auto) 0.4, Eosinophils # (Auto) 0.0, Basophils # (Auto) 0.0, Nucleated Red Blood Cells % (auto) 0.0, Anion Gap 8, Glomerular Filtration Rate 48.6, Calcium Level 8.4L, Magnesium Level 2.6H 09/23/20 07:28: Lactic Acid Level 1.7 CBC/BMP Laboratory Tests 09/22/20 12:13 09/23/20 06:16 Microbiology Microbiology 09/23/20 Blood Culture, Received Pending 09/23/20 Blood Culture, Received Pending 09/22/20 Gram Stain, Received Pending 09/22/20 Sputum Culture, Received Pending GME ATTESTATION GME ATTESTATION My faculty preceptor for this patient encounter was physically present during the encounter and was fully available. All aspects of the patient interview, examination, medical decision making process, and medical care plan development were reviewed and approved by the faculty preceptor. The faculty preceptor is aware and concurs with the plan as stated in the body of this note and will attest to such by his/her cosignature. ATTENDING NOTE I, Emil Calix, have independently examined this patient and performed my own physical exam, as well as reviewed the documentation and edited where necessary. I have discussed in detail with the resident / student the findings and plan of treatment as documented by the resident / student and edited their note. I agree with their findings and treatment plan and have edited their documentation. I will continue to follow the patient during this hospital stay. LIBBY SÁNCHEZ DO Sep 23, 2020 12:18 EMIL CALIX MD Sep 23, 2020 21:04
[2020-09-23] MEDS ORDERED: VANCOMYCIN HCL 750 MG, VIAL MATE ADAPTER 1 EACH in NS 250 ML IV ONE (13:00)
--- NOTE | 2020-09-23 13:42 | CR ---
CONSULTATION DATE: 09/23/2020 REQUESTING PHYSICIAN: Dr. Emil Calix REASON FOR CONSULTATION: Pneumonia. HISTORY OF PRESENT ILLNESS: Mr. Kilgore is a pleasant 75-year-old gentleman with longstanding previous tobacco use, quitting in 2018 when he was found to have lung cancer, stage 3A. He underwent chemotherapy and then was changed to immunotherapy for persistent left upper lobe mass and adenopathy. This had to be discontinued due to intolerance due to renal function. His most recent PET scan done in June showed a persistent focus in the mediastinum, unchanged from his scan several months prior. He is admitted now with basically failure to thrive, generalized weakness, cough and shortness of breath. He is found to have a very significant left upper lobe pneumonia. I am asked now to comment further. Since admission he has had an improvement in his white count. He has never been febrile. He complains mainly of generalized weakness with shortness of breath and a loose cough that he is not able to expectorate sputum. He denies chest pain. Due to esophageal issues he takes all nutrition via a PEG tube. No hemoptysis. He said up until about a week ago he was able to ambulate somewhat but over the last several days has been too weak to do much of anything. ALLERGIES: None known. CURRENT MEDICATIONS: 1. Tylenol. 2. Milk of Magnesia. 3. Colace. 4. Subcutaneous Heparin. 5. Aspirin. 6. Synthroid. 7. Remeron. 8. Multivitamin. 9. Prednisone 5 mg daily which is chronic for him. 10. Crestor. 11. DuoNebs. 12. Zosyn. 13. Vancomycin. 14. Omeprazole Suspension. PAST MEDICAL HISTORY: The patient's past medical history is significant for: 1. Lung cancer as outlined above. 2. He had colon cancer resected in 2014. 3. 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 4. Advanced underlying obstructive lung disease. 5. Hypothyroidism. 6. Chronic kidney disease. 7. Benign prostatic hypertrophy. 8. Underlying coronary artery disease, status post a stent remotely. PAST SURGICAL HISTORY: The patient's past surgical history is significant for: 1. Stent. 2. Carpal tunnel repairs. 3. Herniorrhaphies. 4. Hemicolectomy in 2014. 5. EGD. 6. Recent PEG. FAMILY HISTORY: Father had lymphoma. Mother had breast and colon cancer. SOCIAL HISTORY: He lives here in the [facility]. Tobacco as outlined above. Rare alcohol. REVIEW OF SYSTEMS: The patient's review of systems is as per the HPP. Otherwise: Constitutional: Negative for any fevers or chills but significant for his overall weakness. HEENT: Unremarkable for double or blurry vision. Pulmonary: As per HPI. Cardiac: Positive for his stents. GI: Significant for his colon cancer, esophagitis and PEG. Genitourinary: Significant for benign prostatic hypertrophy. Neurologic: Unremarkable for seizures or strokes. Endocrine: Unremarkable for diabetes. Hematologic: Significant for his previous chemotherapy. Neurological: Unremarkable. Psychiatric: Unremarkable. Skin: Unremarkable for any new rashes or psoriasis. PHYSICAL EXAMINATION: GENERAL APPEARANCE: This is a thin, frail appearing gentleman who appears quite weak. VITAL SIGNS: Blood pressure 98/60, heart rate generally in the 90's and regular, respiratory rate in the low 20's without accessory muscle use and he is currently afebrile. HEENT: Otherwise normocephalic and atraumatic. Pupils do react and are clear. He is wearing eyeglasses. Membranes are moist. NECK: Trachea is in the midline. CHEST: Kyphosis type with percussion, marked global decreased breath sounds intensity. Tactile fremitus diminished. There are coarse rhonchi throughout the entire left chest that do not clear with cough. These transmit to the right but no convincing egophony. No obvious rub. CARDIAC: Distant but regular. Peripheral pulses palpable. No obvious edema. ABDOMEN: Soft with active bowel sounds. His PEG site is clean and dry. EXTREMITIES: Without cyanosis or clubbing. NEUROLOGICAL: He is awake, alert and appropriate. Voice is quite weak. PSYCHIATRIC: Normal mood and affect. LABORATORY DATA: Most recent labs show with white blood cell count down to 7.6, hemoglobin 11.1, and platelet count 259,000, 89% segs, no bands. Sodium 144, K of 2.6, chloride 116, CO2 20, BUN 57, creatinine 1.50. IMAGING DATA: CT scan was reviewed and compared to a CT scan from June. He has very significant pneumonia in the left upper lobe, clearly new from several months ago. I have reviewed his previous PET scan as well. I cannot at all disagree with the dictated reports. IMPRESSION: 1. Community acquired pneumonia left upper lobe. 2. Advanced obstructive lung disease and emphysema. 3. Mal clearance of secretions. 4. At least stage 3B lung cancer with persistently abnormal PET status post therapy including immunotherapy, now on no treatment. 5. History of colon cancer, status post resection. 6. Esophagitis. 7. Indwelling feeding tube. 8. Underlying coronary artery disease with history of stent. RECOMMENDATIONS: At this point I believe his antimicrobials are appropriate. He has no fever. His white count has improved. I believe his biggest issue, however, is his overall weakness and his poor clearance of secretions. We will augment his respiratory treatments. We will help him hopefully with secretion clearance. At this point he is not hypoxic. He is otherwise fairly comfortable. Certainly given his emaciated state, he is a very high risk for further compromise and certainly I do not believe he will do well, should he require endotracheal intubation and mechanical ventilation, and that may be a discussion that should be had with him. At this point we will proceed as outlined above. Further recommendations will be made on the progress in the record as new information becomes available.
[2020-09-23 14:00] VITALS: BP 110/68
[2020-09-23] MEDS ORDERED: VANCOMYCIN HCL 500 MG in D5W MINI-BAG PLUS 100 ML IV ONE (14:00)
[2020-09-23] MEDS ORDERED: VARIBAR PUDDING 40% w/v 230ML TUBE As Ordered ONE (14:26)
[2020-09-23] MEDS ORDERED: BARIUM SULFATE 700 MG TABLET (E-Z-DISK) As Ordered ONE (14:27)
[2020-09-23] MEDS ORDERED: VARIBAR NECTAR 40% w/v 240ML SUSP BTL As Ordered ONE (14:27)
[2020-09-23] MEDS ORDERED: E-Z-PAQUE 96% w/w SUSP 176GM BTL As Ordered ONE (14:27)
[2020-09-23 14:48] LABS: CALCIUM LEVEL 8.6 MG/DL (8.8-10.2); CREATININE FOR GFR 1.44 MG/DL (0.70-1.30); GLOMERULAR FILTRATION RATE 50.9 (>42); POTASSIUM SERUM 4.2 MEQ/L (3.5-5.1)
--- NOTE | 2020-09-23 16:32 | REP ---
INDICATION: aspiration. COMPARISON: NONE TECHNIQUE: The procedure was performed under the direct supervision of . The procedure was performed with Treva Coats from speech pathology present. 5 CC aliquots of thin, nectar and pudding consistency barium was administered. 0.9 minutes of fluoroscopy time was utilized for this procedure. FINDINGS: With thin consistency barium there are was laryngeal penetration initially. On the 3rd ingestion of thin barium through a straw there was, again, laryngeal penetration which advanced to the level of the vocal cords. With the subsequent administration of nectar and pudding consistencies, no further laryngeal penetration was identified. However, the original ingested thin barium which demonstrated penetration, advanced into aspiration. A detailed report of this examination will be provided by speech pathology. IMPRESSION: With thin consistency barium there is laryngeal penetration which, eventually, advanced into aspiration as described above. A detailed report of this examination will be provided by speech pathology. <Electronically signed by Shaun Mckeon > 09/23/20 1617 <Electronically signed by Andrea Ford > 09/23/20 [id number]
[2020-09-23] MEDS: OMEPRAZOLE SUSPENSION 20MG 10ML ORAL SYRINGE GT SCH (16:47)
[2020-09-23] MEDS: MIRTAZAPINE 15 MG TAB PEG SCH (21:18)
[2020-09-23] MEDS: ROSUVASTATIN 10 MG TAB (CRESTOR) PEG SCH (21:20)
[2020-09-23 22:00] VITALS: BP 111/60
[2020-09-24] VITALS (9 sets, daily range): BP systolic 90–111; BP diastolic 46–72; O2SAT 89–93
[2020-09-24] MEDS: PIPERACILLIN/TAZOBACTAM SOD 3.375 GM in D5W MINI-BAG PLUS 50 ML IV SCH ×4 (03:04→20:48)
[2020-09-24] MEDS: IPRATROPIUM 0.5MG/ALBUTEROL 2.5MG INH SOL UD 3ML (DUONEB) NEB SCH ×5 (03:40→20:55)
[2020-09-24] MEDS: HEPARIN SOD (PORCINE) 5000UNITS/ML 1ML VIAL/SYRINGE SC SCH ×3 (06:04→21:00)
[2020-09-24] MEDS: LEVOTHYROXINE 75MCG TABLET (0.075MG) PEG SCH (06:04)
[2020-09-24 06:40] LABS: HEMATOCRIT 39.1 % (42.0-52.0); HEMOGLOBIN 12.1 g/dl (13.5-17.5); MEAN CORPUSCULAR HEMOGLOBIN 32.8 pg (27.0-33.0); MEAN CORPUSCULAR HGB CONC 30.9 g/dl (32.0-36.5); PLATELET COUNT, AUTOMATED 317 10^3/uL (150-450); RED BLOOD COUNT 3.69 10^6/uL (4.30-6.10); WHITE BLOOD COUNT 9.2 10^3/uL (4.0-10.0)
[2020-09-24 07:08] LABS: CALCIUM LEVEL 8.7 MG/DL (8.8-10.2); CREATININE FOR GFR 1.42 MG/DL (0.70-1.30); GLOMERULAR FILTRATION RATE 51.7 (>42); MAGNESIUM LEVEL 2.5 MG/DL (1.8-2.4); POTASSIUM SERUM 3.6 MEQ/L (3.5-5.1)
[2020-09-24 07:44] LABS: EOSINOPHILS 1 % (0-3); LYMPHOCYTES 7 % (16-44); MONOCYTES 1 % (0-5); NEUTROPHILS 81 % (28-66)
[2020-09-24 07:46] LABS: PLATELET CLUMPS SMALL AMT; PLATELET ESTIMATE NORMAL (NORMAL)
--- NOTE | 2020-09-24 08:30 | REP ---
INDICATION: pneumonia COMPARISON: 09/23/2020 TECHNIQUE: Portable AP view of the chest FINDINGS: Left upper lobe consolidation appears more prominent and now includes scattered oral contrast material and findings are most compatible with aspiration pneumonia. Underlying COPD/emphysematous changes with scattered chronic interstitial disease and scarring. No effusion. No obvious pneumothorax. Cardiac silhouette is normal/stable. [id number] again identified with tip in the SVC/right atrium. IMPRESSION: Increasing left upper lobe consolidation now containing aspirated contrast material. <Electronically signed by Patrick Sorto > 09/24/20 [id number]
--- NOTE | 2020-09-24 09:50 | ECGEPIP ---
[facility] Test Date: 2020-09-23 Pat Name: ALMA RICE Department: Room: [place] [address] Gender: Male Associate Dean: HERACLIO : 1945 Requested By: TIFFANIE GONCALVES Order Number: [id number] Reading MD: Chago Walsh Measurements Intervals [place] Rate: 122 P: 46 [place]: 124 QRS: 72 QRSD: 80 T: 41 QT: 282 QTc: 401 Interpretive Statements Sinus tachycardia with isolated PVCs 2. Low voltage QRS Precordial leads, poor R wave progression. Inferior infarct , Old. ST & T wave abnormality (Nonspecific) PVCs new compared with 09/22/2020. Electronically Signed on 09-24-2020 9:50:33 EDT by Chago Walsh
[2020-09-24 10:59] LABS: VANCOMYCIN RANDOM 11.8 UG/ML
--- NOTE | 2020-09-24 11:03 | IPNPDOC ---
Date Seen The patient was seen on 09/24/20. Progress Note SUBJECTIVE: Mr. Kilgore is a pleasant 75-year-old male lying comfortably in bed. He states that his shortness of breath, weakness, and fatigue are about the same as they were yesterday. He had two physical therapy sessions for his chest in the last 24 hours, after being evaluated by physical therapy he states he started coughing up yellow phlegm. He has not had a bowel movement since being admitted to the hospital and would like to have nightly suppositories. I was able to visualize 400 mL of light-colored yellow urine in his Bates catheter bag. His oxygen saturation is 92% on 6 L nasal cannula. He states he was able to sit up comfortably in the chair next to his bed for about an hour and a half this morning. We discussed his DNR/DNI status and the patient would like to speak to his son to make a final decision on the subject. He denies any chest pain, abdominal pain, nausea, vomiting, or palpitations at this time. OBJECTIVE: PHYSICAL EXAMINATION: VITAL SIGNS: Please see below. GENERAL: Thin male sitting resting in no acute distress HEENT: normocephalic/atraumatic, wearing glasses, sclera nonicteric, no conjunctival pallor appreciated CARDIOVASCULAR: normal S1 and S2, regular rate and rhythm, diminished heart sounds, no murmurs, rubs, or gallops appreciated. RESPIRATORY: Diminished inspiration bilaterally, diminished breath sounds in left lung, coarse crackles heard bilaterally more predominantly in left lung, no wheezes appreciated ABDOMINAL: PEG tube appreciated, normal bowel sounds, abdomen is nontender to deep palpation in all 4 quadrants EXTREMITIES: No appreciable edema, muscle strength intact, full sensation. PSYCHOLOGICAL: Normal affect, patient in good mood LABORATORY DATA, IMAGING STUDIES, MICROBIOLOGY: Please see below. CXR (09/22) impression: New rather extensive abnormal opacities in the left upper lobe. Pneumonia versus increasing the patient's known cancer. Mild generalized right lung interstitial edema. Chest CT (09/22) impression: Advanced COPD/emphysematous changes with regular bronchiectasis. Significant superimposed left upper lobe consolidation consistent with acute pneumonia. CXR (09/23) impression: Some evidence of radiographic progression in the left upper lobe infiltrate. Most consistent with necrotizing pneumonia. Evidence of COPD and cardiomegaly. Esophagus x-ray (09/23): Cookie swallow/ modified barium swallow: Impression: With thin consistency barium there is laryngeal penetration which, eventually, advanced into aspiration. Chest x-ray (09/24): Increasing left upper lobe consolidation now containing aspirated contrast material. Echocardiogram: Normal sinus rhythm, low voltage QRS, inferior infarct age undetermined, cannot rule out anterior infarct, age undetermined. 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 PROBLEMS: # Acute hypoxic respiratory failure with suspected necrotizing pneumonia vs community acquired pneumonia -Suspected superimposed aspiration pneumonia following barium cookie swallow on 09/23/20. Repeat chest x-ray from this morning showed increased left upper lobe consolidation now containing aspirated contrast material. Patient on strict n.p.o. diet -Sputum Gram stain showed numerous WBCs and a few gram positive rods -Sputum culture pending -Blood cultures show no growth after 24 hours -Continue chest PT to help expectorate sputum -continue Vancomycin and Zosyn Day 2 -continue Mucinex to help clear secretions -We will continue to consult Dr. Erickson on this patient and continue current antimicrobials and augment his respiratory treatments. -WBC 9.2 increased from yesterday (7.6) -Chest x-ray shows progression of left upper lobe infiltrate consistent with necrotizing pneumonia (09/23/20) -Patient oxygen saturation is 92% on 6L NC. - Pulmonology on consultation; appreciate their input #Hypokalemia -Stable potassium levels 3.6 -We will continue to monitor #Weakness/fatigue -Continue continuous nutritional feedings -Patient is being seen by PT and OT. -Patient on strict n.p.o. diet #CAD s/p stent (1999) -Patient has history of NV -continue aspirin 325 mg #Chronic COPD -Continue DuoNeb #Chronic kidney disease stage III secondary to chemotherapy -Continue prednisone 5 mg -History of duplication of the left renal collecting system #Non-small cell lung cancer, stage IIb (2019) -Patient follows with Dr. 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 We appreciate Dr. Erickson's input on this patient and will continue to follow his recommendations. I spoke to patient about his DNR/DNI status and he wishes to speak to his son about this before he makes a final decision. Patient is being seen by physical therapy and will need continued rehab after discharge from hospital. Patient is on strict n.p.o. diet secondary to suspected aspiration based on cookie swallow from yesterday. GME ATTESTATION GME ATTESTATION My faculty preceptor for this patient encounter was physically present during the encounter and was fully available. All aspects of the patient interview, examination, medical decision making process, and medical care plan development were reviewed and approved by the faculty preceptor. The faculty preceptor is aware and concurs with the plan as stated in the body of this note and will att est to such by his/her cosignature. VS, I&O, 24H, Fishbone Vital Signs/I&O Vital Signs Date Time Temp Pulse Resp B/P (MAP) Pulse Ox O2 Delivery O2 Flow Rate FiO2 09/24/20 10:00 97.6 124 22 107/72 (84) 92 Nasal Cannula 6.0 I&O- Last 24 Hours up to 6 AM 09/24/20 06:00 Intake Total 2105 ml Output Total 1575 ml Balance 530 ml Laboratory Data 24H LABS Laboratory Tests 2 09/23/20 14:03: Anion Gap 10, Glomerular Filtration Rate 50.9, Calcium Level 8.6L 09/24/20 06:18: Anion Gap 8, Glomerular Filtration Rate 51.7, Calcium Level 8.7L, Neutrophils (%) (Auto) , Nucleated Red Blood Cells % (auto) 0.2H, Neutrophils 81H, Band Neut rophils 10, Lymphocytes (Manual) 7L, Monocytes (Manual) 1, Eosinophils (Manual) 1, Macrocytosis 2+, Platelet Estimate NORMAL, Clumped Platelets SMALL AMT, Magnesium Level 2.5H, Random Vancomycin Level 11.8 CBC/BMP Laboratory Tests 09/23/20 14:03 09/24/20 06:18 Microbiology Microbiology 09/23/20 Blood Culture, Received Pending 09/23/20 Blood Culture, Received Pending 09/22/20 Gram Stain - Final, Resulted 09/22/20 Sputum Culture, Resulted Pending GME ATTESTATION GME ATTESTATION My faculty preceptor for this patient encounter was physically present during the encounter and was fully available. All aspects of the patient interview, examination, medical decision making process, and medical care plan development were reviewed and approved by the faculty preceptor. The faculty preceptor is aware and concurs with the plan as stated in the body of this note and will attest to such by his/her cosignature. ATTENDING NOTE I, Emil Calix, have independently examined this patient and performed my own physical exam, as well as reviewed the documentation and edited where necessary. I have discussed in detail with the resident / student the findings and plan of treatment as documented by the resident / student and edited their note. I agree with their findings and treatment plan and have edited their documentation. I will continue to follow the patient during this hospital stay. LIBBY SÁNCHEZ DO Sep 24, 2020 11:03 EMIL CALIX MD Sep 24, 2020 15:43
[2020-09-24] MEDS: ACETAMINOPHEN 500 MG TAB PO SCH ×2 (11:11→20:48)
[2020-09-24] MEDS: DOCUSATE SOD LIQ 100MG/10ML UDC PEG SCH ×2 (11:11→20:50)
[2020-09-24] MEDS: MULTIVITAMINS/MINERALS THERAP 1 TAB PEG SCH (11:11)
[2020-09-24] MEDS: ASPIRIN 325 MG TAB PEG SCH (11:11)
[2020-09-24] MEDS: predniSONE 5 MG TAB PEG SCH (11:11)
[2020-09-24] MEDS: SODIUM CHLORIDE 0.9% INJ 10 ML SYR IV SCH (11:13)
[2020-09-24] MEDS: OMEPRAZOLE SUSPENSION 20MG 10ML ORAL SYRINGE GT SCH (11:13)
--- NOTE | 2020-09-24 11:44 | IPN ---
PROGRESS NOTE DATE: 09/24/2020 SUBJECTIVE: I again attended Herson Kilgore here in the [facility]. The patient has been examined and chart reviewed. He is currently resting comfortably. OBJECTIVE: VITAL SIGNS: T-max overnight 98.4, blood pressure 110 systolic, heart rate in the one-teens with a sinus mechanism. GENERAL: On exam he is comfortable. HEENT: Pupils react. Sclerae clear. CHEST: Shows scattered rhonchi, left much greater than right. CARDIAC: Regular. Peripheral edema pulses palpable, no edema. ABDOMEN: Shows his PEG tube to be clean and dry. EXTREMITIES: No cyanosis or clubbing. NEUROLOGIC: Nonfocal. IMAGING DATA: He had repeat imaging done this morning. He had a cookie swallow yesterday. Left upper lobe infiltrate clearly has barium within it, consistent with his suspected aspiration. LABORATORY DATA: Most recent laboratories show a white blood cell count down to 9.2, hemoglobin 12.1, platelet count of 317,000, segs 81%, bands 10% today. Sodium 145, K 3.6, chloride 116, CO2 of 21, BUN 46, creatinine 1.42. No new laboratory culture results available. MEDICATIONS: List has been reviewed. He remains on Zosyn and vancomycin. IMPRESSION: 1. Dense left upper lobe pneumonia community-acquired versus aspiration. 2. Suspect aspiration based on his cookie swallow from yesterday and the fact that he has barium within his infiltrate today. 3. Underlying lung disease. 4. Lung cancer currently not tolerated immunotherapy. RECOMMENDATIONS: At this point especially with his aspiration, his chances of clearing his infiltrate are much lower. I do believe his antimicrobial choices are appropriate and although his white count is better, he does have an increase in his band count today, which is somewhat worrisome. At this point, we will continue his current regimen. Attempts at assisting with secretion clearance will be employed. He will be followed while he is here in the hospital. Further recommendations will be made in the progress record as soon as new information is available. His prognosis remains guarded in view of the above.
[2020-09-24] MEDS: VANCOMYCIN HCL 1,000 MG, VIAL MATE ADAPTER 1 EACH in NS 250 ML IV SCH (12:26)
[2020-09-24] MEDS ORDERED: VANCOMYCIN HCL 750 MG, VIAL MATE ADAPTER 1 EACH in NS 250 ML IV SCH (13:00)
[2020-09-24] MEDS ORDERED: LevoFLOXacin IV 750 MG in IV 1 EA IV SCH (15:00)
[2020-09-24] MEDS: NS 1,000 ML IV SCH (15:17)
[2020-09-24] MEDS: ROSUVASTATIN 10 MG TAB (CRESTOR) PEG SCH (20:47)
[2020-09-24] MEDS: MIRTAZAPINE 15 MG TAB PEG SCH (20:48)
[2020-09-24] MEDS: BISACODYL 10 MG SUPP PR SCH (20:48)
[2020-09-25] VITALS (7 sets, daily range): BP systolic 98–130; BP diastolic 52–68; O2SAT 92
[2020-09-25] MEDS: NS 1,000 ML IV SCH (00:04)
[2020-09-25] MEDS: IPRATROPIUM 0.5MG/ALBUTEROL 2.5MG INH SOL UD 3ML (DUONEB) NEB SCH ×7 (00:25→23:32)
[2020-09-25] MEDS: PIPERACILLIN/TAZOBACTAM SOD 3.375 GM in D5W MINI-BAG PLUS 50 ML IV SCH ×4 (02:24→20:17)
[2020-09-25] MEDS: LEVOTHYROXINE 75MCG TABLET (0.075MG) PEG SCH (06:04)
[2020-09-25] MEDS: HEPARIN SOD (PORCINE) 5000UNITS/ML 1ML VIAL/SYRINGE SC SCH ×3 (06:04→22:00)
[2020-09-25 06:35] LABS: HEMOGLOBIN 11.2 g/dl (13.5-17.5); MEAN CORPUSCULAR HEMOGLOBIN 32.7 pg (27.0-33.0); MEAN CORPUSCULAR HGB CONC 31.1 g/dl (32.0-36.5); MEAN CORPUSCULAR VOLUME 105.3 fl (80.0-96.0); PLATELET COUNT, AUTOMATED 306 10^3/uL (150-450); RED BLOOD COUNT 3.42 10^6/uL (4.30-6.10); WHITE BLOOD COUNT 9.2 10^3/uL (4.0-10.0)
[2020-09-25 07:01] LABS: BLOOD UREA NITROGEN 38 MG/DL (7-18); CARBON DIOXIDE LEVEL 22 MEQ/L (21-32); CHLORIDE LEVEL 118 MEQ/L (98-107); GLOMERULAR FILTRATION RATE > 60.0 (>42); GLUCOSE, FASTING 121 MG/DL (70-100); POTASSIUM SERUM 3.3 MEQ/L (3.5-5.1); SODIUM LEVEL 148 MEQ/L (136-145)
[2020-09-25 07:02] LABS: CALCIUM LEVEL 8.3 MG/DL (8.8-10.2); MAGNESIUM LEVEL 2.3 MG/DL (1.8-2.4)
[2020-09-25] MEDS ORDERED: POTASSIUM CHLORIDE 10% LIQ 20 MEQ/15 ML UDC PEG ONE (07:15)
[2020-09-25 07:40] LABS: EOSINOPHILS 2 % (0-3); LYMPHOCYTES 3 % (16-44); MONOCYTES 4 % (0-5); MYELOCYTES 1 % (0-0); NEUTROPHILS 85 % (28-66)
[2020-09-25 07:42] LABS: PLATELET CLUMPS MODERATE AMT; PLATELET ESTIMATE NORMAL (NORMAL)
--- NOTE | 2020-09-25 08:13 | ECHO ---
ECHOCARDIOGRAM DATE OF PROCEDURE: 09/23/2020 Age: 75 Gender: Male Height: 168 cm Weight: 55 kg REFERRING PHYSICIAN: Emil Calix M.D. PATIENT LOCATION: Room 4227. REASON FOR STUDY: Shortness of breath. 2D MEASUREMENTS: IVS 1.1 cm LV 4.1 cm LVPW 0.98 cm LA 3.2 cm Aorta 3.4 cm IVC 1.7 cm DOPPLER MEASUREMENT Peak velocity across the aortic valve 1.3 m/s Peak velocity across the LVOT 0.57 m/s Mitral E 0.49 Mitral A 0.66 with a ratio of 0.8 2D COMMENTS: 1. Normal left ventricular size, wall thickness, and normal global left ventricular systolic function. The estimated left ventricular systolic ejection fraction is 60% to 65%. 2. Normal left atrium. Normal right atrium and right ventricle. 3. The atrial septum appeared to be normal without evidence of defect or shunt. 4. Normal aortic root. 5. No pericardial effusion seen. 6. Mildly calcified aortic valve with normal leaflet excursion. Minimally calcified mitral annulus with normal anterior mitral valve leaflet motion. Normal tricuspid valve. The pulmonic valve was not well visualized. The proximal pulmonary artery branches also were not well visualized. 7. The inferior vena cava was normal in size, central venous pressure is most likely normal. DOPPLER: No significant valvular abnormalities detected, but trace mitral regurgitation. Abnormal relaxation pattern was noted across the mitral valve leaflets, as well as the mitral valve annulus consistent with features of grade 1 left ventricular diastolic dysfunction. IMPRESSION: 1. Normal global left ventricular systolic function. There are some features of grade 1 left ventricular diastolic dysfunction manifested by abnormal relaxation. 2. Aortic valve sclerosis without stenosis or aortic regurgitation. 3. Mitral annular calcification with trace mitral regurgitation.
[2020-09-25] MEDS: DOCUSATE SOD LIQ 100MG/10ML UDC PEG SCH ×2 (08:52→20:16)
[2020-09-25] MEDS: predniSONE 5 MG TAB PEG SCH (08:53)
[2020-09-25] MEDS: MULTIVITAMINS/MINERALS THERAP 1 TAB PEG SCH (08:53)
[2020-09-25] MEDS: ASPIRIN 325 MG TAB PEG SCH (08:53)
[2020-09-25] MEDS: OMEPRAZOLE SUSPENSION 20MG 10ML ORAL SYRINGE GT SCH (08:53)
[2020-09-25] MEDS: ACETAMINOPHEN 500 MG TAB PO SCH ×2 (08:54→20:18)
[2020-09-25] MEDS: SODIUM CHLORIDE 0.9% INJ 10 ML SYR IV SCH (08:55)
--- NOTE | 2020-09-25 09:17 | IPNPDOC ---
Text Note Date of Service The patient was seen on 09/25/20. NOTE Subjective: Patient is a 75-year-old male who presented to the emergency room with compressive weakness ongoing for the last 2-3 weeks. Patient reports that he has been experiencing shortness of breath status progressively worsened. He has reported a productive cough with yellow sputum. Patient was admitted to the hospital service for suspected pneumonia. Overnight patient had an increase in his oxygen demand and antibiotics were increased broad-spectrum coverage that morning. Pulmonology was called on consultation. Patient has worked with speech therapy throughout this hospital course and there has been evidence of barium within his left upper lobe. Patient was seen and examined at the bedside. Patient reports that he still is coughing with difficulty expectorating his sputum. Denies any chest pain or palpitations. Reports some shortness of breath. Denies any nausea, vomiting, abdominal pain or diarrhea. Patient is requesting to have a popsicle. However, he has been advised that this is not in his best interest because of his aspiration. Objective: Vitals (See below) General: Lying in bed, appears comfortable, speaking softly, AAOx3 HEENT: NC, AT CVS: +S1S2 Lungs: Rhonchi appreciated at left lung velazquez. No wheezing or rales. Right lung field Abdomen: Soft, ND, NT, +PEG tube Extremities: No evidence of edema, - Calf tenderness Imaging: CXR 09/22: New rather extensive abnormal opacities in the left upper lobe. Pneumonia versus increase in the patient's known cancer. Additionally, there does appear to be mild generalized right lung interstitial edema on this limited portable exam. Other findings as described above. Chest CT 09/22: Advanced COPD/emphysematous changes with irregular bronchiectasis. Significant superimposed left upper lobe consolidation consistent with acute pneumonia. Vascular US 09/22: No evidence for deep venous thrombosis. CXR 09/23: There is some evidence of radiographic progression in the left upper lobe infiltrate. Most consistent with necrotizing pneumonia. Evidence of COPD and cardiomegaly.. CXR 09/24: Increasing left upper lobe consolidation now containing aspirated contrast material. Assessment and plan: Acute hypoxic respiratory failure - likely 2/2 necrotizing pneumonia / aspiration pneumonia - Currently patient reports that his breathing is relatively stable. He is still having difficulty expectorating his sputum - Physical reveals very clear rhonchi in his left lung field - Status post leukocytosis - Blood cultures 09/22: No growth at 24 hours - Sputum cultures 09/23: Pending - c/w Chest PT / Acapella / Incentive spirometry / Mucinex - c/w Vancomycin and Zosyn (Day #4) - Pulmonology on consultation; appreciate their input Hypernatremia - Likely 2/2 poor intake - Will provide free water via PEG Hypokalemia - Will supplement Esophageal stricture 2/2 radiation - s/p PEG tube, failed dilation with balloon multiple times - c/w Tube feedings - Patient strict nothing by mouth status and given his aspiration - Will continue with speech therapy Weakness/fatigue - c/w Tube feedings - Patient will need to continue physical therapy CAD s/p stent (1999) - Patient has history of [place] - c/w ASA 325 Chronic COPD - c/w inhaled therapy as ordered CKD3 2/2 Chemotherapy - c/w prednisone 5 mg - History of duplication of the left renal collecting system Non-small cell lung cancer, stage IIb (2019) - Patient follows with Dr. Arias - Stable, per patient Hypothyroid - c/w levothyroxine Constipation - c/w bowel regimen as ordered DLP - c/w Rosuvastatin BPH - c/w Finasteride GI prophylaxis - c/w Omeprazole DVT prophylaxis - c/w Heparin Disposition: - Awaiting clinical improvement Jose MORENO I+O Jose MORENO I+O Laboratory Tests 09/25/20 06:03 Vital Signs Date Time Temp Pulse Resp B/P (MAP) Pulse Ox O2 Delivery O2 Flow Rate FiO2 09/25/20 06:00 98.9 117 17 130/68 (88) 92 Nasal Cannula 6.0 I&O- Last 24 Hours up to 6 AM 09/25/20 06:00 Intake Total 1845 ml Output Total 1625 ml Balance 220 ml TIFFANIE GONCALVES MD Sep 25, 2020 09:17
[2020-09-25] MEDS: VANCOMYCIN HCL 1,000 MG, VIAL MATE ADAPTER 1 EACH in NS 250 ML IV SCH (12:20)
[2020-09-25] MEDS: ROSUVASTATIN 10 MG TAB (CRESTOR) PEG SCH (20:17)
[2020-09-25] MEDS: MIRTAZAPINE 15 MG TAB PEG SCH (20:18)
[2020-09-25] MEDS: BISACODYL 10 MG SUPP PR SCH (20:18)
[2020-09-26] VITALS (7 sets, daily range): BP systolic 98–142; BP diastolic 52–86; O2SAT 91
[2020-09-26] MEDS: PIPERACILLIN/TAZOBACTAM SOD 3.375 GM in D5W MINI-BAG PLUS 50 ML IV SCH ×4 (02:10→21:48)
[2020-09-26] MEDS: IPRATROPIUM 0.5MG/ALBUTEROL 2.5MG INH SOL UD 3ML (DUONEB) NEB SCH ×5 (03:57→20:12)
[2020-09-26 06:36] LABS: HEMATOCRIT 35.1 % (42.0-52.0); HEMOGLOBIN 10.9 g/dl (13.5-17.5); MEAN CORPUSCULAR HEMOGLOBIN 32.5 pg (27.0-33.0); MEAN CORPUSCULAR HGB CONC 31.1 g/dl (32.0-36.5); MEAN CORPUSCULAR VOLUME 104.8 fl (80.0-96.0); PLATELET COUNT, AUTOMATED 317 10^3/uL (150-450); RED BLOOD COUNT 3.35 10^6/uL (4.30-6.10); WHITE BLOOD COUNT 9.2 10^3/uL (4.0-10.0)
[2020-09-26] MEDS: LEVOTHYROXINE 75MCG TABLET (0.075MG) PEG SCH (06:51)
[2020-09-26] MEDS: HEPARIN SOD (PORCINE) 5000UNITS/ML 1ML VIAL/SYRINGE SC SCH ×3 (06:51→21:48)
[2020-09-26 07:00] LABS: BLOOD UREA NITROGEN 31 MG/DL (7-18); CALCIUM LEVEL 8.6 MG/DL (8.8-10.2); CARBON DIOXIDE LEVEL 22 MEQ/L (21-32); CHLORIDE LEVEL 115 MEQ/L (98-107); CREATININE FOR GFR 1.19 MG/DL (0.70-1.30); GLOMERULAR FILTRATION RATE > 60.0 (>42); GLUCOSE, FASTING 113 MG/DL (70-100); POTASSIUM SERUM 3.6 MEQ/L (3.5-5.1); SODIUM LEVEL 147 MEQ/L (136-145)
[2020-09-26 07:28] LABS: ANISOCYTOSIS 2+; ATYPICAL LYMPH 2 % (0-5); EOSINOPHILS 1 % (0-3); LYMPHOCYTES 3 % (16-44); METAMYELOCYTES 1 % (0-0); MONOCYTES 4 % (0-5); MYELOCYTES 2 % (0-0); NEUTROPHILS 81 % (28-66); PLATELET ESTIMATE NORMAL (NORMAL)
[2020-09-26] MEDS: MULTIVITAMINS/MINERALS THERAP 1 TAB PEG SCH (09:55)
[2020-09-26] MEDS: ASPIRIN 325 MG TAB PEG SCH (09:55)
[2020-09-26] MEDS: OMEPRAZOLE SUSPENSION 20MG 10ML ORAL SYRINGE GT SCH (09:55)
[2020-09-26] MEDS: DOCUSATE SOD LIQ 100MG/10ML UDC PEG SCH ×2 (09:55→21:46)
[2020-09-26] MEDS: predniSONE 5 MG TAB PEG SCH (09:55)
[2020-09-26] MEDS: ACETAMINOPHEN 500 MG TAB PO SCH ×2 (09:56→21:48)
[2020-09-26] MEDS: SODIUM CHLORIDE 0.9% INJ 10 ML SYR IV SCH (09:56)
[2020-09-26] MEDS: VANCOMYCIN HCL 1,000 MG, VIAL MATE ADAPTER 1 EACH in NS 250 ML IV SCH (12:14)
--- NOTE | 2020-09-26 12:55 | IPNPDOC ---
Date Seen The patient was seen on 09/26/20. Progress Note SUBJECTIVE: Mr. Kilgore was lying in bed sleeping this morning when I walked in the room. He states that his breathing is about the same as it was yesterday and he continues to feel weak and fatigued. He appears to be more fatigued today than he has in the past few days. He continues to work with chest physical therapy every day and states that he is able to cough up phlegm after each therapy session. The phlegm is still yellow in color and he denies seeing any blood in the expectorant. He had 1 bowel movement yesterday and continues to produce light-colored yellow urine. He is still on 6 L of oxygen via nasal cannula and his oxygen saturation is 93%. He showed a strong interest in being given a popsicle this morning. It was explained to him that this would not be in the best interest of his aspiration pneumonia. OBJECTIVE PHYSICAL EXAMINATION: VITAL SIGNS: Please see below. GENERAL: Thin male sitting resting in bed in no acute distress HEENT: normocephalic/atraumatic, wearing glasses, sclera nonicteric, no conjunctival pallor appreciated CARDIOVASCULAR: normal S1 and S2, regular rate and rhythm, diminished heart sounds, no murmurs, rubs, or gallops appreciated. RESPIRATORY: Diminished inspiration bilaterally, diminished breath sounds in left lung, clear rhonchi in left lung field ABDOMINAL: PEG tube appreciated, normal bowel sounds, abdomen is nontender to deep palpation in all 4 quadrants EXTREMITIES: No appreciable edema, muscle strength intact, full sensation. PSYCHOLOGICAL: Normal affect, patient in neutral mood and is speaking softly LABORATORY DATA, IMAGING STUDIES, MICROBIOLOGY: Please see below. CXR (09/22) impression: New rather extensive abnormal opacities in the left upper lobe. Pneumonia versus increasing the patient's known cancer. Mild generalized right lung interstitial edema. Chest CT (09/22) impression: Advanced COPD/emphysematous changes with regular bronchiectasis. Significant superimposed left upper lobe consolidation consistent with acute pneumonia. CXR (09/23) impression: Some evidence of radiographic progression in the left up per lobe infiltrate. Most consistent with necrotizing pneumonia. Evidence of COPD and cardiomegaly. Esophagus x-ray (09/23): Cookie swallow/ modified barium swallow: Impression: With thin consistency barium there is laryngeal penetration which, eventually, advanced into aspiration. Chest x-ray (09/24): Increasing left upper lobe consolidation now containing aspirated contrast material. 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 PROBLEMS: # Acute hypoxic respiratory failure 2/ necrotizing pneumonia vs aspiration pneumonia -Suspected superimposed aspiration pneumonia following barium cookie swallow on 09/23/20. -Sputum culture 09/23: showed few yeast like organisms -Blood cultures show no growth after 24 hours -Continue chest PT and mucinex to help expectorate sputum -continue Vancomycin and Zosyn Day 5 -We will continue to consult Dr. Erickson on this patient and appreciate his input. -WBC is stable at 9.2 -Ordered repeat chest x-ray for 09/27 -Patient oxygen saturation is 93% on 6L NC. #Hypernatremia -level is 147 today -Increased free water via tube feeding to 250 cc q 4 hours #Hypokalemia -low potassium levels 3.3 -Supplemented patient -We will continue to monitor #Weakness/fatigue -Continue continuous nutritional feedings -Patient is being seen by PT and OT. -Patient on strict n.p.o. diet #CAD s/p stent (1999) -Patient has history of [place] -continue aspirin 325 mg #Chronic COPD -Continue DuoNeb #Chronic kidney disease stage III secondary to chemotherapy -Continue prednisone 5 mg -History of duplication of the left renal collecting system #Non-small cell lung cancer, stage IIb (2019) -Patient follows with Dr. 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 We spoke to patient and his son on 09/24, it was decided that the patient would be DNR/DNI status. We appreciate Dr. Erickson's input on this patient and will continue to follow his recommendations. He continues to be on strict n.p.o. diet secondary to aspiration pneumonia. GME ATTESTATION My faculty preceptor for this patient encounter was physically present during the encounter and was fully available. All aspects of the patient interview, examination, medical decision making process, and medical care plan development were reviewed and approved by the faculty preceptor. The faculty preceptor is aware and concurs with the plan as stated in the body of this note and will attest to such by his/her cosignature. VS, I&O, 24H, Fishbone Vital Signs/I&O Vital Signs Date Time Temp Pulse Resp B/P (MAP) Pulse Ox O2 Delivery O2 Flow Rate FiO2 09/26/20 10:00 98.2 116 17 142/86 (104) 93 Nasal Cannula 6.0 I&O- Last 24 Hours up to 6 AM 09/26/20 06:00 Intake Total 2730 ml Output Total 2300 ml Balance 430 ml Laboratory Data 24H LABS Laboratory Tests 2 09/26/20 06:15: Neutrophils (%) (Auto) , Nucleated Red Blood Cells % (auto) 0.2H, Neutrophils 81H, Band Neutrophils 6, Lymphocytes (Manual) 3L, Monocytes (Manual) 4, Eosinophils (Manual) 1, Metamyelocytes 1H, Myelocytes 2H, Atypical Lymphocytes 2, Anisocytosis 2+, Macrocytosis 2+, Platelet Estimate NORMAL, Anion Gap 10, Glomerular Filtration Rate > 60.0, Calcium Level 8.6L, Magnesium Level 2.0 09/26/20 11:21: Vancomycin Level Trough 14.3 CBC/BMP Laboratory Tests 09/26/20 06:15 Microbiology Microbiology 09/23/20 Blood Culture - Preliminary, Resulted No Growth after 72 hours. All specime... 09/23/20 Blood Culture - Preliminary, Resulted No Growth after 72 hours. All specime... 09/22/20 Gram Stain - Final, Complete 09/22/20 Sputum Culture - Final, Complete Yeast Like Organism GME ATTESTATION GME ATTESTATION My faculty preceptor for this patient encounter was physically present during the encounter and was fully available. All aspects of the patient interview, examination, medical decision making process, and medical care plan development were reviewed and approved by the faculty preceptor. The faculty preceptor is aware and concurs with the plan as stated in the body of this note and will attest to such by his/her cosignature. ATTENDING NOTE I, Emil Calix, have independently examined this patient and performed my own physical exam, as well as reviewed the documentation and edited where necessary. I have discussed in detail with the resident / student the findings and plan of treatment as documented by the resident / student and edited their note. I agree with their findings and treatment plan and have edited their documentation. I will continue to follow the patient during this hospital stay. LIBBY SÁNCHEZ DO Sep 26, 2020 12:55 EMIL CALIX MD Sep 26, 2020 14:27
[2020-09-26 14:25] LABS: ALBUMIN 1.2 GM/DL (3.2-5.2); ALT/SGPT 40 U/L (12-78); BILIRUBIN,TOTAL 0.3 MG/DL (0.2-1.0); BLOOD UREA NITROGEN 31 MG/DL (7-18); CARBON DIOXIDE LEVEL 20 MEQ/L (21-32); CHLORIDE LEVEL 113 MEQ/L (98-107); CK-MB VALUE MASS < 1.0 NG/ML (<3.6); CPK CREATINE PHOSPHOKINASE 27 U/L (39-308); CREATININE FOR GFR 1.12 MG/DL (0.70-1.30); GLOMERULAR FILTRATION RATE > 60.0 (>42); GLUCOSE, FASTING 135 MG/DL (70-100); MAGNESIUM LEVEL 2.1 MG/DL (1.8-2.4); NT-PRO BNP 8208 PG/ML (<450); PHOSPHORUS LEVEL 3.2 MG/DL (2.5-4.9); POTASSIUM SERUM 3.3 MEQ/L (3.5-5.1); SODIUM LEVEL 143 MEQ/L (136-145); TOTAL PROTEIN 4.7 GM/DL (6.4-8.2); TROPONIN I 0.03 NG/ML (< 0.10)
[2020-09-26] MEDS ORDERED: POTASSIUM CHLORIDE 10% LIQ 20 MEQ/15 ML UDC GT ONE (15:15)
[2020-09-26] MEDS: BISACODYL 10 MG SUPP PR SCH (21:00)
[2020-09-26] MEDS: ROSUVASTATIN 10 MG TAB (CRESTOR) PEG SCH (21:47)
[2020-09-26] MEDS: MIRTAZAPINE 15 MG TAB PEG SCH (21:47)
[2020-09-27] MEDS: IPRATROPIUM 0.5MG/ALBUTEROL 2.5MG INH SOL UD 3ML (DUONEB) NEB SCH ×7 (00:24→22:58)
[2020-09-27 00:57] VITALS: O2SAT 92
[2020-09-27 02:00] VITALS: BP 108/56
[2020-09-27] MEDS: PIPERACILLIN/TAZOBACTAM SOD 3.375 GM in D5W MINI-BAG PLUS 50 ML IV SCH ×2 (02:56→09:15)
[2020-09-27] MEDS: LEVOTHYROXINE 75MCG TABLET (0.075MG) PEG SCH (05:57)
[2020-09-27] MEDS: HEPARIN SOD (PORCINE) 5000UNITS/ML 1ML VIAL/SYRINGE SC SCH (05:57)
[2020-09-27 06:00] VITALS: BP 112/75
[2020-09-27 06:38] LABS: HEMATOCRIT 34.2 % (42.0-52.0); HEMOGLOBIN 10.8 g/dl (13.5-17.5); MEAN CORPUSCULAR HEMOGLOBIN 32.1 pg (27.0-33.0); MEAN CORPUSCULAR HGB CONC 31.6 g/dl (32.0-36.5); MEAN CORPUSCULAR VOLUME 101.8 fl (80.0-96.0); PLATELET COUNT, AUTOMATED 313 10^3/uL (150-450); RED BLOOD COUNT 3.36 10^6/uL (4.30-6.10); WHITE BLOOD COUNT 8.6 10^3/uL (4.0-10.0)
[2020-09-27 06:57] LABS: BLOOD UREA NITROGEN 29 MG/DL (7-18); CALCIUM LEVEL 8.7 MG/DL (8.8-10.2); CARBON DIOXIDE LEVEL 22 MEQ/L (21-32); CHLORIDE LEVEL 112 MEQ/L (98-107); CREATININE FOR GFR 1.09 MG/DL (0.70-1.30); GLOMERULAR FILTRATION RATE > 60.0 (>42); GLUCOSE, FASTING 128 MG/DL (70-100); POTASSIUM SERUM 3.6 MEQ/L (3.5-5.1); SODIUM LEVEL 144 MEQ/L (136-145)
[2020-09-27 07:19] LABS: EOSINOPHILS 1 % (0-3); LYMPHOCYTES 5 % (16-44); METAMYELOCYTES 1 % (0-0); MONOCYTES 4 % (0-5); NEUTROPHILS 88 % (28-66)
[2020-09-27 07:20] LABS: PLATELET ESTIMATE NORMAL (NORMAL)
--- NOTE | 2020-09-27 07:23 | ECGEPIP ---
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
[2020-09-27 08:00] VITALS: BP 108/72
--- NOTE | 2020-09-27 08:13 | REP ---
INDICATION: pneumonia. COMPARISON: Comparison radiographs are from 22 September 2020 and 24 September 2020. TECHNIQUE: Portable upright AP chest radiograph. FINDINGS: There is a large dense area of consolidation in the left upper lobe which actually appears more prominent than on the 24 September 2020 consistent with a radiographic progression in necrotizing pneumonia. There is less of the ingested and aspirated contrast material in the lung parenchyma however when compared with the 24 September 2020. Increased interstitial markings persist bilaterally in the bases. Emphysematous changes are noted in the right upper lobe. There is a right-sided Amwfie-Q-Kbyw catheter with its tip in the expected location of the right atrium. EKG electrodes are seen. IMPRESSION: Progressive consolidation in the left upper lobe infiltrate. There is less aspirated contrast material in the lung parenchyma when compared with the most recent prior study.. <Electronically signed by Andrea Ford > 09/27/20 [id number]
[2020-09-27 08:30] VITALS: O2SAT 92
[2020-09-27] MEDS: predniSONE 5 MG TAB PEG SCH (09:15)
[2020-09-27] MEDS: DOCUSATE SOD LIQ 100MG/10ML UDC PEG SCH ×2 (09:15→19:50)
[2020-09-27] MEDS: MULTIVITAMINS/MINERALS THERAP 1 TAB PEG SCH (09:15)
[2020-09-27] MEDS: OMEPRAZOLE SUSPENSION 20MG 10ML ORAL SYRINGE GT SCH (09:15)
[2020-09-27] MEDS: ASPIRIN 325 MG TAB PEG SCH (09:15)
[2020-09-27] MEDS: ACETAMINOPHEN 500 MG TAB PO SCH ×2 (09:15→19:50)
[2020-09-27] MEDS: SODIUM CHLORIDE 0.9% INJ 10 ML SYR IV SCH (09:16)
[2020-09-27 10:00] VITALS: BP 108/72
[2020-09-27] MEDS: VANCOMYCIN HCL 1,000 MG, VIAL MATE ADAPTER 1 EACH in NS 250 ML IV SCH (12:12)
[2020-09-27] MEDS ORDERED: SCOPOLAMINE 1MG TRANSDERMAL PATCH TOP PRN (12:55)
[2020-09-27] MEDS ORDERED: ONDANSETRON 4 MG ORAL DISINTEGRATING TAB PO PRN (12:55)
[2020-09-27] MEDS ORDERED: LORazepam 1 MG TAB PO PRN (12:55)
--- NOTE | 2020-09-27 17:44 | IPNPDOC ---
Date Seen The patient was seen on 09/27/20. Progress Note SUBJECTIVE: Mr. Kilgore is lying in bed sleeping when I enter the room this morning. 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 He is exhausted and continues to feel weak and fatigued. He states that his shortness of breath is unchanged from yesterday that he is increasingly becoming more fatigued. Frustrated that he is unable to drink liquids by mouth and states that his son will be visiting the hospital later on this afternoon. He has an oxygen saturation of 92% on [address] Arreguin and myself spoke to Mr. Kilgore and his son Cholo about comfort measures only. They ultimately decided that Mr. Kilgore would benefit from hospice as he would like to live out the rest of his life in the comfort of a facility or his own home. He was in good spirits despite the seriousness of our conversation and asked for a popsicle. We were able to answer the questions that Mr. Kilgore and his son had and proceeded to put in a consult for hospice. They should expect a visit from hospice in the next day or two to finalize the decision. The patient is now on comfort measures only. OBJECTIVE PHYSICAL EXAMINATION: VITAL SIGNS: Please see below. GENERAL: Frail appearing man sleeping comforably in his hospital bed HEENT: The patient has no teeth, oral mucosa pink, normocephalic/atraumatic CARDIOVASCULAR: Distant heart sounds, regular rate and rhythm, no murmurs, rubs, or gallops. RESPIRATORY: Rhonchi appreciated in left lung field, diminished breath sounds bilaterally as well as decreased inspiratory effort. ABDOMINAL: PEG tube appreciated, no tenderness to palpation in all four quadrants. EXTREMITIES: No edema noted on lower extremities bilaterally, posterior tibial pulses 2+ bilaterally PSYCHOLOGICAL: normal affect, patient appears tired but is in good spirits LABORATORY DATA, IMAGING STUDIES, MICROBIOLOGY: Please see below. CXR (09/22) impression: New rather extensive abnormal opacities in the left upper lobe. Pneumonia versus increasing the patient's known cancer. Mild generalized right lung interstitial edema. Chest CT (09/22) impression: Advanced COPD/emphysematous changes with regular bronchiectasis. Significant superimposed left upper lobe consolidation consistent with acute pneumonia. CXR (09/23) impression: Some evidence of radiographic progression in the left upper lobe infiltrate. Most consistent with necrotizing pneumonia. Evidence of COPD and cardiomegaly. Esophagus x-ray (09/23): Cookie swallow/ modified barium swallow: Impression: With thin consistency barium there is laryngeal penetration which, eventually, advanced into aspiration. Chest x-ray (09/24): Impression: Increasing left upper lobe consolidation now containing aspirated contrast material. Chest x-ray (09/27): Impression: Progressive consolidation in the left upper lobe infiltrate. There is less aspirated contrast material in the lung parenchyma when compared with the most recent prior study. 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 PROBLEMS: # Acute hypoxic respiratory failure 2/2 necrotizing pneumonia vs aspiration pneumonia -Suspected superimposed aspiration pneumonia following barium cookie swallow on 09/23/20. -Sputum culture 09/23: showed few yeast like organisms -Blood cultures show no growth after 72 hours -discontinue chest PT and mucinex -discontinue Vancomycin and Zosyn -WBC decreased to 8.6 from 9.2 the prior day -Patient oxygen saturation is 92% on 6L NC. 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 We have put in a consult order for hospice; he should expect a visit from hospice in the next day or two. We will no longer be ordering labs or imaging for this patient. It was a pleasure taking care of Mr. Kilgore while he was in the hospital. GME ATTESTATION My faculty preceptor for this patient encounter was physically present during the encounter and was fully available. All aspects of the patient interview, examination, medical decision making process, and medical care plan development were reviewed and approved by the faculty preceptor. The faculty preceptor is aware and concurs with the plan as stated in the body of this note and will attest to such by his/her cosignature. Attending Attestation: I saw and evaluated patient. I agree with the finding and plan of care as documented in the residents note. VS, I&O, 24H, Fishbone Vital Signs/I&O Vital Signs Date Time Temp Pulse Resp B/P (MAP) Pulse Ox O2 Delivery O2 Flow Rate FiO2 09/27/20 10:00 97.5 116 23 108/72 (84) 92 Nasal Cannula 6.0 I&O- Last 24 Hours up to 6 AM 09/27/20 06:00 Intake Total 3450 ml Output Total 1925 ml Balance 1525 ml Laboratory Data 24H LABS Laboratory Tests 2 09/27/20 06:13: Immature Granulocyte % (Auto) , Neutrophils (%) (Auto) , Nucleated Red Blood Cells % (auto) 0.2H, Neutrophils 88H, Band Neutrophils 1, Lymphocytes (Manual) 5L, Monocytes (Manual) 4, Eosinophils (Manual) 1, Metamyelocytes 1H, Macrocytosis 1+, Platelet Estimate NORMAL, Anion Gap 10, Glomerular Filtration Rate > 60.0, Calcium Level 8.7L, Magnesium Level 2.0 09/27/20 10:52: Vancomycin Level Trough 17.6 CBC/BMP Laboratory Tests 09/27/20 06:13 Microbiology Microbiology 09/23/20 Blood Culture - Preliminary, Resulted No Growth after 72 hours. All specime... 09/23/20 Blood Culture - Preliminary, Resulted No Growth after 72 hours. All specime... 09/22/20 Gram Stain - Final, Complete 09/22/20 Sputum Culture - Final, Complete Yeast Like Organism LIBBY SÁNCHEZ DO Sep 27, 2020 17:44 KEATON ARREGUIN MD Sep 28, 2020 06:46
[2020-09-27] MEDS: MIRTAZAPINE 15 MG TAB PEG SCH (19:50)
[2020-09-27] MEDS: BISACODYL 10 MG SUPP PR SCH (19:50)
[2020-09-28] MEDS: guaiFENesin SYRUP 200 MG/10 ML UDC PO PRN ×4 (01:02→14:42)
[2020-09-28] MEDS: ACETAMINOPHEN TAB 650MG DOSE (2X325MG) PEG PRN ×2 (01:02→06:09)
[2020-09-28] MEDS: IPRATROPIUM 0.5MG/ALBUTEROL 2.5MG INH SOL UD 3ML (DUONEB) NEB SCH ×6 (02:52→23:14)
[2020-09-28] MEDS: LEVOTHYROXINE 75MCG TABLET (0.075MG) PEG SCH (05:46)
[2020-09-28] MEDS: DOCUSATE SOD LIQ 100MG/10ML UDC PEG SCH ×2 (09:00→21:39)
[2020-09-28] MEDS: SODIUM CHLORIDE 0.9% INJ 10 ML SYR IV SCH (09:00)
[2020-09-28] MEDS: OMEPRAZOLE SUSPENSION 20MG 10ML ORAL SYRINGE GT SCH (10:11)
[2020-09-28] MEDS: predniSONE 5 MG TAB PEG SCH (10:12)
[2020-09-28] MEDS: ACETAMINOPHEN 500 MG TAB PO SCH ×2 (10:13→21:39)
[2020-09-28] MEDS: CEPACOL LOZENGE PO PRN (12:30)
[2020-09-28] MEDS: BISACODYL 10 MG SUPP PR SCH (21:00)
[2020-09-28] MEDS: MIRTAZAPINE 15 MG TAB PEG SCH (21:39)
[2020-09-29] MEDS: IPRATROPIUM 0.5MG/ALBUTEROL 2.5MG INH SOL UD 3ML (DUONEB) NEB SCH ×5 (03:11→20:00)
[2020-09-29] MEDS: LEVOTHYROXINE 75MCG TABLET (0.075MG) PEG SCH (05:42)
[2020-09-29] MEDS: predniSONE 5 MG TAB PEG SCH (10:12)
[2020-09-29] MEDS: DOCUSATE SOD LIQ 100MG/10ML UDC PEG SCH ×2 (10:12→20:50)
[2020-09-29] MEDS: ACETAMINOPHEN 500 MG TAB PO SCH ×2 (10:13→20:51)
[2020-09-29] MEDS: OMEPRAZOLE SUSPENSION 20MG 10ML ORAL SYRINGE GT SCH (10:13)
[2020-09-29] MEDS: SODIUM CHLORIDE 0.9% INJ 10 ML SYR IV SCH (10:13)
[2020-09-29] MEDS ORDERED: MORPHINE 10MG/0.5ML ORAL CONCENTRATE SOLUTION U/D SL PRN (10:15)
[2020-09-29] MEDS: guaiFENesin SYRUP 200 MG/10 ML UDC PO PRN (15:29)
[2020-09-29] MEDS: MIRTAZAPINE 15 MG TAB PEG SCH (20:51)
[2020-09-29] MEDS: BISACODYL 10 MG SUPP PR SCH (21:00)
[2020-09-30] MEDS: IPRATROPIUM 0.5MG/ALBUTEROL 2.5MG INH SOL UD 3ML (DUONEB) NEB SCH ×3 (04:00→07:49)
[2020-09-30] MEDS: LEVOTHYROXINE 75MCG TABLET (0.075MG) PEG SCH (07:36)
[2020-09-30] MEDS: SODIUM CHLORIDE 0.9% INJ 10 ML SYR IV SCH (09:00)
[2020-09-30] MEDS: OMEPRAZOLE SUSPENSION 20MG 10ML ORAL SYRINGE GT SCH (09:55)
[2020-09-30] MEDS: DOCUSATE SOD LIQ 100MG/10ML UDC PEG SCH (09:55)
[2020-09-30] MEDS: predniSONE 5 MG TAB PEG SCH (09:55)
[2020-09-30] MEDS: ACETAMINOPHEN 500 MG TAB PO SCH (09:55)
[2020-09-30] MEDS ORDERED: ATIV1TAB10 PO (10:08)
[2020-09-30] MEDS ORDERED: MORP20SO3 PO (10:08)
[2020-09-30] MEDS ORDERED: HYOS125TA PO (10:08)
[2020-09-30] MEDS: CEPACOL LOZENGE PO PRN (10:57)
--- NOTE | 2020-09-30 15:44 | DS.PDOC ---
Discharge Summary General Date of Admission Sep 22, 2020 at 13:56 Date of Discharge 09/30/20 Discharge Summary PROCEDURES PERFORMED DURING STAY: [None]. 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 HISTORY OF PRESENT ILLNESS: Patient is a 75-year-old male who presented to the emergency room with compressive weakness ongoing for the last 2-3 weeks. Patient reports that he has been experiencing shortness of breath status progressively worsened. He has reported a productive cough with yellow sputum. Denies any recent fevers or chills, has not spent any chest pain or palpitations. Denies any lower extremity swelling. Patient denies any nausea, vomiting, abdominal pain, diarrhea, but does report constipation. Reports his last bowel movement was approximately 2 days ago. Denies any dark colored stools. Denies any urinary discomfort. Upon arrival to ER, patient was placed on supplemental oxygen via nasal cannula at 2 L. HOSPITAL COURSE: Patient was admitted for further evaluation and treatment. Given his poor prognosis. Patient and his family decided for comfort measures only. He was subsequently discharged to hospice house. # Acute hypoxic respiratory failure 2/2 necrotizing pneumonia vs aspiration pneumonia -Suspected superimposed aspiration pneumonia following barium cookie swallow on 09/23/20. -Sputum culture 09/23: showed few yeast like organisms -Blood cultures show no growth after 72 hours -Patient oxygen saturation is 92% on 6L NC. 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 ALLERGIES: Please see below. PHYSICAL EXAMINATION ON DISCHARGE: VITAL SIGNS: Please see below. GENERAL: NAD, frail appearing man sleeping comfortably in his hospital bed HEENT: edentulous, NC/AT CARDIOVASCULAR: Distant heart sounds, regular rate and rhythm, no murmurs, rubs, or gallops. RESPIRATORY: diminished breath sounds bilaterally as well as decreased inspiratory effort, coarse rhonchi ABDOMINAL: PEG tube appreciated, no tenderness to palpation in all four quadrants. EXTREMITIES: No edema noted on lower extremities bilaterally, posterior tibial pulses 2+ bilaterally PSYCHOLOGICAL: normal affect, patient appears tired but is in good spirits LABORATORY DATA: Please see below. ACTIVITY: [As tolerated]. DISPOSITION: [facility] DISCHARGE INSTRUCTIONS: 1. Further direction as per hospice. DISCHARGE CONDITION: [Stable]. TIME SPENT ON DISCHARGE: 35 minutes. Vital Signs/I&Os Vital Signs Date Time Temp Pulse Resp B/P (MAP) Pulse Ox O2 Delivery O2 Flow Rate FiO2 09/30/20 10:00 6.0 09/30/20 08:10 20 09/30/20 07:37 95 Nasal Cannula 09/27/20 10:00 97.5 116 108/72 (84) I&O- Last 24 Hours up to 6 AM 09/30/20 06:00 Intake Total 2640 ml Output Total 1750 ml Balance 890 ml Microbiology Microbiology 09/23/20 Blood Culture - Final, Complete NO GROWTH AFTER 5 DAYS 09/23/20 Blood Culture - Final, Complete NO GROWTH AFTER 5 DAYS 09/22/20 Gram Stain - Final, Complete 09/22/20 Sputum Culture - Final, Complete Yeast Like Organism Discharge Medications Scheduled PRN Hyoscyamine Sulfate (Hyoscyamine Sulfate) 0.125 Mg Tab.subl, 0.125 MG PO Q4HP PRN for TERMINAL SECRETIONS Use sublingually if unable to swallow Lorazepam (Ativan) 0.5 Mg Tablet, 0.5 MG PO Q4HP PRN for ANXIETY/AGITATION Use sublingually if unable to swallow Morphine Sulfate (Morphine Sulfate) 100 Mg/5 Ml Solution, 0.25-1 ML PO Q2H PRN for PAIN OR DYSPNEA Use sublingually if unable to swallow Allergies Coded Allergies: No Known Allergies (Verified Allergy, Unknown, 05/20/20) KEATON ARREGUIN MD Sep 30, 2020 15:44
== END 2020-09-30 11:15 | disposition hospice, inpatient (51) | DRG 177 ==
LOC: M ED 10:24 → M ED INP 13:56 → ENRESERV 15:41 → M MSPAV 16:50
PROVIDERS: ADMIT Internal Medicine; ATTEND Internal Medicine
DX: J85.0 Gangrene and necrosis of lung (principal); J96.01 Acute respiratory failure with hypoxia; J69.0 Pneumonitis due to inhalation of food and vomit; C34.90 Malignant neoplasm of unspecified part of unspecified bronchus or lung; E87.0 Hyperosmolality and hypernatremia; E87.6 Hypokalemia; K22.2 Esophageal obstruction; N18.30 Chronic kidney disease, stage 3 unspecified; J44.9 Chronic obstructive pulmonary disease, unspecified; E03.9 Hypothyroidism, unspecified; K21.9 Gastro-esophageal reflux disease without esophagitis; Z92.21 Personal history of antineoplastic chemotherapy; Z92.3 Personal history of irradiation; N40.0 Benign prostatic hyperplasia without lower urinary tract symptoms; I25.10 Atherosclerotic heart disease of native coronary artery without angina pectoris; Z95.2 Presence of prosthetic heart valve; Z79.82 Long term (current) use of aspirin; Z79.899 Other long term (current) drug therapy; Z93.1 Gastrostomy status; Z85.038 Personal history of other malignant neoplasm of large intestine; K59.00 Constipation, unspecified